=== PATIENT | female | born 1935 | race Asian ===

== ENCOUNTER 2018-08-04 16:59 | Inpatient (IN) | payer MEDICARE, OTHER ==
[2018-08-04 17:50] LABS: ADD MAN DIFF? NO
[2018-08-04 17:56] LABS: BASOPHIL # 0.1 10^3/ul (0.0-0.1); BASOPHILS % 0.6 % (0.0-2.0); EOSINOPHILS # 0.5 10^3/ul (0.0-0.5); EOSINOPHILS % 4.7 % (0.0-7.0); HEMATOCRIT 36.5 % (37.0-47.0); HEMOGLOBIN 10.7 g/dl (12.0-16.0); LYMPHOCYTES # 1.6 10^3/ul (0.8-2.9); LYMPHOCYTES % 14.9 % (15.0-51.0); MEAN CORPUSCULAR HGB CONC 29.3 g/dl (32.0-37.0); MEAN PLATELET VOLUME 10.5 fl (7.4-10.4); MONOCYTE # 0.9 10^3/ul (0.3-0.9); MONOCYTES % 7.9 % (0.0-11.0); NEUTROPHIL # 7.6 10^3/ul (1.6-7.5); NUCLEATED RED BLOOD CELLS # 0.1 10^3/ul (0.0-0.0); NUCLEATED RED BLOOD CELLS% 1.2 /100WBC (0.0-0.0); PLATELET COUNT 263 10^3/UL (140-415); RED BLOOD COUNT 4.45 10^6/ul (4.20-5.40); RED CELL DISTRIBUTION WIDTH 21.8 % (11.5-14.5)
[2018-08-04 17:56] LABS: WHITE BLOOD COUNT 10.7 10^3/ul (4.8-10.8)
[2018-08-04 18:12] LABS: INR 0.97
[2018-08-04 18:14] LABS: ANION GAP 14 (5-13); BLOOD UREA NITROGEN 46 mg/dl (7-20); CALCIUM 8.9 mg/dl (8.4-10.2); CARBON DIOXIDE 26 mmol/L (21-31); CHLORIDE 91 mmol/L (97-110); CREATININE 4.43 mg/dl (0.44-1.00); GLUCOSE 124 mg/dl (70-220); POTASSIUM 3.4 mmol/L (3.5-5.1); SODIUM 131 mmol/L (135-144)
[2018-08-04 18:14] LABS: AMMONIA 23 umol/l (9-30)
[2018-08-04 18:24] LABS: LACTIC ACID 2.5 mmol/L (0.5-2.0)
[2018-08-04 18:26] LABS: TROPONIN-I < 0.012 ng/ml (0.000-0.120)
[2018-08-04] MEDS ORDERED: ACETAMINOPHEN 325 MG TAB PO (19:00)
[2018-08-04] MEDS ORDERED: ONDANSETRON 4 MG INJ IV ×2 (19:00→22:00)
[2018-08-04 20:04] LABS: LACTIC ACID 1.4 mmol/L (0.5-2.0)
[2018-08-04] MEDS ORDERED: POLYETHYLENE GLYCOL 17 GM PACKET GTB (22:00)
[2018-08-04] MEDS ORDERED: DEXTROSE 50% 50 ML SYRINGE IV ×2 (22:30)
[2018-08-04] MEDS ORDERED: GLUCAGON 1 MG INJ IM (22:30)
[2018-08-04] MEDS ORDERED: GLUCOSE GEL 15 GRAM TUBE PO ×2 (22:30)
[2018-08-04] MEDS: FERROUS SULFATE 60 MG/ML 5ML CUP GTB (23:54)
[2018-08-04] MEDS: SENNA TAB GTB (23:55)
[2018-08-04] MEDS: METOPROLOL 25 MG TAB GTB (23:55)
[2018-08-04] MEDS: QUETIAPINE 25 MG TAB GTB (23:55)
[2018-08-05 00:25] LABS: LACTIC ACID 1.2 mmol/L (0.5-2.0)
[2018-08-05] MEDS: ACCU-CHEK XX ×5 (02:16→21:44)
[2018-08-05] MEDS: PANTOPRAZOLE (EC) 40 MG TAB PO (05:59)
[2018-08-05 06:19] LABS: ADD MAN DIFF? NO
[2018-08-05 06:36] LABS: WHITE BLOOD COUNT 7.2 10^3/ul (4.8-10.8)
[2018-08-05 06:36] LABS: BASOPHILS % 0.6 % (0.0-2.0); EOSINOPHILS # 0.6 10^3/ul (0.0-0.5); EOSINOPHILS % 8.3 % (0.0-7.0); HEMATOCRIT 31.3 % (37.0-47.0); HEMOGLOBIN 9.7 g/dl (12.0-16.0); LYMPHOCYTES # 1.1 10^3/ul (0.8-2.9); LYMPHOCYTES % 15.1 % (15.0-51.0); MEAN CORPUSCULAR HEMOGLOBIN 24.4 pg (29.0-33.0); MEAN CORPUSCULAR VOLUME 78.6 fl (82.0-101.0); MEAN PLATELET VOLUME 11.1 fl (7.4-10.4); MONOCYTE # 0.8 10^3/ul (0.3-0.9); MONOCYTES % 10.4 % (0.0-11.0); NEUTROPHIL # 4.7 10^3/ul (1.6-7.5); NEUTROPHILS % 64.5 % (39.0-77.0); NUCLEATED RED BLOOD CELLS # 0.1 10^3/ul (0.0-0.0); NUCLEATED RED BLOOD CELLS% 1.8 /100WBC (0.0-0.0); PLATELET COUNT 316 10^3/UL (140-415); RED BLOOD COUNT 3.98 10^6/ul (4.20-5.40); RED CELL DISTRIBUTION WIDTH 21.2 % (11.5-14.5)
[2018-08-05 06:59] LABS: ALANINE AMINOTRANSFERASE 19 IU/L (13-69); ALBUMIN 3.7 g/dl (3.3-4.9); ALBUMIN/GLOBULIN RATIO 1.15; ALKALINE PHOSPHATASE 60 IU/L (42-121); ANION GAP 12 (5-13); ASPARTATE AMINO TRANSFERASE 22 IU/L (15-46); BILIRUBIN,INDIRECT 0.7 mg/dl (0-1.1); BILIRUBIN,TOTAL 0.7 mg/dl (0.2-1.3); BLOOD UREA NITROGEN 49 mg/dl (7-20); CARBON DIOXIDE 28 mmol/L (21-31); CHLORIDE 91 mmol/L (97-110); CREATININE 4.95 mg/dl (0.44-1.00); GLUCOSE 107 mg/dl (70-220); POTASSIUM 3.6 mmol/L (3.5-5.1); SODIUM 131 mmol/L (135-144); TOTAL PROTEIN 6.9 g/dl (6.1-8.1)
[2018-08-05 07:21] LABS: THYROID STIMULATING HORMONE 0.863 MIU/L (0.465-4.680)
[2018-08-05 07:27] LABS: HEMOGLOBIN A1C 5.2 % (0-5.9)
[2018-08-05] MEDS: DOCUSATE SODIUM 10 MG/ML (10ML CUP) GTB (08:27)
[2018-08-05] MEDS: FERROUS SULFATE 60 MG/ML 5ML CUP GTB ×2 (08:28→21:43)
[2018-08-05] MEDS: LINAGLIPTIN 5 MG TABLET G-TUBE (08:28)
[2018-08-05] MEDS: FOLIC ACID 1 MG TAB GTB (08:28)
[2018-08-05] MEDS: SENNA TAB GTB ×2 (08:29→21:43)
[2018-08-05] MEDS: QUETIAPINE 25 MG TAB GTB ×2 (08:29→21:43)
[2018-08-05] MEDS: SEVELAMER CARBONATE 0.8 GM PKT GTB (08:29)
[2018-08-05] MEDS: MULTIVIT/CA CARB/B CMPLX/FA TAB GTB (08:29)
[2018-08-05] MEDS: METOPROLOL 25 MG TAB GTB (08:31)
[2018-08-05] MEDS: INSULIN ASPART [NOVOLOG] 3 ML PEN SC ×4 (08:39→21:00)
[2018-08-05] MEDS: INSULIN DETEMIR [LEVEMIR] (100 UNITS/ML) SYG SC (08:40)
[2018-08-05] MEDS: SOD CHLORIDE 0.9% 500 ML IV (13:33)
[2018-08-05] MEDS ORDERED: VANCOMYCIN IV PER PHARMACY XX (15:00)
[2018-08-05 16:53] LABS: ADD UMIC YES; UR AMORPHOUS CRYSTAL MODERATE /HPF (NONE SEEN); UR ASCORBIC ACID NEGATIVE (NEGATIVE); UR BACTERIA MODERATE /HPF (NONE SEEN); UR BILIRUBIN (Dip) 2+ mg/dL (NEGATIVE); UR BLOOD (Dip) NEGATIVE (NEGATIVE); UR CLARITY TURBID (CLEAR); UR COLOR AMBER (YELLOW); UR GLUCOSE (Dip) NEGATIVE (NEGATIVE); UR GRANULAR CAST FEW /HPF (NONE SEEN); UR KETONES (Dip) NEGATIVE (NEGATIVE); UR LEUKOCYTE ESTERASE (Dip) 2+ Leu/ul (NEGATIVE); UR MUCUS MANY /HPF (NONE SEEN); UR NITRITE (Dip) NEGATIVE (NEGATIVE); UR RBC 18 /HPF (0-5); UR SPECIFIC GRAVITY (Dip) 1.023 (1.003-1.030); UR SQUAMOUS EPITHELIAL CELL MANY /HPF (FEW); UR TOTAL PROTEIN (Dip) 2+ mg/dl (NEGATIVE); UR UROBILINOGEN (Dip) NEGATIVE (NEGATIVE); UR WBC 128 /HPF (0-5)
[2018-08-05] MEDS: VANCOMYCIN 1 GM 250 ML IVPB (17:56)
[2018-08-05] MEDS: GLUCOSE GEL 15 GRAM TUBE BUCCAL ×2 (21:10→21:33)
[2018-08-05] MEDS: CEFTRIAXONE 1 GM/50 ML (PMX) 50 ML IVPB (21:44)
[2018-08-05 21:47] LABS: GLUCOSE 59 mg/dl (70-220)
[2018-08-06] MEDS: ACCU-CHEK XX ×5 (02:00→21:00)
[2018-08-06] MEDS: PANTOPRAZOLE (EC) 40 MG TAB PO (05:21)
[2018-08-06 07:03] LABS: ADD MAN DIFF? NO
[2018-08-06 07:13] LABS: WHITE BLOOD COUNT 7.6 10^3/ul (4.8-10.8)
[2018-08-06 07:13] LABS: BASOPHILS % 0.1 % (0.0-2.0); EOSINOPHILS # 0.5 10^3/ul (0.0-0.5); EOSINOPHILS % 6.3 % (0.0-7.0); HEMATOCRIT 29.5 % (37.0-47.0); HEMOGLOBIN 9.1 g/dl (12.0-16.0); LYMPHOCYTES # 1.1 10^3/ul (0.8-2.9); LYMPHOCYTES % 13.8 % (15.0-51.0); MEAN CORPUSCULAR HEMOGLOBIN 24.4 pg (29.0-33.0); MEAN CORPUSCULAR HGB CONC 30.8 g/dl (32.0-37.0); MEAN CORPUSCULAR VOLUME 79.1 fl (82.0-101.0); MEAN PLATELET VOLUME 11.1 fl (7.4-10.4); MONOCYTE # 0.6 10^3/ul (0.3-0.9); MONOCYTES % 7.4 % (0.0-11.0); NEUTROPHIL # 5.4 10^3/ul (1.6-7.5); NEUTROPHILS % 71.5 % (39.0-77.0); NUCLEATED RED BLOOD CELLS # 0.1 10^3/ul (0.0-0.0); NUCLEATED RED BLOOD CELLS% 1.3 /100WBC (0.0-0.0); PLATELET COUNT 313 10^3/UL (140-415); RED BLOOD COUNT 3.73 10^6/ul (4.20-5.40); RED CELL DISTRIBUTION WIDTH 21.3 % (11.5-14.5)
[2018-08-06 07:41] LABS: ANION GAP 14 (5-13); BLOOD UREA NITROGEN 75 mg/dl (7-20); CALCIUM 8.3 mg/dl (8.4-10.2); CARBON DIOXIDE 25 mmol/L (21-31); CHLORIDE 93 mmol/L (97-110); GLUCOSE 170 mg/dl (70-220); POTASSIUM 3.4 mmol/L (3.5-5.1); SODIUM 132 mmol/L (135-144)
[2018-08-06 07:43] LABS: MAGNESIUM 2.4 mg/dl (1.7-2.5)
[2018-08-06] MEDS: SENNA TAB GTB ×2 (09:13→20:44)
[2018-08-06] MEDS: DOCUSATE SODIUM 10 MG/ML (10ML CUP) GTB (09:14)
[2018-08-06] MEDS: FERROUS SULFATE 60 MG/ML 5ML CUP GTB ×2 (09:14→20:44)
[2018-08-06] MEDS: QUETIAPINE 25 MG TAB GTB ×2 (09:14→20:44)
[2018-08-06] MEDS: LINAGLIPTIN 5 MG TABLET G-TUBE (09:14)
[2018-08-06] MEDS: MULTIVIT/CA CARB/B CMPLX/FA TAB GTB (09:14)
[2018-08-06] MEDS: SEVELAMER CARBONATE 0.8 GM PKT GTB (09:14)
[2018-08-06] MEDS: FOLIC ACID 1 MG TAB GTB (09:14)
[2018-08-06] MEDS ORDERED: POTASSIUM CHLORIDE (SR) 10 MEQ TAB PO (10:30)
[2018-08-06] MEDS ORDERED: ALBUMIN HUMAN 25% 50 ML IV (10:30)
[2018-08-06 12:07] LABS: HEPATITIS B SURFACE ANTIGEN NEGATIVE (NEGATIVE)
[2018-08-06 12:27] LABS: HEPATITIS B SURFACE ANTIBODY POSITIVE (NEGATIVE)
[2018-08-06] MEDS: POTASSIUM CHLORIDE 20 MEQ POWDER FOR ORAL SOLN GTB (13:33)
[2018-08-06] MEDS: HEPARIN 1000 UNITS/ML 10 ML INJ CATHETER (17:50)
[2018-08-06] MEDS: ACETAMINOPHEN 650MG/20.3ML CUP GTB (20:50)
[2018-08-06] MEDS: CEFTRIAXONE 1 GM/50 ML (PMX) 50 ML IVPB (20:50)
[2018-08-07] MEDS: ACCU-CHEK XX ×5 (02:00→21:00)
[2018-08-07] MEDS: LORAZEPAM 1 MG TAB GTB (02:16)
[2018-08-07] MEDS: PANTOPRAZOLE (EC) 40 MG TAB PO (05:18)
[2018-08-07 06:34] LABS: ANION GAP 6 (5-13); BLOOD UREA NITROGEN 22 mg/dl (7-20); CALCIUM 8.7 mg/dl (8.4-10.2); CARBON DIOXIDE 30 mmol/L (21-31); CHLORIDE 107 mmol/L (97-110); CREATININE 1.69 mg/dl (0.44-1.00); GLUCOSE 103 mg/dl (70-220); POTASSIUM 4.4 mmol/L (3.5-5.1); SODIUM 143 mmol/L (135-144)
[2018-08-07 06:50] LABS: VANCOMYCIN,RANDOM 10.5 ug/ml
[2018-08-07] MEDS: LINAGLIPTIN 5 MG TABLET G-TUBE (09:13)
[2018-08-07] MEDS: MULTIVIT/CA CARB/B CMPLX/FA TAB GTB (09:23)
[2018-08-07] MEDS: SENNA TAB GTB ×2 (09:23→21:51)
[2018-08-07] MEDS: FOLIC ACID 1 MG TAB GTB (09:23)
[2018-08-07] MEDS: FERROUS SULFATE 60 MG/ML 5ML CUP GTB ×2 (09:23→21:51)
[2018-08-07] MEDS: QUETIAPINE 25 MG TAB GTB ×2 (09:23→21:51)
[2018-08-07] MEDS: DOCUSATE SODIUM 10 MG/ML (10ML CUP) GTB (09:23)
[2018-08-07] MEDS: [UNRECOGNIZED DRUG - OTHER] XX (09:30)
[2018-08-07] MEDS: LINEZOLID 600 MG/D5W (PMX) 300 ML IVPB ×2 (11:30→21:50)
[2018-08-07] MEDS: ACETAMINOPHEN 650MG/20.3ML CUP GTB (16:59)
[2018-08-08] MEDS: LORAZEPAM 1 MG TAB GTB (01:43)
[2018-08-08] MEDS: ACCU-CHEK XX ×5 (02:00→21:33)
[2018-08-08] MEDS: PANTOPRAZOLE (EC) 40 MG TAB PO (05:51)
[2018-08-08 05:55] LABS: ADD MAN DIFF? NO
[2018-08-08 06:00] LABS: BASOPHILS % 0.4 % (0.0-2.0); EOSINOPHILS % 14.4 % (0.0-7.0); HEMATOCRIT 31.1 % (37.0-47.0); HEMOGLOBIN 9.1 g/dl (12.0-16.0); LYMPHOCYTES # 1.4 10^3/ul (0.8-2.9); LYMPHOCYTES % 20.5 % (15.0-51.0); MEAN CORPUSCULAR HGB CONC 29.3 g/dl (32.0-37.0); MEAN CORPUSCULAR VOLUME 82.1 fl (82.0-101.0); MEAN PLATELET VOLUME 10.9 fl (7.4-10.4); MONOCYTE # 0.8 10^3/ul (0.3-0.9); NEUTROPHIL # 3.6 10^3/ul (1.6-7.5); NEUTROPHILS % 52.1 % (39.0-77.0); NUCLEATED RED BLOOD CELLS% 0.6 /100WBC (0.0-0.0); PLATELET COUNT 289 10^3/UL (140-415); RED BLOOD COUNT 3.79 10^6/ul (4.20-5.40); RED CELL DISTRIBUTION WIDTH 21.7 % (11.5-14.5)
[2018-08-08 06:00] LABS: WHITE BLOOD COUNT 6.9 10^3/ul (4.8-10.8)
[2018-08-08 06:21] LABS: PHOSPHORUS 2.2 mg/dl (2.5-4.9)
[2018-08-08 06:21] LABS: MAGNESIUM 2.4 mg/dl (1.7-2.5)
[2018-08-08 06:29] LABS: ANION GAP 8 (5-13); BLOOD UREA NITROGEN 43 mg/dl (7-20); CALCIUM 8.8 mg/dl (8.4-10.2); CARBON DIOXIDE 31 mmol/L (21-31); CHLORIDE 105 mmol/L (97-110); CREATININE 2.27 mg/dl (0.44-1.00); GLUCOSE 83 mg/dl (70-220); SODIUM 144 mmol/L (135-144)
[2018-08-08] MEDS: QUETIAPINE 25 MG TAB GTB ×2 (08:36→20:18)
[2018-08-08] MEDS: MULTIVIT/CA CARB/B CMPLX/FA TAB GTB (08:36)
[2018-08-08] MEDS: FERROUS SULFATE 60 MG/ML 5ML CUP GTB ×2 (08:36→20:18)
[2018-08-08] MEDS: FOLIC ACID 1 MG TAB GTB (08:36)
[2018-08-08] MEDS: LINAGLIPTIN 5 MG TABLET G-TUBE (09:29)
[2018-08-08] MEDS: SENNA TAB GTB ×2 (09:29→20:18)
[2018-08-08] MEDS: DOCUSATE SODIUM 10 MG/ML (10ML CUP) GTB (09:29)
[2018-08-08] MEDS: LINEZOLID 600 MG/D5W (PMX) 300 ML IVPB ×2 (09:30→20:18)
[2018-08-08] MEDS ORDERED: CALAMINE 170 ML LOT TOP (14:00)
[2018-08-08] MEDS: HEPARIN 1000 UNITS/ML 10 ML INJ CATHETER (14:22)
[2018-08-08] MEDS: AMLODIPINE 5 MG TAB GTB (20:18)
[2018-08-08] MEDS: INSULIN ASPART [NOVOLOG] 3 ML PEN SC (23:07)
[2018-08-09] MEDS: LORAZEPAM 1 MG TAB GTB (01:44)
[2018-08-09] MEDS: ACCU-CHEK XX ×5 (01:44→21:37)
[2018-08-09] MEDS: LANSOPRAZOLE 30 MG CAP GTB (06:24)
[2018-08-09] MEDS: FERROUS SULFATE 60 MG/ML 5ML CUP GTB ×2 (09:19→21:09)
[2018-08-09] MEDS: DOCUSATE SODIUM 10 MG/ML (10ML CUP) GTB (09:19)
[2018-08-09] MEDS: MULTIVIT/CA CARB/B CMPLX/FA TAB GTB (09:19)
[2018-08-09] MEDS: AMLODIPINE 5 MG TAB GTB ×2 (09:20→21:11)
[2018-08-09] MEDS: METOPROLOL 50 MG TAB GTB ×2 (09:20→21:11)
[2018-08-09] MEDS: SENNA TAB GTB ×2 (09:20→21:10)
[2018-08-09] MEDS: FOLIC ACID 1 MG TAB GTB (09:20)
[2018-08-09] MEDS: QUETIAPINE 25 MG TAB GTB ×2 (09:21→21:11)
[2018-08-09] MEDS: LINAGLIPTIN 5 MG TABLET G-TUBE (09:27)
[2018-08-09] MEDS: hydrOXYzine HCL 25 MG TAB GTB (09:27)
[2018-08-09] MEDS: LINEZOLID 600 MG/D5W (PMX) 300 ML IVPB ×2 (11:42→21:54)
[2018-08-09] MEDS ORDERED: ALBUMIN HUMAN 25% 100 ML IV (19:00)
[2018-08-10] MEDS: ACCU-CHEK XX ×5 (01:57→21:03)
[2018-08-10 05:42] LABS: ADD MAN DIFF? NO
[2018-08-10] MEDS: LANSOPRAZOLE 30 MG CAP GTB (05:50)
[2018-08-10 05:52] LABS: WHITE BLOOD COUNT 6.4 10^3/ul (4.8-10.8)
[2018-08-10 05:52] LABS: BASOPHILS % 0.5 % (0.0-2.0); EOSINOPHILS # 0.7 10^3/ul (0.0-0.5); EOSINOPHILS % 11.4 % (0.0-7.0); HEMATOCRIT 32.5 % (37.0-47.0); HEMOGLOBIN 9.9 g/dl (12.0-16.0); LYMPHOCYTES # 1.1 10^3/ul (0.8-2.9); LYMPHOCYTES % 17.8 % (15.0-51.0); MEAN CORPUSCULAR HEMOGLOBIN 24.3 pg (29.0-33.0); MEAN CORPUSCULAR HGB CONC 30.5 g/dl (32.0-37.0); MEAN CORPUSCULAR VOLUME 79.7 fl (82.0-101.0); MEAN PLATELET VOLUME 11.3 fl (7.4-10.4); MONOCYTE # 0.6 10^3/ul (0.3-0.9); MONOCYTES % 9.2 % (0.0-11.0); NEUTROPHIL # 3.9 10^3/ul (1.6-7.5); NEUTROPHILS % 60.8 % (39.0-77.0); NUCLEATED RED BLOOD CELLS # 0.1 10^3/ul (0.0-0.0); NUCLEATED RED BLOOD CELLS% 0.8 /100WBC (0.0-0.0); PLATELET COUNT 270 10^3/UL (140-415); RED BLOOD COUNT 4.08 10^6/ul (4.20-5.40); RED CELL DISTRIBUTION WIDTH 21.3 % (11.5-14.5)
[2018-08-10 06:11] LABS: ANION GAP 8 (5-13); BLOOD UREA NITROGEN 31 mg/dl (7-20); CALCIUM 9.2 mg/dl (8.4-10.2); CARBON DIOXIDE 30 mmol/L (21-31); CHLORIDE 99 mmol/L (97-110); CREATININE 2.07 mg/dl (0.44-1.00); GLUCOSE 124 mg/dl (70-220); POTASSIUM 4.5 mmol/L (3.5-5.1); SODIUM 137 mmol/L (135-144)
[2018-08-10] MEDS: FOLIC ACID 1 MG TAB GTB (09:24)
[2018-08-10] MEDS: QUETIAPINE 25 MG TAB GTB ×2 (09:24→21:03)
[2018-08-10] MEDS: MULTIVIT/CA CARB/B CMPLX/FA TAB GTB (09:24)
[2018-08-10] MEDS: SENNA TAB GTB ×2 (09:24→21:02)
[2018-08-10] MEDS: DOCUSATE SODIUM 10 MG/ML (10ML CUP) GTB (09:24)
[2018-08-10] MEDS: LINAGLIPTIN 5 MG TABLET G-TUBE (09:24)
[2018-08-10] MEDS: FERROUS SULFATE 60 MG/ML 5ML CUP GTB ×2 (09:25→21:02)
[2018-08-10] MEDS: HEPARIN 1000 UNITS/ML 10 ML INJ CATHETER (09:34)
[2018-08-10] MEDS: LINEZOLID 600 MG/D5W (PMX) 300 ML IVPB ×2 (10:49→21:15)
[2018-08-10] MEDS: AMLODIPINE 5 MG TAB GTB ×2 (11:06→21:03)
[2018-08-10] MEDS: METOPROLOL 50 MG TAB GTB ×2 (11:06→21:02)
[2018-08-10] MEDS: LIDOCAINE 1% (MPF) 5 ML VIAL INJ (13:52)
[2018-08-11] MEDS: ACCU-CHEK XX ×5 (02:23→21:40)
[2018-08-11] MEDS: LANSOPRAZOLE 30 MG CAP GTB (05:21)
[2018-08-11] MEDS: FERROUS SULFATE 60 MG/ML 5ML CUP GTB ×2 (08:49→21:38)
[2018-08-11] MEDS: AMLODIPINE 5 MG TAB GTB ×2 (08:50→21:39)
[2018-08-11] MEDS: MULTIVIT/CA CARB/B CMPLX/FA TAB GTB (08:51)
[2018-08-11] MEDS: LINAGLIPTIN 5 MG TABLET G-TUBE (08:51)
[2018-08-11] MEDS: FOLIC ACID 1 MG TAB GTB (08:51)
[2018-08-11] MEDS: QUETIAPINE 25 MG TAB GTB ×2 (08:51→21:39)
[2018-08-11] MEDS: SENNA TAB GTB ×2 (08:51→21:39)
[2018-08-11] MEDS: METOPROLOL 50 MG TAB GTB ×2 (08:52→21:39)
[2018-08-11] MEDS: DOCUSATE SODIUM 10 MG/ML (10ML CUP) GTB (08:58)
[2018-08-11] MEDS: LINEZOLID 600 MG/D5W (PMX) 300 ML IVPB ×2 (10:21→21:42)
[2018-08-11] MEDS: LORAZEPAM 1 MG TAB GTB ×2 (14:30→22:30)
[2018-08-11] MEDS: hydrOXYzine HCL 25 MG TAB GTB (23:17)
[2018-08-12] MEDS: ACCU-CHEK XX ×6 (01:31→21:27)
[2018-08-12] MEDS: hydrOXYzine HCL 25 MG TAB GTB (04:39)
[2018-08-12 06:06] LABS: ADD MAN DIFF? NO
[2018-08-12 06:11] LABS: WHITE BLOOD COUNT 7.1 10^3/ul (4.8-10.8)
[2018-08-12 06:11] LABS: BASOPHILS % 0.3 % (0.0-2.0); EOSINOPHILS % 13.6 % (0.0-7.0); HEMATOCRIT 28.6 % (37.0-47.0); HEMOGLOBIN 8.8 g/dl (12.0-16.0); LYMPHOCYTES # 1.4 10^3/ul (0.8-2.9); LYMPHOCYTES % 19.1 % (15.0-51.0); MEAN CORPUSCULAR HEMOGLOBIN 24.5 pg (29.0-33.0); MEAN CORPUSCULAR HGB CONC 30.8 g/dl (32.0-37.0); MEAN CORPUSCULAR VOLUME 79.7 fl (82.0-101.0); MEAN PLATELET VOLUME 11.9 fl (7.4-10.4); MONOCYTE # 0.6 10^3/ul (0.3-0.9); MONOCYTES % 8.4 % (0.0-11.0); NEUTROPHIL # 4.1 10^3/ul (1.6-7.5); NEUTROPHILS % 58.2 % (39.0-77.0); PLATELET COUNT 218 10^3/UL (140-415); RED BLOOD COUNT 3.59 10^6/ul (4.20-5.40); RED CELL DISTRIBUTION WIDTH 19.8 % (11.5-14.5)
[2018-08-12] MEDS: LANSOPRAZOLE 30 MG CAP GTB (06:14)
[2018-08-12 06:57] LABS: PHOSPHORUS 4.6 mg/dl (2.5-4.9)
[2018-08-12 06:57] LABS: MAGNESIUM 2.1 mg/dl (1.7-2.5)
[2018-08-12 07:17] LABS: ANION GAP 10 (5-13); BLOOD UREA NITROGEN 49 mg/dl (7-20); CALCIUM 8.6 mg/dl (8.4-10.2); CARBON DIOXIDE 29 mmol/L (21-31); CHLORIDE 94 mmol/L (97-110); CREATININE 2.45 mg/dl (0.44-1.00); GLUCOSE 162 mg/dl (70-220); POTASSIUM 4.5 mmol/L (3.5-5.1); SODIUM 133 mmol/L (135-144)
[2018-08-12] MEDS: FOLIC ACID 1 MG TAB GTB (08:14)
[2018-08-12] MEDS: SENNA TAB GTB ×2 (08:15→20:23)
[2018-08-12] MEDS: FERROUS SULFATE 60 MG/ML 5ML CUP GTB ×2 (08:15→20:23)
[2018-08-12] MEDS: AMLODIPINE 5 MG TAB GTB ×2 (08:15→20:23)
[2018-08-12] MEDS: MULTIVIT/CA CARB/B CMPLX/FA TAB GTB (08:15)
[2018-08-12] MEDS: QUETIAPINE 25 MG TAB GTB ×2 (08:15→20:23)
[2018-08-12] MEDS: DOCUSATE SODIUM 10 MG/ML (10ML CUP) GTB (08:15)
[2018-08-12] MEDS: METOPROLOL 50 MG TAB GTB ×2 (08:15→20:23)
[2018-08-12] MEDS: LINAGLIPTIN 5 MG TABLET G-TUBE (08:16)
[2018-08-12] MEDS: LINEZOLID 600 MG/D5W (PMX) 300 ML IVPB ×3 (10:25→21:59)
[2018-08-12] MEDS: LORAZEPAM 1 MG TAB GTB (21:42)
[2018-08-13] MEDS: LANSOPRAZOLE 30 MG CAP GTB (05:37)
[2018-08-13] MEDS: ACCU-CHEK XX ×4 (07:00→20:18)
[2018-08-13] MEDS ORDERED: LIDOCAINE 2% (MDV) 20 ML INJ (08:50)
[2018-08-13] MEDS ORDERED: HEPARIN 1000 UNITS/ML 10 ML INJ (08:51)
[2018-08-13] MEDS: AMLODIPINE 5 MG TAB GTB ×2 (09:00→20:13)
[2018-08-13] MEDS: METOPROLOL 50 MG TAB GTB ×2 (09:00→20:13)
[2018-08-13] MEDS: FERROUS SULFATE 60 MG/ML 5ML CUP GTB ×2 (09:47→20:14)
[2018-08-13] MEDS: LINAGLIPTIN 5 MG TABLET G-TUBE (09:47)
[2018-08-13] MEDS: LORAZEPAM 1 MG TAB GTB ×2 (09:47→16:57)
[2018-08-13] MEDS: QUETIAPINE 25 MG TAB GTB ×2 (09:48→20:13)
[2018-08-13] MEDS: DOCUSATE SODIUM 10 MG/ML (10ML CUP) GTB (09:48)
[2018-08-13] MEDS: MULTIVIT/CA CARB/B CMPLX/FA TAB GTB (09:48)
[2018-08-13] MEDS: SENNA TAB GTB ×2 (09:48→20:13)
[2018-08-13] MEDS: FOLIC ACID 1 MG TAB GTB (09:48)
[2018-08-13] MEDS: LINEZOLID 600 MG/D5W (PMX) 300 ML IVPB (10:21)
[2018-08-13] MEDS: HEPARIN 1000 UNITS/ML 10 ML INJ CATHETER (19:42)
[2018-08-13] MEDS: ZYVOX 600 MG TAB GTB (20:12)
[2018-08-13] MEDS: ACETAMINOPHEN 650MG/20.3ML CUP GTB (20:14)
[2018-08-13] MEDS: LORAZEPAM 2 MG INJ IV (22:18)
[2018-08-14] MEDS: HALOPERIDOL 5 MG INJ IM ×3 (00:27→22:53)
[2018-08-14] MEDS: hydrALAzine 20 MG INJ IV (00:28)
[2018-08-14] MEDS ORDERED: DIPHENHYDRAMINE 50 MG INJ (01:23)
[2018-08-14] MEDS: LORAZEPAM 2 MG INJ IV (01:26)
[2018-08-14] MEDS: DIPHENHYDRAMINE 50 MG INJ IV (01:26)
[2018-08-14 01:29] LABS: ADD MAN DIFF? NO
[2018-08-14 01:32] LABS: WHITE BLOOD COUNT 8.6 10^3/ul (4.8-10.8)
[2018-08-14 01:32] LABS: BASOPHILS % 0.2 % (0.0-2.0); EOSINOPHILS # 0.4 10^3/ul (0.0-0.5); EOSINOPHILS % 4.5 % (0.0-7.0); HEMOGLOBIN 7.5 g/dl (12.0-16.0); LYMPHOCYTES # 1.5 10^3/ul (0.8-2.9); LYMPHOCYTES % 17.3 % (15.0-51.0); MEAN CORPUSCULAR HEMOGLOBIN 24.3 pg (29.0-33.0); MEAN CORPUSCULAR HGB CONC 31.3 g/dl (32.0-37.0); MEAN CORPUSCULAR VOLUME 77.7 fl (82.0-101.0); MEAN PLATELET VOLUME 9.8 fl (7.4-10.4); MONOCYTE # 0.6 10^3/ul (0.3-0.9); MONOCYTES % 7.5 % (0.0-11.0); NUCLEATED RED BLOOD CELLS% 0.3 /100WBC (0.0-0.0); PLATELET COUNT 182 10^3/UL (140-415); RED BLOOD COUNT 3.09 10^6/ul (4.20-5.40); RED CELL DISTRIBUTION WIDTH 19.3 % (11.5-14.5)
[2018-08-14 01:51] LABS: MAGNESIUM 2.1 mg/dl (1.7-2.5)
[2018-08-14 01:52] LABS: ANION GAP 7 (5-13); BLOOD UREA NITROGEN 31 mg/dl (7-20); CALCIUM 8.7 mg/dl (8.4-10.2); CARBON DIOXIDE 29 mmol/L (21-31); CHLORIDE 95 mmol/L (97-110); GLUCOSE 166 mg/dl (70-220); POTASSIUM 4.2 mmol/L (3.5-5.1); SODIUM 131 mmol/L (135-144)
[2018-08-14 01:54] LABS: PHOSPHORUS 2.5 mg/dl (2.5-4.9)
[2018-08-14] MEDS: ACCU-CHEK XX ×5 (02:00→21:26)
[2018-08-14] MEDS: LANSOPRAZOLE 30 MG CAP GTB (06:11)
[2018-08-14] MEDS: ZYVOX 600 MG TAB GTB ×3 (08:24→23:44)
[2018-08-14] MEDS: DOCUSATE SODIUM 10 MG/ML (10ML CUP) GTB (08:24)
[2018-08-14] MEDS: FERROUS SULFATE 60 MG/ML 5ML CUP GTB ×2 (08:24→21:26)
[2018-08-14] MEDS: FOLIC ACID 1 MG TAB GTB (08:24)
[2018-08-14] MEDS: MULTIVIT/CA CARB/B CMPLX/FA TAB GTB (08:24)
[2018-08-14] MEDS: LINAGLIPTIN 5 MG TABLET G-TUBE (08:25)
[2018-08-14] MEDS: SENNA TAB GTB ×2 (08:25→21:26)
[2018-08-14] MEDS: QUETIAPINE 25 MG TAB GTB ×2 (08:26→21:24)
[2018-08-14] MEDS: AMLODIPINE 5 MG TAB GTB ×2 (08:26→21:24)
[2018-08-14] MEDS: METOPROLOL 50 MG TAB GTB ×2 (08:26→21:25)
[2018-08-14] MEDS ORDERED: SODIUM CHLORIDE 0.9% 1L BAG IV (17:00)
[2018-08-14] MEDS: LORAZEPAM 1 MG TAB GTB (21:24)
[2018-08-14 23:27] LABS: IMMEDIATE SPIN CROSSMATCH 1 4
[2018-08-15] MEDS: hydrOXYzine HCL 25 MG TAB GTB (00:14)
[2018-08-15] MEDS: ACCU-CHEK XX ×5 (01:25→20:56)
[2018-08-15 05:05] LABS: ADD MAN DIFF? NO
[2018-08-15 05:11] LABS: WHITE BLOOD COUNT 9.1 10^3/ul (4.8-10.8)
[2018-08-15 05:11] LABS: BASOPHILS % 0.2 % (0.0-2.0); EOSINOPHILS # 0.8 10^3/ul (0.0-0.5); EOSINOPHILS % 9.1 % (0.0-7.0); HEMATOCRIT 27.3 % (37.0-47.0); HEMOGLOBIN 8.7 g/dl (12.0-16.0); LYMPHOCYTES # 1.7 10^3/ul (0.8-2.9); LYMPHOCYTES % 18.3 % (15.0-51.0); MEAN CORPUSCULAR HEMOGLOBIN 25.5 pg (29.0-33.0); MEAN CORPUSCULAR HGB CONC 31.9 g/dl (32.0-37.0); MEAN CORPUSCULAR VOLUME 80.1 fl (82.0-101.0); MEAN PLATELET VOLUME 11.1 fl (7.4-10.4); MONOCYTE # 0.6 10^3/ul (0.3-0.9); MONOCYTES % 6.8 % (0.0-11.0); NEUTROPHILS % 65.4 % (39.0-77.0); PLATELET COUNT 143 10^3/UL (140-415); RED BLOOD COUNT 3.41 10^6/ul (4.20-5.40); RED CELL DISTRIBUTION WIDTH 18.8 % (11.5-14.5)
[2018-08-15 05:32] LABS: ANION GAP 12 (5-13); BLOOD UREA NITROGEN 65 mg/dl (7-20); CALCIUM 8.9 mg/dl (8.4-10.2); CARBON DIOXIDE 26 mmol/L (21-31); CHLORIDE 97 mmol/L (97-110); CREATININE 2.27 mg/dl (0.44-1.00); GLUCOSE 145 mg/dl (70-220); POTASSIUM 4.5 mmol/L (3.5-5.1); SODIUM 135 mmol/L (135-144)
[2018-08-15 05:39] LABS: PHOSPHORUS 4.4 mg/dl (2.5-4.9)
[2018-08-15 05:39] LABS: MAGNESIUM 2.5 mg/dl (1.7-2.5)
[2018-08-15] MEDS: LANSOPRAZOLE 30 MG CAP GTB (05:53)
[2018-08-15] MEDS: DOCUSATE SODIUM 10 MG/ML (10ML CUP) GTB (08:57)
[2018-08-15] MEDS: FERROUS SULFATE 60 MG/ML 5ML CUP GTB ×2 (08:57→20:54)
[2018-08-15] MEDS: FOLIC ACID 1 MG TAB GTB (08:58)
[2018-08-15] MEDS: METOPROLOL 50 MG TAB GTB ×2 (08:58→20:56)
[2018-08-15] MEDS: QUETIAPINE 25 MG TAB GTB ×2 (08:58→20:55)
[2018-08-15] MEDS: ZYVOX 600 MG TAB GTB (08:58)
[2018-08-15] MEDS: MULTIVIT/CA CARB/B CMPLX/FA TAB GTB (08:58)
[2018-08-15] MEDS: AMLODIPINE 5 MG TAB GTB ×2 (08:59→20:55)
[2018-08-15] MEDS: LINAGLIPTIN 5 MG TABLET G-TUBE (08:59)
[2018-08-15] MEDS: SENNA TAB GTB ×2 (08:59→20:55)
[2018-08-15] MEDS ORDERED: SOD CHLORIDE 0.9% IVPB ×2 (14:30→16:00)
[2018-08-15] MEDS ORDERED: DAPTOMYCIN IVPB ×2 (14:30→16:00)
[2018-08-15] MEDS: LORAZEPAM 1 MG TAB GTB (16:56)
[2018-08-15] MEDS: SOD CHLORIDE 0.9% IVPB (20:54)
[2018-08-15] MEDS: DAPTOMYCIN IVPB (20:54)
[2018-08-16] MEDS: ACCU-CHEK XX ×5 (02:25→20:18)
[2018-08-16] MEDS: LANSOPRAZOLE 30 MG CAP GTB (06:26)
[2018-08-16 08:56] LABS: ADD MAN DIFF? NO
[2018-08-16 08:59] LABS: BASOPHILS % 0.4 % (0.0-2.0); EOSINOPHILS # 0.5 10^3/ul (0.0-0.5); HEMATOCRIT 24.3 % (37.0-47.0); HEMOGLOBIN 7.7 g/dl (12.0-16.0); LYMPHOCYTES # 0.9 10^3/ul (0.8-2.9); MEAN CORPUSCULAR HEMOGLOBIN 25.5 pg (29.0-33.0); MEAN CORPUSCULAR HGB CONC 31.7 g/dl (32.0-37.0); MEAN CORPUSCULAR VOLUME 80.5 fl (82.0-101.0); MONOCYTE # 0.5 10^3/ul (0.3-0.9); MONOCYTES % 6.8 % (0.0-11.0); NEUTROPHIL # 4.9 10^3/ul (1.6-7.5); NEUTROPHILS % 72.5 % (39.0-77.0); PLATELET COUNT 135 10^3/UL (140-415); RED BLOOD COUNT 3.02 10^6/ul (4.20-5.40); RED CELL DISTRIBUTION WIDTH 19.1 % (11.5-14.5)
[2018-08-16 08:59] LABS: WHITE BLOOD COUNT 6.8 10^3/ul (4.8-10.8)
[2018-08-16 09:21] LABS: CREATINE KINASE 98 IU/L (23-200)
[2018-08-16 09:22] LABS: PHOSPHORUS 3.6 mg/dl (2.5-4.9)
[2018-08-16 09:22] LABS: MAGNESIUM 2.4 mg/dl (1.7-2.5)
[2018-08-16 09:27] LABS: ANION GAP 7 (5-13); BLOOD UREA NITROGEN 32 mg/dl (7-20); CALCIUM 8.9 mg/dl (8.4-10.2); CARBON DIOXIDE 31 mmol/L (21-31); CHLORIDE 102 mmol/L (97-110); GLUCOSE 126 mg/dl (70-220); POTASSIUM 4.2 mmol/L (3.5-5.1); SODIUM 140 mmol/L (135-144)
[2018-08-16] MEDS: FERROUS SULFATE 60 MG/ML 5ML CUP GTB ×2 (10:00→20:12)
[2018-08-16] MEDS: DOCUSATE SODIUM 10 MG/ML (10ML CUP) GTB (10:00)
[2018-08-16] MEDS: FOLIC ACID 1 MG TAB GTB (10:01)
[2018-08-16] MEDS: QUETIAPINE 25 MG TAB GTB ×2 (10:01→20:11)
[2018-08-16] MEDS: MULTIVIT/CA CARB/B CMPLX/FA TAB GTB (10:01)
[2018-08-16] MEDS: SENNA TAB GTB ×2 (10:01→20:12)
[2018-08-16] MEDS: METOPROLOL 50 MG TAB GTB ×2 (10:02→20:12)
[2018-08-16] MEDS: LINAGLIPTIN 5 MG TABLET G-TUBE (10:02)
[2018-08-16] MEDS: hydrOXYzine HCL 25 MG TAB GTB (10:03)
[2018-08-16] MEDS: AMLODIPINE 5 MG TAB GTB ×2 (10:03→20:11)
[2018-08-17] MEDS: LORAZEPAM 1 MG TAB GTB ×2 (00:20→16:20)
[2018-08-17] MEDS: ACCU-CHEK XX ×5 (01:52→21:32)
[2018-08-17] MEDS: hydrOXYzine HCL 25 MG TAB GTB ×2 (02:09→21:32)
[2018-08-17] MEDS: HALOPERIDOL 5 MG INJ IM ×3 (02:37→20:08)
[2018-08-17] MEDS: LANSOPRAZOLE 30 MG CAP GTB (06:48)
[2018-08-17 07:15] LABS: ABNORMAL IP MESSAGE 1; HEMATOCRIT 21.9 % (37.0-47.0); MEAN CORPUSCULAR HEMOGLOBIN 25.6 pg (29.0-33.0); MEAN CORPUSCULAR HGB CONC 31.5 g/dl (32.0-37.0); MEAN CORPUSCULAR VOLUME 81.1 fl (82.0-101.0); MEAN PLATELET VOLUME 10.8 fl (7.4-10.4); PLATELET COUNT 117 10^3/UL (140-415); POSITIVE DIFF @See below; RED CELL DISTRIBUTION WIDTH 19.3 % (11.5-14.5)
[2018-08-17 07:15] LABS: WHITE BLOOD COUNT 8.5 10^3/ul (4.8-10.8)
[2018-08-17 07:17] LABS: ADD MAN DIFF? YES; HEMOGLOBIN 6.9 g/dl (12.0-16.0)
[2018-08-17 07:25] LABS: ANION GAP 10 (5-13); BLOOD UREA NITROGEN 51 mg/dl (7-20); CALCIUM 9.1 mg/dl (8.4-10.2); CARBON DIOXIDE 29 mmol/L (21-31); CHLORIDE 101 mmol/L (97-110); CREATININE 2.28 mg/dl (0.44-1.00); GLUCOSE 133 mg/dl (70-220); POTASSIUM 4.2 mmol/L (3.5-5.1); SODIUM 140 mmol/L (135-144)
[2018-08-17 07:31] LABS: PHOSPHORUS 4.5 mg/dl (2.5-4.9)
[2018-08-17 07:31] LABS: MAGNESIUM 2.6 mg/dl (1.7-2.5)
[2018-08-17 07:52] LABS: ANISOCYTOSIS 1+ (0-0); BAND NEUTROPHILS % (M) 1 % (0-4); EOSINOPHILS % (M) 11 % (0-7); ERYTHROBLAST% (NRBC) (M) 2 % (0-0); GIANT THROMBO% (M) 1 % (0-0); LYMPHOCYTES #M 1.9 10^3/ul (0.8-2.9); LYMPHOCYTES % (M) 23 % (15-51); MICROCYTOSIS 1+ (0-0); MONOCYTE #M 0.2 10^3/ul (0.3-0.9); MONOCYTES % (M) 3 % (0-11); PLATELET ESTIMATE DECREASED; SEG NEUT #M 5.3 10^3/ul (1.6-7.5); SEGMENTED NEUTROPHILS (M) % 62 % (39-77); SMUDGE%M 23 % (0-0)
[2018-08-17] MEDS: LINAGLIPTIN 5 MG TABLET G-TUBE (07:57)
[2018-08-17] MEDS: QUETIAPINE 25 MG TAB GTB ×2 (07:57→21:32)
[2018-08-17] MEDS: MULTIVIT/CA CARB/B CMPLX/FA TAB GTB (07:57)
[2018-08-17] MEDS: FERROUS SULFATE 60 MG/ML 5ML CUP GTB ×2 (07:57→21:31)
[2018-08-17] MEDS: SENNA TAB GTB ×2 (07:57→21:31)
[2018-08-17] MEDS: METOPROLOL 50 MG TAB GTB ×2 (07:58→21:32)
[2018-08-17] MEDS: AMLODIPINE 5 MG TAB GTB ×2 (07:59→21:31)
[2018-08-17] MEDS: DOCUSATE SODIUM 10 MG/ML (10ML CUP) GTB (08:05)
[2018-08-17] MEDS: FOLIC ACID 1 MG TAB GTB (08:05)
[2018-08-17] MEDS: ALBUMIN HUMAN 25% 50 ML IV (12:34)
[2018-08-17] MEDS: DAPTOMYCIN 230 MG in SOD CHLORIDE 0.9% 100 ML IVPB (17:25)
[2018-08-17 20:59] LABS: IMMEDIATE SPIN CROSSMATCH 1 2
[2018-08-18] MEDS: ACCU-CHEK XX ×5 (01:39→20:22)
[2018-08-18] MEDS: hydrOXYzine HCL 25 MG TAB GTB (03:43)
[2018-08-18] MEDS: LORAZEPAM 1 MG TAB GTB (03:44)
[2018-08-18] MEDS: HALOPERIDOL 5 MG INJ IM (04:45)
[2018-08-18 06:00] LABS: ADD MAN DIFF? NO
[2018-08-18 06:02] LABS: ABNORMAL IP MESSAGE 1; BASOPHILS % 0.3 % (0.0-2.0); EOSINOPHILS # 0.4 10^3/ul (0.0-0.5); EOSINOPHILS % 4.6 % (0.0-7.0); HEMATOCRIT 29.1 % (37.0-47.0); HEMOGLOBIN 9.5 g/dl (12.0-16.0); LYMPHOCYTES # 0.8 10^3/ul (0.8-2.9); MEAN CORPUSCULAR HEMOGLOBIN 26.9 pg (29.0-33.0); MEAN CORPUSCULAR HGB CONC 32.6 g/dl (32.0-37.0); MEAN CORPUSCULAR VOLUME 82.4 fl (82.0-101.0); MEAN PLATELET VOLUME 11.3 fl (7.4-10.4); MONOCYTE # 0.9 10^3/ul (0.3-0.9); MONOCYTES % 11.1 % (0.0-11.0); NEUTROPHIL # 5.8 10^3/ul (1.6-7.5); NEUTROPHILS % 73.6 % (39.0-77.0); PLATELET COUNT 81 10^3/UL (140-415); RED BLOOD COUNT 3.53 10^6/ul (4.20-5.40); RED CELL DISTRIBUTION WIDTH 16.6 % (11.5-14.5)
[2018-08-18 06:02] LABS: WHITE BLOOD COUNT 7.8 10^3/ul (4.8-10.8)
[2018-08-18] MEDS: LANSOPRAZOLE 30 MG CAP GTB (06:23)
[2018-08-18 06:28] LABS: POSITIVE DIFF @See below
[2018-08-18 06:37] LABS: ANION GAP 12 (5-13); BLOOD UREA NITROGEN 42 mg/dl (7-20); CALCIUM 8.7 mg/dl (8.4-10.2); CARBON DIOXIDE 30 mmol/L (21-31); CHLORIDE 98 mmol/L (97-110); CREATININE 1.91 mg/dl (0.44-1.00); GLUCOSE 140 mg/dl (70-220); POTASSIUM 4.1 mmol/L (3.5-5.1); SODIUM 140 mmol/L (135-144)
[2018-08-18 06:38] LABS: PHOSPHORUS 2.9 mg/dl (2.5-4.9)
[2018-08-18 06:38] LABS: MAGNESIUM 2.3 mg/dl (1.7-2.5)
[2018-08-18] MEDS: LINAGLIPTIN 5 MG TABLET G-TUBE (08:58)
[2018-08-18] MEDS: FERROUS SULFATE 60 MG/ML 5ML CUP GTB ×2 (08:58→20:21)
[2018-08-18] MEDS: DOCUSATE SODIUM 10 MG/ML (10ML CUP) GTB (08:58)
[2018-08-18] MEDS: MULTIVIT/CA CARB/B CMPLX/FA TAB GTB (08:58)
[2018-08-18] MEDS: FOLIC ACID 1 MG TAB GTB (08:58)
[2018-08-18] MEDS: SENNA TAB GTB ×2 (08:59→20:21)
[2018-08-18] MEDS: METOPROLOL 50 MG TAB GTB ×2 (08:59→20:21)
[2018-08-18] MEDS: QUETIAPINE 25 MG TAB GTB ×2 (08:59→20:21)
[2018-08-18] MEDS: AMLODIPINE 5 MG TAB GTB ×2 (09:00→20:22)
[2018-08-19] MEDS: ACCU-CHEK XX ×5 (02:00→21:23)
[2018-08-19] MEDS: LORAZEPAM 1 MG TAB GTB (03:27)
[2018-08-19] MEDS: hydrOXYzine HCL 25 MG TAB GTB (03:27)
[2018-08-19] MEDS: LANSOPRAZOLE 30 MG CAP GTB (05:35)
[2018-08-19] MEDS: HALOPERIDOL 5 MG INJ IM (05:36)
[2018-08-19] MEDS: SENNA TAB GTB ×2 (09:07→21:23)
[2018-08-19] MEDS: LINAGLIPTIN 5 MG TABLET G-TUBE (09:07)
[2018-08-19] MEDS: FOLIC ACID 1 MG TAB GTB (09:07)
[2018-08-19] MEDS: MULTIVIT/CA CARB/B CMPLX/FA TAB GTB (09:07)
[2018-08-19] MEDS: QUETIAPINE 25 MG TAB GTB ×2 (09:07→21:24)
[2018-08-19] MEDS: FERROUS SULFATE 60 MG/ML 5ML CUP GTB ×2 (09:08→21:23)
[2018-08-19] MEDS: METOPROLOL 50 MG TAB GTB ×2 (09:08→21:24)
[2018-08-19] MEDS: AMLODIPINE 5 MG TAB GTB ×2 (09:08→21:24)
[2018-08-19] MEDS: DOCUSATE SODIUM 10 MG/ML (10ML CUP) GTB (09:11)
[2018-08-19] MEDS: DAPTOMYCIN 230 MG in SOD CHLORIDE 0.9% 100 ML IVPB (16:55)
[2018-08-20] MEDS: ACCU-CHEK XX ×5 (02:00→20:55)
[2018-08-20 06:10] LABS: ADD MAN DIFF? NO
[2018-08-20 06:24] LABS: WHITE BLOOD COUNT 9.3 10^3/ul (4.8-10.8)
[2018-08-20 06:24] LABS: BASOPHILS % 0.3 % (0.0-2.0); EOSINOPHILS # 0.4 10^3/ul (0.0-0.5); EOSINOPHILS % 4.1 % (0.0-7.0); HEMATOCRIT 25.1 % (37.0-47.0); HEMOGLOBIN 8.4 g/dl (12.0-16.0); LYMPHOCYTES # 1.6 10^3/ul (0.8-2.9); LYMPHOCYTES % 17.1 % (15.0-51.0); MEAN CORPUSCULAR HEMOGLOBIN 27.5 pg (29.0-33.0); MEAN CORPUSCULAR HGB CONC 33.5 g/dl (32.0-37.0); MEAN CORPUSCULAR VOLUME 82.3 fl (82.0-101.0); MEAN PLATELET VOLUME 12.2 fl (7.4-10.4); MONOCYTE # 1.1 10^3/ul (0.3-0.9); NEUTROPHIL # 6.1 10^3/ul (1.6-7.5); NEUTROPHILS % 66.1 % (39.0-77.0); PLATELET COUNT 102 10^3/UL (140-415); RED BLOOD COUNT 3.05 10^6/ul (4.20-5.40); RED CELL DISTRIBUTION WIDTH 17.3 % (11.5-14.5)
[2018-08-20 06:47] LABS: PHOSPHORUS 3.1 mg/dl (2.5-4.9)
[2018-08-20 06:47] LABS: MAGNESIUM 2.6 mg/dl (1.7-2.5)
[2018-08-20] MEDS: LANSOPRAZOLE 30 MG CAP GTB (06:51)
[2018-08-20 06:52] LABS: ANION GAP 13 (5-13); BLOOD UREA NITROGEN 81 mg/dl (7-20); CARBON DIOXIDE 27 mmol/L (21-31); CHLORIDE 97 mmol/L (97-110); CREATININE 2.89 mg/dl (0.44-1.00); GLUCOSE 158 mg/dl (70-220); SODIUM 137 mmol/L (135-144)
[2018-08-20] MEDS: SENNA TAB GTB ×2 (08:56→20:54)
[2018-08-20] MEDS: FOLIC ACID 1 MG TAB GTB (08:56)
[2018-08-20] MEDS: LINAGLIPTIN 5 MG TABLET G-TUBE (08:56)
[2018-08-20] MEDS: MULTIVIT/CA CARB/B CMPLX/FA TAB GTB (08:56)
[2018-08-20] MEDS: hydrOXYzine HCL 25 MG TAB GTB ×2 (08:56→20:54)
[2018-08-20] MEDS: DOCUSATE SODIUM 10 MG/ML (10ML CUP) GTB (08:56)
[2018-08-20] MEDS: FERROUS SULFATE 60 MG/ML 5ML CUP GTB ×2 (08:56→20:55)
[2018-08-20] MEDS: QUETIAPINE 25 MG TAB GTB ×2 (08:57→20:54)
[2018-08-20] MEDS: METOPROLOL 50 MG TAB GTB ×2 (08:57→20:55)
[2018-08-20] MEDS: AMLODIPINE 5 MG TAB GTB ×2 (08:57→20:54)
[2018-08-20] MEDS ORDERED: GUAIFENESIN 20 MG/ML 5ML CUP PO (13:30)
[2018-08-20] MEDS: SOD CHLORIDE 0.9% IVPB (13:49)
[2018-08-20] MEDS: DESMOPRESSIN IVPB (13:49)
[2018-08-20] MEDS ORDERED: ALBUMIN HUMAN 25% 100 ML IV (17:30)
[2018-08-20] MEDS: ALBUMIN HUMAN 25% 100 ML IV (17:57)
[2018-08-20] MEDS: HEPARIN 1000 UNITS/ML 10 ML INJ CATHETER (18:02)
[2018-08-20] MEDS: LORAZEPAM 1 MG TAB GTB (20:54)
[2018-08-21] MEDS: ACCU-CHEK XX ×5 (02:35→20:40)
[2018-08-21] MEDS: LANSOPRAZOLE 30 MG CAP GTB (05:44)
[2018-08-21 06:06] LABS: ADD MAN DIFF? NO
[2018-08-21 06:11] LABS: ABNORMAL IP MESSAGE 1; BASOPHILS % 0.3 % (0.0-2.0); EOSINOPHILS # 0.5 10^3/ul (0.0-0.5); EOSINOPHILS % 6.8 % (0.0-7.0); HEMATOCRIT 20.2 % (37.0-47.0); LYMPHOCYTES % 15.2 % (15.0-51.0); MEAN CORPUSCULAR HEMOGLOBIN 27.5 pg (29.0-33.0); MEAN CORPUSCULAR HGB CONC 32.7 g/dl (32.0-37.0); MEAN CORPUSCULAR VOLUME 84.2 fl (82.0-101.0); MEAN PLATELET VOLUME 13.1 fl (7.4-10.4); MONOCYTE # 0.7 10^3/ul (0.3-0.9); MONOCYTES % 11.2 % (0.0-11.0); NEUTROPHIL # 4.4 10^3/ul (1.6-7.5); NEUTROPHILS % 66.2 % (39.0-77.0); PLATELET COUNT 106 10^3/UL (140-415); RED CELL DISTRIBUTION WIDTH 17.2 % (11.5-14.5)
[2018-08-21 06:11] LABS: WHITE BLOOD COUNT 6.6 10^3/ul (4.8-10.8)
[2018-08-21 06:38] LABS: POSITIVE DIFF @See below
[2018-08-21 06:40] LABS: HEMOGLOBIN 6.6 g/dl (12.0-16.0)
[2018-08-21 06:48] LABS: ANION GAP 10 (5-13); BLOOD UREA NITROGEN 29 mg/dl (7-20); CALCIUM 9.7 mg/dl (8.4-10.2); CARBON DIOXIDE 31 mmol/L (21-31); CHLORIDE 100 mmol/L (97-110); CREATININE 1.56 mg/dl (0.44-1.00); GLUCOSE 117 mg/dl (70-220); POTASSIUM 3.9 mmol/L (3.5-5.1); SODIUM 141 mmol/L (135-144)
[2018-08-21 06:49] LABS: MAGNESIUM 2.3 mg/dl (1.7-2.5)
[2018-08-21 06:49] LABS: PHOSPHORUS 2.2 mg/dl (2.5-4.9)
[2018-08-21] MEDS: FOLIC ACID 1 MG TAB GTB (08:24)
[2018-08-21] MEDS: QUETIAPINE 25 MG TAB GTB ×2 (08:24→20:43)
[2018-08-21] MEDS: SENNA TAB GTB ×2 (08:24→20:43)
[2018-08-21] MEDS: METOPROLOL 50 MG TAB GTB ×2 (08:24→20:44)
[2018-08-21] MEDS: MULTIVIT/CA CARB/B CMPLX/FA TAB GTB (08:24)
[2018-08-21] MEDS: AMLODIPINE 5 MG TAB GTB ×2 (08:25→20:44)
[2018-08-21] MEDS: LINAGLIPTIN 5 MG TABLET G-TUBE (08:25)
[2018-08-21] MEDS: DOCUSATE SODIUM 10 MG/ML (10ML CUP) GTB (08:27)
[2018-08-21] MEDS: FERROUS SULFATE 60 MG/ML 5ML CUP GTB ×2 (08:27→20:42)
[2018-08-21 09:00] LABS: ANISOCYTOSIS 1+ (0-0); BAND NEUTROPHILS #M 0.2 10^3/ul (0.0-0.6); BAND NEUTROPHILS % (M) 4 % (0-4); BASOPHILS % (M) 1 % (0-2); EOSINOPHILS % (M) 9 % (0-7); ERYTHROBLAST% (NRBC) (M) 1 % (0-0); GIANT THROMBO% (M) 6 % (0-0); HYPOCHROMASIA 1+ (0-0); LYMPHOCYTES #M 0.7 10^3/ul (0.8-2.9); LYMPHOCYTES % (M) 12 % (15-51); MICROCYTOSIS 1+ (0-0); MONOCYTE #M 0.3 10^3/ul (0.3-0.9); MONOCYTES % (M) 6 % (0-11); OVALOCYTES 1+ (0-0); PLATELET ESTIMATE DECREASED; POIKILOCYTOSIS 1+ (0-0); POLYCHROMASIA 1+ (0-0); REACTIVE LYMPHOCYTES% (M) 1 % (0-0); SEG NEUT #M 4.4 10^3/ul (1.6-7.5); SEGMENTED NEUTROPHILS (M) % 67 % (39-77); SMUDGE%M 51 % (0-0)
[2018-08-21 11:42] LABS: IMMEDIATE SPIN CROSSMATCH 1 1
[2018-08-21] MEDS: DAPTOMYCIN 230 MG in SOD CHLORIDE 0.9% 100 ML IVPB (17:10)
[2018-08-21] MEDS: ACETAMINOPHEN 650MG/20.3ML CUP GTB (17:46)
[2018-08-22] MEDS: ACCU-CHEK XX ×5 (01:35→21:00)
[2018-08-22] MEDS: LANSOPRAZOLE 30 MG CAP GTB (05:30)
[2018-08-22 06:59] LABS: ADD MAN DIFF? NO
[2018-08-22 07:00] LABS: WHITE BLOOD COUNT 9.7 10^3/ul (4.8-10.8)
[2018-08-22 07:00] LABS: BASOPHIL # 0.1 10^3/ul (0.0-0.1); BASOPHILS % 0.5 % (0.0-2.0); EOSINOPHILS # 0.7 10^3/ul (0.0-0.5); EOSINOPHILS % 6.8 % (0.0-7.0); HEMATOCRIT 25.3 % (37.0-47.0); HEMOGLOBIN 8.6 g/dl (12.0-16.0); LYMPHOCYTES # 1.3 10^3/ul (0.8-2.9); LYMPHOCYTES % 13.3 % (15.0-51.0); MEAN CORPUSCULAR HEMOGLOBIN 27.9 pg (29.0-33.0); MEAN CORPUSCULAR VOLUME 82.1 fl (82.0-101.0); MEAN PLATELET VOLUME 12.4 fl (7.4-10.4); NEUTROPHIL # 6.6 10^3/ul (1.6-7.5); NEUTROPHILS % 68.8 % (39.0-77.0); PLATELET COUNT 148 10^3/UL (140-415); RED BLOOD COUNT 3.08 10^6/ul (4.20-5.40)
[2018-08-22 07:28] LABS: MAGNESIUM 2.4 mg/dl (1.7-2.5)
[2018-08-22 07:28] LABS: PHOSPHORUS 2.3 mg/dl (2.5-4.9)
[2018-08-22 07:32] LABS: ANION GAP 13 (5-13); BLOOD UREA NITROGEN 65 mg/dl (7-20); CALCIUM 9.6 mg/dl (8.4-10.2); CARBON DIOXIDE 30 mmol/L (21-31); CHLORIDE 98 mmol/L (97-110); GLUCOSE 153 mg/dl (70-220); POTASSIUM 3.6 mmol/L (3.5-5.1); SODIUM 141 mmol/L (135-144)
[2018-08-22] MEDS: FERROUS SULFATE 60 MG/ML 5ML CUP GTB ×2 (09:36→20:54)
[2018-08-22] MEDS: DOCUSATE SODIUM 10 MG/ML (10ML CUP) GTB (09:37)
[2018-08-22] MEDS: hydrOXYzine HCL 25 MG TAB GTB (09:38)
[2018-08-22] MEDS: SENNA TAB GTB ×2 (09:38→20:54)
[2018-08-22] MEDS: FOLIC ACID 1 MG TAB GTB (09:38)
[2018-08-22] MEDS: QUETIAPINE 25 MG TAB GTB ×2 (09:38→20:54)
[2018-08-22] MEDS: MULTIVIT/CA CARB/B CMPLX/FA TAB GTB (09:38)
[2018-08-22] MEDS: LINAGLIPTIN 5 MG TABLET G-TUBE (09:39)
[2018-08-22] MEDS: LORAZEPAM 1 MG TAB GTB ×2 (09:39→20:53)
[2018-08-22] MEDS: METOPROLOL 50 MG TAB GTB ×2 (09:40→21:00)
[2018-08-22] MEDS: AMLODIPINE 5 MG TAB GTB ×2 (09:40→21:00)
[2018-08-22] MEDS ORDERED: SODIUM CHLORIDE 0.9% 1L BAG IV (15:30)
[2018-08-22] MEDS: ACETAMINOPHEN 650MG/20.3ML CUP GTB (16:31)
[2018-08-23] MEDS: ACCU-CHEK XX ×5 (02:00→21:00)
[2018-08-23] MEDS: LANSOPRAZOLE 30 MG CAP GTB (05:12)
[2018-08-23] MEDS: LORAZEPAM 1 MG TAB GTB (05:12)
[2018-08-23 05:30] LABS: ADD MAN DIFF? NO
[2018-08-23 05:38] LABS: BASOPHILS % 0.3 % (0.0-2.0); EOSINOPHILS # 0.5 10^3/ul (0.0-0.5); EOSINOPHILS % 4.9 % (0.0-7.0); HEMATOCRIT 24.3 % (37.0-47.0); HEMOGLOBIN 8.2 g/dl (12.0-16.0); LYMPHOCYTES # 1.3 10^3/ul (0.8-2.9); LYMPHOCYTES % 13.4 % (15.0-51.0); MEAN CORPUSCULAR HGB CONC 33.7 g/dl (32.0-37.0); MEAN CORPUSCULAR VOLUME 82.9 fl (82.0-101.0); MEAN PLATELET VOLUME 12.3 fl (7.4-10.4); MONOCYTES % 9.6 % (0.0-11.0); NEUTROPHIL # 7.1 10^3/ul (1.6-7.5); NEUTROPHILS % 71.2 % (39.0-77.0); NUCLEATED RED BLOOD CELLS% 0.2 /100WBC (0.0-0.0); PLATELET COUNT 188 10^3/UL (140-415); RED BLOOD COUNT 2.93 10^6/ul (4.20-5.40); RED CELL DISTRIBUTION WIDTH 16.1 % (11.5-14.5)
[2018-08-23 05:58] LABS: PHOSPHORUS 1.7 mg/dl (2.5-4.9)
[2018-08-23 06:23] LABS: ANION GAP 7 (5-13); BLOOD UREA NITROGEN 25 mg/dl (7-20); CALCIUM 8.7 mg/dl (8.4-10.2); CARBON DIOXIDE 32 mmol/L (21-31); CHLORIDE 100 mmol/L (97-110); CREATININE 1.27 mg/dl (0.44-1.00); GLUCOSE 175 mg/dl (70-220); POTASSIUM 3.7 mmol/L (3.5-5.1); SODIUM 139 mmol/L (135-144)
[2018-08-23 06:28] LABS: CREATINE KINASE 111 IU/L (23-200)
[2018-08-23] MEDS: DIATR MEGLU/DIATRIZOATE SODIUM 120 ML BTL (09:15)
[2018-08-23] MEDS: FERROUS SULFATE 60 MG/ML 5ML CUP GTB ×2 (10:18→21:43)
[2018-08-23] MEDS: DOCUSATE SODIUM 10 MG/ML (10ML CUP) GTB (10:18)
[2018-08-23] MEDS: MULTIVIT/CA CARB/B CMPLX/FA TAB GTB (10:19)
[2018-08-23] MEDS: LINAGLIPTIN 5 MG TABLET G-TUBE (10:19)
[2018-08-23] MEDS: SENNA TAB GTB ×2 (10:19→21:43)
[2018-08-23] MEDS: hydrOXYzine HCL 25 MG TAB GTB (10:20)
[2018-08-23] MEDS: AMLODIPINE 5 MG TAB GTB ×2 (10:20→21:44)
[2018-08-23] MEDS: METOPROLOL 50 MG TAB GTB ×2 (10:20→21:43)
[2018-08-23] MEDS: FOLIC ACID 1 MG TAB GTB (10:20)
[2018-08-23] MEDS: QUETIAPINE 25 MG TAB GTB (10:20)
[2018-08-23] MEDS: ACETAMINOPHEN 650MG/20.3ML CUP GTB (10:21)
[2018-08-23] MEDS: DAPTOMYCIN 230 MG in SOD CHLORIDE 0.9% 100 ML IVPB (16:53)
[2018-08-24] MEDS: hydrOXYzine HCL 25 MG TAB GTB (00:40)
[2018-08-24] MEDS: QUETIAPINE 25 MG TAB GTB ×3 (00:40→21:18)
[2018-08-24] MEDS: ACCU-CHEK XX ×5 (02:00→21:20)
[2018-08-24] MEDS: LORAZEPAM 1 MG TAB GTB ×2 (03:47→15:26)
[2018-08-24 06:28] LABS: ADD MAN DIFF? NO
[2018-08-24] MEDS: LANSOPRAZOLE 30 MG CAP GTB (06:32)
[2018-08-24 06:37] LABS: BASOPHILS % 0.3 % (0.0-2.0); EOSINOPHILS # 0.6 10^3/ul (0.0-0.5); EOSINOPHILS % 5.1 % (0.0-7.0); HEMATOCRIT 24.3 % (37.0-47.0); HEMOGLOBIN 8.2 g/dl (12.0-16.0); LYMPHOCYTES # 1.4 10^3/ul (0.8-2.9); LYMPHOCYTES % 12.6 % (15.0-51.0); MEAN CORPUSCULAR HEMOGLOBIN 28.1 pg (29.0-33.0); MEAN CORPUSCULAR HGB CONC 33.7 g/dl (32.0-37.0); MEAN CORPUSCULAR VOLUME 83.2 fl (82.0-101.0); MEAN PLATELET VOLUME 11.9 fl (7.4-10.4); MONOCYTE # 0.9 10^3/ul (0.3-0.9); MONOCYTES % 8.7 % (0.0-11.0); NEUTROPHIL # 7.9 10^3/ul (1.6-7.5); NEUTROPHILS % 72.7 % (39.0-77.0); NUCLEATED RED BLOOD CELLS% 0.2 /100WBC (0.0-0.0); PLATELET COUNT 220 10^3/UL (140-415); RED BLOOD COUNT 2.92 10^6/ul (4.20-5.40); RED CELL DISTRIBUTION WIDTH 16.1 % (11.5-14.5)
[2018-08-24 06:37] LABS: WHITE BLOOD COUNT 10.9 10^3/ul (4.8-10.8)
[2018-08-24 07:12] LABS: PHOSPHORUS 2.9 mg/dl (2.5-4.9)
[2018-08-24 07:12] LABS: MAGNESIUM 2.4 mg/dl (1.7-2.5)
[2018-08-24 07:16] LABS: ANION GAP 5 (5-13); BLOOD UREA NITROGEN 53 mg/dl (7-20); CALCIUM 8.8 mg/dl (8.4-10.2); CARBON DIOXIDE 30 mmol/L (21-31); CHLORIDE 102 mmol/L (97-110); CREATININE 2.43 mg/dl (0.44-1.00); GLUCOSE 151 mg/dl (70-220); POTASSIUM 3.9 mmol/L (3.5-5.1); SODIUM 137 mmol/L (135-144)
[2018-08-24] MEDS: MULTIVIT/CA CARB/B CMPLX/FA TAB GTB (08:31)
[2018-08-24] MEDS: FERROUS SULFATE 60 MG/ML 5ML CUP GTB ×2 (08:31→21:20)
[2018-08-24] MEDS: FOLIC ACID 1 MG TAB GTB (08:31)
[2018-08-24] MEDS: DOCUSATE SODIUM 10 MG/ML (10ML CUP) GTB (08:31)
[2018-08-24] MEDS: LINAGLIPTIN 5 MG TABLET G-TUBE (08:32)
[2018-08-24] MEDS: AMLODIPINE 5 MG TAB GTB ×2 (08:33→21:19)
[2018-08-24] MEDS: METOPROLOL 50 MG TAB GTB ×2 (08:33→21:19)
[2018-08-24] MEDS: SENNA TAB GTB ×2 (08:33→21:18)
[2018-08-24] MEDS: ACETAMINOPHEN 650MG/20.3ML CUP GTB (14:49)
[2018-08-24] MEDS: HEPARIN 1000 UNITS/ML 10 ML INJ CATHETER (17:36)
[2018-08-25] MEDS: LORAZEPAM 1 MG TAB GTB (00:39)
[2018-08-25] MEDS: ACCU-CHEK XX ×5 (02:00→21:00)
[2018-08-25] MEDS: LANSOPRAZOLE 30 MG CAP GTB (06:45)
[2018-08-25] MEDS: SENNA TAB GTB ×2 (08:19→21:00)
[2018-08-25] MEDS: LINAGLIPTIN 5 MG TABLET G-TUBE (08:19)
[2018-08-25] MEDS: FOLIC ACID 1 MG TAB GTB (08:20)
[2018-08-25] MEDS: MULTIVIT/CA CARB/B CMPLX/FA TAB GTB (08:21)
[2018-08-25] MEDS: AMLODIPINE 5 MG TAB GTB ×2 (08:21→21:47)
[2018-08-25] MEDS: FERROUS SULFATE 60 MG/ML 5ML CUP GTB ×2 (08:21→21:49)
[2018-08-25] MEDS: DOCUSATE SODIUM 10 MG/ML (10ML CUP) GTB (08:21)
[2018-08-25] MEDS: QUETIAPINE 25 MG TAB GTB ×2 (08:21→21:49)
[2018-08-25] MEDS: METOPROLOL 50 MG TAB GTB ×2 (08:22→21:47)
[2018-08-25] MEDS: ACETAMINOPHEN 650MG/20.3ML CUP GTB ×2 (08:34→16:39)
[2018-08-25] MEDS: SOD CHLORIDE 0.9% 250 ML IV (14:37)
[2018-08-25] MEDS: DAPTOMYCIN 230 MG in SOD CHLORIDE 0.9% 100 ML IVPB (15:06)
[2018-08-26] MEDS: ACCU-CHEK XX ×5 (02:00→20:20)
[2018-08-26] MEDS: LANSOPRAZOLE 30 MG CAP GTB (05:53)
[2018-08-26] MEDS: MULTIVIT/CA CARB/B CMPLX/FA TAB GTB (09:13)
[2018-08-26] MEDS: QUETIAPINE 25 MG TAB GTB ×2 (09:13→20:19)
[2018-08-26] MEDS: FOLIC ACID 1 MG TAB GTB (09:13)
[2018-08-26] MEDS: LINAGLIPTIN 5 MG TABLET G-TUBE (09:13)
[2018-08-26] MEDS: SENNA TAB GTB ×2 (09:13→20:19)
[2018-08-26] MEDS: hydrOXYzine HCL 25 MG TAB GTB (09:14)
[2018-08-26] MEDS: FERROUS SULFATE 60 MG/ML 5ML CUP GTB ×2 (09:16→20:18)
[2018-08-26] MEDS: AMLODIPINE 5 MG TAB GTB ×2 (09:51→20:19)
[2018-08-26] MEDS: DOCUSATE SODIUM 10 MG/ML (10ML CUP) GTB (09:51)
[2018-08-26] MEDS: METOPROLOL 50 MG TAB GTB ×2 (09:52→20:19)
[2018-08-27] MEDS: ACCU-CHEK XX ×5 (02:00→21:27)
[2018-08-27] MEDS: LANSOPRAZOLE 30 MG CAP GTB (05:49)
[2018-08-27] MEDS: METOPROLOL 50 MG TAB GTB ×2 (09:00→21:06)
[2018-08-27] MEDS: AMLODIPINE 5 MG TAB GTB ×2 (09:00→21:08)
[2018-08-27] MEDS: DOCUSATE SODIUM 10 MG/ML (10ML CUP) GTB (09:15)
[2018-08-27] MEDS: QUETIAPINE 25 MG TAB GTB ×2 (09:15→21:07)
[2018-08-27] MEDS: FOLIC ACID 1 MG TAB GTB (09:15)
[2018-08-27] MEDS: SENNA TAB GTB ×2 (09:15→21:07)
[2018-08-27] MEDS: LINAGLIPTIN 5 MG TABLET G-TUBE (09:15)
[2018-08-27] MEDS: FERROUS SULFATE 60 MG/ML 5ML CUP GTB ×2 (09:15→21:05)
[2018-08-27] MEDS: MULTIVIT/CA CARB/B CMPLX/FA TAB GTB (09:15)
[2018-08-27 09:26] LABS: ADD MAN DIFF? NO
[2018-08-27 09:28] LABS: BASOPHILS % 0.3 % (0.0-2.0); EOSINOPHILS # 0.7 10^3/ul (0.0-0.5); HEMOGLOBIN 8.3 g/dl (12.0-16.0); LYMPHOCYTES # 1.3 10^3/ul (0.8-2.9); LYMPHOCYTES % 13.1 % (15.0-51.0); MEAN CORPUSCULAR HGB CONC 33.2 g/dl (32.0-37.0); MEAN CORPUSCULAR VOLUME 84.5 fl (82.0-101.0); MEAN PLATELET VOLUME 11.7 fl (7.4-10.4); MONOCYTE # 0.8 10^3/ul (0.3-0.9); MONOCYTES % 8.2 % (0.0-11.0); NEUTROPHIL # 6.9 10^3/ul (1.6-7.5); NEUTROPHILS % 71.1 % (39.0-77.0); NUCLEATED RED BLOOD CELLS% 0.3 /100WBC (0.0-0.0); PLATELET COUNT 343 10^3/UL (140-415); RED BLOOD COUNT 2.96 10^6/ul (4.20-5.40); RED CELL DISTRIBUTION WIDTH 16.1 % (11.5-14.5)
[2018-08-27 09:28] LABS: WHITE BLOOD COUNT 9.7 10^3/ul (4.8-10.8)
[2018-08-27 09:47] LABS: ANION GAP 15 (5-13); BLOOD UREA NITROGEN 87 mg/dl (7-20); CALCIUM 9.6 mg/dl (8.4-10.2); CARBON DIOXIDE 28 mmol/L (21-31); CHLORIDE 99 mmol/L (97-110); CREATININE 3.05 mg/dl (0.44-1.00); GLUCOSE 137 mg/dl (70-220); POTASSIUM 3.9 mmol/L (3.5-5.1); SODIUM 142 mmol/L (135-144)
[2018-08-27] MEDS: hydrOXYzine HCL 25 MG TAB GTB (12:56)
[2018-08-27] MEDS ORDERED: DIVALPROEX (EC) 125 MG TAB PO (13:00)
[2018-08-27] MEDS: VALPROIC ACID LIQUID CUP 250 MG/5 ML CUP PO ×2 (14:33→21:05)
[2018-08-27] MEDS: DAPTOMYCIN 230 MG in SOD CHLORIDE 0.9% 100 ML IVPB (18:48)
[2018-08-27] MEDS: LORAZEPAM 1 MG TAB GTB (21:06)
[2018-08-28] MEDS: ACCU-CHEK XX ×5 (02:00→21:00)
[2018-08-28] MEDS: hydrOXYzine HCL 25 MG TAB GTB (05:27)
[2018-08-28] MEDS: LANSOPRAZOLE 30 MG CAP GTB (05:27)
[2018-08-28] MEDS: FERROUS SULFATE 60 MG/ML 5ML CUP GTB ×2 (08:51→22:03)
[2018-08-28] MEDS: DOCUSATE SODIUM 10 MG/ML (10ML CUP) GTB (08:51)
[2018-08-28] MEDS: ACETAMINOPHEN 650MG/20.3ML CUP GTB (08:51)
[2018-08-28] MEDS: QUETIAPINE 25 MG TAB GTB ×2 (08:52→22:03)
[2018-08-28] MEDS: FOLIC ACID 1 MG TAB GTB (08:52)
[2018-08-28] MEDS: LORAZEPAM 1 MG TAB GTB (08:52)
[2018-08-28] MEDS: LINAGLIPTIN 5 MG TABLET G-TUBE (08:52)
[2018-08-28] MEDS: MULTIVIT/CA CARB/B CMPLX/FA TAB GTB (08:52)
[2018-08-28] MEDS: VALPROIC ACID LIQUID CUP 250 MG/5 ML CUP PO ×3 (08:52→22:03)
[2018-08-28] MEDS: AMLODIPINE 5 MG TAB GTB ×2 (08:53→21:00)
[2018-08-28] MEDS: METOPROLOL 50 MG TAB GTB ×2 (08:53→21:00)
[2018-08-28] MEDS: SENNA TAB GTB ×2 (08:53→21:00)
[2018-08-29] MEDS: ACCU-CHEK XX ×5 (00:15→20:41)
[2018-08-29] MEDS: LORAZEPAM 0.5 MG TAB GTB ×2 (02:46→13:48)
[2018-08-29] MEDS: hydrOXYzine HCL 25 MG TAB GTB (02:46)
[2018-08-29 05:06] LABS: ADD MAN DIFF? NO
[2018-08-29 05:11] LABS: WHITE BLOOD COUNT 23.5 10^3/ul (4.8-10.8)
[2018-08-29 05:11] LABS: ABNORMAL IP MESSAGE 1; BASOPHILS % 0.2 % (0.0-2.0); EOSINOPHILS # 0.4 10^3/ul (0.0-0.5); EOSINOPHILS % 1.7 % (0.0-7.0); HEMATOCRIT 23.9 % (37.0-47.0); LYMPHOCYTES % 4.2 % (15.0-51.0); MEAN CORPUSCULAR HEMOGLOBIN 28.2 pg (29.0-33.0); MEAN CORPUSCULAR HGB CONC 33.5 g/dl (32.0-37.0); MEAN CORPUSCULAR VOLUME 84.2 fl (82.0-101.0); MEAN PLATELET VOLUME 11.5 fl (7.4-10.4); MONOCYTE # 1.4 10^3/ul (0.3-0.9); MONOCYTES % 5.8 % (0.0-11.0); NEUTROPHIL # 20.5 10^3/ul (1.6-7.5); NEUTROPHILS % 87.2 % (39.0-77.0); NUCLEATED RED BLOOD CELLS # 0.1 10^3/ul (0.0-0.0); NUCLEATED RED BLOOD CELLS% 0.3 /100WBC (0.0-0.0); PLATELET COUNT 347 10^3/UL (140-415); RED BLOOD COUNT 2.84 10^6/ul (4.20-5.40)
[2018-08-29 05:21] LABS: POSITIVE DIFF @See below
[2018-08-29 05:40] LABS: PHOSPHORUS 2.7 mg/dl (2.5-4.9)
[2018-08-29 05:40] LABS: MAGNESIUM 2.4 mg/dl (1.7-2.5)
[2018-08-29 05:47] LABS: ANION GAP 15 (5-13); BLOOD UREA NITROGEN 80 mg/dl (7-20); CALCIUM 9.5 mg/dl (8.4-10.2); CARBON DIOXIDE 24 mmol/L (21-31); CHLORIDE 100 mmol/L (97-110); CREATININE 3.43 mg/dl (0.44-1.00); GLUCOSE 244 mg/dl (70-220); POTASSIUM 3.6 mmol/L (3.5-5.1); SODIUM 139 mmol/L (135-144)
[2018-08-29] MEDS: LANSOPRAZOLE 30 MG CAP GTB (06:06)
[2018-08-29] MEDS: FOLIC ACID 1 MG TAB GTB (08:39)
[2018-08-29] MEDS: QUETIAPINE 25 MG TAB GTB ×2 (08:39→20:39)
[2018-08-29] MEDS: SENNA TAB GTB ×2 (08:39→20:42)
[2018-08-29] MEDS: LINAGLIPTIN 5 MG TABLET G-TUBE (08:39)
[2018-08-29] MEDS: VALPROIC ACID LIQUID CUP 250 MG/5 ML CUP PO ×3 (08:40→20:41)
[2018-08-29] MEDS: FERROUS SULFATE 60 MG/ML 5ML CUP GTB ×2 (08:41→20:40)
[2018-08-29] MEDS: DOCUSATE SODIUM 10 MG/ML (10ML CUP) GTB (08:43)
[2018-08-29] MEDS: METOPROLOL 50 MG TAB GTB ×2 (08:47→20:40)
[2018-08-29] MEDS: AMLODIPINE 5 MG TAB GTB ×2 (08:47→20:39)
[2018-08-29] MEDS: MULTIVIT/CA CARB/B CMPLX/FA TAB GTB (08:48)
[2018-08-29 09:18] LABS: ANISOCYTOSIS 1+ (0-0); BAND NEUTROPHILS #M 2.8 10^3/ul (0.0-0.6); BAND NEUTROPHILS % (M) 12 % (0-4); EOSINOPHILS % (M) 2 % (0-7); ERYTHROBLAST% (NRBC) (M) 2 % (0-0); GIANT THROMBO% (M) 7 % (0-0); LYMPHOCYTES #M 0.7 10^3/ul (0.8-2.9); LYMPHOCYTES % (M) 3 % (15-51); METAMYELOCYTES #M 0.4 10^3/ul (0.0-0.0); METAMYELOCYTES %M 2 % (0-0); MICROCYTOSIS 1+ (0-0); MONOCYTE #M 0.7 10^3/ul (0.3-0.9); MONOCYTES % (M) 3 % (0-11); MYELOCYTES #M 0.2 10^3/ul (0.0-0.0); MYELOCYTES % (M) 1 % (0-0); PLATELET ESTIMATE NORMAL; PLATELET MORPHOLOGY COMMENT @See below; POLYCHROMASIA 1+ (0-0); SEG NEUT #M 18.8 10^3/ul (1.6-7.5); SEGMENTED NEUTROPHILS (M) % 77 % (39-77); SMUDGE%M 10 % (0-0)
[2018-08-29] MEDS: HEPARIN 1000 UNITS/ML 10 ML INJ CATHETER (12:04)
[2018-08-29 12:11] LABS: LACTIC ACID 1.8 mmol/L (0.5-2.0)
[2018-08-29] MEDS: HALOPERIDOL 5 MG INJ IM (12:20)
[2018-08-29] MEDS ORDERED: VANCOMYCIN IV PER PHARMACY XX (13:00)
[2018-08-29] MEDS: VANCOMYCIN 1 GM 250 ML IVPB (13:20)
[2018-08-29] MEDS: ACETAMINOPHEN 650MG/20.3ML CUP GTB (14:22)
[2018-08-29] MEDS: MEROPENEM 500MG/50 ML (PMX) 50 ML IVPB (17:52)
[2018-08-29] MEDS: metroNIDAZOLE 500 MG TAB GTB (19:10)
[2018-08-30] MEDS: ACCU-CHEK XX ×5 (02:00→21:00)
[2018-08-30] MEDS: LANSOPRAZOLE 30 MG CAP GTB (05:12)
[2018-08-30] MEDS: metroNIDAZOLE 500 MG TAB GTB ×3 (05:12→14:07)
[2018-08-30 06:41] LABS: ADD MAN DIFF? NO
[2018-08-30 06:47] LABS: WHITE BLOOD COUNT 8.9 10^3/ul (4.8-10.8)
[2018-08-30 06:47] LABS: BASOPHILS % 0.5 % (0.0-2.0); EOSINOPHILS # 0.6 10^3/ul (0.0-0.5); EOSINOPHILS % 7.2 % (0.0-7.0); HEMATOCRIT 22.2 % (37.0-47.0); HEMOGLOBIN 7.2 g/dl (12.0-16.0); LYMPHOCYTES # 0.7 10^3/ul (0.8-2.9); LYMPHOCYTES % 8.2 % (15.0-51.0); MEAN CORPUSCULAR HEMOGLOBIN 27.7 pg (29.0-33.0); MEAN CORPUSCULAR HGB CONC 32.4 g/dl (32.0-37.0); MEAN CORPUSCULAR VOLUME 85.4 fl (82.0-101.0); MEAN PLATELET VOLUME 11.8 fl (7.4-10.4); MONOCYTE # 0.9 10^3/ul (0.3-0.9); MONOCYTES % 10.6 % (0.0-11.0); NEUTROPHIL # 6.5 10^3/ul (1.6-7.5); NEUTROPHILS % 72.9 % (39.0-77.0); NUCLEATED RED BLOOD CELLS% 0.3 /100WBC (0.0-0.0); PLATELET COUNT 295 10^3/UL (140-415); RED CELL DISTRIBUTION WIDTH 16.1 % (11.5-14.5)
[2018-08-30 07:08] LABS: ALANINE AMINOTRANSFERASE 23 IU/L (13-69); ALBUMIN/GLOBULIN RATIO 1.29; ALKALINE PHOSPHATASE 81 IU/L (42-121); ANION GAP 12 (5-13); ASPARTATE AMINO TRANSFERASE 44 IU/L (15-46); BILIRUBIN,INDIRECT 0.7 mg/dl (0-1.1); BILIRUBIN,TOTAL 0.7 mg/dl (0.2-1.3); BLOOD UREA NITROGEN 38 mg/dl (7-20); CALCIUM 9.7 mg/dl (8.4-10.2); CARBON DIOXIDE 30 mmol/L (21-31); CHLORIDE 101 mmol/L (97-110); CREATININE 2.34 mg/dl (0.44-1.00); GLUCOSE 151 mg/dl (70-220); POTASSIUM 4.4 mmol/L (3.5-5.1); SODIUM 143 mmol/L (135-144); TOTAL PROTEIN 7.1 g/dl (6.1-8.1)
[2018-08-30 07:18] LABS: PHOSPHORUS 2.6 mg/dl (2.5-4.9)
[2018-08-30 07:18] LABS: MAGNESIUM 2.4 mg/dl (1.7-2.5)
[2018-08-30] MEDS: MULTIVIT/CA CARB/B CMPLX/FA TAB GTB (09:25)
[2018-08-30] MEDS: LINAGLIPTIN 5 MG TABLET G-TUBE (09:25)
[2018-08-30] MEDS: AMLODIPINE 5 MG TAB GTB ×2 (09:26→21:45)
[2018-08-30] MEDS: FERROUS SULFATE 60 MG/ML 5ML CUP GTB ×2 (09:26→21:43)
[2018-08-30] MEDS: QUETIAPINE 25 MG TAB GTB ×2 (09:27→21:45)
[2018-08-30] MEDS: METOPROLOL 50 MG TAB GTB ×2 (09:27→21:45)
[2018-08-30] MEDS: SENNA TAB GTB ×2 (09:27→21:45)
[2018-08-30] MEDS: FOLIC ACID 1 MG TAB GTB (09:28)
[2018-08-30] MEDS: VALPROIC ACID LIQUID CUP 250 MG/5 ML CUP PO ×3 (09:29→21:44)
[2018-08-30] MEDS: DOCUSATE SODIUM 10 MG/ML (10ML CUP) GTB (09:52)
[2018-08-30 17:52] LABS: IMMEDIATE SPIN CROSSMATCH 1 1
[2018-08-30] MEDS: LORAZEPAM 0.5 MG TAB GTB (21:44)
[2018-08-31] MEDS: ACCU-CHEK XX ×4 (02:00→17:35)
[2018-08-31] MEDS: LANSOPRAZOLE 30 MG CAP GTB (06:42)
[2018-08-31 07:40] LABS: ADD MAN DIFF? NO
[2018-08-31 07:43] LABS: BASOPHILS % 0.5 % (0.0-2.0); EOSINOPHILS # 0.8 10^3/ul (0.0-0.5); EOSINOPHILS % 14.4 % (0.0-7.0); HEMATOCRIT 27.2 % (37.0-47.0); HEMOGLOBIN 9.3 g/dl (12.0-16.0); LYMPHOCYTES # 0.7 10^3/ul (0.8-2.9); LYMPHOCYTES % 13.3 % (15.0-51.0); MEAN CORPUSCULAR HEMOGLOBIN 28.9 pg (29.0-33.0); MEAN CORPUSCULAR HGB CONC 34.2 g/dl (32.0-37.0); MEAN CORPUSCULAR VOLUME 84.5 fl (82.0-101.0); MEAN PLATELET VOLUME 11.8 fl (7.4-10.4); MONOCYTE # 0.7 10^3/ul (0.3-0.9); MONOCYTES % 12.1 % (0.0-11.0); NEUTROPHIL # 3.3 10^3/ul (1.6-7.5); NUCLEATED RED BLOOD CELLS% 0.5 /100WBC (0.0-0.0); PLATELET COUNT 255 10^3/UL (140-415); RED BLOOD COUNT 3.22 10^6/ul (4.20-5.40); RED CELL DISTRIBUTION WIDTH 15.2 % (11.5-14.5)
[2018-08-31 07:43] LABS: WHITE BLOOD COUNT 5.6 10^3/ul (4.8-10.8)
[2018-08-31 08:07] LABS: PHOSPHORUS 4.1 mg/dl (2.5-4.9)
[2018-08-31 08:07] LABS: MAGNESIUM 2.6 mg/dl (1.7-2.5)
[2018-08-31 08:08] LABS: ALANINE AMINOTRANSFERASE 27 IU/L (13-69); ALBUMIN 3.7 g/dl (3.3-4.9); ALKALINE PHOSPHATASE 89 IU/L (42-121); ANION GAP 10 (5-13); ASPARTATE AMINO TRANSFERASE 35 IU/L (15-46); BILIRUBIN,INDIRECT 0.4 mg/dl (0-1.1); BILIRUBIN,TOTAL 0.4 mg/dl (0.2-1.3); BLOOD UREA NITROGEN 62 mg/dl (7-20); CALCIUM 9.2 mg/dl (8.4-10.2); CARBON DIOXIDE 27 mmol/L (21-31); CHLORIDE 101 mmol/L (97-110); CREATININE 3.13 mg/dl (0.44-1.00); GLUCOSE 106 mg/dl (70-220); POTASSIUM 4.4 mmol/L (3.5-5.1); SODIUM 138 mmol/L (135-144); TOTAL PROTEIN 7.4 g/dl (6.1-8.1)
[2018-08-31] MEDS: METOPROLOL 50 MG TAB GTB (09:00)
[2018-08-31] MEDS: AMLODIPINE 5 MG TAB GTB (09:00)
[2018-08-31] MEDS: FERROUS SULFATE 60 MG/ML 5ML CUP GTB (09:20)
[2018-08-31] MEDS: VALPROIC ACID LIQUID CUP 250 MG/5 ML CUP PO ×2 (09:20→14:06)
[2018-08-31] MEDS: FOLIC ACID 1 MG TAB GTB (09:20)
[2018-08-31] MEDS: DOCUSATE SODIUM 10 MG/ML (10ML CUP) GTB (09:20)
[2018-08-31] MEDS: SENNA TAB GTB (09:21)
[2018-08-31] MEDS: LINAGLIPTIN 5 MG TABLET G-TUBE (09:21)
[2018-08-31] MEDS: QUETIAPINE 25 MG TAB GTB (09:21)
[2018-08-31] MEDS: MULTIVIT/CA CARB/B CMPLX/FA TAB GTB (09:21)
[2018-08-31] MEDS: ALBUMIN HUMAN 25% 100 ML IV (12:51)
[2018-08-31] MEDS: HEPARIN 1000 UNITS/ML 10 ML INJ CATHETER (14:49)
[2018-08-31] MEDS: ACETAMINOPHEN 650MG/20.3ML CUP GTB (15:33)
== END 2018-08-31 19:20 | DRG 314 ==
LOC: E/R 16:59 → 2NE 18:45
PROC: 0JH63XZ Insertion of Tunneled Vascular Access Device into Chest Subcutaneous Tissue and Fascia, Percutaneous Approach (ICD-10-PCS; principal; 2018-08-13 08:10)
PROC: 02H633Z Insertion of Infusion Device into Right Atrium, Percutaneous Approach (ICD-10-PCS; 2018-08-13 08:10)
PROC: 30233N1 Transfusion of Nonautologous Red Blood Cells into Peripheral Vein, Percutaneous Approach (ICD-10-PCS; 2018-08-13 08:10)
PROC: 02PAX3Z Removal of Infusion Device from Heart, External Approach (ICD-10-PCS; 2018-08-13 08:10)
PROC: 5A1D70Z Performance of Urinary Filtration, Intermittent, Less than 6 Hours Per Day (ICD-10-PCS; 2018-08-13 08:10)
PROC: 0D20XUZ Change Feeding Device in Upper Intestinal Tract, External Approach (ICD-10-PCS; 2018-08-13 08:10)
DX: T82.7XXA Infection and inflammatory reaction due to other cardiac and vascular devices, implants and grafts, initial encounter (principal); G93.41 Metabolic encephalopathy; A41.81 Sepsis due to Enterococcus; R65.20 Severe sepsis without septic shock; N18.6 End stage renal disease; I13.2 Hypertensive heart and chronic kidney disease with heart failure and with stage 5 chronic kidney disease, or end stage renal disease; I50.30 Unspecified diastolic (congestive) heart failure; E44.0 Moderate protein-calorie malnutrition; E87.1 Hypo-osmolality and hyponatremia; N39.0 Urinary tract infection, site not specified; Z68.1 Body mass index [BMI] 19.9 or less, adult; J98.11 Atelectasis; K94.23 Gastrostomy malfunction; F23 Brief psychotic disorder; Z16.21 Resistance to vancomycin; D63.1 Anemia in chronic kidney disease; E11.22 Type 2 diabetes mellitus with diabetic chronic kidney disease; E78.5 Hyperlipidemia, unspecified; F01.50 Vascular dementia, unspecified severity, without behavioral disturbance, psychotic disturbance, mood disturbance, and anxiety; F41.9 Anxiety disorder, unspecified; F03.90 Unspecified dementia, unspecified severity, without behavioral disturbance, psychotic disturbance, mood disturbance, and anxiety; I95.9 Hypotension, unspecified; J44.9 Chronic obstructive pulmonary disease, unspecified; L27.0 Generalized skin eruption due to drugs and medicaments taken internally; M19.90 Unspecified osteoarthritis, unspecified site; M79.642 Pain in left hand; R13.10 Dysphagia, unspecified; R62.7 Adult failure to thrive; R60.0 Localized edema; T82.838A Hemorrhage due to vascular prosthetic devices, implants and grafts, initial encounter; Z99.2 Dependence on renal dialysis; Z91.15 Patient's noncompliance with renal dialysis; Z86.73 Personal history of transient ischemic attack (TIA), and cerebral infarction without residual deficits; Z91.81 History of falling; Z79.4 Long term (current) use of insulin
CPT/HCPCS: 36415; 36430; 49465; 70450; 71045; 73130-LT; 74018; 80048; 80053; 80202; 81001; 82140; 82550; 82947; 82962; 83036; 83605; 83735; 84100; 84443; 84484; 85025; 85610; 85730; 86644; 86706; 86850; 86900; 86901; 86920; 87040; 87070; 87086; 87340; 90935; 93005; 93306; 99285-25

== ENCOUNTER 2018-09-04 02:09 | Inpatient (IN) | payer MEDICARE, OTHER ==
[2018-09-04 02:59] LABS: ADD MAN DIFF? NO
[2018-09-04 03:00] LABS: BASOPHILS % 0.2 % (0.0-2.0); EOSINOPHILS # 0.2 10^3/ul (0.0-0.5); EOSINOPHILS % 2.2 % (0.0-7.0); HEMATOCRIT 23.9 % (37.0-47.0); HEMOGLOBIN 7.9 g/dl (12.0-16.0); LYMPHOCYTES % 10.3 % (15.0-51.0); MEAN CORPUSCULAR HGB CONC 33.1 g/dl (32.0-37.0); MEAN CORPUSCULAR VOLUME 84.8 fl (82.0-101.0); MEAN PLATELET VOLUME 10.5 fl (7.4-10.4); MONOCYTE # 0.7 10^3/ul (0.3-0.9); NEUTROPHIL # 8.1 10^3/ul (1.6-7.5); NEUTROPHILS % 79.8 % (39.0-77.0); NUCLEATED RED BLOOD CELLS% 0.2 /100WBC (0.0-0.0); PLATELET COUNT 241 10^3/UL (140-415); RED BLOOD COUNT 2.82 10^6/ul (4.20-5.40); RED CELL DISTRIBUTION WIDTH 14.9 % (11.5-14.5)
[2018-09-04 03:00] LABS: WHITE BLOOD COUNT 10.1 10^3/ul (4.8-10.8)
[2018-09-04 03:15] LABS: INR 0.94; PROTIME 12.7 Sec (11.9-14.9)
[2018-09-04 03:19] LABS: ALANINE AMINOTRANSFERASE 26 IU/L (13-69); ALBUMIN/GLOBULIN RATIO 1.08; ALKALINE PHOSPHATASE 78 IU/L (42-121); ANION GAP 10 (5-13); ASPARTATE AMINO TRANSFERASE 32 IU/L (15-46); BILIRUBIN,INDIRECT 0.7 mg/dl (0-1.1); BILIRUBIN,TOTAL 0.7 mg/dl (0.2-1.3); BLOOD UREA NITROGEN 19 mg/dl (7-20); CALCIUM 8.8 mg/dl (8.4-10.2); CARBON DIOXIDE 27 mmol/L (21-31); CHLORIDE 97 mmol/L (97-110); CREATININE 1.42 mg/dl (0.44-1.00); GLUCOSE 195 mg/dl (70-220); LIPASE 343 U/L (23-300); POTASSIUM 3.9 mmol/L (3.5-5.1); SODIUM 134 mmol/L (135-144); TOTAL PROTEIN 7.7 g/dl (6.1-8.1)
[2018-09-04 03:20] LABS: PARTIAL THROMBOPLASTIN TIME 117.6 Sec (23.0-35.0)
[2018-09-04] MEDS: morphine 4 MG/ML VIAL IV (03:25)
[2018-09-04] MEDS: PIPER-TAZO 3.375 GM IV (PMX) 100 ML IVPB (06:28)
[2018-09-04] MEDS: LORAZEPAM 2 MG INJ IV (06:28)
[2018-09-04] MEDS: DOCUSATE SODIUM 100 MG CAP PO (09:00)
[2018-09-04] MEDS: FOLIC ACID 1 MG TAB GTB (09:00)
[2018-09-04] MEDS ORDERED: HYDROCODONE/APAP (5/325) TAB PO (09:00)
[2018-09-04] MEDS: LINAGLIPTIN 5 MG TABLET GTB (09:00)
[2018-09-04] MEDS ORDERED: NACL 0.9% 3 ML SYG IV (09:00)
[2018-09-04] MEDS ORDERED: DOCUSATE SODIUM 100 MG CAP PO (09:00)
[2018-09-04] MEDS: SENNA TAB PO ×2 (09:00→21:18)
[2018-09-04] MEDS ORDERED: ACETAMINOPHEN 325 MG TAB GTB (09:00)
[2018-09-04] MEDS: LANSOPRAZOLE 30 MG CAP PO (09:00)
[2018-09-04] MEDS ORDERED: VANCOMYCIN IV PER PHARMACY XX (09:00)
[2018-09-04] MEDS: SEVELAMER CARBONATE 0.8 GM PKT PO ×2 (11:30→17:16)
[2018-09-04] MEDS: VANCOMYCIN 1 GM 250 ML IVPB (11:40)
[2018-09-04] MEDS: AMLODIPINE 5 MG TAB GTB ×2 (11:41→21:18)
[2018-09-04] MEDS: QUETIAPINE 25 MG TAB GTB ×2 (11:41→21:18)
[2018-09-04] MEDS: METOPROLOL 50 MG TAB GTB ×2 (11:41→21:20)
[2018-09-04] MEDS: VALPROIC ACID LIQUID CUP 250 MG/5 ML CUP PO ×2 (14:20→21:18)
[2018-09-04] MEDS: PIPER-TAZO 2.25 GM (PMX) 50 ML IVPB ×2 (14:20→21:18)
[2018-09-04] MEDS ORDERED: SODIUM CHLORIDE 0.9% 1L BAG IV (15:00)
[2018-09-04] MEDS: LORAZEPAM 1 MG TAB GTB (22:10)
[2018-09-05] MEDS: VALPROIC ACID LIQUID CUP 250 MG/5 ML CUP PO ×3 (05:12→21:10)
[2018-09-05] MEDS: PIPER-TAZO 2.25 GM (PMX) 50 ML IVPB ×3 (05:44→21:09)
[2018-09-05 06:53] LABS: WHITE BLOOD COUNT 8.9 10^3/ul (4.8-10.8)
[2018-09-05 06:53] LABS: ABNORMAL IP MESSAGE 1; HEMATOCRIT 20.3 % (37.0-47.0); MEAN CORPUSCULAR HEMOGLOBIN 28.5 pg (29.0-33.0); MEAN CORPUSCULAR HGB CONC 33.5 g/dl (32.0-37.0); MEAN CORPUSCULAR VOLUME 84.9 fl (82.0-101.0); MEAN PLATELET VOLUME 11.7 fl (7.4-10.4); NUCLEATED RED BLOOD CELLS% 0.7 /100WBC (0.0-0.0); PLATELET COUNT 214 10^3/UL (140-415); RED BLOOD COUNT 2.39 10^6/ul (4.20-5.40); RED CELL DISTRIBUTION WIDTH 15.3 % (11.5-14.5)
[2018-09-05 06:59] LABS: POSITIVE DIFF @See below
[2018-09-05 07:04] LABS: ADD MAN DIFF? YES; HEMOGLOBIN 6.8 g/dl (12.0-16.0)
[2018-09-05 07:05] LABS: HEMOGLOBIN A1C 6.2 % (0-5.9)
[2018-09-05 07:19] LABS: ALANINE AMINOTRANSFERASE 20 IU/L (13-69); ALBUMIN 3.8 g/dl (3.3-4.9); ALBUMIN/GLOBULIN RATIO 1.15; ALKALINE PHOSPHATASE 68 IU/L (42-121); ANION GAP 11 (5-13); ASPARTATE AMINO TRANSFERASE 25 IU/L (15-46); BILIRUBIN,INDIRECT 0.5 mg/dl (0-1.1); BILIRUBIN,TOTAL 0.5 mg/dl (0.2-1.3); BLOOD UREA NITROGEN 32 mg/dl (7-20); CALCIUM 8.7 mg/dl (8.4-10.2); CARBON DIOXIDE 28 mmol/L (21-31); CHLORIDE 98 mmol/L (97-110); GLUCOSE 112 mg/dl (70-220); MAGNESIUM 2.2 mg/dl (1.7-2.5); POTASSIUM 4.3 mmol/L (3.5-5.1); SODIUM 137 mmol/L (135-144); TOTAL PROTEIN 7.1 g/dl (6.1-8.1)
[2018-09-05] MEDS: SEVELAMER CARBONATE 0.8 GM PKT PO ×3 (07:35→18:35)
[2018-09-05 07:55] LABS: IMMEDIATE SPIN CROSSMATCH 1 3
[2018-09-05] MEDS: FOLIC ACID 1 MG TAB GTB (08:06)
[2018-09-05] MEDS: METOPROLOL 50 MG TAB GTB ×2 (08:06→21:00)
[2018-09-05] MEDS: AMLODIPINE 5 MG TAB GTB ×2 (08:07→21:00)
[2018-09-05] MEDS: SENNA TAB PO ×2 (08:07→21:10)
[2018-09-05] MEDS: QUETIAPINE 25 MG TAB GTB ×2 (08:07→21:10)
[2018-09-05] MEDS: LANSOPRAZOLE 30 MG CAP PO (08:07)
[2018-09-05] MEDS: DOCUSATE SODIUM 100 MG CAP PO (08:07)
[2018-09-05] MEDS: LINAGLIPTIN 5 MG TABLET GTB (09:00)
[2018-09-05 09:37] LABS: ANISOCYTOSIS 1+ (0-0); BAND NEUTROPHILS #M 0.2 10^3/ul (0.0-0.6); BAND NEUTROPHILS % (M) 3 % (0-4); EOSINOPHILS % (M) 5 % (0-7); ERYTHROBLAST% (NRBC) (M) 1 % (0-0); GIANT THROMBO% (M) 1 % (0-0); LYMPHOCYTES #M 1.6 10^3/ul (0.8-2.9); LYMPHOCYTES % (M) 19 % (15-51); MICROCYTOSIS 1+ (0-0); PLATELET ESTIMATE NORMAL; POLYCHROMASIA 1+ (0-0); SEG NEUT #M 6.5 10^3/ul (1.6-7.5); SEGMENTED NEUTROPHILS (M) % 73 % (39-77); SMUDGE%M 32 % (0-0); SPHEROCYTES 1+ (0-0)
[2018-09-05 10:58] LABS: HEPATITIS B SURFACE ANTIGEN NEGATIVE (NEGATIVE)
[2018-09-05] MEDS: morphine SULFATE/PF (2 MG/2 ML) SYG IV ×2 (11:15→20:12)
[2018-09-05] MEDS: HEPARIN 1000 UNITS/ML 10 ML INJ CATHETER (12:04)
[2018-09-05] MEDS ORDERED: PROPOFOL 20 ML (12:40)
[2018-09-05] MEDS ORDERED: FENTAnyl 50 MCG/ML VIAL (13:14)
[2018-09-05] MEDS ORDERED: CEFAZOLIN 1 GM INJ (13:37)
[2018-09-05] MEDS ORDERED: ONDANSETRON 4 MG INJ (13:37)
[2018-09-05] MEDS ORDERED: DEXAMETHASONE 4 MG/ML 5 ML INJ (13:37)
[2018-09-05] MEDS: POLYMYXIN B 500000 UNIT INJ (14:29)
[2018-09-05] MEDS: BACITRACIN 50000 UNITS INJ IRR (14:29)
[2018-09-05] MEDS ORDERED: METOCLOPRAMIDE 10 MG INJ IV (14:30)
[2018-09-05] MEDS ORDERED: HYDROmorphONE 1 MG/5 ML IV SYRINGE IV ×3 (14:30)
[2018-09-05] MEDS ORDERED: NACL 0.9% 3 ML SYG IV (14:30)
[2018-09-05] MEDS ORDERED: hydrALAzine 20 MG INJ IV (14:30)
[2018-09-05] MEDS ORDERED: MEPERIDINE 25 MG INJ IV (14:30)
[2018-09-05] MEDS ORDERED: EPHEDrine SULFATE 50 MG/5 ML SYG IV (14:30)
[2018-09-05] MEDS ORDERED: DIPHENHYDRAMINE 50 MG INJ IV (14:30)
[2018-09-05] MEDS ORDERED: morphine 2 MG INJ IV (14:30)
[2018-09-05] MEDS ORDERED: MIDAZOLAM 1 MG/ML 2 ML INJ IV (14:30)
[2018-09-05] MEDS ORDERED: LABETALOL HCL 20MG INJ IV (14:30)
[2018-09-05] MEDS ORDERED: FENTAnyl 50 MCG/ML VIAL IV ×3 (14:30)
[2018-09-05] MEDS ORDERED: KETOROLAC 30 MG INJ IV (14:30)
[2018-09-05] MEDS ORDERED: ALBUTEROL 0.083% (NEB) 2.5 MG/3 ML AMP HHN (14:30)
[2018-09-05] MEDS ORDERED: ONDANSETRON 4 MG INJ IV (14:30)
[2018-09-05] MEDS: hydrALAzine 20 MG INJ IV (14:57)
[2018-09-05] MEDS: SOD CHLORIDE 0.9% 1,000 ML IV (16:11)
[2018-09-05 16:48] LABS: ADD MAN DIFF? NO
[2018-09-05 16:52] LABS: WHITE BLOOD COUNT 11.9 10^3/ul (4.8-10.8)
[2018-09-05 16:52] LABS: ABNORMAL IP MESSAGE 1; BASOPHILS % 0.3 % (0.0-2.0); EOSINOPHILS % 0.1 % (0.0-7.0); HEMATOCRIT 31.9 % (37.0-47.0); HEMOGLOBIN 10.6 g/dl (12.0-16.0); LYMPHOCYTES # 0.3 10^3/ul (0.8-2.9); LYMPHOCYTES % 2.8 % (15.0-51.0); MEAN CORPUSCULAR HEMOGLOBIN 27.4 pg (29.0-33.0); MEAN CORPUSCULAR HGB CONC 33.2 g/dl (32.0-37.0); MEAN CORPUSCULAR VOLUME 82.4 fl (82.0-101.0); MONOCYTE # 0.3 10^3/ul (0.3-0.9); MONOCYTES % 2.9 % (0.0-11.0); NEUTROPHILS % 92.5 % (39.0-77.0); NUCLEATED RED BLOOD CELLS # 0.1 10^3/ul (0.0-0.0); NUCLEATED RED BLOOD CELLS% 0.4 /100WBC (0.0-0.0); PLATELET COUNT 168 10^3/UL (140-415); RED BLOOD COUNT 3.87 10^6/ul (4.20-5.40); RED CELL DISTRIBUTION WIDTH 15.7 % (11.5-14.5)
[2018-09-05 16:53] LABS: POSITIVE DIFF @See below
[2018-09-05] MEDS: PANTOPRAZOLE 40 MG INJ IV (18:35)
[2018-09-06] MEDS: PANTOPRAZOLE 40 MG INJ IV ×2 (05:10→17:20)
[2018-09-06] MEDS: PIPER-TAZO 2.25 GM (PMX) 50 ML IVPB ×3 (05:10→20:36)
[2018-09-06 05:56] LABS: ADD MAN DIFF? NO
[2018-09-06 05:59] LABS: WHITE BLOOD COUNT 6.6 10^3/ul (4.8-10.8)
[2018-09-06 05:59] LABS: BASOPHILS % 0.3 % (0.0-2.0); EOSINOPHILS % 0.2 % (0.0-7.0); HEMATOCRIT 27.3 % (37.0-47.0); HEMOGLOBIN 9.2 g/dl (12.0-16.0); LYMPHOCYTES # 0.7 10^3/ul (0.8-2.9); LYMPHOCYTES % 10.3 % (15.0-51.0); MEAN CORPUSCULAR HGB CONC 33.7 g/dl (32.0-37.0); MEAN PLATELET VOLUME 11.7 fl (7.4-10.4); MONOCYTE # 0.7 10^3/ul (0.3-0.9); MONOCYTES % 11.2 % (0.0-11.0); NEUTROPHILS % 76.5 % (39.0-77.0); NUCLEATED RED BLOOD CELLS # 0.1 10^3/ul (0.0-0.0); NUCLEATED RED BLOOD CELLS% 0.8 /100WBC (0.0-0.0); PLATELET COUNT 146 10^3/UL (140-415); RED BLOOD COUNT 3.29 10^6/ul (4.20-5.40); RED CELL DISTRIBUTION WIDTH 16.4 % (11.5-14.5)
[2018-09-06 06:21] LABS: LIPASE 64 U/L (23-300)
[2018-09-06 06:22] LABS: ANION GAP 9 (5-13); BLOOD UREA NITROGEN 20 mg/dl (7-20); CALCIUM 7.9 mg/dl (8.4-10.2); CARBON DIOXIDE 28 mmol/L (21-31); CHLORIDE 102 mmol/L (97-110); CREATININE 1.75 mg/dl (0.44-1.00); GLUCOSE 148 mg/dl (70-220); POTASSIUM 3.8 mmol/L (3.5-5.1); SODIUM 139 mmol/L (135-144)
[2018-09-06 06:30] LABS: PHOSPHORUS 3.7 mg/dl (2.5-4.9)
[2018-09-06] MEDS: morphine SULFATE/PF (2 MG/2 ML) SYG IV (06:33)
[2018-09-06] MEDS: VALPROIC ACID LIQUID CUP 250 MG/5 ML CUP PO ×3 (06:33→20:35)
[2018-09-06] MEDS: SOD CHLORIDE 0.9% 1,000 ML IV ×2 (06:53→13:30)
[2018-09-06] MEDS: AMLODIPINE 5 MG TAB GTB ×2 (08:50→20:35)
[2018-09-06] MEDS: QUETIAPINE 25 MG TAB GTB ×2 (08:50→20:35)
[2018-09-06] MEDS: METOPROLOL 50 MG TAB GTB ×2 (08:51→20:34)
[2018-09-06] MEDS: FOLIC ACID 1 MG TAB GTB (08:51)
[2018-09-06] MEDS: LINAGLIPTIN 5 MG TABLET GTB (09:00)
[2018-09-06] MEDS ORDERED: ENOXAPARIN 30 MG/0.3 ML SYG SC (09:00)
[2018-09-06] MEDS: PROPOFOL 20 ML (09:06)
[2018-09-06] MEDS: SEVELAMER CARBONATE 0.8 GM PKT PO ×3 (11:30→17:20)
[2018-09-06] MEDS: LANSOPRAZOLE 30 MG CAP PO (13:03)
[2018-09-06] MEDS: DOCUSATE SODIUM 100 MG CAP PO (13:03)
[2018-09-06] MEDS: SENNA TAB PO ×2 (13:04→20:35)
[2018-09-06] MEDS: VANCOMYCIN 1 GM 250 ML IVPB (16:11)
[2018-09-07] MEDS: LORAZEPAM 1 MG TAB GTB ×2 (00:21→22:23)
[2018-09-07 06:36] LABS: ADD MAN DIFF? NO
[2018-09-07] MEDS: PIPER-TAZO 2.25 GM (PMX) 50 ML IVPB ×2 (06:42→13:12)
[2018-09-07] MEDS: PANTOPRAZOLE 40 MG INJ IV ×2 (06:42→17:47)
[2018-09-07] MEDS: VALPROIC ACID LIQUID CUP 250 MG/5 ML CUP PO ×3 (06:42→22:20)
[2018-09-07 06:50] LABS: BASOPHILS % 0.4 % (0.0-2.0); EOSINOPHILS # 0.3 10^3/ul (0.0-0.5); EOSINOPHILS % 4.7 % (0.0-7.0); HEMATOCRIT 25.7 % (37.0-47.0); HEMOGLOBIN 8.3 g/dl (12.0-16.0); LYMPHOCYTES # 0.8 10^3/ul (0.8-2.9); LYMPHOCYTES % 12.1 % (15.0-51.0); MEAN CORPUSCULAR HEMOGLOBIN 27.9 pg (29.0-33.0); MEAN CORPUSCULAR HGB CONC 32.3 g/dl (32.0-37.0); MEAN CORPUSCULAR VOLUME 86.2 fl (82.0-101.0); MEAN PLATELET VOLUME 11.2 fl (7.4-10.4); MONOCYTE # 0.9 10^3/ul (0.3-0.9); MONOCYTES % 13.7 % (0.0-11.0); NEUTROPHIL # 4.6 10^3/ul (1.6-7.5); NEUTROPHILS % 67.5 % (39.0-77.0); NUCLEATED RED BLOOD CELLS # 0.1 10^3/ul (0.0-0.0); NUCLEATED RED BLOOD CELLS% 0.9 /100WBC (0.0-0.0); PLATELET COUNT 153 10^3/UL (140-415); RED BLOOD COUNT 2.98 10^6/ul (4.20-5.40); RED CELL DISTRIBUTION WIDTH 16.8 % (11.5-14.5)
[2018-09-07 06:50] LABS: WHITE BLOOD COUNT 6.8 10^3/ul (4.8-10.8)
[2018-09-07 07:08] LABS: ANION GAP 9 (5-13); BLOOD UREA NITROGEN 27 mg/dl (7-20); CALCIUM 7.6 mg/dl (8.4-10.2); CARBON DIOXIDE 27 mmol/L (21-31); CHLORIDE 107 mmol/L (97-110); CREATININE 2.24 mg/dl (0.44-1.00); GLUCOSE 89 mg/dl (70-220); POTASSIUM 3.4 mmol/L (3.5-5.1); SODIUM 143 mmol/L (135-144)
[2018-09-07 07:30] LABS: PHOSPHORUS 3.6 mg/dl (2.5-4.9)
[2018-09-07] MEDS: FOLIC ACID 1 MG TAB GTB (08:56)
[2018-09-07] MEDS: LINAGLIPTIN 5 MG TABLET GTB (08:56)
[2018-09-07] MEDS: QUETIAPINE 25 MG TAB GTB ×2 (08:56→21:11)
[2018-09-07] MEDS: SEVELAMER CARBONATE 0.8 GM PKT PO ×3 (08:56→16:38)
[2018-09-07] MEDS: LANSOPRAZOLE 30 MG CAP PO (08:56)
[2018-09-07] MEDS: SENNA TAB PO ×2 (08:56→21:11)
[2018-09-07] MEDS: AMLODIPINE 5 MG TAB GTB ×2 (09:00→21:11)
[2018-09-07] MEDS: DOCUSATE SODIUM 100 MG CAP PO (09:00)
[2018-09-07] MEDS: METOPROLOL 50 MG TAB GTB ×2 (09:00→21:11)
[2018-09-07 10:49] LABS: RETICULOCYTE RBC 2.93
[2018-09-07 10:49] LABS: RETICULOCYTE COUNT # 0.038 X10^6 (0.020-0.110); RETICULOCYTE COUNT % 1.3 % (0.5-1.5)
[2018-09-07 10:55] LABS: IRON 85 ug/dl (35-150)
[2018-09-07 11:10] LABS: % IRON SATURATION 49 % SAT (22-52); TOTAL IRON BINDING CAPACITY 173 ug/dl (241-421)
[2018-09-07] MEDS: SOD CHLORIDE 0.9% 1,000 ML IV (11:22)
[2018-09-07 12:56] LABS: FOLATE > 20.0 ng/ml (2.8-20.0)
[2018-09-07] MEDS: DOCUSATE SODIUM 10 MG/ML (10ML CUP) GTB (13:12)
[2018-09-07] MEDS: ACETAMINOPHEN 325 MG TAB PO (16:46)
[2018-09-07 19:02] LABS: OCCULT BLOOD STOOL NEGATIVE (NEGATIVE)
[2018-09-08 06:06] LABS: ADD MAN DIFF? NO
[2018-09-08] MEDS: PANTOPRAZOLE 40 MG INJ IV ×2 (06:08→17:12)
[2018-09-08] MEDS: VALPROIC ACID LIQUID CUP 250 MG/5 ML CUP PO ×3 (06:08→22:11)
[2018-09-08 06:18] LABS: BASOPHILS % 0.4 % (0.0-2.0); EOSINOPHILS # 0.5 10^3/ul (0.0-0.5); EOSINOPHILS % 5.9 % (0.0-7.0); HEMATOCRIT 26.4 % (37.0-47.0); HEMOGLOBIN 8.6 g/dl (12.0-16.0); LYMPHOCYTES # 0.7 10^3/ul (0.8-2.9); LYMPHOCYTES % 8.6 % (15.0-51.0); MEAN CORPUSCULAR HEMOGLOBIN 27.8 pg (29.0-33.0); MEAN CORPUSCULAR HGB CONC 32.6 g/dl (32.0-37.0); MEAN CORPUSCULAR VOLUME 85.4 fl (82.0-101.0); MONOCYTES % 12.4 % (0.0-11.0); NEUTROPHIL # 5.5 10^3/ul (1.6-7.5); NEUTROPHILS % 71.4 % (39.0-77.0); NUCLEATED RED BLOOD CELLS # 0.1 10^3/ul (0.0-0.0); PLATELET COUNT 171 10^3/UL (140-415); RED BLOOD COUNT 3.09 10^6/ul (4.20-5.40); RED CELL DISTRIBUTION WIDTH 16.2 % (11.5-14.5)
[2018-09-08 06:18] LABS: WHITE BLOOD COUNT 7.7 10^3/ul (4.8-10.8)
[2018-09-08 06:38] LABS: PHOSPHORUS 1.5 mg/dl (2.5-4.9)
[2018-09-08 06:38] LABS: MAGNESIUM 2.2 mg/dl (1.7-2.5)
[2018-09-08 06:57] LABS: ANION GAP 8 (5-13); BLOOD UREA NITROGEN 17 mg/dl (7-20); CALCIUM 8.3 mg/dl (8.4-10.2); CARBON DIOXIDE 31 mmol/L (21-31); CHLORIDE 104 mmol/L (97-110); CREATININE 1.62 mg/dl (0.44-1.00); GLUCOSE 139 mg/dl (70-220); POTASSIUM 3.4 mmol/L (3.5-5.1); SODIUM 143 mmol/L (135-144)
[2018-09-08] MEDS: DOCUSATE SODIUM 10 MG/ML (10ML CUP) GTB (08:11)
[2018-09-08] MEDS: SEVELAMER CARBONATE 0.8 GM PKT PO ×3 (08:11→17:12)
[2018-09-08] MEDS: QUETIAPINE 25 MG TAB GTB ×2 (08:12→20:55)
[2018-09-08] MEDS: FOLIC ACID 1 MG TAB GTB (08:12)
[2018-09-08] MEDS: LANSOPRAZOLE 30 MG CAP PO (08:12)
[2018-09-08] MEDS: AMLODIPINE 5 MG TAB GTB ×2 (08:12→20:56)
[2018-09-08] MEDS: LINAGLIPTIN 5 MG TABLET GTB (08:12)
[2018-09-08] MEDS: METOPROLOL 50 MG TAB GTB ×2 (08:13→20:56)
[2018-09-08] MEDS: SENNA TAB PO ×2 (08:13→20:55)
[2018-09-08] MEDS ORDERED: POTASSIUM CHLORIDE (SR) 8 MEQ CAP PO (17:30)
[2018-09-08] MEDS: GUAIFENESIN/DM 5ML CUP PO (17:33)
[2018-09-08] MEDS: POTASSIUM CHLORIDE 20 MEQ POWDER FOR ORAL SOLN GTB (17:33)
[2018-09-08] MEDS: LORAZEPAM 1 MG TAB GTB (22:11)
[2018-09-09] MEDS: morphine LIQ (10 MG/5 ML) CUP PO ×2 (06:07→21:45)
[2018-09-09] MEDS: PANTOPRAZOLE 40 MG INJ IV (06:10)
[2018-09-09] MEDS: VALPROIC ACID LIQUID CUP 250 MG/5 ML CUP PO ×3 (06:10→20:37)
[2018-09-09 07:05] LABS: ANION GAP 7 (5-13); BLOOD UREA NITROGEN 32 mg/dl (7-20); CALCIUM 8.7 mg/dl (8.4-10.2); CARBON DIOXIDE 29 mmol/L (21-31); CHLORIDE 106 mmol/L (97-110); CREATININE 2.12 mg/dl (0.44-1.00); GLUCOSE 115 mg/dl (70-220); POTASSIUM 3.6 mmol/L (3.5-5.1); SODIUM 142 mmol/L (135-144)
[2018-09-09] MEDS: DOCUSATE SODIUM 10 MG/ML (10ML CUP) GTB (09:37)
[2018-09-09] MEDS: SEVELAMER CARBONATE 0.8 GM PKT PO ×3 (09:37→17:35)
[2018-09-09] MEDS: FOLIC ACID 1 MG TAB GTB (09:38)
[2018-09-09] MEDS: LANSOPRAZOLE 30 MG CAP PO (09:38)
[2018-09-09] MEDS: QUETIAPINE 25 MG TAB GTB ×2 (09:38→20:37)
[2018-09-09] MEDS: SENNA TAB PO ×2 (09:38→20:37)
[2018-09-09] MEDS: LINAGLIPTIN 5 MG TABLET GTB (09:38)
[2018-09-09] MEDS: METOPROLOL 50 MG TAB GTB ×2 (09:38→20:40)
[2018-09-09] MEDS: AMLODIPINE 5 MG TAB GTB ×2 (09:39→20:40)
[2018-09-09] MEDS: LANSOPRAZOLE 30 MG CAP GTB (18:45)
[2018-09-10] MEDS: morphine LIQ (10 MG/5 ML) CUP PO (02:16)
[2018-09-10 04:56] LABS: ADD MAN DIFF? NO
[2018-09-10 04:58] LABS: WHITE BLOOD COUNT 11.8 10^3/ul (4.8-10.8)
[2018-09-10 04:58] LABS: BASOPHILS % 0.3 % (0.0-2.0); EOSINOPHILS # 0.6 10^3/ul (0.0-0.5); EOSINOPHILS % 4.8 % (0.0-7.0); HEMATOCRIT 26.4 % (37.0-47.0); HEMOGLOBIN 8.4 g/dl (12.0-16.0); LYMPHOCYTES # 1.3 10^3/ul (0.8-2.9); LYMPHOCYTES % 11.3 % (15.0-51.0); MEAN CORPUSCULAR HEMOGLOBIN 27.8 pg (29.0-33.0); MEAN CORPUSCULAR HGB CONC 31.8 g/dl (32.0-37.0); MEAN CORPUSCULAR VOLUME 87.4 fl (82.0-101.0); MEAN PLATELET VOLUME 10.7 fl (7.4-10.4); MONOCYTE # 1.2 10^3/ul (0.3-0.9); MONOCYTES % 10.5 % (0.0-11.0); NEUTROPHIL # 8.5 10^3/ul (1.6-7.5); NEUTROPHILS % 72.1 % (39.0-77.0); NUCLEATED RED BLOOD CELLS # 0.1 10^3/ul (0.0-0.0); NUCLEATED RED BLOOD CELLS% 0.6 /100WBC (0.0-0.0); PLATELET COUNT 195 10^3/UL (140-415); RED BLOOD COUNT 3.02 10^6/ul (4.20-5.40); RED CELL DISTRIBUTION WIDTH 16.5 % (11.5-14.5)
[2018-09-10] MEDS: LANSOPRAZOLE 30 MG CAP GTB ×2 (05:25→17:07)
[2018-09-10] MEDS: VALPROIC ACID LIQUID CUP 250 MG/5 ML CUP PO ×3 (05:25→21:29)
[2018-09-10 05:30] LABS: PHOSPHORUS 2.8 mg/dl (2.5-4.9)
[2018-09-10 05:30] LABS: MAGNESIUM 2.5 mg/dl (1.7-2.5)
[2018-09-10 05:31] LABS: ANION GAP 7 (5-13); BLOOD UREA NITROGEN 43 mg/dl (7-20); CALCIUM 8.7 mg/dl (8.4-10.2); CARBON DIOXIDE 30 mmol/L (21-31); CHLORIDE 107 mmol/L (97-110); CREATININE 2.43 mg/dl (0.44-1.00); GLUCOSE 119 mg/dl (70-220); POTASSIUM 3.8 mmol/L (3.5-5.1); SODIUM 144 mmol/L (135-144)
[2018-09-10] MEDS: DOCUSATE SODIUM 10 MG/ML (10ML CUP) GTB (08:25)
[2018-09-10] MEDS: QUETIAPINE 25 MG TAB GTB ×2 (08:25→21:30)
[2018-09-10] MEDS: SEVELAMER CARBONATE 0.8 GM PKT PO ×3 (08:25→17:07)
[2018-09-10] MEDS: SENNA TAB PO ×2 (08:25→21:29)
[2018-09-10] MEDS: FOLIC ACID 1 MG TAB GTB (08:25)
[2018-09-10] MEDS: LINAGLIPTIN 5 MG TABLET GTB (08:25)
[2018-09-10] MEDS: METOPROLOL 50 MG TAB GTB ×2 (08:26→21:30)
[2018-09-10] MEDS: AMLODIPINE 5 MG TAB GTB (08:26)
[2018-09-10] MEDS: ALBUMIN HUMAN 25% 50 ML IV (11:25)
[2018-09-10] MEDS: HYDROCODONE/APAP (5/325) TAB PO (17:07)
[2018-09-10] MEDS: ACETAMINOPHEN 325 MG TAB PO (21:31)
[2018-09-10] MEDS: AMLODIPINE 2.5 MG TAB GTB (21:31)
[2018-09-10] MEDS: LORAZEPAM 1 MG TAB GTB (21:31)
[2018-09-11 05:52] LABS: ADD MAN DIFF? NO
[2018-09-11 05:59] LABS: BASOPHILS % 0.3 % (0.0-2.0); EOSINOPHILS # 0.3 10^3/ul (0.0-0.5); EOSINOPHILS % 3.8 % (0.0-7.0); HEMATOCRIT 26.1 % (37.0-47.0); HEMOGLOBIN 8.1 g/dl (12.0-16.0); LYMPHOCYTES # 0.7 10^3/ul (0.8-2.9); MEAN CORPUSCULAR HEMOGLOBIN 27.6 pg (29.0-33.0); MEAN CORPUSCULAR VOLUME 89.1 fl (82.0-101.0); MEAN PLATELET VOLUME 11.2 fl (7.4-10.4); MONOCYTE # 0.9 10^3/ul (0.3-0.9); NEUTROPHIL # 5.6 10^3/ul (1.6-7.5); NEUTROPHILS % 73.8 % (39.0-77.0); NUCLEATED RED BLOOD CELLS # 0.1 10^3/ul (0.0-0.0); NUCLEATED RED BLOOD CELLS% 0.8 /100WBC (0.0-0.0); PLATELET COUNT 173 10^3/UL (140-415); RED BLOOD COUNT 2.93 10^6/ul (4.20-5.40); RED CELL DISTRIBUTION WIDTH 16.7 % (11.5-14.5)
[2018-09-11 05:59] LABS: WHITE BLOOD COUNT 7.6 10^3/ul (4.8-10.8)
[2018-09-11 06:18] LABS: PHOSPHORUS 1.9 mg/dl (2.5-4.9)
[2018-09-11 06:18] LABS: MAGNESIUM 2.4 mg/dl (1.7-2.5)
[2018-09-11] MEDS: LANSOPRAZOLE 30 MG CAP GTB ×2 (06:19→17:28)
[2018-09-11] MEDS: VALPROIC ACID LIQUID CUP 250 MG/5 ML CUP PO ×3 (06:19→21:50)
[2018-09-11 06:25] LABS: ANION GAP 8 (5-13); BLOOD UREA NITROGEN 31 mg/dl (7-20); CALCIUM 8.5 mg/dl (8.4-10.2); CARBON DIOXIDE 34 mmol/L (21-31); CHLORIDE 101 mmol/L (97-110); GLUCOSE 127 mg/dl (70-220); POTASSIUM 3.5 mmol/L (3.5-5.1); SODIUM 143 mmol/L (135-144)
[2018-09-11] MEDS: SEVELAMER CARBONATE 0.8 GM PKT PO ×3 (09:51→17:28)
[2018-09-11] MEDS: DOCUSATE SODIUM 10 MG/ML (10ML CUP) GTB (09:52)
[2018-09-11] MEDS: QUETIAPINE 25 MG TAB GTB ×2 (09:52→20:47)
[2018-09-11] MEDS: FOLIC ACID 1 MG TAB GTB (09:52)
[2018-09-11] MEDS: ACETAMINOPHEN 325 MG TAB PO (09:52)
[2018-09-11] MEDS: SENNA TAB PO ×2 (09:52→20:48)
[2018-09-11] MEDS: METOPROLOL 50 MG TAB GTB ×2 (09:53→20:48)
[2018-09-11] MEDS: AMLODIPINE 2.5 MG TAB GTB ×2 (09:53→20:46)
[2018-09-11] MEDS: LINAGLIPTIN 5 MG TABLET GTB (09:58)
[2018-09-11] MEDS ORDERED: VANCOMYCIN IV PER PHARMACY XX (12:00)
[2018-09-11] MEDS: MEROPENEM 500MG/50 ML (PMX) 50 ML IVPB (13:01)
[2018-09-11] MEDS: VANCOMYCIN 750 MG (PMX) 250 ML IVPB (13:55)
[2018-09-11] MEDS: GUAIFENESIN/DM 5ML CUP PO (21:50)
[2018-09-12 06:06] LABS: ADD MAN DIFF? NO
[2018-09-12 06:08] LABS: WHITE BLOOD COUNT 11.9 10^3/ul (4.8-10.8)
[2018-09-12 06:08] LABS: BASOPHILS % 0.2 % (0.0-2.0); EOSINOPHILS # 0.3 10^3/ul (0.0-0.5); EOSINOPHILS % 2.4 % (0.0-7.0); HEMATOCRIT 24.7 % (37.0-47.0); HEMOGLOBIN 7.9 g/dl (12.0-16.0); LYMPHOCYTES # 1.2 10^3/ul (0.8-2.9); LYMPHOCYTES % 10.3 % (15.0-51.0); MEAN CORPUSCULAR VOLUME 87.6 fl (82.0-101.0); MEAN PLATELET VOLUME 11.3 fl (7.4-10.4); MONOCYTE # 1.1 10^3/ul (0.3-0.9); MONOCYTES % 9.3 % (0.0-11.0); NEUTROPHIL # 9.2 10^3/ul (1.6-7.5); NEUTROPHILS % 76.9 % (39.0-77.0); NUCLEATED RED BLOOD CELLS% 0.3 /100WBC (0.0-0.0); PLATELET COUNT 192 10^3/UL (140-415); RED BLOOD COUNT 2.82 10^6/ul (4.20-5.40); RED CELL DISTRIBUTION WIDTH 16.6 % (11.5-14.5)
[2018-09-12 06:34] LABS: ANION GAP 12 (5-13); BLOOD UREA NITROGEN 49 mg/dl (7-20); CALCIUM 8.6 mg/dl (8.4-10.2); CARBON DIOXIDE 29 mmol/L (21-31); CHLORIDE 100 mmol/L (97-110); CREATININE 2.73 mg/dl (0.44-1.00); GLUCOSE 123 mg/dl (70-220); POTASSIUM 3.6 mmol/L (3.5-5.1); SODIUM 141 mmol/L (135-144)
[2018-09-12] MEDS: VALPROIC ACID LIQUID CUP 250 MG/5 ML CUP PO ×3 (06:43→20:18)
[2018-09-12] MEDS: LANSOPRAZOLE 30 MG CAP GTB ×2 (06:45→17:42)
[2018-09-12 06:49] LABS: MAGNESIUM 2.4 mg/dl (1.7-2.5)
[2018-09-12 06:49] LABS: PHOSPHORUS 2.2 mg/dl (2.5-4.9)
[2018-09-12] MEDS: FOLIC ACID 1 MG TAB GTB (08:24)
[2018-09-12] MEDS: SENNA TAB PO ×2 (08:24→20:17)
[2018-09-12] MEDS: SEVELAMER CARBONATE 0.8 GM PKT PO ×3 (08:24→17:42)
[2018-09-12] MEDS: QUETIAPINE 25 MG TAB GTB ×2 (08:25→20:17)
[2018-09-12] MEDS: DOCUSATE SODIUM 10 MG/ML (10ML CUP) GTB (08:25)
[2018-09-12] MEDS: MULTIVIT/CA CARB/B CMPLX/FA TAB GTB (08:26)
[2018-09-12] MEDS: LINAGLIPTIN 5 MG TABLET GTB (08:34)
[2018-09-12] MEDS: METOPROLOL 50 MG TAB GTB ×2 (09:00→20:18)
[2018-09-12] MEDS: AMLODIPINE 2.5 MG TAB GTB ×2 (09:00→20:18)
[2018-09-12] MEDS: ACETAMINOPHEN 325 MG TAB PO ×2 (10:57→20:19)
[2018-09-12] MEDS: MEROPENEM 500MG/50 ML (PMX) 50 ML IVPB (14:52)
[2018-09-12] MEDS: LORAZEPAM 1 MG TAB GTB (20:19)
[2018-09-13] MEDS: morphine LIQ (10 MG/5 ML) CUP PO (00:09)
[2018-09-13] MEDS: VALPROIC ACID LIQUID CUP 250 MG/5 ML CUP PO ×3 (05:43→22:09)
[2018-09-13] MEDS: LANSOPRAZOLE 30 MG CAP GTB (05:43)
[2018-09-13 05:55] LABS: ADD MAN DIFF? NO
[2018-09-13 06:00] LABS: WHITE BLOOD COUNT 7.5 10^3/ul (4.8-10.8)
[2018-09-13 06:00] LABS: BASOPHILS % 0.4 % (0.0-2.0); EOSINOPHILS # 0.3 10^3/ul (0.0-0.5); EOSINOPHILS % 3.8 % (0.0-7.0); HEMATOCRIT 24.9 % (37.0-47.0); HEMOGLOBIN 7.8 g/dl (12.0-16.0); LYMPHOCYTES # 0.9 10^3/ul (0.8-2.9); LYMPHOCYTES % 12.3 % (15.0-51.0); MEAN CORPUSCULAR HEMOGLOBIN 27.3 pg (29.0-33.0); MEAN CORPUSCULAR HGB CONC 31.3 g/dl (32.0-37.0); MEAN CORPUSCULAR VOLUME 87.1 fl (82.0-101.0); MEAN PLATELET VOLUME 11.4 fl (7.4-10.4); MONOCYTE # 1.2 10^3/ul (0.3-0.9); MONOCYTES % 15.3 % (0.0-11.0); NEUTROPHIL # 5.1 10^3/ul (1.6-7.5); NUCLEATED RED BLOOD CELLS% 0.4 /100WBC (0.0-0.0); PLATELET COUNT 183 10^3/UL (140-415); RED BLOOD COUNT 2.86 10^6/ul (4.20-5.40); RED CELL DISTRIBUTION WIDTH 16.5 % (11.5-14.5)
[2018-09-13 06:19] LABS: ANION GAP 4 (5-13); BLOOD UREA NITROGEN 30 mg/dl (7-20); CALCIUM 8.1 mg/dl (8.4-10.2); CARBON DIOXIDE 33 mmol/L (21-31); CHLORIDE 99 mmol/L (97-110); GLUCOSE 101 mg/dl (70-220); POTASSIUM 3.4 mmol/L (3.5-5.1); SODIUM 136 mmol/L (135-144)
[2018-09-13 06:20] LABS: VANCOMYCIN,RANDOM 10.5 ug/ml
[2018-09-13 08:09] LABS: MAGNESIUM 2.3 mg/dl (1.7-2.5)
[2018-09-13] MEDS: SEVELAMER CARBONATE 0.8 GM PKT PO ×3 (08:15→16:53)
[2018-09-13] MEDS: DOCUSATE SODIUM 10 MG/ML (10ML CUP) GTB (08:16)
[2018-09-13] MEDS: LINAGLIPTIN 5 MG TABLET GTB (08:16)
[2018-09-13] MEDS: MULTIVIT/CA CARB/B CMPLX/FA TAB GTB (08:16)
[2018-09-13] MEDS: AMLODIPINE 2.5 MG TAB GTB ×2 (08:16→20:52)
[2018-09-13] MEDS: SENNA TAB PO ×2 (08:16→20:51)
[2018-09-13] MEDS: QUETIAPINE 25 MG TAB GTB ×2 (08:16→20:51)
[2018-09-13] MEDS: FOLIC ACID 1 MG TAB GTB (08:16)
[2018-09-13] MEDS: METOPROLOL 50 MG TAB GTB ×2 (08:17→20:53)
[2018-09-13] MEDS ORDERED: POTASSIUM CHLORIDE (SR) 20 MEQ TAB PO (09:45)
[2018-09-13] MEDS ORDERED: POTASSIUM CHLORIDE 20 MEQ POWDER FOR ORAL SOLN PO (10:03)
[2018-09-13] MEDS: POTASSIUM CHLORIDE 20 MEQ POWDER FOR ORAL SOLN GTB (10:27)
[2018-09-13] MEDS: MEROPENEM 500MG/50 ML (PMX) 50 ML IVPB (13:57)
[2018-09-13] MEDS: VANCOMYCIN 750 MG (PMX) 250 ML IVPB (16:53)
[2018-09-13] MEDS: FERROUS SULFATE (EC) 325 MG TAB PO (20:51)
[2018-09-14] MEDS: morphine LIQ (10 MG/5 ML) CUP PO (00:39)
[2018-09-14 05:13] LABS: WHITE BLOOD COUNT 8.2 10^3/ul (4.8-10.8)
[2018-09-14 05:13] LABS: ADD MAN DIFF? NO; BASOPHILS % 0.4 % (0.0-2.0); EOSINOPHILS # 0.5 10^3/ul (0.0-0.5); HEMOGLOBIN 7.2 g/dl (12.0-16.0); LYMPHOCYTES # 1.2 10^3/ul (0.8-2.9); LYMPHOCYTES % 14.4 % (15.0-51.0); MEAN CORPUSCULAR HEMOGLOBIN 27.1 pg (29.0-33.0); MEAN CORPUSCULAR HGB CONC 31.3 g/dl (32.0-37.0); MEAN CORPUSCULAR VOLUME 86.5 fl (82.0-101.0); MEAN PLATELET VOLUME 11.8 fl (7.4-10.4); MONOCYTE # 1.3 10^3/ul (0.3-0.9); MONOCYTES % 15.7 % (0.0-11.0); NEUTROPHIL # 5.1 10^3/ul (1.6-7.5); NEUTROPHILS % 62.4 % (39.0-77.0); NUCLEATED RED BLOOD CELLS # 0.1 10^3/ul (0.0-0.0); NUCLEATED RED BLOOD CELLS% 0.6 /100WBC (0.0-0.0); PLATELET COUNT 196 10^3/UL (140-415); RED BLOOD COUNT 2.66 10^6/ul (4.20-5.40); RED CELL DISTRIBUTION WIDTH 16.6 % (11.5-14.5)
[2018-09-14 05:43] LABS: ANION GAP 7 (5-13); BLOOD UREA NITROGEN 44 mg/dl (7-20); CALCIUM 8.4 mg/dl (8.4-10.2); CARBON DIOXIDE 30 mmol/L (21-31); CHLORIDE 98 mmol/L (97-110); CREATININE 2.39 mg/dl (0.44-1.00); GLUCOSE 120 mg/dl (70-220); POTASSIUM 4.1 mmol/L (3.5-5.1); SODIUM 135 mmol/L (135-144)
[2018-09-14 05:45] LABS: PHOSPHORUS 1.8 mg/dl (2.5-4.9)
[2018-09-14 05:45] LABS: MAGNESIUM 2.4 mg/dl (1.7-2.5)
[2018-09-14] MEDS: VALPROIC ACID LIQUID CUP 250 MG/5 ML CUP PO ×3 (05:45→22:02)
[2018-09-14] MEDS ORDERED: ACETAMINOPHEN 650 MG SUPP PR (08:29)
[2018-09-14] MEDS: FOLIC ACID 1 MG TAB GTB (08:32)
[2018-09-14] MEDS: ACETAMINOPHEN 650 MG SUPP PR (08:32)
[2018-09-14] MEDS: MULTIVIT/CA CARB/B CMPLX/FA TAB GTB (08:32)
[2018-09-14] MEDS: LANSOPRAZOLE 30 MG CAP GTB (08:32)
[2018-09-14] MEDS: FERROUS SULFATE (EC) 325 MG TAB PO ×2 (08:32→20:52)
[2018-09-14] MEDS: DOCUSATE SODIUM 10 MG/ML (10ML CUP) GTB (08:33)
[2018-09-14] MEDS: SEVELAMER CARBONATE 0.8 GM PKT PO ×2 (08:33→12:28)
[2018-09-14] MEDS: QUETIAPINE 25 MG TAB GTB ×2 (08:35→20:52)
[2018-09-14] MEDS: LINAGLIPTIN 5 MG TABLET GTB (08:37)
[2018-09-14] MEDS: SENNA TAB PO ×2 (08:37→20:52)
[2018-09-14] MEDS: METOPROLOL 50 MG TAB GTB ×2 (08:38→20:52)
[2018-09-14] MEDS: AMLODIPINE 2.5 MG TAB GTB ×2 (08:38→20:53)
[2018-09-14] MEDS: MEROPENEM 500MG/50 ML (PMX) 50 ML IVPB (13:30)
[2018-09-14 15:28] LABS: IMMEDIATE SPIN CROSSMATCH 1 1
[2018-09-15] MEDS: morphine LIQ (10 MG/5 ML) CUP PO (00:35)
[2018-09-15 06:14] LABS: ADD MAN DIFF? NO
[2018-09-15] MEDS: VALPROIC ACID LIQUID CUP 250 MG/5 ML CUP PO ×3 (06:24→22:41)
[2018-09-15 06:38] LABS: BASOPHILS % 0.4 % (0.0-2.0); EOSINOPHILS # 0.3 10^3/ul (0.0-0.5); EOSINOPHILS % 4.9 % (0.0-7.0); HEMATOCRIT 25.7 % (37.0-47.0); HEMOGLOBIN 8.2 g/dl (12.0-16.0); LYMPHOCYTES % 14.9 % (15.0-51.0); MEAN CORPUSCULAR HEMOGLOBIN 27.7 pg (29.0-33.0); MEAN CORPUSCULAR HGB CONC 31.9 g/dl (32.0-37.0); MEAN CORPUSCULAR VOLUME 86.8 fl (82.0-101.0); MONOCYTE # 1.3 10^3/ul (0.3-0.9); MONOCYTES % 18.6 % (0.0-11.0); NEUTROPHILS % 59.1 % (39.0-77.0); NUCLEATED RED BLOOD CELLS% 0.6 /100WBC (0.0-0.0); PLATELET COUNT 172 10^3/UL (140-415); RED BLOOD COUNT 2.96 10^6/ul (4.20-5.40); RED CELL DISTRIBUTION WIDTH 16.1 % (11.5-14.5)
[2018-09-15 06:38] LABS: WHITE BLOOD COUNT 6.8 10^3/ul (4.8-10.8)
[2018-09-15 07:05] LABS: VANCOMYCIN,RANDOM 13.3 ug/ml
[2018-09-15 07:09] LABS: ANION GAP 5 (5-13); BLOOD UREA NITROGEN 26 mg/dl (7-20); CARBON DIOXIDE 32 mmol/L (21-31); CHLORIDE 97 mmol/L (97-110); CREATININE 1.68 mg/dl (0.44-1.00); GLUCOSE 97 mg/dl (70-220); POTASSIUM 4.2 mmol/L (3.5-5.1); SODIUM 134 mmol/L (135-144)
[2018-09-15] MEDS: SENNA TAB PO ×2 (08:11→21:12)
[2018-09-15] MEDS: MULTIVIT/CA CARB/B CMPLX/FA TAB GTB (08:11)
[2018-09-15] MEDS: QUETIAPINE 25 MG TAB GTB ×2 (08:11→21:12)
[2018-09-15] MEDS: DOCUSATE SODIUM 10 MG/ML (10ML CUP) GTB (08:11)
[2018-09-15] MEDS: FOLIC ACID 1 MG TAB GTB (08:11)
[2018-09-15] MEDS: LANSOPRAZOLE 30 MG CAP GTB (08:11)
[2018-09-15] MEDS: FERROUS SULFATE (EC) 325 MG TAB PO ×2 (08:11→21:12)
[2018-09-15] MEDS: HYDROCODONE/APAP (5/325) TAB PO (08:12)
[2018-09-15] MEDS: LINAGLIPTIN 5 MG TABLET GTB (08:12)
[2018-09-15] MEDS: METOPROLOL 50 MG TAB GTB ×2 (08:13→21:13)
[2018-09-15] MEDS: AMLODIPINE 2.5 MG TAB GTB ×2 (08:13→21:13)
[2018-09-15] MEDS: MEROPENEM 500MG/50 ML (PMX) 50 ML IVPB (12:39)
[2018-09-15] MEDS: VANCOMYCIN 750 MG (PMX) 250 ML IVPB (15:33)
[2018-09-16 06:00] LABS: ADD MAN DIFF? NO
[2018-09-16] MEDS: VALPROIC ACID LIQUID CUP 250 MG/5 ML CUP PO ×3 (06:03→20:15)
[2018-09-16 06:17] LABS: BASOPHIL # 0.1 10^3/ul (0.0-0.1); BASOPHILS % 0.7 % (0.0-2.0); EOSINOPHILS # 0.6 10^3/ul (0.0-0.5); HEMATOCRIT 27.5 % (37.0-47.0); HEMOGLOBIN 8.6 g/dl (12.0-16.0); MEAN CORPUSCULAR HEMOGLOBIN 27.5 pg (29.0-33.0); MEAN CORPUSCULAR HGB CONC 31.3 g/dl (32.0-37.0); MEAN CORPUSCULAR VOLUME 87.9 fl (82.0-101.0); MONOCYTE # 1.3 10^3/ul (0.3-0.9); MONOCYTES % 17.3 % (0.0-11.0); NEUTROPHIL # 4.4 10^3/ul (1.6-7.5); NEUTROPHILS % 59.4 % (39.0-77.0); NUCLEATED RED BLOOD CELLS% 0.4 /100WBC (0.0-0.0); PLATELET COUNT 215 10^3/UL (140-415); RED BLOOD COUNT 3.13 10^6/ul (4.20-5.40); RED CELL DISTRIBUTION WIDTH 16.5 % (11.5-14.5)
[2018-09-16 06:17] LABS: WHITE BLOOD COUNT 7.4 10^3/ul (4.8-10.8)
[2018-09-16 07:06] LABS: MAGNESIUM 2.4 mg/dl (1.7-2.5)
[2018-09-16 07:12] LABS: ANION GAP 7 (5-13); BLOOD UREA NITROGEN 43 mg/dl (7-20); CALCIUM 8.6 mg/dl (8.4-10.2); CARBON DIOXIDE 28 mmol/L (21-31); CHLORIDE 100 mmol/L (97-110); CREATININE 2.19 mg/dl (0.44-1.00); GLUCOSE 133 mg/dl (70-220); POTASSIUM 4.3 mmol/L (3.5-5.1); SODIUM 135 mmol/L (135-144)
[2018-09-16] MEDS: METOPROLOL 50 MG TAB GTB ×2 (09:22→20:15)
[2018-09-16] MEDS: FOLIC ACID 1 MG TAB GTB (09:22)
[2018-09-16] MEDS: DOCUSATE SODIUM 10 MG/ML (10ML CUP) GTB (09:22)
[2018-09-16] MEDS: LIDOCAINE 1% (MPF) 5 ML VIAL SC (09:23)
[2018-09-16] MEDS: QUETIAPINE 25 MG TAB GTB ×2 (09:23→20:14)
[2018-09-16] MEDS: LANSOPRAZOLE 30 MG CAP GTB (09:23)
[2018-09-16] MEDS: LINAGLIPTIN 5 MG TABLET GTB (09:23)
[2018-09-16] MEDS: SENNA TAB PO ×2 (09:23→20:14)
[2018-09-16] MEDS: AMLODIPINE 2.5 MG TAB GTB ×2 (09:23→20:15)
[2018-09-16] MEDS: FERROUS SULFATE (EC) 325 MG TAB PO ×2 (09:23→20:14)
[2018-09-16] MEDS: MULTIVIT/CA CARB/B CMPLX/FA TAB GTB (09:23)
[2018-09-16] MEDS: CASPOFUNGIN 50 MG in SOD CHLORIDE 0.9% 250 ML IVPB (12:05)
[2018-09-16] MEDS: MEROPENEM 500MG/50 ML (PMX) 50 ML IVPB (14:37)
[2018-09-16] MEDS: ACETAMINOPHEN 325 MG TAB PO (20:14)
[2018-09-16] MEDS: LORAZEPAM 1 MG TAB GTB (20:16)
[2018-09-17] MEDS: VALPROIC ACID LIQUID CUP 250 MG/5 ML CUP PO ×3 (06:10→20:41)
[2018-09-17 06:12] LABS: ADD MAN DIFF? NO
[2018-09-17 06:16] LABS: WHITE BLOOD COUNT 7.5 10^3/ul (4.8-10.8)
[2018-09-17 06:16] LABS: BASOPHILS % 0.5 % (0.0-2.0); EOSINOPHILS # 0.6 10^3/ul (0.0-0.5); EOSINOPHILS % 7.5 % (0.0-7.0); HEMATOCRIT 28.7 % (37.0-47.0); LYMPHOCYTES # 1.2 10^3/ul (0.8-2.9); LYMPHOCYTES % 15.7 % (15.0-51.0); MEAN CORPUSCULAR HEMOGLOBIN 27.4 pg (29.0-33.0); MEAN CORPUSCULAR HGB CONC 31.4 g/dl (32.0-37.0); MEAN CORPUSCULAR VOLUME 87.5 fl (82.0-101.0); MEAN PLATELET VOLUME 11.3 fl (7.4-10.4); MONOCYTE # 1.2 10^3/ul (0.3-0.9); MONOCYTES % 15.8 % (0.0-11.0); NEUTROPHIL # 4.4 10^3/ul (1.6-7.5); NEUTROPHILS % 58.4 % (39.0-77.0); NUCLEATED RED BLOOD CELLS% 0.4 /100WBC (0.0-0.0); PLATELET COUNT 265 10^3/UL (140-415); RED BLOOD COUNT 3.28 10^6/ul (4.20-5.40); RED CELL DISTRIBUTION WIDTH 16.5 % (11.5-14.5)
[2018-09-17 06:52] LABS: ANION GAP 8 (5-13); BLOOD UREA NITROGEN 63 mg/dl (7-20); CALCIUM 8.7 mg/dl (8.4-10.2); CARBON DIOXIDE 30 mmol/L (21-31); CHLORIDE 97 mmol/L (97-110); GLUCOSE 124 mg/dl (70-220); POTASSIUM 4.3 mmol/L (3.5-5.1); SODIUM 135 mmol/L (135-144)
[2018-09-17 07:03] LABS: MAGNESIUM 2.7 mg/dl (1.7-2.5)
[2018-09-17 07:03] LABS: PHOSPHORUS 3.6 mg/dl (2.5-4.9)
[2018-09-17] MEDS: METOPROLOL 50 MG TAB GTB ×2 (09:00→20:40)
[2018-09-17] MEDS: AMLODIPINE 2.5 MG TAB GTB ×2 (09:00→20:40)
[2018-09-17] MEDS: DOCUSATE SODIUM 10 MG/ML (10ML CUP) GTB (09:20)
[2018-09-17] MEDS: SENNA TAB PO ×2 (09:20→20:39)
[2018-09-17] MEDS: MULTIVIT/CA CARB/B CMPLX/FA TAB GTB (09:20)
[2018-09-17] MEDS: FOLIC ACID 1 MG TAB GTB (09:21)
[2018-09-17] MEDS: QUETIAPINE 25 MG TAB GTB ×2 (09:21→20:40)
[2018-09-17] MEDS: LANSOPRAZOLE 30 MG CAP GTB (09:21)
[2018-09-17] MEDS: FERROUS SULFATE (EC) 325 MG TAB PO ×2 (09:21→20:39)
[2018-09-17] MEDS: LINAGLIPTIN 5 MG TABLET GTB (09:22)
[2018-09-17] MEDS: CASPOFUNGIN 50 MG in SOD CHLORIDE 0.9% 250 ML IVPB (11:22)
[2018-09-17] MEDS: MEROPENEM 500MG/50 ML (PMX) 50 ML IVPB (16:00)
[2018-09-17] MEDS: ACETAMINOPHEN 325 MG TAB PO (20:41)
[2018-09-17] MEDS: LORAZEPAM 1 MG TAB GTB (20:41)
[2018-09-18] MEDS: VALPROIC ACID LIQUID CUP 250 MG/5 ML CUP PO ×3 (05:00→21:02)
[2018-09-18] MEDS: DOCUSATE SODIUM 10 MG/ML (10ML CUP) GTB (09:17)
[2018-09-18] MEDS: FOLIC ACID 1 MG TAB GTB (09:17)
[2018-09-18] MEDS: LANSOPRAZOLE 30 MG CAP GTB (09:18)
[2018-09-18] MEDS: METOPROLOL 50 MG TAB GTB ×2 (09:18→21:02)
[2018-09-18] MEDS: MULTIVIT/CA CARB/B CMPLX/FA TAB GTB (09:18)
[2018-09-18] MEDS: AMLODIPINE 2.5 MG TAB GTB ×2 (09:18→21:02)
[2018-09-18] MEDS: QUETIAPINE 25 MG TAB GTB ×2 (09:18→21:02)
[2018-09-18] MEDS: SENNA TAB PO ×2 (09:19→21:02)
[2018-09-18] MEDS: FERROUS SULFATE (EC) 325 MG TAB PO ×2 (09:19→21:02)
[2018-09-18] MEDS: LINAGLIPTIN 5 MG TABLET GTB (09:25)
[2018-09-18] MEDS: CASPOFUNGIN 50 MG in SOD CHLORIDE 0.9% 250 ML IVPB (11:54)
[2018-09-18] MEDS: MEROPENEM 500MG/50 ML (PMX) 50 ML IVPB (12:57)
[2018-09-18] MEDS: VANCOMYCIN 750 MG (PMX) 250 ML IVPB (15:41)
[2018-09-18] MEDS: LORAZEPAM 1 MG TAB GTB (21:03)
[2018-09-18] MEDS: ACETAMINOPHEN 325 MG TAB PO (21:03)
[2018-09-18] MEDS: hydrALAzine 20 MG INJ IV (23:50)
[2018-09-19] MEDS: VALPROIC ACID LIQUID CUP 250 MG/5 ML CUP PO ×3 (05:40→21:20)
[2018-09-19] MEDS: DOCUSATE SODIUM 10 MG/ML (10ML CUP) GTB (08:22)
[2018-09-19] MEDS: SENNA TAB PO ×2 (08:23→21:19)
[2018-09-19] MEDS: QUETIAPINE 25 MG TAB GTB ×2 (08:23→21:19)
[2018-09-19] MEDS: LANSOPRAZOLE 30 MG CAP GTB (08:23)
[2018-09-19] MEDS: LINAGLIPTIN 5 MG TABLET GTB (08:23)
[2018-09-19] MEDS: MULTIVIT/CA CARB/B CMPLX/FA TAB GTB (08:23)
[2018-09-19] MEDS: FOLIC ACID 1 MG TAB GTB (08:23)
[2018-09-19] MEDS: FERROUS SULFATE (EC) 325 MG TAB PO ×2 (08:23→21:19)
[2018-09-19] MEDS: METOPROLOL 50 MG TAB GTB ×2 (08:30→21:20)
[2018-09-19] MEDS: AMLODIPINE 2.5 MG TAB GTB ×2 (08:30→21:19)
[2018-09-19 08:46] LABS: ADD MAN DIFF? NO
[2018-09-19 08:48] LABS: WHITE BLOOD COUNT 8.8 10^3/ul (4.8-10.8)
[2018-09-19 08:48] LABS: BASOPHIL # 0.1 10^3/ul (0.0-0.1); BASOPHILS % 0.6 % (0.0-2.0); EOSINOPHILS # 0.5 10^3/ul (0.0-0.5); EOSINOPHILS % 5.4 % (0.0-7.0); HEMOGLOBIN 9.3 g/dl (12.0-16.0); LYMPHOCYTES # 0.9 10^3/ul (0.8-2.9); MEAN CORPUSCULAR HEMOGLOBIN 27.5 pg (29.0-33.0); MEAN CORPUSCULAR HGB CONC 32.1 g/dl (32.0-37.0); MEAN CORPUSCULAR VOLUME 85.8 fl (82.0-101.0); MEAN PLATELET VOLUME 11.7 fl (7.4-10.4); MONOCYTE # 1.1 10^3/ul (0.3-0.9); NEUTROPHIL # 6.2 10^3/ul (1.6-7.5); NEUTROPHILS % 70.1 % (39.0-77.0); PLATELET COUNT 321 10^3/UL (140-415); RED BLOOD COUNT 3.38 10^6/ul (4.20-5.40); RED CELL DISTRIBUTION WIDTH 16.3 % (11.5-14.5)
[2018-09-19 09:05] LABS: ANION GAP 10 (5-13); BLOOD UREA NITROGEN 54 mg/dl (7-20); CALCIUM 8.9 mg/dl (8.4-10.2); CARBON DIOXIDE 29 mmol/L (21-31); CHLORIDE 100 mmol/L (97-110); CREATININE 1.84 mg/dl (0.44-1.00); GLUCOSE 146 mg/dl (70-220); MAGNESIUM 2.6 mg/dl (1.7-2.5); POTASSIUM 3.9 mmol/L (3.5-5.1); SODIUM 139 mmol/L (135-144)
[2018-09-19 09:05] LABS: PHOSPHORUS 3.3 mg/dl (2.5-4.9)
[2018-09-19] MEDS: MEROPENEM 500MG/50 ML (PMX) 50 ML IVPB (14:32)
[2018-09-19] MEDS: CASPOFUNGIN 50 MG in SOD CHLORIDE 0.9% 250 ML IVPB (14:32)
[2018-09-19] MEDS: ACETAMINOPHEN 325 MG TAB PO (21:20)
[2018-09-19] MEDS: LORAZEPAM 1 MG TAB GTB (21:20)
[2018-09-20] MEDS: VALPROIC ACID LIQUID CUP 250 MG/5 ML CUP PO ×3 (05:39→22:24)
[2018-09-20] MEDS: hydrALAzine 20 MG INJ IV (06:53)
[2018-09-20] MEDS: DOCUSATE SODIUM 10 MG/ML (10ML CUP) GTB (08:10)
[2018-09-20] MEDS: SENNA TAB PO ×2 (08:10→21:27)
[2018-09-20] MEDS: LANSOPRAZOLE 30 MG CAP GTB (08:10)
[2018-09-20] MEDS: MULTIVIT/CA CARB/B CMPLX/FA TAB GTB (08:10)
[2018-09-20] MEDS: FERROUS SULFATE (EC) 325 MG TAB PO ×2 (08:11→21:27)
[2018-09-20] MEDS: AMLODIPINE 2.5 MG TAB GTB ×2 (08:11→21:27)
[2018-09-20] MEDS: LINAGLIPTIN 5 MG TABLET GTB (08:11)
[2018-09-20] MEDS: QUETIAPINE 25 MG TAB GTB ×2 (08:11→21:27)
[2018-09-20] MEDS: METOPROLOL 50 MG TAB GTB ×2 (08:11→21:27)
[2018-09-20] MEDS: FOLIC ACID 1 MG TAB GTB (08:11)
[2018-09-20] MEDS: CASPOFUNGIN 50 MG in SOD CHLORIDE 0.9% 250 ML IVPB (10:38)
[2018-09-20] MEDS: MEROPENEM 500MG/50 ML (PMX) 50 ML IVPB (12:38)
[2018-09-21] MEDS: VALPROIC ACID LIQUID CUP 250 MG/5 ML CUP PO ×3 (06:41→22:35)
[2018-09-21] MEDS: METOPROLOL 50 MG TAB GTB ×2 (08:12→21:48)
[2018-09-21] MEDS: DOCUSATE SODIUM 10 MG/ML (10ML CUP) GTB (08:12)
[2018-09-21] MEDS: SENNA TAB PO ×2 (08:12→21:10)
[2018-09-21] MEDS: FOLIC ACID 1 MG TAB GTB (08:12)
[2018-09-21] MEDS: QUETIAPINE 25 MG TAB GTB ×2 (08:12→21:10)
[2018-09-21] MEDS: LANSOPRAZOLE 30 MG CAP GTB (08:12)
[2018-09-21] MEDS: FERROUS SULFATE (EC) 325 MG TAB PO ×2 (08:12→21:10)
[2018-09-21] MEDS: LINAGLIPTIN 5 MG TABLET GTB (08:12)
[2018-09-21] MEDS: MULTIVIT/CA CARB/B CMPLX/FA TAB GTB (08:12)
[2018-09-21] MEDS: AMLODIPINE 2.5 MG TAB GTB ×2 (08:13→21:49)
[2018-09-21] MEDS: CASPOFUNGIN 50 MG in SOD CHLORIDE 0.9% 250 ML IVPB (13:42)
[2018-09-21] MEDS: MEROPENEM 500MG/50 ML (PMX) 50 ML IVPB (14:57)
[2018-09-21] MEDS: VANCOMYCIN 1 GM 250 ML IVPB (16:05)
[2018-09-21] MEDS: HYDROCODONE/APAP (5/325) TAB PO (16:52)
[2018-09-22] MEDS: LORAZEPAM 1 MG TAB GTB (01:45)
[2018-09-22] MEDS: VALPROIC ACID LIQUID CUP 250 MG/5 ML CUP PO ×3 (06:21→21:59)
[2018-09-22] MEDS: FOLIC ACID 1 MG TAB GTB (08:16)
[2018-09-22] MEDS: MULTIVIT/CA CARB/B CMPLX/FA TAB GTB (08:17)
[2018-09-22] MEDS: SENNA TAB PO ×2 (08:17→21:05)
[2018-09-22] MEDS: QUETIAPINE 25 MG TAB GTB ×2 (08:17→21:05)
[2018-09-22] MEDS: METOPROLOL 50 MG TAB GTB ×2 (08:17→21:05)
[2018-09-22] MEDS: FERROUS SULFATE (EC) 325 MG TAB PO ×2 (08:17→21:05)
[2018-09-22] MEDS: LANSOPRAZOLE 30 MG CAP GTB (08:17)
[2018-09-22] MEDS: DOCUSATE SODIUM 10 MG/ML (10ML CUP) GTB (08:17)
[2018-09-22] MEDS: LINAGLIPTIN 5 MG TABLET GTB (08:17)
[2018-09-22] MEDS: AMLODIPINE 2.5 MG TAB GTB (08:17)
[2018-09-22] MEDS: CASPOFUNGIN 50 MG in SOD CHLORIDE 0.9% 250 ML IVPB (11:36)
[2018-09-22] MEDS: MEROPENEM 500MG/50 ML (PMX) 50 ML IVPB (14:30)
[2018-09-22] MEDS: hydrALAzine 20 MG INJ IV (21:06)
[2018-09-22] MEDS: AMLODIPINE 5 MG TAB GTB (21:59)
[2018-09-23] MEDS: ACETAMINOPHEN 325 MG TAB PO (00:01)
[2018-09-23] MEDS: LORAZEPAM 1 MG TAB GTB (00:01)
[2018-09-23 06:09] LABS: ADD MAN DIFF? NO
[2018-09-23 06:14] LABS: BASOPHIL # 0.1 10^3/ul (0.0-0.1); BASOPHILS % 0.6 % (0.0-2.0); EOSINOPHILS # 0.6 10^3/ul (0.0-0.5); EOSINOPHILS % 5.4 % (0.0-7.0); HEMATOCRIT 22.5 % (37.0-47.0); LYMPHOCYTES # 1.2 10^3/ul (0.8-2.9); LYMPHOCYTES % 11.2 % (15.0-51.0); MEAN CORPUSCULAR HEMOGLOBIN 26.8 pg (29.0-33.0); MEAN CORPUSCULAR HGB CONC 31.1 g/dl (32.0-37.0); MEAN CORPUSCULAR VOLUME 86.2 fl (82.0-101.0); MEAN PLATELET VOLUME 11.6 fl (7.4-10.4); MONOCYTE # 1.1 10^3/ul (0.3-0.9); MONOCYTES % 10.8 % (0.0-11.0); NEUTROPHIL # 7.5 10^3/ul (1.6-7.5); NEUTROPHILS % 70.9 % (39.0-77.0); NUCLEATED RED BLOOD CELLS # 0.1 10^3/ul (0.0-0.0); NUCLEATED RED BLOOD CELLS% 0.5 /100WBC (0.0-0.0); PLATELET COUNT 270 10^3/UL (140-415); RED BLOOD COUNT 2.61 10^6/ul (4.20-5.40); RED CELL DISTRIBUTION WIDTH 16.7 % (11.5-14.5)
[2018-09-23 06:14] LABS: WHITE BLOOD COUNT 10.5 10^3/ul (4.8-10.8)
[2018-09-23] MEDS: VALPROIC ACID LIQUID CUP 250 MG/5 ML CUP PO ×3 (06:16→22:10)
[2018-09-23 06:37] LABS: ANION GAP 13 (5-13); BLOOD UREA NITROGEN 52 mg/dl (7-20); CALCIUM 8.8 mg/dl (8.4-10.2); CARBON DIOXIDE 29 mmol/L (21-31); CHLORIDE 100 mmol/L (97-110); CREATININE 1.75 mg/dl (0.44-1.00); GLUCOSE 103 mg/dl (70-220); POTASSIUM 3.8 mmol/L (3.5-5.1); SODIUM 142 mmol/L (135-144)
[2018-09-23 06:44] LABS: MAGNESIUM 2.3 mg/dl (1.7-2.5)
[2018-09-23 07:19] LABS: POSITIVE DIFF @See below
[2018-09-23] MEDS: DOCUSATE SODIUM 10 MG/ML (10ML CUP) GTB (09:00)
[2018-09-23] MEDS: MULTIVIT/CA CARB/B CMPLX/FA TAB GTB (09:50)
[2018-09-23] MEDS: METOPROLOL 50 MG TAB GTB ×2 (09:51→20:55)
[2018-09-23] MEDS: FOLIC ACID 1 MG TAB GTB (09:51)
[2018-09-23] MEDS: QUETIAPINE 25 MG TAB GTB ×2 (09:52→20:46)
[2018-09-23] MEDS: LANSOPRAZOLE 30 MG CAP GTB (09:52)
[2018-09-23] MEDS: AMLODIPINE 5 MG TAB GTB ×2 (09:52→20:55)
[2018-09-23] MEDS: LINAGLIPTIN 5 MG TABLET GTB (09:56)
[2018-09-23] MEDS: SENNA TAB PO ×2 (10:21→20:46)
[2018-09-23] MEDS: CASPOFUNGIN 50 MG in SOD CHLORIDE 0.9% 250 ML IVPB (12:17)
[2018-09-23] MEDS: FERROUS SULFATE 60 MG/ML 5ML CUP GTB ×2 (12:22→20:47)
[2018-09-23] MEDS: MEROPENEM 500MG/50 ML (PMX) 50 ML IVPB (14:19)
[2018-09-24 04:50] LABS: ADD MAN DIFF? NO
[2018-09-24 04:53] LABS: BASOPHIL # 0.1 10^3/ul (0.0-0.1); BASOPHILS % 0.6 % (0.0-2.0); EOSINOPHILS # 0.6 10^3/ul (0.0-0.5); EOSINOPHILS % 5.6 % (0.0-7.0); HEMATOCRIT 27.3 % (37.0-47.0); HEMOGLOBIN 8.5 g/dl (12.0-16.0); MEAN CORPUSCULAR HEMOGLOBIN 26.6 pg (29.0-33.0); MEAN CORPUSCULAR HGB CONC 31.1 g/dl (32.0-37.0); MEAN CORPUSCULAR VOLUME 85.6 fl (82.0-101.0); MEAN PLATELET VOLUME 11.1 fl (7.4-10.4); MONOCYTE # 0.8 10^3/ul (0.3-0.9); MONOCYTES % 8.3 % (0.0-11.0); NEUTROPHIL # 7.4 10^3/ul (1.6-7.5); NEUTROPHILS % 74.6 % (39.0-77.0); NUCLEATED RED BLOOD CELLS # 0.1 10^3/ul (0.0-0.0); NUCLEATED RED BLOOD CELLS% 0.7 /100WBC (0.0-0.0); PLATELET COUNT 329 10^3/UL (140-415); RED BLOOD COUNT 3.19 10^6/ul (4.20-5.40); RED CELL DISTRIBUTION WIDTH 16.5 % (11.5-14.5)
[2018-09-24 05:18] LABS: PHOSPHORUS 4.8 mg/dl (2.5-4.9)
[2018-09-24 05:18] LABS: MAGNESIUM 2.4 mg/dl (1.7-2.5)
[2018-09-24 05:19] LABS: ANION GAP 13 (5-13); BLOOD UREA NITROGEN 68 mg/dl (7-20); CALCIUM 9.1 mg/dl (8.4-10.2); CARBON DIOXIDE 28 mmol/L (21-31); CHLORIDE 101 mmol/L (97-110); CREATININE 2.04 mg/dl (0.44-1.00); GLUCOSE 150 mg/dl (70-220); POTASSIUM 3.6 mmol/L (3.5-5.1); SODIUM 142 mmol/L (135-144)
[2018-09-24] MEDS: VALPROIC ACID LIQUID CUP 250 MG/5 ML CUP PO ×3 (06:16→22:19)
[2018-09-24] MEDS: LINAGLIPTIN 5 MG TABLET GTB (08:27)
[2018-09-24] MEDS: LANSOPRAZOLE 30 MG CAP GTB (08:27)
[2018-09-24] MEDS: FERROUS SULFATE 60 MG/ML 5ML CUP GTB ×2 (08:28→21:04)
[2018-09-24] MEDS: MULTIVIT/CA CARB/B CMPLX/FA TAB GTB (08:28)
[2018-09-24] MEDS: FOLIC ACID 1 MG TAB GTB (08:28)
[2018-09-24] MEDS: QUETIAPINE 25 MG TAB GTB ×2 (08:28→21:04)
[2018-09-24] MEDS: DOCUSATE SODIUM 10 MG/ML (10ML CUP) GTB (08:34)
[2018-09-24] MEDS: ACETAMINOPHEN 325 MG TAB PO (08:34)
[2018-09-24] MEDS: SENNA TAB PO ×2 (08:34→21:04)
[2018-09-24] MEDS: METOPROLOL 50 MG TAB GTB ×2 (08:36→21:07)
[2018-09-24] MEDS: AMLODIPINE 5 MG TAB GTB ×2 (09:00→21:06)
[2018-09-24] MEDS: CASPOFUNGIN 50 MG in SOD CHLORIDE 0.9% 250 ML IVPB (11:20)
[2018-09-24] MEDS: MEROPENEM 500MG/50 ML (PMX) 50 ML IVPB (13:00)
[2018-09-24] MEDS: HYDROCODONE/APAP (5/325) TAB PO (15:38)
[2018-09-24] MEDS: EPOETIN 4000 UNITS/1 ML INJ (ESRD) SC (17:59)
[2018-09-24] MEDS: VORICONAZOLE 200 MG TAB PO (21:04)
[2018-09-25 05:07] LABS: ADD MAN DIFF? NO
[2018-09-25 05:11] LABS: BASOPHILS % 0.3 % (0.0-2.0); EOSINOPHILS # 0.1 10^3/ul (0.0-0.5); EOSINOPHILS % 0.5 % (0.0-7.0); HEMATOCRIT 26.9 % (37.0-47.0); HEMOGLOBIN 8.5 g/dl (12.0-16.0); LYMPHOCYTES % 8.5 % (15.0-51.0); MEAN CORPUSCULAR HEMOGLOBIN 26.8 pg (29.0-33.0); MEAN CORPUSCULAR HGB CONC 31.6 g/dl (32.0-37.0); MEAN CORPUSCULAR VOLUME 84.9 fl (82.0-101.0); MEAN PLATELET VOLUME 11.7 fl (7.4-10.4); MONOCYTE # 0.6 10^3/ul (0.3-0.9); NEUTROPHIL # 10.1 10^3/ul (1.6-7.5); NEUTROPHILS % 84.7 % (39.0-77.0); NUCLEATED RED BLOOD CELLS% 0.3 /100WBC (0.0-0.0); PLATELET COUNT 319 10^3/UL (140-415); RED BLOOD COUNT 3.17 10^6/ul (4.20-5.40); RED CELL DISTRIBUTION WIDTH 16.3 % (11.5-14.5)
[2018-09-25] MEDS: VALPROIC ACID LIQUID CUP 250 MG/5 ML CUP PO ×3 (05:32→23:56)
[2018-09-25 05:35] LABS: ANION GAP 10 (5-13); BLOOD UREA NITROGEN 40 mg/dl (7-20); CALCIUM 9.2 mg/dl (8.4-10.2); CARBON DIOXIDE 30 mmol/L (21-31); CHLORIDE 100 mmol/L (97-110); CREATININE 1.32 mg/dl (0.44-1.00); GLUCOSE 127 mg/dl (70-220); POTASSIUM 3.7 mmol/L (3.5-5.1); SODIUM 140 mmol/L (135-144)
[2018-09-25 05:37] LABS: MAGNESIUM 2.3 mg/dl (1.7-2.5)
[2018-09-25 05:37] LABS: PHOSPHORUS 3.7 mg/dl (2.5-4.9)
[2018-09-25] MEDS: FOLIC ACID 1 MG TAB GTB (09:23)
[2018-09-25] MEDS: FERROUS SULFATE 60 MG/ML 5ML CUP GTB ×2 (09:23→23:55)
[2018-09-25] MEDS: DOCUSATE SODIUM 10 MG/ML (10ML CUP) GTB (09:23)
[2018-09-25] MEDS: LANSOPRAZOLE 30 MG CAP GTB (09:24)
[2018-09-25] MEDS: METOPROLOL 50 MG TAB GTB ×2 (09:24→23:57)
[2018-09-25] MEDS: MULTIVIT/CA CARB/B CMPLX/FA TAB GTB (09:24)
[2018-09-25] MEDS: AMLODIPINE 5 MG TAB GTB ×2 (09:24→23:56)
[2018-09-25] MEDS: VORICONAZOLE 200 MG TAB PO ×2 (09:25→23:55)
[2018-09-25] MEDS: QUETIAPINE 25 MG TAB GTB (09:25)
[2018-09-25] MEDS: LINAGLIPTIN 5 MG TABLET GTB (09:25)
[2018-09-25] MEDS: SENNA TAB PO ×2 (09:25→23:58)
[2018-09-25] MEDS ORDERED: HEPARIN 1000 UNITS/ML 10 ML INJ CATHETER (17:30)
[2018-09-25] MEDS ORDERED: SODIUM CHLORIDE 0.9% 1L BAG IV (17:30)
[2018-09-25] MEDS: GUAIFENESIN/DM 5ML CUP PO (23:55)
[2018-09-26] MEDS: QUETIAPINE 25 MG TAB GTB ×3 (00:05→22:27)
[2018-09-26] MEDS: ACETAMINOPHEN 325 MG TAB PO (00:22)
[2018-09-26 06:03] LABS: ADD MAN DIFF? NO
[2018-09-26] MEDS: VALPROIC ACID LIQUID CUP 250 MG/5 ML CUP PO ×3 (06:08→22:30)
[2018-09-26 06:18] LABS: WHITE BLOOD COUNT 6.6 10^3/ul (4.8-10.8)
[2018-09-26 06:18] LABS: BASOPHIL # 0.1 10^3/ul (0.0-0.1); BASOPHILS % 0.8 % (0.0-2.0); EOSINOPHILS # 0.3 10^3/ul (0.0-0.5); EOSINOPHILS % 4.6 % (0.0-7.0); HEMATOCRIT 24.8 % (37.0-47.0); HEMOGLOBIN 7.7 g/dl (12.0-16.0); LYMPHOCYTES % 14.4 % (15.0-51.0); MEAN CORPUSCULAR HEMOGLOBIN 26.8 pg (29.0-33.0); MEAN CORPUSCULAR VOLUME 86.4 fl (82.0-101.0); MEAN PLATELET VOLUME 12.2 fl (7.4-10.4); MONOCYTE # 0.7 10^3/ul (0.3-0.9); MONOCYTES % 10.2 % (0.0-11.0); NEUTROPHIL # 4.6 10^3/ul (1.6-7.5); NEUTROPHILS % 68.9 % (39.0-77.0); NUCLEATED RED BLOOD CELLS # 0.1 10^3/ul (0.0-0.0); NUCLEATED RED BLOOD CELLS% 0.8 /100WBC (0.0-0.0); PLATELET COUNT 258 10^3/UL (140-415); RED BLOOD COUNT 2.87 10^6/ul (4.20-5.40); RED CELL DISTRIBUTION WIDTH 16.9 % (11.5-14.5)
[2018-09-26 06:35] LABS: ANION GAP 11 (5-13); BLOOD UREA NITROGEN 73 mg/dl (7-20); CALCIUM 8.7 mg/dl (8.4-10.2); CARBON DIOXIDE 31 mmol/L (21-31); CHLORIDE 99 mmol/L (97-110); CREATININE 2.25 mg/dl (0.44-1.00); GLUCOSE 111 mg/dl (70-220); POTASSIUM 3.9 mmol/L (3.5-5.1); SODIUM 141 mmol/L (135-144)
[2018-09-26 06:39] LABS: MAGNESIUM 2.5 mg/dl (1.7-2.5)
[2018-09-26 06:39] LABS: PHOSPHORUS 5.3 mg/dl (2.5-4.9)
[2018-09-26] MEDS: DOCUSATE SODIUM 10 MG/ML (10ML CUP) GTB (08:41)
[2018-09-26] MEDS: LANSOPRAZOLE 30 MG CAP GTB (08:41)
[2018-09-26] MEDS: FERROUS SULFATE 60 MG/ML 5ML CUP GTB ×2 (08:41→22:30)
[2018-09-26] MEDS: VORICONAZOLE 200 MG TAB PO ×2 (08:41→22:29)
[2018-09-26] MEDS: MULTIVIT/CA CARB/B CMPLX/FA TAB GTB (08:41)
[2018-09-26] MEDS: SENNA TAB PO ×2 (08:41→22:29)
[2018-09-26] MEDS: FOLIC ACID 1 MG TAB GTB (08:41)
[2018-09-26] MEDS: LINAGLIPTIN 5 MG TABLET GTB (08:41)
[2018-09-26] MEDS: METOPROLOL 50 MG TAB GTB ×2 (08:42→22:30)
[2018-09-26] MEDS: AMLODIPINE 5 MG TAB GTB ×2 (08:43→22:29)
[2018-09-26] MEDS: EPOETIN 4000 UNITS/1 ML INJ (ESRD) SC (17:12)
[2018-09-26] MEDS: LORAZEPAM 1 MG TAB GTB (22:27)
[2018-09-27] MEDS: VALPROIC ACID LIQUID CUP 250 MG/5 ML CUP PO ×3 (05:51→21:15)
[2018-09-27 06:20] LABS: ADD MAN DIFF? NO
[2018-09-27 06:29] LABS: WHITE BLOOD COUNT 8.4 10^3/ul (4.8-10.8)
[2018-09-27 06:29] LABS: BASOPHIL # 0.1 10^3/ul (0.0-0.1); BASOPHILS % 0.6 % (0.0-2.0); EOSINOPHILS # 0.3 10^3/ul (0.0-0.5); EOSINOPHILS % 3.6 % (0.0-7.0); HEMATOCRIT 25.4 % (37.0-47.0); HEMOGLOBIN 7.9 g/dl (12.0-16.0); LYMPHOCYTES % 11.6 % (15.0-51.0); MEAN CORPUSCULAR HEMOGLOBIN 26.7 pg (29.0-33.0); MEAN CORPUSCULAR HGB CONC 31.1 g/dl (32.0-37.0); MEAN CORPUSCULAR VOLUME 85.8 fl (82.0-101.0); MONOCYTE # 0.7 10^3/ul (0.3-0.9); MONOCYTES % 8.6 % (0.0-11.0); NEUTROPHIL # 6.2 10^3/ul (1.6-7.5); NEUTROPHILS % 74.1 % (39.0-77.0); NUCLEATED RED BLOOD CELLS # 0.1 10^3/ul (0.0-0.0); NUCLEATED RED BLOOD CELLS% 0.6 /100WBC (0.0-0.0); PLATELET COUNT 260 10^3/UL (140-415); RED BLOOD COUNT 2.96 10^6/ul (4.20-5.40); RED CELL DISTRIBUTION WIDTH 16.7 % (11.5-14.5)
[2018-09-27 06:55] LABS: PHOSPHORUS 2.5 mg/dl (2.5-4.9)
[2018-09-27 06:55] LABS: ANION GAP 8 (5-13); BLOOD UREA NITROGEN 34 mg/dl (7-20); CALCIUM 8.6 mg/dl (8.4-10.2); CARBON DIOXIDE 32 mmol/L (21-31); CHLORIDE 99 mmol/L (97-110); CREATININE 1.28 mg/dl (0.44-1.00); GLUCOSE 97 mg/dl (70-220); MAGNESIUM 2.3 mg/dl (1.7-2.5); POTASSIUM 3.9 mmol/L (3.5-5.1); SODIUM 139 mmol/L (135-144)
[2018-09-27] MEDS: LANSOPRAZOLE 30 MG CAP GTB (08:32)
[2018-09-27] MEDS: VORICONAZOLE 200 MG TAB PO ×2 (08:32→21:15)
[2018-09-27] MEDS: METOPROLOL 50 MG TAB GTB ×2 (08:32→21:00)
[2018-09-27] MEDS: FOLIC ACID 1 MG TAB GTB (08:32)
[2018-09-27] MEDS: QUETIAPINE 25 MG TAB GTB ×2 (08:32→21:15)
[2018-09-27] MEDS: SENNA TAB PO ×2 (08:32→21:15)
[2018-09-27] MEDS: DOCUSATE SODIUM 10 MG/ML (10ML CUP) GTB (08:33)
[2018-09-27] MEDS: FERROUS SULFATE 60 MG/ML 5ML CUP GTB ×2 (08:33→21:14)
[2018-09-27] MEDS: MULTIVIT/CA CARB/B CMPLX/FA TAB GTB (08:33)
[2018-09-27] MEDS: AMLODIPINE 5 MG TAB GTB ×2 (08:33→21:00)
[2018-09-27] MEDS: LINAGLIPTIN 5 MG TABLET GTB (08:33)
[2018-09-28] MEDS: ACETAMINOPHEN 325 MG TAB PO (03:05)
[2018-09-28] MEDS: LORAZEPAM 1 MG TAB GTB (03:05)
[2018-09-28 05:45] LABS: ADD MAN DIFF? NO
[2018-09-28] MEDS: VALPROIC ACID LIQUID CUP 250 MG/5 ML CUP PO ×3 (05:46→21:47)
[2018-09-28 05:57] LABS: WHITE BLOOD COUNT 9.6 10^3/ul (4.8-10.8)
[2018-09-28 05:57] LABS: BASOPHIL # 0.1 10^3/ul (0.0-0.1); BASOPHILS % 0.5 % (0.0-2.0); EOSINOPHILS # 0.4 10^3/ul (0.0-0.5); EOSINOPHILS % 4.1 % (0.0-7.0); HEMATOCRIT 26.8 % (37.0-47.0); HEMOGLOBIN 8.4 g/dl (12.0-16.0); LYMPHOCYTES # 1.3 10^3/ul (0.8-2.9); LYMPHOCYTES % 13.3 % (15.0-51.0); MEAN CORPUSCULAR HEMOGLOBIN 26.7 pg (29.0-33.0); MEAN CORPUSCULAR HGB CONC 31.3 g/dl (32.0-37.0); MEAN CORPUSCULAR VOLUME 85.1 fl (82.0-101.0); MEAN PLATELET VOLUME 12.5 fl (7.4-10.4); MONOCYTE # 0.9 10^3/ul (0.3-0.9); MONOCYTES % 8.8 % (0.0-11.0); NEUTROPHIL # 6.9 10^3/ul (1.6-7.5); NEUTROPHILS % 71.8 % (39.0-77.0); NUCLEATED RED BLOOD CELLS # 0.1 10^3/ul (0.0-0.0); NUCLEATED RED BLOOD CELLS% 0.9 /100WBC (0.0-0.0); PLATELET COUNT 271 10^3/UL (140-415); RED BLOOD COUNT 3.15 10^6/ul (4.20-5.40); RED CELL DISTRIBUTION WIDTH 16.8 % (11.5-14.5)
[2018-09-28 06:40] LABS: ANION GAP 5 (5-13); BLOOD UREA NITROGEN 72 mg/dl (7-20); CALCIUM 8.5 mg/dl (8.4-10.2); CARBON DIOXIDE 31 mmol/L (21-31); CHLORIDE 102 mmol/L (97-110); CREATININE 2.17 mg/dl (0.44-1.00); GLUCOSE 99 mg/dl (70-220); POTASSIUM 4.1 mmol/L (3.5-5.1); SODIUM 138 mmol/L (135-144)
[2018-09-28 06:46] LABS: MAGNESIUM 2.3 mg/dl (1.7-2.5)
[2018-09-28 06:46] LABS: PHOSPHORUS 3.5 mg/dl (2.5-4.9)
[2018-09-28] MEDS: QUETIAPINE 25 MG TAB GTB ×2 (08:34→20:06)
[2018-09-28] MEDS: MULTIVIT/CA CARB/B CMPLX/FA TAB GTB (08:34)
[2018-09-28] MEDS: FERROUS SULFATE 60 MG/ML 5ML CUP GTB ×2 (08:34→20:06)
[2018-09-28] MEDS: FOLIC ACID 1 MG TAB GTB (08:34)
[2018-09-28] MEDS: LANSOPRAZOLE 30 MG CAP GTB (08:34)
[2018-09-28] MEDS: VORICONAZOLE 200 MG TAB PO ×2 (08:34→20:06)
[2018-09-28] MEDS: DOCUSATE SODIUM 10 MG/ML (10ML CUP) GTB (08:35)
[2018-09-28] MEDS: METOPROLOL 50 MG TAB GTB ×2 (08:36→20:06)
[2018-09-28] MEDS: AMLODIPINE 5 MG TAB GTB ×2 (08:37→20:06)
[2018-09-28] MEDS: SENNA TAB PO ×2 (08:37→20:07)
[2018-09-28] MEDS: LINAGLIPTIN 5 MG TABLET GTB (08:43)
[2018-09-28] MEDS: EPOETIN 4000 UNITS/1 ML INJ (ESRD) SC (16:35)
[2018-09-29] MEDS: VALPROIC ACID LIQUID CUP 250 MG/5 ML CUP PO ×3 (05:46→22:37)
[2018-09-29] MEDS: FERROUS SULFATE 60 MG/ML 5ML CUP GTB ×2 (08:21→20:16)
[2018-09-29] MEDS: MULTIVIT/CA CARB/B CMPLX/FA TAB GTB (08:22)
[2018-09-29] MEDS: VORICONAZOLE 200 MG TAB PO ×2 (08:22→20:17)
[2018-09-29] MEDS: QUETIAPINE 25 MG TAB GTB ×2 (08:22→20:16)
[2018-09-29] MEDS: METOPROLOL 50 MG TAB GTB ×2 (08:22→20:17)
[2018-09-29] MEDS: FOLIC ACID 1 MG TAB GTB (08:22)
[2018-09-29] MEDS: AMLODIPINE 5 MG TAB GTB ×2 (08:22→20:16)
[2018-09-29] MEDS: LANSOPRAZOLE 30 MG CAP GTB (08:22)
[2018-09-29] MEDS: LINAGLIPTIN 5 MG TABLET GTB (08:22)
[2018-09-29] MEDS: SENNA TAB PO ×2 (08:22→20:17)
[2018-09-29] MEDS: DOCUSATE SODIUM 10 MG/ML (10ML CUP) GTB (08:23)
[2018-09-30] MEDS: ACETAMINOPHEN 325 MG TAB PO ×2 (04:08→21:26)
[2018-09-30] MEDS: VALPROIC ACID LIQUID CUP 250 MG/5 ML CUP PO ×3 (05:31→21:26)
[2018-09-30 06:46] LABS: ADD MAN DIFF? NO
[2018-09-30 06:52] LABS: WHITE BLOOD COUNT 7.5 10^3/ul (4.8-10.8)
[2018-09-30 06:52] LABS: BASOPHIL # 0.1 10^3/ul (0.0-0.1); BASOPHILS % 0.7 % (0.0-2.0); EOSINOPHILS # 0.4 10^3/ul (0.0-0.5); EOSINOPHILS % 5.3 % (0.0-7.0); HEMATOCRIT 27.1 % (37.0-47.0); HEMOGLOBIN 8.6 g/dl (12.0-16.0); LYMPHOCYTES # 1.2 10^3/ul (0.8-2.9); LYMPHOCYTES % 16.5 % (15.0-51.0); MEAN CORPUSCULAR HGB CONC 31.7 g/dl (32.0-37.0); MEAN PLATELET VOLUME 12.4 fl (7.4-10.4); MONOCYTE # 0.7 10^3/ul (0.3-0.9); MONOCYTES % 8.9 % (0.0-11.0); NEUTROPHIL # 5.1 10^3/ul (1.6-7.5); NUCLEATED RED BLOOD CELLS # 0.1 10^3/ul (0.0-0.0); NUCLEATED RED BLOOD CELLS% 0.7 /100WBC (0.0-0.0); PLATELET COUNT 227 10^3/UL (140-415); RED BLOOD COUNT 3.19 10^6/ul (4.20-5.40); RED CELL DISTRIBUTION WIDTH 16.8 % (11.5-14.5)
[2018-09-30 07:23] LABS: MAGNESIUM 2.4 mg/dl (1.7-2.5)
[2018-09-30 07:23] LABS: PHOSPHORUS 4.2 mg/dl (2.5-4.9)
[2018-09-30 07:28] LABS: ANION GAP 4 (5-13); BLOOD UREA NITROGEN 58 mg/dl (7-20); CALCIUM 8.7 mg/dl (8.4-10.2); CARBON DIOXIDE 31 mmol/L (21-31); CHLORIDE 103 mmol/L (97-110); CREATININE 2.11 mg/dl (0.44-1.00); GLUCOSE 106 mg/dl (70-220); POTASSIUM 4.4 mmol/L (3.5-5.1); SODIUM 138 mmol/L (135-144)
[2018-09-30] MEDS: LANSOPRAZOLE 30 MG CAP GTB (08:54)
[2018-09-30] MEDS: METOPROLOL 50 MG TAB GTB ×2 (08:54→21:00)
[2018-09-30] MEDS: AMLODIPINE 5 MG TAB GTB ×2 (08:55→21:00)
[2018-09-30] MEDS: FERROUS SULFATE 60 MG/ML 5ML CUP GTB ×2 (08:57→21:23)
[2018-09-30] MEDS: VORICONAZOLE 200 MG TAB PO ×2 (08:57→21:25)
[2018-09-30] MEDS: LINAGLIPTIN 5 MG TABLET GTB (08:57)
[2018-09-30] MEDS: QUETIAPINE 25 MG TAB GTB ×2 (08:58→21:26)
[2018-09-30] MEDS: DOCUSATE SODIUM 10 MG/ML (10ML CUP) GTB (08:58)
[2018-09-30] MEDS: FOLIC ACID 1 MG TAB GTB (08:58)
[2018-09-30] MEDS: SENNA TAB PO ×2 (08:58→21:25)
[2018-09-30] MEDS: MULTIVIT/CA CARB/B CMPLX/FA TAB GTB (08:58)
[2018-09-30] MEDS: LORAZEPAM 1 MG TAB GTB (21:26)
[2018-10-01] MEDS: VALPROIC ACID LIQUID CUP 250 MG/5 ML CUP PO ×3 (06:02→21:31)
[2018-10-01] MEDS: FOLIC ACID 1 MG TAB GTB (08:53)
[2018-10-01] MEDS: FERROUS SULFATE 60 MG/ML 5ML CUP GTB ×2 (08:53→21:17)
[2018-10-01] MEDS: DOCUSATE SODIUM 10 MG/ML (10ML CUP) GTB (08:53)
[2018-10-01] MEDS: LANSOPRAZOLE 30 MG CAP GTB (08:53)
[2018-10-01] MEDS: VORICONAZOLE 200 MG TAB PO ×2 (08:53→21:18)
[2018-10-01] MEDS: SENNA TAB PO ×2 (08:53→21:18)
[2018-10-01] MEDS: QUETIAPINE 25 MG TAB GTB ×2 (08:53→21:18)
[2018-10-01] MEDS: MULTIVIT/CA CARB/B CMPLX/FA TAB GTB (08:53)
[2018-10-01] MEDS: LINAGLIPTIN 5 MG TABLET GTB (08:55)
[2018-10-01] MEDS: METOPROLOL 50 MG TAB GTB ×2 (08:56→21:20)
[2018-10-01] MEDS: AMLODIPINE 5 MG TAB GTB (08:56)
[2018-10-01] MEDS: ALBUMIN HUMAN 25% 50 ML IV ×2 (10:30→11:03)
[2018-10-01] MEDS ORDERED: DIGOXIN 500 MCG INJ IV (12:00)
[2018-10-01] MEDS: HEPARIN 1000 UNITS/ML 10 ML INJ CATHETER (12:30)
[2018-10-01] MEDS: DIGOXIN 500 MCG INJ IV (13:30)
[2018-10-01] MEDS: EPOETIN 4000 UNITS/1 ML INJ (ESRD) SC (17:28)
[2018-10-01] MEDS: ASPIRIN (EC) 81 MG TAB PO (21:18)
[2018-10-01] MEDS: morphine LIQ (10 MG/5 ML) CUP PO (21:31)
[2018-10-02] MEDS: LORAZEPAM 1 MG TAB GTB (01:20)
[2018-10-02] MEDS: VALPROIC ACID LIQUID CUP 250 MG/5 ML CUP PO ×3 (06:17→21:17)
[2018-10-02] MEDS: ASPIRIN (EC) 81 MG TAB PO (08:47)
[2018-10-02] MEDS: VORICONAZOLE 200 MG TAB PO ×2 (08:47→21:09)
[2018-10-02] MEDS: MULTIVIT/CA CARB/B CMPLX/FA TAB GTB (08:47)
[2018-10-02] MEDS: LANSOPRAZOLE 30 MG CAP GTB (08:47)
[2018-10-02] MEDS: DOCUSATE SODIUM 10 MG/ML (10ML CUP) GTB (08:47)
[2018-10-02] MEDS: FERROUS SULFATE 60 MG/ML 5ML CUP GTB ×2 (08:47→21:08)
[2018-10-02] MEDS: LINAGLIPTIN 5 MG TABLET GTB (08:48)
[2018-10-02] MEDS: SENNA TAB PO ×2 (08:48→21:09)
[2018-10-02] MEDS: FOLIC ACID 1 MG TAB GTB (08:48)
[2018-10-02] MEDS: QUETIAPINE 25 MG TAB GTB ×2 (08:48→21:09)
[2018-10-02 08:49] LABS: ADD MAN DIFF? NO
[2018-10-02] MEDS: METOPROLOL 50 MG TAB GTB ×2 (08:49→21:10)
[2018-10-02 08:55] LABS: WHITE BLOOD COUNT 7.4 10^3/ul (4.8-10.8)
[2018-10-02 08:55] LABS: BASOPHILS % 0.5 % (0.0-2.0); EOSINOPHILS # 0.8 10^3/ul (0.0-0.5); EOSINOPHILS % 10.7 % (0.0-7.0); HEMATOCRIT 27.4 % (37.0-47.0); HEMOGLOBIN 8.5 g/dl (12.0-16.0); LYMPHOCYTES # 1.2 10^3/ul (0.8-2.9); LYMPHOCYTES % 16.4 % (15.0-51.0); MEAN CORPUSCULAR HEMOGLOBIN 26.6 pg (29.0-33.0); MEAN CORPUSCULAR VOLUME 85.6 fl (82.0-101.0); MEAN PLATELET VOLUME 12.3 fl (7.4-10.4); MONOCYTE # 0.8 10^3/ul (0.3-0.9); MONOCYTES % 10.7 % (0.0-11.0); NEUTROPHIL # 4.4 10^3/ul (1.6-7.5); NEUTROPHILS % 59.8 % (39.0-77.0); NUCLEATED RED BLOOD CELLS # 0.1 10^3/ul (0.0-0.0); NUCLEATED RED BLOOD CELLS% 0.8 /100WBC (0.0-0.0); PLATELET COUNT 220 10^3/UL (140-415); RED CELL DISTRIBUTION WIDTH 16.8 % (11.5-14.5)
[2018-10-02 09:18] LABS: ALANINE AMINOTRANSFERASE 9 IU/L (13-69); ALBUMIN 3.6 g/dl (3.3-4.9); ALBUMIN/GLOBULIN RATIO 1.02; ALKALINE PHOSPHATASE 68 IU/L (42-121); ANION GAP 3 (5-13); ASPARTATE AMINO TRANSFERASE 21 IU/L (15-46); BILIRUBIN,INDIRECT 0.3 mg/dl (0-1.1); BILIRUBIN,TOTAL 0.3 mg/dl (0.2-1.3); BLOOD UREA NITROGEN 37 mg/dl (7-20); CALCIUM 9.2 mg/dl (8.4-10.2); CARBON DIOXIDE 32 mmol/L (21-31); CHLORIDE 103 mmol/L (97-110); CREATININE 1.66 mg/dl (0.44-1.00); GLUCOSE 85 mg/dl (70-220); MAGNESIUM 2.3 mg/dl (1.7-2.5); POTASSIUM 4.5 mmol/L (3.5-5.1); SODIUM 138 mmol/L (135-144); TOTAL PROTEIN 7.1 g/dl (6.1-8.1)
[2018-10-03] MEDS: LORAZEPAM 1 MG TAB GTB ×2 (00:56→21:43)
[2018-10-03] MEDS: VALPROIC ACID LIQUID CUP 250 MG/5 ML CUP PO ×4 (06:41→21:42)
[2018-10-03] MEDS: FERROUS SULFATE 60 MG/ML 5ML CUP GTB ×2 (08:29→21:42)
[2018-10-03] MEDS: SENNA TAB PO ×2 (08:29→21:41)
[2018-10-03] MEDS: VORICONAZOLE 200 MG TAB PO ×2 (08:29→21:43)
[2018-10-03] MEDS: FOLIC ACID 1 MG TAB GTB (08:29)
[2018-10-03] MEDS: QUETIAPINE 25 MG TAB GTB ×2 (08:29→21:42)
[2018-10-03] MEDS: MULTIVIT/CA CARB/B CMPLX/FA TAB GTB (08:29)
[2018-10-03] MEDS: ASPIRIN (EC) 81 MG TAB PO (08:29)
[2018-10-03] MEDS: DOCUSATE SODIUM 10 MG/ML (10ML CUP) GTB (08:30)
[2018-10-03] MEDS: METOPROLOL 50 MG TAB GTB ×2 (08:30→21:42)
[2018-10-03] MEDS: LANSOPRAZOLE 30 MG CAP GTB (08:31)
[2018-10-03] MEDS: LINAGLIPTIN 5 MG TABLET GTB (08:33)
[2018-10-03] MEDS: EPOETIN 4000 UNITS/1 ML INJ (ESRD) SC (16:43)
[2018-10-03] MEDS: ACETAMINOPHEN 325 MG TAB PO (21:42)
[2018-10-04] MEDS: VALPROIC ACID LIQUID CUP 250 MG/5 ML CUP PO ×3 (06:17→23:46)
[2018-10-04 07:12] LABS: ADD MAN DIFF? NO
[2018-10-04 07:19] LABS: WHITE BLOOD COUNT 9.4 10^3/ul (4.8-10.8)
[2018-10-04 07:19] LABS: BASOPHILS % 0.3 % (0.0-2.0); EOSINOPHILS # 0.8 10^3/ul (0.0-0.5); EOSINOPHILS % 8.6 % (0.0-7.0); HEMATOCRIT 24.4 % (37.0-47.0); HEMOGLOBIN 7.8 g/dl (12.0-16.0); LYMPHOCYTES # 1.4 10^3/ul (0.8-2.9); LYMPHOCYTES % 14.9 % (15.0-51.0); MEAN CORPUSCULAR HEMOGLOBIN 27.1 pg (29.0-33.0); MEAN CORPUSCULAR VOLUME 84.7 fl (82.0-101.0); MEAN PLATELET VOLUME 12.2 fl (7.4-10.4); MONOCYTE # 0.8 10^3/ul (0.3-0.9); MONOCYTES % 8.6 % (0.0-11.0); NEUTROPHIL # 6.2 10^3/ul (1.6-7.5); NEUTROPHILS % 65.7 % (39.0-77.0); NUCLEATED RED BLOOD CELLS # 0.1 10^3/ul (0.0-0.0); NUCLEATED RED BLOOD CELLS% 1.3 /100WBC (0.0-0.0); PLATELET COUNT 203 10^3/UL (140-415); RED BLOOD COUNT 2.88 10^6/ul (4.20-5.40); RED CELL DISTRIBUTION WIDTH 16.6 % (11.5-14.5)
[2018-10-04 07:53] LABS: ANION GAP 6 (5-13); BLOOD UREA NITROGEN 32 mg/dl (7-20); CALCIUM 8.9 mg/dl (8.4-10.2); CARBON DIOXIDE 31 mmol/L (21-31); CHLORIDE 99 mmol/L (97-110); CREATININE 1.54 mg/dl (0.44-1.00); GLUCOSE 98 mg/dl (70-220); POTASSIUM 4.2 mmol/L (3.5-5.1); SODIUM 136 mmol/L (135-144)
[2018-10-04 07:54] LABS: PHOSPHORUS 3.3 mg/dl (2.5-4.9)
[2018-10-04 07:54] LABS: MAGNESIUM 2.1 mg/dl (1.7-2.5)
[2018-10-04] MEDS: LANSOPRAZOLE 30 MG CAP GTB (08:59)
[2018-10-04] MEDS: MULTIVIT/CA CARB/B CMPLX/FA TAB GTB (08:59)
[2018-10-04] MEDS: DOCUSATE SODIUM 10 MG/ML (10ML CUP) GTB (08:59)
[2018-10-04] MEDS: VORICONAZOLE 200 MG TAB PO ×2 (08:59→20:37)
[2018-10-04] MEDS: FERROUS SULFATE 60 MG/ML 5ML CUP GTB ×2 (08:59→20:37)
[2018-10-04] MEDS: SENNA TAB PO ×2 (09:00→20:37)
[2018-10-04] MEDS: METOPROLOL 50 MG TAB GTB ×2 (09:00→20:37)
[2018-10-04] MEDS: FOLIC ACID 1 MG TAB GTB (09:00)
[2018-10-04] MEDS: LINAGLIPTIN 5 MG TABLET GTB (09:00)
[2018-10-04] MEDS: ASPIRIN (EC) 81 MG TAB PO (09:00)
[2018-10-04] MEDS: QUETIAPINE 25 MG TAB GTB ×2 (09:02→20:37)
[2018-10-05] MEDS: ALBUTEROL/IPRATROPIUM (NEB) 3 ML AMP HHN (05:03)
[2018-10-05] MEDS: VALPROIC ACID LIQUID CUP 250 MG/5 ML CUP PO ×3 (06:29→22:00)
[2018-10-05] MEDS: LINAGLIPTIN 5 MG TABLET GTB ×2 (09:00→13:53)
[2018-10-05] MEDS ORDERED: LORAZEPAM 1 MG TAB GTB (09:00)
[2018-10-05] MEDS: DOCUSATE SODIUM 10 MG/ML (10ML CUP) GTB (13:52)
[2018-10-05] MEDS: QUETIAPINE 25 MG TAB GTB ×2 (13:53→22:01)
[2018-10-05] MEDS: LANSOPRAZOLE 30 MG CAP GTB (13:53)
[2018-10-05] MEDS: SENNA TAB PO ×2 (13:53→22:01)
[2018-10-05] MEDS: ASPIRIN (EC) 81 MG TAB PO (13:53)
[2018-10-05] MEDS: FERROUS SULFATE 60 MG/ML 5ML CUP GTB ×2 (13:53→22:01)
[2018-10-05] MEDS: FOLIC ACID 1 MG TAB GTB (13:53)
[2018-10-05] MEDS: MULTIVIT/CA CARB/B CMPLX/FA TAB GTB (13:54)
[2018-10-05] MEDS: METOPROLOL 50 MG TAB GTB ×2 (13:54→22:01)
[2018-10-05] MEDS: EPOETIN 4000 UNITS/1 ML INJ (ESRD) SC (16:42)
[2018-10-05] MEDS: [UNRECOGNIZED DRUG - OTHER] XX ×2 (19:43→22:02)
[2018-10-06 06:08] LABS: ADD MAN DIFF? NO
[2018-10-06 06:10] LABS: BASOPHIL # 0.1 10^3/ul (0.0-0.1); BASOPHILS % 0.4 % (0.0-2.0); EOSINOPHILS # 0.5 10^3/ul (0.0-0.5); EOSINOPHILS % 3.5 % (0.0-7.0); HEMATOCRIT 29.3 % (37.0-47.0); LYMPHOCYTES # 1.1 10^3/ul (0.8-2.9); MEAN CORPUSCULAR HEMOGLOBIN 27.1 pg (29.0-33.0); MEAN CORPUSCULAR HGB CONC 31.7 g/dl (32.0-37.0); MEAN CORPUSCULAR VOLUME 85.4 fl (82.0-101.0); MEAN PLATELET VOLUME 11.7 fl (7.4-10.4); MONOCYTES % 7.3 % (0.0-11.0); NEUTROPHIL # 10.3 10^3/ul (1.6-7.5); NEUTROPHILS % 77.2 % (39.0-77.0); NUCLEATED RED BLOOD CELLS # 0.2 10^3/ul (0.0-0.0); NUCLEATED RED BLOOD CELLS% 1.6 /100WBC (0.0-0.0); PLATELET COUNT 233 10^3/UL (140-415); RED BLOOD COUNT 3.43 10^6/ul (4.20-5.40); RED CELL DISTRIBUTION WIDTH 16.8 % (11.5-14.5)
[2018-10-06 06:10] LABS: WHITE BLOOD COUNT 13.4 10^3/ul (4.8-10.8)
[2018-10-06] MEDS: VALPROIC ACID LIQUID CUP 250 MG/5 ML CUP PO ×3 (06:24→21:33)
[2018-10-06 06:26] LABS: MAGNESIUM 2.6 mg/dl (1.7-2.5)
[2018-10-06 06:26] LABS: PHOSPHORUS 3.1 mg/dl (2.5-4.9)
[2018-10-06 06:28] LABS: ANION GAP 6 (5-13); BLOOD UREA NITROGEN 41 mg/dl (7-20); CALCIUM 9.3 mg/dl (8.4-10.2); CARBON DIOXIDE 31 mmol/L (21-31); CHLORIDE 102 mmol/L (97-110); CREATININE 1.69 mg/dl (0.44-1.00); GLUCOSE 122 mg/dl (70-220); POTASSIUM 4.3 mmol/L (3.5-5.1); SODIUM 139 mmol/L (135-144)
[2018-10-06] MEDS: [UNRECOGNIZED DRUG - OTHER] XX ×3 (06:28→23:00)
[2018-10-06 06:49] LABS: HEMOGLOBIN 9.3 g/dl (12.0-16.0)
[2018-10-06] MEDS: MULTIVIT/CA CARB/B CMPLX/FA TAB GTB (09:00)
[2018-10-06] MEDS: FOLIC ACID 1 MG TAB GTB (09:00)
[2018-10-06] MEDS: SENNA TAB PO ×2 (09:01→21:34)
[2018-10-06] MEDS: DOCUSATE SODIUM 10 MG/ML (10ML CUP) GTB (09:01)
[2018-10-06] MEDS: LANSOPRAZOLE 30 MG CAP GTB (09:01)
[2018-10-06] MEDS: FERROUS SULFATE 60 MG/ML 5ML CUP GTB ×2 (09:01→21:33)
[2018-10-06] MEDS: QUETIAPINE 25 MG TAB GTB ×2 (09:01→21:34)
[2018-10-06] MEDS: LINAGLIPTIN 5 MG TABLET GTB (09:01)
[2018-10-06] MEDS: ASPIRIN (EC) 81 MG TAB PO (09:01)
[2018-10-06] MEDS: METOPROLOL 50 MG TAB GTB ×2 (09:02→21:33)
[2018-10-06] MEDS: METOCLOPRAMIDE 10 MG INJ IV (23:33)
[2018-10-06] MEDS: hydrALAzine 20 MG INJ IV (23:33)
[2018-10-07] MEDS: ALBUTEROL/IPRATROPIUM (NEB) 3 ML AMP HHN (03:51)
[2018-10-07] MEDS: VALPROIC ACID LIQUID CUP 250 MG/5 ML CUP PO ×3 (05:53→22:00)
[2018-10-07] MEDS: ONDANSETRON 4 MG INJ IV (05:53)
[2018-10-07 06:10] LABS: ADD MAN DIFF? NO
[2018-10-07 06:14] LABS: WHITE BLOOD COUNT 14.2 10^3/ul (4.8-10.8)
[2018-10-07 06:14] LABS: BASOPHILS % 0.3 % (0.0-2.0); EOSINOPHILS # 0.4 10^3/ul (0.0-0.5); EOSINOPHILS % 2.6 % (0.0-7.0); HEMATOCRIT 25.4 % (37.0-47.0); LYMPHOCYTES % 6.7 % (15.0-51.0); MEAN CORPUSCULAR HEMOGLOBIN 26.7 pg (29.0-33.0); MEAN CORPUSCULAR HGB CONC 31.5 g/dl (32.0-37.0); MEAN CORPUSCULAR VOLUME 84.7 fl (82.0-101.0); MEAN PLATELET VOLUME 12.4 fl (7.4-10.4); MONOCYTES % 7.3 % (0.0-11.0); NEUTROPHIL # 11.2 10^3/ul (1.6-7.5); NEUTROPHILS % 79.1 % (39.0-77.0); NUCLEATED RED BLOOD CELLS # 0.3 10^3/ul (0.0-0.0); NUCLEATED RED BLOOD CELLS% 1.9 /100WBC (0.0-0.0); PLATELET COUNT 218 10^3/UL (140-415)
[2018-10-07] MEDS: [UNRECOGNIZED DRUG - OTHER] XX (06:35)
[2018-10-07 06:37] LABS: PHOSPHORUS 3.5 mg/dl (2.5-4.9)
[2018-10-07 06:37] LABS: MAGNESIUM 2.8 mg/dl (1.7-2.5)
[2018-10-07 07:04] LABS: ANION GAP 11 (5-13); BLOOD UREA NITROGEN 73 mg/dl (7-20); CALCIUM 9.3 mg/dl (8.4-10.2); CARBON DIOXIDE 28 mmol/L (21-31); CHLORIDE 98 mmol/L (97-110); CREATININE 2.26 mg/dl (0.44-1.00); GLUCOSE 113 mg/dl (70-220); SODIUM 137 mmol/L (135-144)
[2018-10-07] MEDS: FERROUS SULFATE 60 MG/ML 5ML CUP GTB ×2 (09:07→20:58)
[2018-10-07] MEDS: ASPIRIN (EC) 81 MG TAB PO (09:07)
[2018-10-07] MEDS: DOCUSATE SODIUM 10 MG/ML (10ML CUP) GTB (09:07)
[2018-10-07] MEDS: MULTIVIT/CA CARB/B CMPLX/FA TAB GTB (09:07)
[2018-10-07] MEDS: LANSOPRAZOLE 30 MG CAP GTB (09:07)
[2018-10-07] MEDS: FOLIC ACID 1 MG TAB GTB (09:09)
[2018-10-07] MEDS: SENNA TAB PO ×2 (09:09→20:58)
[2018-10-07] MEDS: LINAGLIPTIN 5 MG TABLET GTB (09:09)
[2018-10-07] MEDS: QUETIAPINE 25 MG TAB GTB ×2 (09:09→20:58)
[2018-10-07] MEDS: METOPROLOL 50 MG TAB GTB ×2 (09:09→20:58)
[2018-10-07] MEDS ORDERED: VANCOMYCIN IV PER PHARMACY XX (09:30)
[2018-10-07] MEDS: MEROPENEM 500MG/50 ML (PMX) 50 ML IVPB ×2 (12:17→20:59)
[2018-10-07] MEDS: VANCOMYCIN 1 GM 250 ML IVPB (14:42)
[2018-10-07] MEDS: METOCLOPRAMIDE 10 MG INJ IV (17:37)
[2018-10-07] MEDS: DEXTROSE 5%-0.45% NACL 1,000 ML IV (17:38)
[2018-10-08 05:55] LABS: ADD MAN DIFF? NO
[2018-10-08] MEDS: VALPROIC ACID LIQUID CUP 250 MG/5 ML CUP PO ×2 (06:00→14:16)
[2018-10-08 06:06] LABS: WHITE BLOOD COUNT 14.1 10^3/ul (4.8-10.8)
[2018-10-08 06:06] LABS: ABNORMAL IP MESSAGE 1; BASOPHIL # 0.1 10^3/ul (0.0-0.1); BASOPHILS % 0.9 % (0.0-2.0); EOSINOPHILS # 0.3 10^3/ul (0.0-0.5); EOSINOPHILS % 2.1 % (0.0-7.0); HEMOGLOBIN 7.9 g/dl (12.0-16.0); LYMPHOCYTES # 1.1 10^3/ul (0.8-2.9); MEAN CORPUSCULAR HEMOGLOBIN 26.6 pg (29.0-33.0); MEAN CORPUSCULAR HGB CONC 30.4 g/dl (32.0-37.0); MEAN CORPUSCULAR VOLUME 87.5 fl (82.0-101.0); MEAN PLATELET VOLUME 12.3 fl (7.4-10.4); MONOCYTE # 1.5 10^3/ul (0.3-0.9); MONOCYTES % 10.4 % (0.0-11.0); NEUTROPHIL # 10.2 10^3/ul (1.6-7.5); NEUTROPHILS % 72.5 % (39.0-77.0); NUCLEATED RED BLOOD CELLS # 0.4 10^3/ul (0.0-0.0); NUCLEATED RED BLOOD CELLS% 2.6 /100WBC (0.0-0.0); PLATELET COUNT 229 10^3/UL (140-415); RED BLOOD COUNT 2.97 10^6/ul (4.20-5.40); RED CELL DISTRIBUTION WIDTH 17.2 % (11.5-14.5)
[2018-10-08 06:14] LABS: POSITIVE DIFF @See below
[2018-10-08 06:44] LABS: ALANINE AMINOTRANSFERASE 12 IU/L (13-69); ALBUMIN 3.6 g/dl (3.3-4.9); ALBUMIN/GLOBULIN RATIO 0.97; ALKALINE PHOSPHATASE 74 IU/L (42-121); ANION GAP 6 (5-13); ASPARTATE AMINO TRANSFERASE 23 IU/L (15-46); BILIRUBIN,INDIRECT 0.1 mg/dl (0-1.1); BILIRUBIN,TOTAL 0.1 mg/dl (0.2-1.3); BLOOD UREA NITROGEN 88 mg/dl (7-20); CALCIUM 8.9 mg/dl (8.4-10.2); CARBON DIOXIDE 29 mmol/L (21-31); CHLORIDE 101 mmol/L (97-110); CREATININE 2.79 mg/dl (0.44-1.00); GLUCOSE 155 mg/dl (70-220); POTASSIUM 4.9 mmol/L (3.5-5.1); SODIUM 136 mmol/L (135-144); TOTAL PROTEIN 7.3 g/dl (6.1-8.1)
[2018-10-08 06:47] LABS: PHOSPHORUS 6.1 mg/dl (2.5-4.9)
[2018-10-08 06:47] LABS: MAGNESIUM 3.1 mg/dl (1.7-2.5)
[2018-10-08 08:15] LABS: ANISOCYTOSIS 1+ (0-0); BAND NEUTROPHILS #M 0.1 10^3/ul (0.0-0.6); BAND NEUTROPHILS % (M) 1 % (0-4); BASOPHIL #M 0.1 10^3/ul (0.0-0.0); BASOPHILS % (M) 1 % (0-2); EOSINOPHILS % (M) 2 % (0-7); ERYTHROBLAST% (NRBC) (M) 5 % (0-0); HYPOCHROMASIA 1+ (0-0); LYMPHOCYTES #M 0.4 10^3/ul (0.8-2.9); LYMPHOCYTES % (M) 3 % (15-51); METAMYELOCYTES #M 0.1 10^3/ul (0.0-0.0); METAMYELOCYTES %M 1 % (0-0); MICROCYTOSIS 2+ (0-0); MONOCYTE #M 1.5 10^3/ul (0.3-0.9); MONOCYTES % (M) 11 % (0-11); MYELOCYTES #M 0.2 10^3/ul (0.0-0.0); MYELOCYTES % (M) 2 % (0-0); PLATELET ESTIMATE NORMAL; POIKILOCYTOSIS 1+ (0-0); POLYCHROMASIA 3+ (0-0); REACTIVE LYMPHOCYTES #M 0.1 10^3/ul (0.0-0.0); REACTIVE LYMPHOCYTES% (M) 1 % (0-0); SEGMENTED NEUTROPHILS (M) % 78 % (39-77); SMUDGE%M 6 % (0-0)
[2018-10-08 08:46] LABS: HEPATITIS B SURFACE ANTIGEN NEGATIVE (NEGATIVE)
[2018-10-08] MEDS ORDERED: METOCLOPRAMIDE 10 MG INJ IV (10:00)
[2018-10-08] MEDS: DOCUSATE SODIUM 10 MG/ML (10ML CUP) GTB (12:10)
[2018-10-08] MEDS: FERROUS SULFATE 60 MG/ML 5ML CUP GTB ×2 (12:10→20:21)
[2018-10-08] MEDS: FOLIC ACID 1 MG TAB GTB (12:10)
[2018-10-08] MEDS: QUETIAPINE 25 MG TAB GTB (12:11)
[2018-10-08] MEDS: MULTIVIT/CA CARB/B CMPLX/FA TAB GTB (12:11)
[2018-10-08] MEDS: ASPIRIN (EC) 81 MG TAB PO (12:11)
[2018-10-08] MEDS: LANSOPRAZOLE 30 MG CAP GTB (12:11)
[2018-10-08] MEDS: MEROPENEM 500MG/50 ML (PMX) 50 ML IVPB ×2 (12:12→20:21)
[2018-10-08] MEDS: SENNA TAB PO ×2 (12:12→20:22)
[2018-10-08] MEDS: LINAGLIPTIN 5 MG TABLET GTB (12:12)
[2018-10-08] MEDS: METOPROLOL 50 MG TAB GTB ×2 (12:14→20:22)
[2018-10-08] MEDS: DEXTROSE 5%-0.45% NACL 1,000 ML IV (16:00)
[2018-10-08] MEDS: EPOETIN 4000 UNITS/1 ML INJ (ESRD) SC (17:31)
[2018-10-09] MEDS: DOCUSATE SODIUM 100 MG CAP PO (05:01)
[2018-10-09] MEDS: ACETAMINOPHEN 325 MG TAB PO (05:01)
[2018-10-09] MEDS: MAGNESIUM HYDROXIDE 30ML CUP PO (05:01)
[2018-10-09 05:21] LABS: ADD MAN DIFF? NO
[2018-10-09 05:28] LABS: BASOPHILS % 0.5 % (0.0-2.0); EOSINOPHILS # 0.4 10^3/ul (0.0-0.5); EOSINOPHILS % 4.6 % (0.0-7.0); HEMATOCRIT 24.6 % (37.0-47.0); HEMOGLOBIN 7.9 g/dl (12.0-16.0); LYMPHOCYTES # 0.8 10^3/ul (0.8-2.9); LYMPHOCYTES % 8.9 % (15.0-51.0); MEAN CORPUSCULAR HEMOGLOBIN 27.2 pg (29.0-33.0); MEAN CORPUSCULAR HGB CONC 32.1 g/dl (32.0-37.0); MEAN CORPUSCULAR VOLUME 84.8 fl (82.0-101.0); MEAN PLATELET VOLUME 12.3 fl (7.4-10.4); MONOCYTE # 1.1 10^3/ul (0.3-0.9); MONOCYTES % 13.5 % (0.0-11.0); NEUTROPHIL # 5.8 10^3/ul (1.6-7.5); NEUTROPHILS % 68.3 % (39.0-77.0); NUCLEATED RED BLOOD CELLS # 0.2 10^3/ul (0.0-0.0); NUCLEATED RED BLOOD CELLS% 1.8 /100WBC (0.0-0.0); PLATELET COUNT 191 10^3/UL (140-415); RED CELL DISTRIBUTION WIDTH 16.7 % (11.5-14.5)
[2018-10-09 05:28] LABS: WHITE BLOOD COUNT 8.4 10^3/ul (4.8-10.8)
[2018-10-09 05:51] LABS: ANION GAP 11 (5-13); BLOOD UREA NITROGEN 43 mg/dl (7-20); CALCIUM 8.4 mg/dl (8.4-10.2); CARBON DIOXIDE 27 mmol/L (21-31); CHLORIDE 97 mmol/L (97-110); CREATININE 1.83 mg/dl (0.44-1.00); GLUCOSE 306 mg/dl (70-220); POTASSIUM 3.8 mmol/L (3.5-5.1); SODIUM 135 mmol/L (135-144)
[2018-10-09 05:52] LABS: PHOSPHORUS 3.4 mg/dl (2.5-4.9)
[2018-10-09 05:52] LABS: MAGNESIUM 2.4 mg/dl (1.7-2.5)
[2018-10-09 06:10] LABS: VANCOMYCIN,RANDOM < 5.0 ug/ml
[2018-10-09] MEDS: FERROUS SULFATE 60 MG/ML 5ML CUP GTB ×2 (08:53→21:12)
[2018-10-09] MEDS: DOCUSATE SODIUM 10 MG/ML (10ML CUP) GTB (08:53)
[2018-10-09] MEDS: FOLIC ACID 1 MG TAB GTB (08:54)
[2018-10-09] MEDS: LANSOPRAZOLE 30 MG CAP GTB (08:54)
[2018-10-09] MEDS: ASPIRIN (EC) 81 MG TAB PO (08:54)
[2018-10-09] MEDS: SENNA TAB PO ×2 (08:55→21:12)
[2018-10-09] MEDS: METOPROLOL 50 MG TAB GTB ×2 (08:55→21:22)
[2018-10-09] MEDS: MULTIVIT/CA CARB/B CMPLX/FA TAB GTB (08:55)
[2018-10-09] MEDS: MEROPENEM 500MG/50 ML (PMX) 50 ML IVPB ×2 (08:56→21:24)
[2018-10-09] MEDS: LINAGLIPTIN 5 MG TABLET GTB (08:56)
[2018-10-09] MEDS: VANCOMYCIN 1 GM 250 ML IVPB (09:38)
[2018-10-09 13:41] LABS: OCCULT BLOOD STOOL NEGATIVE (NEGATIVE)
[2018-10-09] MEDS: hydrALAzine 20 MG INJ IV (15:30)
[2018-10-10] MEDS: hydrALAzine 20 MG INJ IV ×3 (01:16→19:40)
[2018-10-10] MEDS ORDERED: VITAMIN A & D 5 GM OINT PACKET TOP (04:35)
[2018-10-10 06:04] LABS: ADD MAN DIFF? NO
[2018-10-10 06:13] LABS: WHITE BLOOD COUNT 10.2 10^3/ul (4.8-10.8)
[2018-10-10 06:13] LABS: BASOPHIL # 0.1 10^3/ul (0.0-0.1); BASOPHILS % 0.7 % (0.0-2.0); EOSINOPHILS # 0.3 10^3/ul (0.0-0.5); EOSINOPHILS % 3.1 % (0.0-7.0); HEMATOCRIT 26.1 % (37.0-47.0); HEMOGLOBIN 8.2 g/dl (12.0-16.0); LYMPHOCYTES % 9.5 % (15.0-51.0); MEAN CORPUSCULAR HEMOGLOBIN 26.5 pg (29.0-33.0); MEAN CORPUSCULAR HGB CONC 31.4 g/dl (32.0-37.0); MEAN CORPUSCULAR VOLUME 84.2 fl (82.0-101.0); MEAN PLATELET VOLUME 11.5 fl (7.4-10.4); MONOCYTE # 1.3 10^3/ul (0.3-0.9); MONOCYTES % 12.9 % (0.0-11.0); NEUTROPHIL # 7.1 10^3/ul (1.6-7.5); NEUTROPHILS % 70.1 % (39.0-77.0); NUCLEATED RED BLOOD CELLS # 0.1 10^3/ul (0.0-0.0); NUCLEATED RED BLOOD CELLS% 0.8 /100WBC (0.0-0.0); PLATELET COUNT 219 10^3/UL (140-415); RED CELL DISTRIBUTION WIDTH 17.2 % (11.5-14.5)
[2018-10-10 06:17] LABS: MAGNESIUM 3.4 mg/dl (1.7-2.5)
[2018-10-10 06:17] LABS: PHOSPHORUS 3.5 mg/dl (2.5-4.9)
[2018-10-10 06:20] LABS: ANION GAP 9 (5-13); BLOOD UREA NITROGEN 68 mg/dl (7-20); CALCIUM 8.8 mg/dl (8.4-10.2); CARBON DIOXIDE 29 mmol/L (21-31); CHLORIDE 97 mmol/L (97-110); CREATININE 2.44 mg/dl (0.44-1.00); GLUCOSE 170 mg/dl (70-220); POTASSIUM 4.1 mmol/L (3.5-5.1); SODIUM 135 mmol/L (135-144)
[2018-10-10] MEDS: MEROPENEM 500MG/50 ML (PMX) 50 ML IVPB ×2 (13:06→21:01)
[2018-10-10] MEDS: DOCUSATE SODIUM 10 MG/ML (10ML CUP) GTB (13:06)
[2018-10-10] MEDS: SENNA TAB PO ×2 (13:06→20:24)
[2018-10-10] MEDS: FERROUS SULFATE 60 MG/ML 5ML CUP GTB ×2 (13:07→20:24)
[2018-10-10] MEDS: MULTIVIT/CA CARB/B CMPLX/FA TAB GTB (13:08)
[2018-10-10] MEDS: METOPROLOL 50 MG TAB GTB ×2 (13:08→20:26)
[2018-10-10] MEDS: ASPIRIN (EC) 81 MG TAB PO (13:08)
[2018-10-10] MEDS: LANSOPRAZOLE 30 MG CAP GTB (13:08)
[2018-10-10] MEDS: FOLIC ACID 1 MG TAB GTB (13:08)
[2018-10-10] MEDS: LINAGLIPTIN 5 MG TABLET GTB (13:11)
[2018-10-10] MEDS: VORICONAZOLE 200 MG TAB PO ×2 (13:59→20:24)
[2018-10-10] MEDS ORDERED: MAGNESIUM HYDROXIDE 30ML CUP PO (17:00)
[2018-10-10] MEDS ORDERED: SODIUM CHLORIDE 0.9% 1L BAG IV (17:00)
[2018-10-10] MEDS: EPOETIN 4000 UNITS/1 ML INJ (ESRD) SC (19:39)
[2018-10-11] MEDS: DOCUSATE SODIUM 10 MG/ML (10ML CUP) GTB (09:00)
[2018-10-11] MEDS: FERROUS SULFATE 60 MG/ML 5ML CUP GTB ×2 (09:34→21:03)
[2018-10-11] MEDS: LANSOPRAZOLE 30 MG CAP GTB (09:34)
[2018-10-11] MEDS: VORICONAZOLE 200 MG TAB PO ×2 (09:34→21:03)
[2018-10-11] MEDS: MULTIVIT/CA CARB/B CMPLX/FA TAB GTB (09:36)
[2018-10-11] MEDS: LINAGLIPTIN 5 MG TABLET GTB (09:36)
[2018-10-11] MEDS: FOLIC ACID 1 MG TAB GTB (09:36)
[2018-10-11] MEDS: MEROPENEM 500MG/50 ML (PMX) 50 ML IVPB (09:37)
[2018-10-11] MEDS: ASPIRIN (EC) 81 MG TAB PO (09:37)
[2018-10-11] MEDS: METOPROLOL 50 MG TAB GTB ×2 (09:37→21:03)
[2018-10-11] MEDS: SENNA TAB PO ×2 (09:37→21:03)
[2018-10-11] MEDS: GUAIFENESIN/DM 5ML CUP PO (10:44)
[2018-10-11] MEDS ORDERED: VANCOMYCIN 1 GM (PMX) 250 ML IVPB (11:00)
[2018-10-11] MEDS ORDERED: SODIUM CHLORIDE 0.9% 1L BAG IV (16:00)
[2018-10-12 06:36] LABS: ADD MAN DIFF? NO
[2018-10-12 06:38] LABS: BASOPHILS % 0.4 % (0.0-2.0); EOSINOPHILS # 0.6 10^3/ul (0.0-0.5); EOSINOPHILS % 8.2 % (0.0-7.0); HEMATOCRIT 25.3 % (37.0-47.0); HEMOGLOBIN 7.8 g/dl (12.0-16.0); LYMPHOCYTES # 1.3 10^3/ul (0.8-2.9); LYMPHOCYTES % 19.2 % (15.0-51.0); MEAN CORPUSCULAR HEMOGLOBIN 26.1 pg (29.0-33.0); MEAN CORPUSCULAR HGB CONC 30.8 g/dl (32.0-37.0); MEAN CORPUSCULAR VOLUME 84.6 fl (82.0-101.0); MEAN PLATELET VOLUME 12.2 fl (7.4-10.4); MONOCYTES % 14.1 % (0.0-11.0); NEUTROPHIL # 3.8 10^3/ul (1.6-7.5); NEUTROPHILS % 55.1 % (39.0-77.0); NUCLEATED RED BLOOD CELLS # 0.1 10^3/ul (0.0-0.0); NUCLEATED RED BLOOD CELLS% 0.9 /100WBC (0.0-0.0); PLATELET COUNT 195 10^3/UL (140-415); RED BLOOD COUNT 2.99 10^6/ul (4.20-5.40); RED CELL DISTRIBUTION WIDTH 17.2 % (11.5-14.5)
[2018-10-12 07:13] LABS: PHOSPHORUS 4.7 mg/dl (2.5-4.9)
[2018-10-12 07:13] LABS: ANION GAP 8 (5-13); BLOOD UREA NITROGEN 62 mg/dl (7-20); CALCIUM 8.3 mg/dl (8.4-10.2); CARBON DIOXIDE 31 mmol/L (21-31); CHLORIDE 94 mmol/L (97-110); CREATININE 2.67 mg/dl (0.44-1.00); GLUCOSE 122 mg/dl (70-220); POTASSIUM 4.4 mmol/L (3.5-5.1); SODIUM 133 mmol/L (135-144)
[2018-10-12] MEDS: LANSOPRAZOLE 30 MG CAP GTB (08:55)
[2018-10-12] MEDS: FERROUS SULFATE 60 MG/ML 5ML CUP GTB ×2 (08:55→21:16)
[2018-10-12] MEDS: DOCUSATE SODIUM 10 MG/ML (10ML CUP) GTB (08:55)
[2018-10-12] MEDS: MULTIVIT/CA CARB/B CMPLX/FA TAB GTB (08:55)
[2018-10-12] MEDS: SENNA TAB PO ×2 (08:55→21:16)
[2018-10-12] MEDS: ASPIRIN (EC) 81 MG TAB PO (08:55)
[2018-10-12] MEDS: VORICONAZOLE 200 MG TAB PO ×2 (08:55→21:16)
[2018-10-12] MEDS: FOLIC ACID 1 MG TAB GTB (08:56)
[2018-10-12] MEDS: LINAGLIPTIN 5 MG TABLET GTB (08:58)
[2018-10-12] MEDS: METOPROLOL 50 MG TAB GTB ×2 (09:00→21:17)
[2018-10-12] MEDS: METOCLOPRAMIDE 10 MG INJ IV ×3 (12:00→23:41)
[2018-10-12] MEDS: EPOETIN 4000 UNITS/1 ML INJ (ESRD) SC (17:12)
[2018-10-12] MEDS: GUAIFENESIN/DM 5ML CUP PO (21:16)
[2018-10-13] MEDS: METOCLOPRAMIDE 10 MG INJ IV ×3 (06:11→17:26)
[2018-10-13] MEDS: SENNA TAB PO ×2 (09:00→21:17)
[2018-10-13] MEDS: DOCUSATE SODIUM 10 MG/ML (10ML CUP) GTB (09:00)
[2018-10-13] MEDS: FERROUS SULFATE 60 MG/ML 5ML CUP GTB ×2 (09:42→21:17)
[2018-10-13] MEDS: METOPROLOL 50 MG TAB GTB ×2 (09:43→21:18)
[2018-10-13] MEDS: FOLIC ACID 1 MG TAB GTB (09:43)
[2018-10-13] MEDS: MULTIVIT/CA CARB/B CMPLX/FA TAB GTB (09:44)
[2018-10-13] MEDS: VORICONAZOLE 200 MG TAB PO ×2 (09:44→21:17)
[2018-10-13] MEDS: LANSOPRAZOLE 30 MG CAP GTB (09:44)
[2018-10-13] MEDS: ASPIRIN (EC) 81 MG TAB PO (09:44)
[2018-10-13] MEDS: LINAGLIPTIN 5 MG TABLET GTB (09:46)
[2018-10-13] MEDS: AMLODIPINE 5 MG TAB GTB (15:50)
[2018-10-13] MEDS: HYDROCODONE/APAP (5/325) TAB PO (21:19)
[2018-10-14] MEDS: METOCLOPRAMIDE 10 MG INJ IV ×5 (00:30→23:57)
[2018-10-14] MEDS: FOLIC ACID 1 MG TAB GTB (09:52)
[2018-10-14] MEDS: VORICONAZOLE 200 MG TAB PO ×2 (09:52→22:10)
[2018-10-14] MEDS: SENNA TAB PO ×2 (09:52→22:10)
[2018-10-14] MEDS: MULTIVIT/CA CARB/B CMPLX/FA TAB GTB (09:52)
[2018-10-14] MEDS: LANSOPRAZOLE 30 MG CAP GTB (09:52)
[2018-10-14] MEDS: LINAGLIPTIN 5 MG TABLET GTB (09:52)
[2018-10-14] MEDS: ASPIRIN (EC) 81 MG TAB PO (09:59)
[2018-10-14] MEDS: METOPROLOL 50 MG TAB GTB ×2 (09:59→22:09)
[2018-10-14] MEDS: AMLODIPINE 5 MG TAB GTB (09:59)
[2018-10-14] MEDS: FERROUS SULFATE 60 MG/ML 5ML CUP GTB ×2 (09:59→22:09)
[2018-10-14] MEDS: DOCUSATE SODIUM 10 MG/ML (10ML CUP) GTB (10:00)
[2018-10-14] MEDS: HYDROCODONE/APAP (5/325) TAB PO (22:10)
[2018-10-15] MEDS: METOCLOPRAMIDE 10 MG INJ IV ×3 (05:57→21:30)
[2018-10-15 06:01] LABS: ADD MAN DIFF? NO
[2018-10-15 06:05] LABS: BASOPHILS % 0.4 % (0.0-2.0); EOSINOPHILS # 0.6 10^3/ul (0.0-0.5); HEMATOCRIT 25.5 % (37.0-47.0); HEMOGLOBIN 7.9 g/dl (12.0-16.0); LYMPHOCYTES % 14.6 % (15.0-51.0); MEAN CORPUSCULAR HEMOGLOBIN 26.2 pg (29.0-33.0); MEAN CORPUSCULAR VOLUME 84.7 fl (82.0-101.0); MEAN PLATELET VOLUME 12.3 fl (7.4-10.4); MONOCYTES % 13.9 % (0.0-11.0); NEUTROPHIL # 4.3 10^3/ul (1.6-7.5); NUCLEATED RED BLOOD CELLS # 0.1 10^3/ul (0.0-0.0); PLATELET COUNT 202 10^3/UL (140-415); RED BLOOD COUNT 3.01 10^6/ul (4.20-5.40); RED CELL DISTRIBUTION WIDTH 16.8 % (11.5-14.5)
[2018-10-15 06:32] LABS: PHOSPHORUS 5.6 mg/dl (2.5-4.9)
[2018-10-15 06:33] LABS: ANION GAP 8 (5-13); BLOOD UREA NITROGEN 94 mg/dl (7-20); CALCIUM 8.9 mg/dl (8.4-10.2); CARBON DIOXIDE 32 mmol/L (21-31); CHLORIDE 97 mmol/L (97-110); CREATININE 2.66 mg/dl (0.44-1.00); GLUCOSE 147 mg/dl (70-220); POTASSIUM 3.7 mmol/L (3.5-5.1); SODIUM 137 mmol/L (135-144)
[2018-10-15] MEDS: POLYETHYLENE GLYCOL 17 GM PACKET GTB (08:57)
[2018-10-15] MEDS: FERROUS SULFATE 60 MG/ML 5ML CUP GTB ×2 (09:03→21:30)
[2018-10-15] MEDS: DOCUSATE SODIUM 10 MG/ML (10ML CUP) GTB (09:03)
[2018-10-15] MEDS: FOLIC ACID 1 MG TAB GTB (09:04)
[2018-10-15] MEDS: SENNA TAB PO ×2 (09:04→21:30)
[2018-10-15] MEDS: ASPIRIN (EC) 81 MG TAB PO (09:04)
[2018-10-15] MEDS: VORICONAZOLE 200 MG TAB PO ×2 (09:04→21:30)
[2018-10-15] MEDS: AMLODIPINE 5 MG TAB GTB (09:04)
[2018-10-15] MEDS: MULTIVIT/CA CARB/B CMPLX/FA TAB GTB (09:04)
[2018-10-15] MEDS: LINAGLIPTIN 5 MG TABLET GTB (09:04)
[2018-10-15] MEDS: LANSOPRAZOLE 30 MG CAP GTB (09:04)
[2018-10-15] MEDS: METOPROLOL 50 MG TAB GTB ×2 (09:05→21:31)
[2018-10-15] MEDS: BISACODYL 10 MG SUPP PR (09:26)
[2018-10-15] MEDS: EPOETIN 4000 UNITS/1 ML INJ (ESRD) SC (19:03)
[2018-10-16] MEDS: morphine LIQ (10 MG/5 ML) CUP PO (02:11)
[2018-10-16] MEDS: METOCLOPRAMIDE 10 MG INJ IV ×3 (05:22→22:20)
[2018-10-16] MEDS: LINAGLIPTIN 5 MG TABLET GTB (09:37)
[2018-10-16] MEDS: SENNA TAB PO ×2 (09:37→20:51)
[2018-10-16] MEDS: AMLODIPINE 5 MG TAB GTB (09:37)
[2018-10-16] MEDS: LANSOPRAZOLE 30 MG CAP GTB (09:37)
[2018-10-16] MEDS: VORICONAZOLE 200 MG TAB PO ×2 (09:38→20:51)
[2018-10-16] MEDS: ASPIRIN (EC) 81 MG TAB PO (09:38)
[2018-10-16] MEDS: MULTIVIT/CA CARB/B CMPLX/FA TAB GTB (09:38)
[2018-10-16] MEDS: FOLIC ACID 1 MG TAB GTB (09:38)
[2018-10-16] MEDS: METOPROLOL 50 MG TAB GTB ×2 (09:38→20:53)
[2018-10-16] MEDS: FERROUS SULFATE 60 MG/ML 5ML CUP GTB ×2 (09:39→20:51)
[2018-10-16] MEDS: DOCUSATE SODIUM 10 MG/ML (10ML CUP) GTB (09:39)
[2018-10-16] MEDS: POLYETHYLENE GLYCOL 17 GM PACKET GTB (09:39)
[2018-10-16] MEDS ORDERED: GLUCOSE GEL 15 GRAM TUBE PO ×2 (19:00)
[2018-10-16] MEDS ORDERED: GLUCAGON 1 MG INJ IM (19:00)
[2018-10-16] MEDS ORDERED: DEXTROSE 50% 50 ML SYRINGE IV ×2 (19:00)
[2018-10-16] MEDS ORDERED: GLUCOSE GEL 15 GRAM TUBE BUCCAL (19:00)
[2018-10-16] MEDS: INSULIN GLARGINE [LANTus] (100 UNITS/ML) SYG SC (20:50)
[2018-10-17] MEDS: morphine LIQ (10 MG/5 ML) CUP PO (01:22)
[2018-10-17] MEDS: METOCLOPRAMIDE 10 MG INJ IV ×3 (06:21→22:20)
[2018-10-17 06:47] LABS: ANION GAP 7 (5-13); BLOOD UREA NITROGEN 68 mg/dl (7-20); CARBON DIOXIDE 33 mmol/L (21-31); CHLORIDE 95 mmol/L (97-110); CREATININE 2.06 mg/dl (0.44-1.00); GLUCOSE 132 mg/dl (70-220); POTASSIUM 4.2 mmol/L (3.5-5.1); SODIUM 135 mmol/L (135-144)
[2018-10-17] MEDS: FERROUS SULFATE 60 MG/ML 5ML CUP GTB ×2 (08:31→20:37)
[2018-10-17] MEDS: FOLIC ACID 1 MG TAB GTB (08:32)
[2018-10-17] MEDS: DOCUSATE SODIUM 10 MG/ML (10ML CUP) GTB (08:32)
[2018-10-17] MEDS: MULTIVIT/CA CARB/B CMPLX/FA TAB GTB (08:32)
[2018-10-17] MEDS: ASPIRIN (EC) 81 MG TAB PO (08:32)
[2018-10-17] MEDS: SENNA TAB PO ×2 (08:32→20:37)
[2018-10-17] MEDS: VORICONAZOLE 200 MG TAB PO ×2 (08:32→20:37)
[2018-10-17] MEDS: LINAGLIPTIN 5 MG TABLET GTB (08:32)
[2018-10-17] MEDS: LANSOPRAZOLE 30 MG CAP GTB (08:32)
[2018-10-17] MEDS: METOPROLOL 50 MG TAB GTB ×2 (08:34→20:38)
[2018-10-17] MEDS: AMLODIPINE 5 MG TAB GTB (08:34)
[2018-10-17] MEDS: POLYETHYLENE GLYCOL 17 GM PACKET GTB (08:34)
[2018-10-17] MEDS ORDERED: HEPARIN 1000 UNITS/ML 10 ML INJ CATHETER (14:00)
[2018-10-17] MEDS: EPOETIN 4000 UNITS/1 ML INJ (ESRD) SC (18:08)
[2018-10-17] MEDS: INSULIN GLARGINE [LANTus] (100 UNITS/ML) SYG SC (20:36)
[2018-10-18] MEDS: METOCLOPRAMIDE 10 MG INJ IV ×3 (06:15→22:15)
[2018-10-18] MEDS: VORICONAZOLE 200 MG TAB PO ×2 (09:09→20:17)
[2018-10-18] MEDS: SENNA TAB PO ×2 (09:09→20:17)
[2018-10-18] MEDS: LANSOPRAZOLE 30 MG CAP GTB (09:10)
[2018-10-18] MEDS: MULTIVIT/CA CARB/B CMPLX/FA TAB GTB (09:10)
[2018-10-18] MEDS: DOCUSATE SODIUM 10 MG/ML (10ML CUP) GTB (09:10)
[2018-10-18] MEDS: FERROUS SULFATE 60 MG/ML 5ML CUP GTB ×2 (09:10→20:16)
[2018-10-18] MEDS: ASPIRIN (EC) 81 MG TAB PO (09:10)
[2018-10-18] MEDS: FOLIC ACID 1 MG TAB GTB (09:10)
[2018-10-18] MEDS: LINAGLIPTIN 5 MG TABLET GTB (09:13)
[2018-10-18] MEDS: POLYETHYLENE GLYCOL 17 GM PACKET GTB (09:14)
[2018-10-18] MEDS: AMLODIPINE 5 MG TAB GTB (09:14)
[2018-10-18] MEDS: METOPROLOL 50 MG TAB GTB ×2 (09:14→20:18)
[2018-10-18] MEDS: morphine LIQ (10 MG/5 ML) CUP PO (09:15)
[2018-10-18] MEDS: INSULIN GLARGINE [LANTus] (100 UNITS/ML) SYG SC (20:16)
[2018-10-19] MEDS ORDERED: ALBUMIN HUMAN 25% 100 ML IV (05:30)
[2018-10-19] MEDS: METOCLOPRAMIDE 10 MG INJ IV ×3 (05:37→21:56)
[2018-10-19 06:12] LABS: ADD MAN DIFF? NO
[2018-10-19 06:22] LABS: BASOPHIL # 0.1 10^3/ul (0.0-0.1); BASOPHILS % 0.5 % (0.0-2.0); EOSINOPHILS # 0.8 10^3/ul (0.0-0.5); EOSINOPHILS % 6.1 % (0.0-7.0); HEMATOCRIT 28.4 % (37.0-47.0); HEMOGLOBIN 8.9 g/dl (12.0-16.0); LYMPHOCYTES # 1.2 10^3/ul (0.8-2.9); LYMPHOCYTES % 9.7 % (15.0-51.0); MEAN CORPUSCULAR HEMOGLOBIN 26.3 pg (29.0-33.0); MEAN CORPUSCULAR HGB CONC 31.3 g/dl (32.0-37.0); MEAN CORPUSCULAR VOLUME 83.8 fl (82.0-101.0); MEAN PLATELET VOLUME 12.8 fl (7.4-10.4); MONOCYTE # 1.5 10^3/ul (0.3-0.9); MONOCYTES % 11.6 % (0.0-11.0); NEUTROPHIL # 9.1 10^3/ul (1.6-7.5); NEUTROPHILS % 71.5 % (39.0-77.0); NUCLEATED RED BLOOD CELLS% 0.3 /100WBC (0.0-0.0); PLATELET COUNT 247 10^3/UL (140-415); RED BLOOD COUNT 3.39 10^6/ul (4.20-5.40)
[2018-10-19 06:22] LABS: WHITE BLOOD COUNT 12.7 10^3/ul (4.8-10.8)
[2018-10-19 07:02] LABS: PHOSPHORUS 6.4 mg/dl (2.5-4.9)
[2018-10-19 07:19] LABS: ANION GAP 11 (5-13); BLOOD UREA NITROGEN 75 mg/dl (7-20); CALCIUM 9.1 mg/dl (8.4-10.2); CARBON DIOXIDE 28 mmol/L (21-31); CHLORIDE 97 mmol/L (97-110); CREATININE 2.28 mg/dl (0.44-1.00); GLUCOSE 102 mg/dl (70-220); POTASSIUM 4.7 mmol/L (3.5-5.1); SODIUM 136 mmol/L (135-144)
[2018-10-19] MEDS: FERROUS SULFATE 60 MG/ML 5ML CUP GTB ×2 (08:59→20:31)
[2018-10-19] MEDS: POLYETHYLENE GLYCOL 17 GM PACKET GTB (08:59)
[2018-10-19] MEDS: SENNA TAB PO ×2 (08:59→20:32)
[2018-10-19] MEDS: LINAGLIPTIN 5 MG TABLET GTB (08:59)
[2018-10-19] MEDS: VORICONAZOLE 200 MG TAB PO ×2 (08:59→20:32)
[2018-10-19] MEDS: DOCUSATE SODIUM 10 MG/ML (10ML CUP) GTB (08:59)
[2018-10-19] MEDS: LANSOPRAZOLE 30 MG CAP GTB (08:59)
[2018-10-19] MEDS: FOLIC ACID 1 MG TAB GTB (08:59)
[2018-10-19] MEDS: MULTIVIT/CA CARB/B CMPLX/FA TAB GTB (08:59)
[2018-10-19] MEDS: ASPIRIN (EC) 81 MG TAB PO (08:59)
[2018-10-19] MEDS: METOPROLOL 50 MG TAB GTB ×2 (09:00→20:33)
[2018-10-19] MEDS: AMLODIPINE 5 MG TAB GTB (09:00)
[2018-10-19] MEDS: ONDANSETRON 4 MG INJ IV (11:45)
[2018-10-19] MEDS: SEVELAMER CARBONATE 0.8 GM PKT NGT ×2 (13:56→20:32)
[2018-10-19] MEDS ORDERED: MEROPENEM 500MG/50 ML (PMX) 50 ML IVPB (15:00)
[2018-10-19] MEDS: ALBUMIN HUMAN 25% 50 ML IV ×2 (15:21→15:54)
[2018-10-19] MEDS: EPOETIN 4000 UNITS/1 ML INJ (ESRD) SC (17:36)
[2018-10-19] MEDS: INSULIN GLARGINE [LANTus] (100 UNITS/ML) SYG SC (20:03)
[2018-10-19] MEDS: MEROPENEM 500MG/50 ML (PMX) 50 ML IVPB (20:05)
[2018-10-20] MEDS: METOCLOPRAMIDE 10 MG INJ IV ×3 (06:28→22:33)
[2018-10-20 07:29] LABS: ADD MAN DIFF? NO
[2018-10-20 07:39] LABS: BASOPHILS % 0.2 % (0.0-2.0); EOSINOPHILS # 0.4 10^3/ul (0.0-0.5); EOSINOPHILS % 3.2 % (0.0-7.0); HEMATOCRIT 26.4 % (37.0-47.0); LYMPHOCYTES # 0.9 10^3/ul (0.8-2.9); LYMPHOCYTES % 7.8 % (15.0-51.0); MEAN CORPUSCULAR HEMOGLOBIN 25.9 pg (29.0-33.0); MEAN CORPUSCULAR HGB CONC 30.3 g/dl (32.0-37.0); MEAN CORPUSCULAR VOLUME 85.4 fl (82.0-101.0); MEAN PLATELET VOLUME 12.5 fl (7.4-10.4); MONOCYTE # 1.4 10^3/ul (0.3-0.9); NEUTROPHIL # 9.1 10^3/ul (1.6-7.5); NEUTROPHILS % 76.1 % (39.0-77.0); NUCLEATED RED BLOOD CELLS # 0.1 10^3/ul (0.0-0.0); NUCLEATED RED BLOOD CELLS% 0.5 /100WBC (0.0-0.0); PLATELET COUNT 215 10^3/UL (140-415); RED BLOOD COUNT 3.09 10^6/ul (4.20-5.40)
[2018-10-20 08:01] LABS: ANION GAP 9 (5-13); BLOOD UREA NITROGEN 43 mg/dl (7-20); CARBON DIOXIDE 30 mmol/L (21-31); CHLORIDE 101 mmol/L (97-110); CREATININE 1.82 mg/dl (0.44-1.00); GLUCOSE 87 mg/dl (70-220); POTASSIUM 4.4 mmol/L (3.5-5.1); SODIUM 140 mmol/L (135-144)
[2018-10-20 08:02] LABS: CALCIUM 9.2 mg/dl (8.4-10.2)
[2018-10-20 08:05] LABS: PHOSPHORUS 3.1 mg/dl (2.5-4.9)
[2018-10-20] MEDS: LANSOPRAZOLE 30 MG CAP GTB (08:30)
[2018-10-20] MEDS: FERROUS SULFATE 60 MG/ML 5ML CUP GTB ×2 (08:30→20:21)
[2018-10-20] MEDS: SEVELAMER CARBONATE 0.8 GM PKT NGT ×3 (08:30→20:19)
[2018-10-20] MEDS: LINAGLIPTIN 5 MG TABLET GTB (08:30)
[2018-10-20] MEDS: FOLIC ACID 1 MG TAB GTB (08:31)
[2018-10-20] MEDS: MULTIVIT/CA CARB/B CMPLX/FA TAB GTB (08:31)
[2018-10-20] MEDS: VORICONAZOLE 200 MG TAB PO ×2 (08:31→20:22)
[2018-10-20] MEDS: AMLODIPINE 5 MG TAB GTB (08:31)
[2018-10-20] MEDS: ASPIRIN (EC) 81 MG TAB PO (08:31)
[2018-10-20] MEDS: POLYETHYLENE GLYCOL 17 GM PACKET GTB (08:32)
[2018-10-20] MEDS: SENNA TAB PO ×2 (08:32→20:22)
[2018-10-20] MEDS: DOCUSATE SODIUM 10 MG/ML (10ML CUP) GTB (08:32)
[2018-10-20] MEDS: METOPROLOL 50 MG TAB GTB ×2 (08:32→20:23)
[2018-10-20] MEDS: MEROPENEM 500MG/50 ML (PMX) 50 ML IVPB (20:00)
[2018-10-20] MEDS: INSULIN GLARGINE [LANTus] (100 UNITS/ML) SYG SC (20:29)
[2018-10-21 05:33] LABS: ADD MAN DIFF? NO
[2018-10-21 05:37] LABS: WHITE BLOOD COUNT 10.4 10^3/ul (4.8-10.8)
[2018-10-21 05:37] LABS: BASOPHILS % 0.3 % (0.0-2.0); EOSINOPHILS # 0.5 10^3/ul (0.0-0.5); EOSINOPHILS % 4.7 % (0.0-7.0); HEMATOCRIT 23.5 % (37.0-47.0); HEMOGLOBIN 7.3 g/dl (12.0-16.0); LYMPHOCYTES # 1.2 10^3/ul (0.8-2.9); LYMPHOCYTES % 11.9 % (15.0-51.0); MEAN CORPUSCULAR HEMOGLOBIN 26.2 pg (29.0-33.0); MEAN CORPUSCULAR HGB CONC 31.1 g/dl (32.0-37.0); MEAN CORPUSCULAR VOLUME 84.2 fl (82.0-101.0); MEAN PLATELET VOLUME 12.2 fl (7.4-10.4); MONOCYTE # 1.2 10^3/ul (0.3-0.9); MONOCYTES % 11.7 % (0.0-11.0); NEUTROPHIL # 7.4 10^3/ul (1.6-7.5); NEUTROPHILS % 70.8 % (39.0-77.0); NUCLEATED RED BLOOD CELLS # 0.1 10^3/ul (0.0-0.0); NUCLEATED RED BLOOD CELLS% 0.6 /100WBC (0.0-0.0); PLATELET COUNT 206 10^3/UL (140-415); RED BLOOD COUNT 2.79 10^6/ul (4.20-5.40); RED CELL DISTRIBUTION WIDTH 16.3 % (11.5-14.5)
[2018-10-21 05:59] LABS: ANION GAP 9 (5-13); BLOOD UREA NITROGEN 73 mg/dl (7-20); CALCIUM 8.6 mg/dl (8.4-10.2); CARBON DIOXIDE 28 mmol/L (21-31); CHLORIDE 97 mmol/L (97-110); CREATININE 2.91 mg/dl (0.44-1.00); GLUCOSE 140 mg/dl (70-220); POTASSIUM 4.4 mmol/L (3.5-5.1); SODIUM 134 mmol/L (135-144)
[2018-10-21 06:01] LABS: MAGNESIUM 3.1 mg/dl (1.7-2.5)
[2018-10-21 06:01] LABS: PHOSPHORUS 3.8 mg/dl (2.5-4.9)
[2018-10-21] MEDS: FOLIC ACID 1 MG TAB GTB (09:46)
[2018-10-21] MEDS: FERROUS SULFATE 60 MG/ML 5ML CUP GTB ×2 (09:46→21:36)
[2018-10-21] MEDS: DOCUSATE SODIUM 10 MG/ML (10ML CUP) GTB (09:46)
[2018-10-21] MEDS: AMLODIPINE 5 MG TAB GTB (09:47)
[2018-10-21] MEDS: METOPROLOL 50 MG TAB GTB ×2 (09:47→21:37)
[2018-10-21] MEDS: LANSOPRAZOLE 30 MG CAP GTB (09:47)
[2018-10-21] MEDS: POLYETHYLENE GLYCOL 17 GM PACKET GTB (09:47)
[2018-10-21] MEDS: SEVELAMER CARBONATE 0.8 GM PKT NGT ×3 (09:48→21:36)
[2018-10-21] MEDS: ASPIRIN (EC) 81 MG TAB PO (09:48)
[2018-10-21] MEDS: SENNA TAB PO ×2 (09:48→21:36)
[2018-10-21] MEDS: VORICONAZOLE 200 MG TAB PO ×2 (09:48→21:36)
[2018-10-21] MEDS: LINAGLIPTIN 5 MG TABLET GTB (09:48)
[2018-10-21] MEDS: MULTIVIT/CA CARB/B CMPLX/FA TAB GTB (09:52)
[2018-10-21] MEDS: METOCLOPRAMIDE 5 MG TAB PO ×3 (09:52→21:36)
[2018-10-21] MEDS: MEROPENEM 500MG/50 ML (PMX) 50 ML IVPB (20:00)
[2018-10-21] MEDS: INSULIN GLARGINE [LANTus] (100 UNITS/ML) SYG SC (21:38)
[2018-10-22] MEDS: METOCLOPRAMIDE 5 MG TAB PO ×3 (06:30→21:07)
[2018-10-22] MEDS: LINAGLIPTIN 5 MG TABLET GTB (08:16)
[2018-10-22] MEDS: MULTIVIT/CA CARB/B CMPLX/FA TAB GTB (08:16)
[2018-10-22] MEDS: LANSOPRAZOLE 30 MG CAP GTB (08:16)
[2018-10-22] MEDS: DOCUSATE SODIUM 10 MG/ML (10ML CUP) GTB (08:16)
[2018-10-22] MEDS: FERROUS SULFATE 60 MG/ML 5ML CUP GTB ×2 (08:16→20:45)
[2018-10-22] MEDS: VORICONAZOLE 200 MG TAB PO ×2 (08:16→20:45)
[2018-10-22] MEDS: POLYETHYLENE GLYCOL 17 GM PACKET GTB (08:17)
[2018-10-22] MEDS: SENNA TAB PO ×2 (08:17→21:00)
[2018-10-22] MEDS: ASPIRIN (EC) 81 MG TAB PO (08:17)
[2018-10-22] MEDS: SEVELAMER CARBONATE 0.8 GM PKT NGT ×3 (08:17→20:45)
[2018-10-22] MEDS: FOLIC ACID 1 MG TAB GTB (08:17)
[2018-10-22] MEDS: OLANZAPINE 2.5 MG TAB PO (08:17)
[2018-10-22] MEDS: METOPROLOL 50 MG TAB GTB ×3 (08:29→20:46)
[2018-10-22] MEDS: AMLODIPINE 5 MG TAB GTB (08:29)
[2018-10-22] MEDS: EPOETIN 4000 UNITS/1 ML INJ (ESRD) SC (18:23)
[2018-10-22] MEDS: INSULIN GLARGINE [LANTus] (100 UNITS/ML) SYG SC (20:42)
[2018-10-22] MEDS: MEROPENEM 500MG/50 ML (PMX) 50 ML IVPB (20:44)
[2018-10-23] MEDS: METOCLOPRAMIDE 5 MG TAB PO ×3 (05:47→21:00)
[2018-10-23 06:14] LABS: ADD MAN DIFF? NO
[2018-10-23 06:18] LABS: BASOPHILS % 0.3 % (0.0-2.0); EOSINOPHILS # 0.6 10^3/ul (0.0-0.5); EOSINOPHILS % 9.4 % (0.0-7.0); HEMATOCRIT 27.8 % (37.0-47.0); HEMOGLOBIN 8.6 g/dl (12.0-16.0); LYMPHOCYTES # 1.1 10^3/ul (0.8-2.9); LYMPHOCYTES % 16.1 % (15.0-51.0); MEAN CORPUSCULAR HEMOGLOBIN 25.6 pg (29.0-33.0); MEAN CORPUSCULAR HGB CONC 30.9 g/dl (32.0-37.0); MEAN CORPUSCULAR VOLUME 82.7 fl (82.0-101.0); MEAN PLATELET VOLUME 12.4 fl (7.4-10.4); MONOCYTES % 14.9 % (0.0-11.0); NEUTROPHILS % 58.7 % (39.0-77.0); NUCLEATED RED BLOOD CELLS% 0.6 /100WBC (0.0-0.0); PLATELET COUNT 248 10^3/UL (140-415)
[2018-10-23 06:18] LABS: WHITE BLOOD COUNT 6.7 10^3/ul (4.8-10.8)
[2018-10-23 06:41] LABS: RED BLOOD COUNT 3.36 10^6/ul (4.20-5.40)
[2018-10-23 06:42] LABS: ANION GAP 11 (5-13); BLOOD UREA NITROGEN 50 mg/dl (7-20); CALCIUM 9.2 mg/dl (8.4-10.2); CARBON DIOXIDE 27 mmol/L (21-31); CHLORIDE 98 mmol/L (97-110); CREATININE 2.11 mg/dl (0.44-1.00); GLUCOSE 132 mg/dl (70-220); POTASSIUM 4.5 mmol/L (3.5-5.1); SODIUM 136 mmol/L (135-144)
[2018-10-23 06:43] LABS: PHOSPHORUS 3.5 mg/dl (2.5-4.9)
[2018-10-23] MEDS: FOLIC ACID 1 MG TAB GTB (08:38)
[2018-10-23] MEDS: LINAGLIPTIN 5 MG TABLET GTB (08:38)
[2018-10-23] MEDS: OLANZAPINE 2.5 MG TAB PO (08:38)
[2018-10-23] MEDS: POLYETHYLENE GLYCOL 17 GM PACKET GTB (08:38)
[2018-10-23] MEDS: ASPIRIN (EC) 81 MG TAB PO (08:38)
[2018-10-23] MEDS: DOCUSATE SODIUM 10 MG/ML (10ML CUP) GTB (08:38)
[2018-10-23] MEDS: FERROUS SULFATE 60 MG/ML 5ML CUP GTB ×2 (08:38→20:34)
[2018-10-23] MEDS: SENNA TAB PO ×2 (08:38→20:34)
[2018-10-23] MEDS: MULTIVIT/CA CARB/B CMPLX/FA TAB GTB (08:38)
[2018-10-23] MEDS: LANSOPRAZOLE 30 MG CAP GTB (08:38)
[2018-10-23] MEDS: VORICONAZOLE 200 MG TAB PO ×2 (08:38→20:36)
[2018-10-23] MEDS: METOPROLOL 50 MG TAB GTB ×2 (08:39→20:35)
[2018-10-23] MEDS: AMLODIPINE 5 MG TAB GTB (08:39)
[2018-10-23] MEDS: SEVELAMER CARBONATE 0.8 GM PKT NGT ×3 (08:39→20:34)
[2018-10-23] MEDS: MEROPENEM 500MG/50 ML (PMX) 50 ML IVPB (20:31)
[2018-10-23] MEDS: INSULIN GLARGINE [LANTus] (100 UNITS/ML) SYG SC (20:33)
[2018-10-24] MEDS: METOCLOPRAMIDE 5 MG TAB PO ×3 (05:40→21:18)
[2018-10-24] MEDS: METOPROLOL 50 MG TAB GTB ×2 (08:44→21:18)
[2018-10-24] MEDS: AMLODIPINE 5 MG TAB GTB (08:44)
[2018-10-24] MEDS: SEVELAMER CARBONATE 0.8 GM PKT NGT ×3 (08:57→21:22)
[2018-10-24] MEDS: VORICONAZOLE 200 MG TAB PO ×2 (08:57→21:17)
[2018-10-24] MEDS: LANSOPRAZOLE 30 MG CAP GTB (08:57)
[2018-10-24] MEDS: FERROUS SULFATE 60 MG/ML 5ML CUP GTB ×2 (08:57→21:17)
[2018-10-24] MEDS: MULTIVIT/CA CARB/B CMPLX/FA TAB GTB (08:57)
[2018-10-24] MEDS: OLANZAPINE 2.5 MG TAB PO (08:57)
[2018-10-24] MEDS: DOCUSATE SODIUM 10 MG/ML (10ML CUP) GTB (08:57)
[2018-10-24] MEDS: SENNA TAB PO ×2 (08:57→21:17)
[2018-10-24] MEDS: LINAGLIPTIN 5 MG TABLET GTB (08:58)
[2018-10-24] MEDS: FOLIC ACID 1 MG TAB GTB (08:58)
[2018-10-24] MEDS: POLYETHYLENE GLYCOL 17 GM PACKET GTB (08:58)
[2018-10-24] MEDS: ASPIRIN (EC) 81 MG TAB PO (08:58)
[2018-10-24] MEDS: ALBUMIN HUMAN 25% 50 ML IV (10:17)
[2018-10-24] MEDS: EPOETIN 4000 UNITS/1 ML INJ (ESRD) SC (17:35)
[2018-10-24] MEDS: MEROPENEM 500MG/50 ML (PMX) 50 ML IVPB (21:17)
[2018-10-24] MEDS: HYDROCODONE/APAP (5/325) TAB PO (21:18)
[2018-10-24] MEDS: INSULIN GLARGINE [LANTus] (100 UNITS/ML) SYG SC (21:28)
[2018-10-25] MEDS: METOCLOPRAMIDE 5 MG TAB PO ×3 (06:04→22:04)
[2018-10-25] MEDS: ASPIRIN (EC) 81 MG TAB PO (09:00)
[2018-10-25] MEDS: FERROUS SULFATE 60 MG/ML 5ML CUP GTB ×2 (09:24→20:54)
[2018-10-25] MEDS: DOCUSATE SODIUM 10 MG/ML (10ML CUP) GTB (09:24)
[2018-10-25] MEDS: SEVELAMER CARBONATE 0.8 GM PKT NGT ×3 (09:24→20:53)
[2018-10-25] MEDS: MULTIVIT/CA CARB/B CMPLX/FA TAB GTB (09:24)
[2018-10-25] MEDS: POLYETHYLENE GLYCOL 17 GM PACKET GTB (09:24)
[2018-10-25] MEDS: VORICONAZOLE 200 MG TAB PO ×2 (09:25→20:54)
[2018-10-25] MEDS: FOLIC ACID 1 MG TAB GTB (09:25)
[2018-10-25] MEDS: METOPROLOL 50 MG TAB GTB ×2 (09:26→20:54)
[2018-10-25] MEDS: AMLODIPINE 5 MG TAB GTB (09:26)
[2018-10-25] MEDS: LANSOPRAZOLE 30 MG CAP GTB (09:26)
[2018-10-25] MEDS: OLANZAPINE 2.5 MG TAB PO (09:27)
[2018-10-25] MEDS: SENNA TAB PO ×2 (09:27→20:53)
[2018-10-25] MEDS: LINAGLIPTIN 5 MG TABLET GTB (09:27)
[2018-10-25] MEDS: INSULIN GLARGINE [LANTus] (100 UNITS/ML) SYG SC (20:58)
[2018-10-26] MEDS: METOCLOPRAMIDE 5 MG TAB PO ×3 (05:49→22:00)
[2018-10-26] MEDS: METOPROLOL 50 MG TAB GTB ×2 (08:10→22:02)
[2018-10-26] MEDS: AMLODIPINE 5 MG TAB GTB (08:11)
[2018-10-26] MEDS: ASPIRIN (EC) 81 MG TAB PO (08:11)
[2018-10-26] MEDS: SENNA TAB PO ×2 (09:17→22:07)
[2018-10-26] MEDS: DOCUSATE SODIUM 10 MG/ML (10ML CUP) GTB (09:17)
[2018-10-26] MEDS: POLYETHYLENE GLYCOL 17 GM PACKET GTB (09:17)
[2018-10-26] MEDS: SEVELAMER CARBONATE 0.8 GM PKT NGT ×3 (09:17→22:04)
[2018-10-26] MEDS: FERROUS SULFATE 60 MG/ML 5ML CUP GTB ×2 (09:17→22:04)
[2018-10-26] MEDS: VORICONAZOLE 200 MG TAB PO ×2 (09:17→22:02)
[2018-10-26] MEDS: MULTIVIT/CA CARB/B CMPLX/FA TAB GTB (09:17)
[2018-10-26] MEDS: LINAGLIPTIN 5 MG TABLET GTB (09:18)
[2018-10-26] MEDS: FOLIC ACID 1 MG TAB GTB (09:18)
[2018-10-26] MEDS: LANSOPRAZOLE 30 MG CAP GTB (09:18)
[2018-10-26] MEDS: OLANZAPINE 5 MG TAB PO (09:20)
[2018-10-26] MEDS: INSULIN GLARGINE [LANTus] (100 UNITS/ML) SYG SC (20:46)
[2018-10-26] MEDS: HYDROCODONE/APAP (5/325) TAB PO (22:08)
[2018-10-27] MEDS: METOCLOPRAMIDE 5 MG TAB PO ×3 (06:00→22:43)
[2018-10-27 06:21] LABS: ADD MAN DIFF? NO
[2018-10-27 06:29] LABS: BASOPHILS % 0.5 % (0.0-2.0); EOSINOPHILS # 0.6 10^3/ul (0.0-0.5); EOSINOPHILS % 7.2 % (0.0-7.0); HEMOGLOBIN 8.4 g/dl (12.0-16.0); LYMPHOCYTES # 1.3 10^3/ul (0.8-2.9); LYMPHOCYTES % 14.8 % (15.0-51.0); MEAN CORPUSCULAR HEMOGLOBIN 25.5 pg (29.0-33.0); MEAN CORPUSCULAR HGB CONC 31.1 g/dl (32.0-37.0); MEAN CORPUSCULAR VOLUME 81.8 fl (82.0-101.0); MEAN PLATELET VOLUME 12.3 fl (7.4-10.4); MONOCYTE # 0.8 10^3/ul (0.3-0.9); MONOCYTES % 9.6 % (0.0-11.0); NEUTROPHIL # 5.9 10^3/ul (1.6-7.5); NEUTROPHILS % 67.7 % (39.0-77.0); NUCLEATED RED BLOOD CELLS% 0.5 /100WBC (0.0-0.0); PLATELET COUNT 277 10^3/UL (140-415); RED CELL DISTRIBUTION WIDTH 16.2 % (11.5-14.5)
[2018-10-27 06:29] LABS: WHITE BLOOD COUNT 8.7 10^3/ul (4.8-10.8)
[2018-10-27 06:44] LABS: MAGNESIUM 2.7 mg/dl (1.7-2.5)
[2018-10-27 06:44] LABS: PHOSPHORUS 3.6 mg/dl (2.5-4.9)
[2018-10-27 06:50] LABS: ANION GAP 9 (5-13); BLOOD UREA NITROGEN 43 mg/dl (7-20); CALCIUM 9.3 mg/dl (8.4-10.2); CARBON DIOXIDE 31 mmol/L (21-31); CHLORIDE 98 mmol/L (97-110); CREATININE 1.75 mg/dl (0.44-1.00); GLUCOSE 112 mg/dl (70-220); POTASSIUM 4.9 mmol/L (3.5-5.1); SODIUM 138 mmol/L (135-144)
[2018-10-27] MEDS: FERROUS SULFATE 60 MG/ML 5ML CUP GTB ×2 (09:24→20:37)
[2018-10-27] MEDS: ASPIRIN (EC) 81 MG TAB PO (09:25)
[2018-10-27] MEDS: LINAGLIPTIN 5 MG TABLET GTB (09:25)
[2018-10-27] MEDS: FOLIC ACID 1 MG TAB GTB (09:25)
[2018-10-27] MEDS: SEVELAMER CARBONATE 0.8 GM PKT NGT ×3 (09:25→20:38)
[2018-10-27] MEDS: VORICONAZOLE 200 MG TAB PO ×2 (09:25→20:39)
[2018-10-27] MEDS: SENNA TAB PO ×2 (09:25→20:39)
[2018-10-27] MEDS: DOCUSATE SODIUM 10 MG/ML (10ML CUP) GTB (09:25)
[2018-10-27] MEDS: LANSOPRAZOLE 30 MG CAP GTB (09:25)
[2018-10-27] MEDS: OLANZAPINE 5 MG TAB PO (09:25)
[2018-10-27] MEDS: POLYETHYLENE GLYCOL 17 GM PACKET GTB (09:25)
[2018-10-27] MEDS: MULTIVIT/CA CARB/B CMPLX/FA TAB GTB (09:25)
[2018-10-27] MEDS: METOPROLOL 50 MG TAB GTB ×2 (09:26→20:42)
[2018-10-27] MEDS: AMLODIPINE 5 MG TAB GTB (09:26)
[2018-10-27] MEDS: INSULIN GLARGINE [LANTus] (100 UNITS/ML) SYG SC (20:45)
[2018-10-28] MEDS: morphine LIQ (10 MG/5 ML) CUP PO (02:34)
[2018-10-28] MEDS: METOCLOPRAMIDE 5 MG TAB PO ×3 (06:04→21:18)
[2018-10-28] MEDS: POLYETHYLENE GLYCOL 17 GM PACKET GTB (08:47)
[2018-10-28] MEDS: FOLIC ACID 1 MG TAB GTB (08:47)
[2018-10-28] MEDS: DOCUSATE SODIUM 10 MG/ML (10ML CUP) GTB (08:47)
[2018-10-28] MEDS: SENNA TAB PO ×2 (08:47→21:16)
[2018-10-28] MEDS: FERROUS SULFATE 60 MG/ML 5ML CUP GTB ×2 (08:47→21:14)
[2018-10-28] MEDS: LINAGLIPTIN 5 MG TABLET GTB (08:47)
[2018-10-28] MEDS: MULTIVIT/CA CARB/B CMPLX/FA TAB GTB (08:47)
[2018-10-28] MEDS: LANSOPRAZOLE 30 MG CAP GTB (08:49)
[2018-10-28] MEDS: AMLODIPINE 5 MG TAB GTB (08:49)
[2018-10-28] MEDS: VORICONAZOLE 200 MG TAB PO ×2 (08:49→21:16)
[2018-10-28] MEDS: METOPROLOL 50 MG TAB GTB ×2 (08:50→21:16)
[2018-10-28] MEDS: ASPIRIN (EC) 81 MG TAB PO (08:50)
[2018-10-28] MEDS: SEVELAMER CARBONATE 0.8 GM PKT NGT ×3 (08:51→21:15)
[2018-10-28] MEDS: OLANZAPINE 5 MG TAB PO (08:52)
[2018-10-29] MEDS: LORAZEPAM 0.5 MG TAB PO (02:54)
[2018-10-29] MEDS: METOCLOPRAMIDE 5 MG TAB PO ×2 (06:40→14:43)
[2018-10-29] MEDS: LANSOPRAZOLE 30 MG CAP GTB (08:38)
[2018-10-29] MEDS: FERROUS SULFATE 60 MG/ML 5ML CUP GTB (08:38)
[2018-10-29] MEDS: DOCUSATE SODIUM 10 MG/ML (10ML CUP) GTB (08:38)
[2018-10-29] MEDS: METOPROLOL 50 MG TAB GTB (08:39)
[2018-10-29] MEDS: AMLODIPINE 5 MG TAB GTB (08:39)
[2018-10-29] MEDS: OLANZAPINE 5 MG TAB PO (08:40)
[2018-10-29] MEDS: LINAGLIPTIN 5 MG TABLET GTB (08:40)
[2018-10-29] MEDS: FOLIC ACID 1 MG TAB GTB (08:40)
[2018-10-29] MEDS: SEVELAMER CARBONATE 0.8 GM PKT NGT ×2 (08:40→14:43)
[2018-10-29] MEDS: ASPIRIN (EC) 81 MG TAB PO (08:40)
[2018-10-29] MEDS: POLYETHYLENE GLYCOL 17 GM PACKET GTB (08:40)
[2018-10-29] MEDS: SENNA TAB PO (08:41)
[2018-10-29] MEDS: MULTIVIT/CA CARB/B CMPLX/FA TAB GTB (08:41)
[2018-10-29] MEDS: VORICONAZOLE 200 MG TAB PO (08:41)
[2018-10-29] MEDS: ALBUMIN HUMAN 25% 50 ML IV (10:57)
[2018-10-29] MEDS: hydrALAzine 20 MG INJ IV (18:00)
[2018-10-29] MEDS: HYDROCODONE/APAP (5/325) TAB PO (18:14)
[2018-10-29] MEDS ORDERED: LORAZEPAM 1 MG TAB PO (21:00)
== END 2018-10-29 18:39 | DRG 555 ==
LOC: TEL 10-01 13:53 → PP2 10-11 11:40 → E/R 02:09 → 5EC 10-10 21:52 → PP2 10-03 18:30
PROC: 0X9J00Z Drainage of Right Hand with Drainage Device, Open Approach (ICD-10-PCS; principal; 2018-09-05 12:30)
PROC: 0DD68ZX Extraction of Stomach, Via Natural or Artificial Opening Endoscopic, Diagnostic (ICD-10-PCS; 2018-09-05 13:04)
PROC: 30233N1 Transfusion of Nonautologous Red Blood Cells into Peripheral Vein, Percutaneous Approach (ICD-10-PCS; 2018-09-05 13:04)
PROC: 5A1D70Z Performance of Urinary Filtration, Intermittent, Less than 6 Hours Per Day (ICD-10-PCS; 2018-09-05 13:04)
PROC: 5A1D70Z Performance of Urinary Filtration, Intermittent, Less than 6 Hours Per Day (ICD-10-PCS; 2018-09-05 13:04)
PROC: 5A1D70Z Performance of Urinary Filtration, Intermittent, Less than 6 Hours Per Day (ICD-10-PCS; 2018-09-05 13:04)
PROC: 5A1D70Z Performance of Urinary Filtration, Intermittent, Less than 6 Hours Per Day (ICD-10-PCS; 2018-09-05 13:04)
PROC: 5A1D70Z Performance of Urinary Filtration, Intermittent, Less than 6 Hours Per Day (ICD-10-PCS; 2018-09-05 13:04)
PROC: 5A1D70Z Performance of Urinary Filtration, Intermittent, Less than 6 Hours Per Day (ICD-10-PCS; 2018-09-05 13:04)
PROC: 5A1D70Z Performance of Urinary Filtration, Intermittent, Less than 6 Hours Per Day (ICD-10-PCS; 2018-09-05 13:04)
PROC: 5A1D70Z Performance of Urinary Filtration, Intermittent, Less than 6 Hours Per Day (ICD-10-PCS; 2018-09-05 13:04)
PROC: 5A1D70Z Performance of Urinary Filtration, Intermittent, Less than 6 Hours Per Day (ICD-10-PCS; 2018-09-05 13:04)
PROC: 5A1D70Z Performance of Urinary Filtration, Intermittent, Less than 6 Hours Per Day (ICD-10-PCS; 2018-09-05 13:04)
PROC: 5A1D70Z Performance of Urinary Filtration, Intermittent, Less than 6 Hours Per Day (ICD-10-PCS; 2018-09-05 13:04)
PROC: 5A1D70Z Performance of Urinary Filtration, Intermittent, Less than 6 Hours Per Day (ICD-10-PCS; 2018-09-05 13:04)
PROC: 5A1D70Z Performance of Urinary Filtration, Intermittent, Less than 6 Hours Per Day (ICD-10-PCS; 2018-09-05 13:04)
PROC: 5A1D70Z Performance of Urinary Filtration, Intermittent, Less than 6 Hours Per Day (ICD-10-PCS; 2018-09-05 13:04)
PROC: 5A1D70Z Performance of Urinary Filtration, Intermittent, Less than 6 Hours Per Day (ICD-10-PCS; 2018-09-05 13:04)
PROC: 5A1D70Z Performance of Urinary Filtration, Intermittent, Less than 6 Hours Per Day (ICD-10-PCS; 2018-09-05 13:04)
PROC: 5A1D70Z Performance of Urinary Filtration, Intermittent, Less than 6 Hours Per Day (ICD-10-PCS; 2018-09-05 13:04)
PROC: 5A1D70Z Performance of Urinary Filtration, Intermittent, Less than 6 Hours Per Day (ICD-10-PCS; 2018-09-05 13:04)
PROC: 5A1D70Z Performance of Urinary Filtration, Intermittent, Less than 6 Hours Per Day (ICD-10-PCS; 2018-09-05 13:04)
PROC: 5A1D70Z Performance of Urinary Filtration, Intermittent, Less than 6 Hours Per Day (ICD-10-PCS; 2018-09-05 13:04)
PROC: 5A1D70Z Performance of Urinary Filtration, Intermittent, Less than 6 Hours Per Day (ICD-10-PCS; 2018-09-05 13:04)
PROC: 5A1D70Z Performance of Urinary Filtration, Intermittent, Less than 6 Hours Per Day (ICD-10-PCS; 2018-09-05 13:04)
PROC: 5A1D70Z Performance of Urinary Filtration, Intermittent, Less than 6 Hours Per Day (ICD-10-PCS; 2018-09-05 13:04)
PROC: 5A1D70Z Performance of Urinary Filtration, Intermittent, Less than 6 Hours Per Day (ICD-10-PCS; 2018-09-05 13:04)
DX: M79.81 Nontraumatic hematoma of soft tissue (principal); N18.6 End stage renal disease; E43 Unspecified severe protein-calorie malnutrition; J69.0 Pneumonitis due to inhalation of food and vomit; A41.9 Sepsis, unspecified organism; D62 Acute posthemorrhagic anemia; I13.2 Hypertensive heart and chronic kidney disease with heart failure and with stage 5 chronic kidney disease, or end stage renal disease; I50.32 Chronic diastolic (congestive) heart failure; Z68.1 Body mass index [BMI] 19.9 or less, adult; B49 Unspecified mycosis; N39.0 Urinary tract infection, site not specified; I48.0 Paroxysmal atrial fibrillation; E11.22 Type 2 diabetes mellitus with diabetic chronic kidney disease; Z99.2 Dependence on renal dialysis; K29.70 Gastritis, unspecified, without bleeding; K59.00 Constipation, unspecified; M19.90 Unspecified osteoarthritis, unspecified site; R13.10 Dysphagia, unspecified; F01.50 Vascular dementia, unspecified severity, without behavioral disturbance, psychotic disturbance, mood disturbance, and anxiety; F41.9 Anxiety disorder, unspecified; Z93.1 Gastrostomy status; Z79.4 Long term (current) use of insulin
CPT/HCPCS: 36415; 36430; 70450; 71045; 73130-RT; 74018; 80048; 80053; 80202; 82270; 82607; 82728; 82746; 82962; 83036; 83540; 83690; 83735; 84100; 84443; 85025; 85045; 85610; 85730; 86850; 86900; 86901; 86920; 87040; 87070; 87081; 87086; 87102; 87340; 88305; 88312; 90935; 92526; 92610; 93005; 93931; 93971; 94640; 96374; 99285-25

== ENCOUNTER 2018-11-14 12:52 | Inpatient (IN) | payer MEDICARE, OTHER ==
[2018-11-14 14:40] LABS: ADD MAN DIFF? NO
[2018-11-14 14:45] LABS: WHITE BLOOD COUNT 8.5 10^3/ul (4.8-10.8)
[2018-11-14 14:45] LABS: BASOPHILS % 0.1 % (0.0-2.0); EOSINOPHILS # 0.3 10^3/ul (0.0-0.5); EOSINOPHILS % 3.4 % (0.0-7.0); HEMATOCRIT 26.9 % (37.0-47.0); HEMOGLOBIN 8.7 g/dl (12.0-16.0); LYMPHOCYTES # 0.8 10^3/ul (0.8-2.9); LYMPHOCYTES % 9.3 % (15.0-51.0); MEAN CORPUSCULAR HEMOGLOBIN 26.5 pg (29.0-33.0); MEAN CORPUSCULAR HGB CONC 32.3 g/dl (32.0-37.0); MEAN PLATELET VOLUME 10.5 fl (7.4-10.4); MONOCYTE # 0.8 10^3/ul (0.3-0.9); MONOCYTES % 9.8 % (0.0-11.0); NEUTROPHIL # 6.4 10^3/ul (1.6-7.5); NEUTROPHILS % 75.5 % (39.0-77.0); NUCLEATED RED BLOOD CELLS% 0.4 /100WBC (0.0-0.0); PLATELET COUNT 277 10^3/UL (140-415); RED BLOOD COUNT 3.28 10^6/ul (4.20-5.40); RED CELL DISTRIBUTION WIDTH 17.1 % (11.5-14.5)
[2018-11-14 15:07] LABS: ALANINE AMINOTRANSFERASE 17 IU/L (13-69); ALBUMIN 2.9 g/dl (3.3-4.9); ALKALINE PHOSPHATASE 75 IU/L (42-121); ANION GAP 12 (5-13); ASPARTATE AMINO TRANSFERASE 16 IU/L (15-46); BILIRUBIN,INDIRECT 0.4 mg/dl (0-1.1); BILIRUBIN,TOTAL 0.4 mg/dl (0.2-1.3); BLOOD UREA NITROGEN 61 mg/dl (7-20); CALCIUM 8.2 mg/dl (8.4-10.2); CARBON DIOXIDE 24 mmol/L (21-31); CHLORIDE 92 mmol/L (97-110); CREATININE 2.17 mg/dl (0.44-1.00); GLUCOSE 114 mg/dl (70-220); POTASSIUM 4.2 mmol/L (3.5-5.1); SODIUM 128 mmol/L (135-144); TOTAL PROTEIN 5.8 g/dl (6.1-8.1)
[2018-11-14] MEDS ORDERED: INSULIN ASPART [NOVOLOG] 3 ML PEN SC (17:30)
[2018-11-14] MEDS ORDERED: morphine 2 MG INJ IV (17:30)
[2018-11-14] MEDS ORDERED: MAGNESIUM HYDROXIDE 30ML CUP PO (17:30)
[2018-11-14] MEDS ORDERED: HYDROCODONE/APAP (5/325) TAB PO (17:30)
[2018-11-14] MEDS ORDERED: ACETAMINOPHEN 325 MG TAB PO (17:30)
[2018-11-14] MEDS ORDERED: DOCUSATE SODIUM 100 MG CAP PO (17:30)
[2018-11-14] MEDS ORDERED: ONDANSETRON 4 MG INJ IV (17:30)
[2018-11-14] MEDS ORDERED: ACETAMINOPHEN 325 MG TAB GTB (17:30)
[2018-11-14] MEDS: VALPROIC ACID (50 MG/ML PO SYG) PO (21:50)
[2018-11-14] MEDS: POLYETHYLENE GLYCOL 17 GM PACKET GTB (21:50)
[2018-11-14] MEDS: FERROUS SULFATE (EC) 325 MG TAB PO (21:51)
[2018-11-14] MEDS: AMLODIPINE 5 MG TAB GTB (21:51)
[2018-11-14] MEDS: QUETIAPINE 25 MG TAB GTB (21:51)
[2018-11-14] MEDS: SEVELAMER CARBONATE 0.8 GM PKT PO (21:51)
[2018-11-14] MEDS: SENNA TAB PO (21:51)
[2018-11-14] MEDS: METOPROLOL 50 MG TAB GTB (21:52)
[2018-11-14] MEDS: HEPARIN 5,000 UNIT/1 ML VIAL SC (21:57)
[2018-11-15] MEDS ORDERED: HEPARIN 1000 UNITS/ML 10 ML INJ CATHETER (00:30)
[2018-11-15] MEDS ORDERED: PENDING SANTYL ORDER FOR WOUND CARE XX (04:30)
[2018-11-15] MEDS ORDERED: PANTOPRAZOLE (EC) 40 MG TAB PO (06:00)
[2018-11-15 06:25] LABS: HEPATITIS B SURFACE ANTIGEN NEGATIVE (NEGATIVE)
[2018-11-15] MEDS: HEPARIN 1000 UNITS/ML 10 ML INJ CATHETER (08:30)
[2018-11-15] MEDS: DOCUSATE SODIUM 100 MG CAP PO (09:00)
[2018-11-15] MEDS ORDERED: LANSOPRAZOLE 30 MG CAP PO (09:00)
[2018-11-15] MEDS: FERROUS SULFATE (EC) 325 MG TAB PO ×2 (09:00→21:00)
[2018-11-15 09:30] LABS: ADD MAN DIFF? NO
[2018-11-15 09:34] LABS: WHITE BLOOD COUNT 7.7 10^3/ul (4.8-10.8)
[2018-11-15 09:34] LABS: ABNORMAL IP MESSAGE 1; BASOPHILS % 0.4 % (0.0-2.0); EOSINOPHILS # 0.1 10^3/ul (0.0-0.5); EOSINOPHILS % 1.7 % (0.0-7.0); HEMATOCRIT 28.2 % (37.0-47.0); HEMOGLOBIN 9.2 g/dl (12.0-16.0); LYMPHOCYTES # 0.3 10^3/ul (0.8-2.9); LYMPHOCYTES % 3.5 % (15.0-51.0); MEAN CORPUSCULAR HEMOGLOBIN 26.8 pg (29.0-33.0); MEAN CORPUSCULAR HGB CONC 32.6 g/dl (32.0-37.0); MEAN CORPUSCULAR VOLUME 82.2 fl (82.0-101.0); MEAN PLATELET VOLUME 10.8 fl (7.4-10.4); MONOCYTE # 0.7 10^3/ul (0.3-0.9); MONOCYTES % 8.5 % (0.0-11.0); NEUTROPHIL # 6.5 10^3/ul (1.6-7.5); NEUTROPHILS % 84.3 % (39.0-77.0); NUCLEATED RED BLOOD CELLS% 0.3 /100WBC (0.0-0.0); PLATELET COUNT 312 10^3/UL (140-415); RED BLOOD COUNT 3.43 10^6/ul (4.20-5.40); RED CELL DISTRIBUTION WIDTH 16.8 % (11.5-14.5)
[2018-11-15 09:39] LABS: POSITIVE DIFF @See below
[2018-11-15 09:44] LABS: HEMOGLOBIN A1C 5.6 % (0-5.9)
[2018-11-15 09:58] LABS: ALANINE AMINOTRANSFERASE 15 IU/L (13-69); ALBUMIN 2.9 g/dl (3.3-4.9); ALKALINE PHOSPHATASE 92 IU/L (42-121); ANION GAP 7 (5-13); ASPARTATE AMINO TRANSFERASE 19 IU/L (15-46); BILIRUBIN,INDIRECT 0.5 mg/dl (0-1.1); BILIRUBIN,TOTAL 0.5 mg/dl (0.2-1.3); BLOOD UREA NITROGEN 20 mg/dl (7-20); CALCIUM 9.2 mg/dl (8.4-10.2); CARBON DIOXIDE 30 mmol/L (21-31); CHLORIDE 101 mmol/L (97-110); CREATININE 1.02 mg/dl (0.44-1.00); GLUCOSE 157 mg/dl (70-220); POTASSIUM 3.6 mmol/L (3.5-5.1); SODIUM 138 mmol/L (135-144); TOTAL PROTEIN 5.8 g/dl (6.1-8.1)
[2018-11-15] MEDS ORDERED: DOCUSATE SODIUM 10 MG/ML (10ML CUP) (10:27)
[2018-11-15] MEDS ORDERED: FERROUS SULFATE 60 MG/ML 5ML CUP (10:28)
[2018-11-15] MEDS: SENNA TAB PO ×2 (10:31→22:37)
[2018-11-15] MEDS: LANSOPRAZOLE 30 MG CAP GTB (10:31)
[2018-11-15] MEDS: LINAGLIPTIN 5 MG TABLET GTB (10:32)
[2018-11-15] MEDS: AMLODIPINE 5 MG TAB GTB ×2 (10:32→22:34)
[2018-11-15] MEDS: FOLIC ACID 1 MG TAB GTB (10:33)
[2018-11-15] MEDS: METOPROLOL 50 MG TAB GTB ×2 (10:33→22:35)
[2018-11-15] MEDS: SEVELAMER CARBONATE 0.8 GM PKT PO ×4 (10:34→17:35)
[2018-11-15] MEDS: QUETIAPINE 25 MG TAB GTB ×2 (10:36→22:36)
[2018-11-15] MEDS: HEPARIN 5,000 UNIT/1 ML VIAL SC ×2 (10:37→22:38)
[2018-11-15] MEDS: FERROUS SULFATE 60 MG/ML 5ML CUP NGT ×2 (10:57→22:33)
[2018-11-15] MEDS: DOCUSATE SODIUM 10 MG/ML (10ML CUP) GTB ×2 (10:57→22:32)
[2018-11-15] MEDS: BALSAM PERU/CASTOR OIL 60 GM TUBE TOP ×2 (13:37→22:37)
[2018-11-15] MEDS: VALPROIC ACID (50 MG/ML PO SYG) PO ×2 (14:00→15:36)
[2018-11-15] MEDS: POLYETHYLENE GLYCOL 17 GM PACKET GTB ×2 (17:00→17:30)
[2018-11-15] MEDS: VALPROIC ACID LIQUID CUP 250 MG/5 ML CUP PO (22:36)
[2018-11-16] MEDS: LANSOPRAZOLE 30 MG CAP GTB (05:11)
[2018-11-16] MEDS: VALPROIC ACID LIQUID CUP 250 MG/5 ML CUP PO ×3 (05:11→21:48)
[2018-11-16] MEDS: DOCUSATE SODIUM 100 MG CAP PO (09:00)
[2018-11-16] MEDS: SENNA TAB PO ×2 (09:55→20:23)
[2018-11-16] MEDS: LINAGLIPTIN 5 MG TABLET GTB (09:55)
[2018-11-16] MEDS: FERROUS SULFATE 60 MG/ML 5ML CUP NGT ×2 (09:55→20:23)
[2018-11-16] MEDS: FERROUS SULFATE (EC) 325 MG TAB PO (09:55)
[2018-11-16] MEDS: SEVELAMER CARBONATE 0.8 GM PKT PO ×3 (09:55→20:23)
[2018-11-16] MEDS: FOLIC ACID 1 MG TAB GTB (09:55)
[2018-11-16] MEDS: QUETIAPINE 25 MG TAB GTB ×2 (09:55→20:23)
[2018-11-16] MEDS: METOPROLOL 50 MG TAB GTB ×2 (09:56→20:24)
[2018-11-16] MEDS: DOCUSATE SODIUM 10 MG/ML (10ML CUP) GTB ×2 (09:56→20:23)
[2018-11-16] MEDS: AMLODIPINE 5 MG TAB GTB ×2 (09:56→20:24)
[2018-11-16] MEDS: HEPARIN 5,000 UNIT/1 ML VIAL SC ×2 (09:58→20:25)
[2018-11-16] MEDS: BALSAM PERU/CASTOR OIL 60 GM TUBE TOP ×2 (10:00→20:26)
[2018-11-16] MEDS: HEPARIN 1000 UNITS/ML 10 ML INJ CATHETER (18:37)
[2018-11-16] MEDS: POLYETHYLENE GLYCOL 17 GM PACKET GTB (20:23)
[2018-11-16] MEDS: LORAZEPAM 1 MG TAB GTB (22:27)
[2018-11-17 05:38] LABS: ADD MAN DIFF? NO
[2018-11-17 05:41] LABS: WHITE BLOOD COUNT 9.9 10^3/ul (4.8-10.8)
[2018-11-17 05:41] LABS: BASOPHILS % 0.3 % (0.0-2.0); EOSINOPHILS # 0.2 10^3/ul (0.0-0.5); EOSINOPHILS % 2.1 % (0.0-7.0); HEMATOCRIT 29.2 % (37.0-47.0); HEMOGLOBIN 9.1 g/dl (12.0-16.0); LYMPHOCYTES % 10.2 % (15.0-51.0); MEAN CORPUSCULAR HEMOGLOBIN 26.3 pg (29.0-33.0); MEAN CORPUSCULAR HGB CONC 31.2 g/dl (32.0-37.0); MEAN CORPUSCULAR VOLUME 84.4 fl (82.0-101.0); MEAN PLATELET VOLUME 10.9 fl (7.4-10.4); MONOCYTE # 0.9 10^3/ul (0.3-0.9); MONOCYTES % 8.9 % (0.0-11.0); NEUTROPHIL # 7.7 10^3/ul (1.6-7.5); NEUTROPHILS % 77.4 % (39.0-77.0); NUCLEATED RED BLOOD CELLS% 0.3 /100WBC (0.0-0.0); PLATELET COUNT 388 10^3/UL (140-415); RED BLOOD COUNT 3.46 10^6/ul (4.20-5.40); RED CELL DISTRIBUTION WIDTH 17.4 % (11.5-14.5)
[2018-11-17] MEDS: VALPROIC ACID LIQUID CUP 250 MG/5 ML CUP PO ×3 (05:47→22:28)
[2018-11-17] MEDS: LANSOPRAZOLE 30 MG CAP GTB (05:47)
[2018-11-17 06:00] LABS: INR 0.93; PROTIME 12.6 Sec (11.9-14.9)
[2018-11-17 06:01] LABS: PARTIAL THROMBOPLASTIN TIME 36.7 Sec (23.0-35.0)
[2018-11-17 06:04] LABS: ANION GAP 8 (5-13); BLOOD UREA NITROGEN 23 mg/dl (7-20); CARBON DIOXIDE 33 mmol/L (21-31); CHLORIDE 100 mmol/L (97-110); CREATININE 1.22 mg/dl (0.44-1.00); GLUCOSE 114 mg/dl (70-220); POTASSIUM 3.8 mmol/L (3.5-5.1); SODIUM 141 mmol/L (135-144)
[2018-11-17 06:16] LABS: MAGNESIUM 2.2 mg/dl (1.7-2.5)
[2018-11-17 06:16] LABS: PHOSPHORUS 1.6 mg/dl (2.5-4.9)
[2018-11-17] MEDS: SEVELAMER CARBONATE 0.8 GM PKT PO ×2 (07:35→11:30)
[2018-11-17] MEDS: FOLIC ACID 1 MG TAB GTB (09:00)
[2018-11-17] MEDS: DOCUSATE SODIUM 100 MG CAP PO (09:00)
[2018-11-17] MEDS: HEPARIN 5,000 UNIT/1 ML VIAL SC ×2 (09:00→20:42)
[2018-11-17] MEDS: LINAGLIPTIN 5 MG TABLET GTB (09:00)
[2018-11-17] MEDS: QUETIAPINE 25 MG TAB GTB ×2 (09:00→20:38)
[2018-11-17] MEDS: FERROUS SULFATE 60 MG/ML 5ML CUP NGT ×2 (09:00→20:38)
[2018-11-17] MEDS: SENNA TAB PO ×2 (09:00→20:38)
[2018-11-17] MEDS: DOCUSATE SODIUM 10 MG/ML (10ML CUP) GTB ×2 (09:00→20:38)
[2018-11-17] MEDS: BALSAM PERU/CASTOR OIL 60 GM TUBE TOP ×2 (09:22→20:39)
[2018-11-17] MEDS: AMLODIPINE 5 MG TAB GTB ×2 (09:27→20:38)
[2018-11-17] MEDS: METOPROLOL 50 MG TAB GTB ×2 (09:27→20:39)
[2018-11-17] MEDS ORDERED: MIDAZOLAM 1 MG/ML 2 ML INJ (12:06)
[2018-11-17] MEDS ORDERED: FENTAnyl 50 MCG/ML VIAL ×2 (12:06→13:58)
[2018-11-17] MEDS: POLYMYXIN/BACITRACIN 1L IRRIG (13:38)
[2018-11-17] MEDS ORDERED: LIDOCAINE 2% (SDV) 5 ML INJ (14:49)
[2018-11-17] MEDS ORDERED: ETOMIDATE 20 MG INJ (14:49)
[2018-11-17] MEDS ORDERED: CEFAZOLIN 1 GM INJ (14:49)
[2018-11-17] MEDS ORDERED: ONDANSETRON 4 MG INJ (14:49)
[2018-11-17] MEDS ORDERED: SEVOFLURANE 15 MIN (14:50)
[2018-11-17] MEDS ORDERED: ROPIVACAINE 0.5 % 30 ML VIAL (14:52)
[2018-11-17] MEDS ORDERED: HYDROmorphONE 1 MG/5 ML IV SYRINGE IV ×2 (15:30)
[2018-11-17] MEDS ORDERED: FENTAnyl 50 MCG/ML VIAL IV (15:30)
[2018-11-17] MEDS ORDERED: LABETALOL HCL 20MG INJ IV (15:30)
[2018-11-17] MEDS ORDERED: ONDANSETRON 4 MG INJ IV (15:30)
[2018-11-17] MEDS ORDERED: METOCLOPRAMIDE 10 MG INJ IV (15:30)
[2018-11-17] MEDS ORDERED: hydrALAzine 20 MG INJ IV (15:30)
[2018-11-17] MEDS ORDERED: DIPHENHYDRAMINE 50 MG INJ IV (15:30)
[2018-11-17] MEDS ORDERED: NACL 0.9% 3 ML SYG IV (15:30)
[2018-11-17] MEDS ORDERED: EPHEDrine SULFATE 50 MG/5 ML SYG IV (15:30)
[2018-11-17] MEDS ORDERED: morphine 2 MG INJ IV (16:00)
[2018-11-17] MEDS ORDERED: INSULIN ASPART [NOVOLOG] 3 ML PEN SC (16:00)
[2018-11-17] MEDS ORDERED: CEFAZOLIN 1 GM/50 ML (PMX) 50 ML IVPB (17:00)
[2018-11-17 17:07] LABS: HEMATOCRIT 32.1 % (37.0-47.0); HEMOGLOBIN 9.7 g/dl (12.0-16.0)
[2018-11-17] MEDS: POLYETHYLENE GLYCOL 17 GM PACKET GTB (17:18)
[2018-11-17 17:30] LABS: ANION GAP 10 (5-13); BLOOD UREA NITROGEN 28 mg/dl (7-20); CALCIUM 8.2 mg/dl (8.4-10.2); CARBON DIOXIDE 24 mmol/L (21-31); CHLORIDE 106 mmol/L (97-110); CREATININE 1.52 mg/dl (0.44-1.00); GLUCOSE 179 mg/dl (70-220); POTASSIUM 4.5 mmol/L (3.5-5.1); SODIUM 140 mmol/L (135-144)
[2018-11-17] MEDS: CEFAZOLIN 1 GM/50 ML (PMX) 50 ML IVPB (20:38)
[2018-11-17] MEDS: HYDROCODONE/APAP (5/325) TAB PO (21:21)
[2018-11-18 05:59] LABS: ADD MAN DIFF? NO; BASOPHILS % 0.2 % (0.0-2.0); EOSINOPHILS % 0.3 % (0.0-7.0); HEMATOCRIT 23.4 % (37.0-47.0); HEMOGLOBIN 7.2 g/dl (12.0-16.0); LYMPHOCYTES # 0.7 10^3/ul (0.8-2.9); LYMPHOCYTES % 5.6 % (15.0-51.0); MEAN CORPUSCULAR HEMOGLOBIN 26.6 pg (29.0-33.0); MEAN CORPUSCULAR HGB CONC 30.8 g/dl (32.0-37.0); MEAN CORPUSCULAR VOLUME 86.3 fl (82.0-101.0); MEAN PLATELET VOLUME 11.2 fl (7.4-10.4); MONOCYTE # 1.1 10^3/ul (0.3-0.9); NEUTROPHIL # 10.3 10^3/ul (1.6-7.5); NUCLEATED RED BLOOD CELLS% 0.3 /100WBC (0.0-0.0); PLATELET COUNT 349 10^3/UL (140-415); RED BLOOD COUNT 2.71 10^6/ul (4.20-5.40); RED CELL DISTRIBUTION WIDTH 17.4 % (11.5-14.5)
[2018-11-18 05:59] LABS: WHITE BLOOD COUNT 12.3 10^3/ul (4.8-10.8)
[2018-11-18] MEDS: LANSOPRAZOLE 30 MG CAP GTB (06:03)
[2018-11-18] MEDS: VALPROIC ACID LIQUID CUP 250 MG/5 ML CUP PO ×3 (06:03→22:13)
[2018-11-18] MEDS: HYDROCODONE/APAP (5/325) TAB PO ×2 (06:06→22:13)
[2018-11-18] MEDS: CEFAZOLIN 1 GM/50 ML (PMX) 50 ML IVPB ×2 (06:23→13:33)
[2018-11-18 06:41] LABS: ALANINE AMINOTRANSFERASE 15 IU/L (13-69); ALBUMIN 2.9 g/dl (3.3-4.9); ALBUMIN/GLOBULIN RATIO 1.03; ALKALINE PHOSPHATASE 111 IU/L (42-121); ANION GAP 7 (5-13); ASPARTATE AMINO TRANSFERASE 45 IU/L (15-46); BILIRUBIN,INDIRECT 0.3 mg/dl (0-1.1); BILIRUBIN,TOTAL 0.3 mg/dl (0.2-1.3); BLOOD UREA NITROGEN 38 mg/dl (7-20); CALCIUM 8.5 mg/dl (8.4-10.2); CARBON DIOXIDE 29 mmol/L (21-31); CHLORIDE 105 mmol/L (97-110); GLUCOSE 181 mg/dl (70-220); POTASSIUM 4.3 mmol/L (3.5-5.1); SODIUM 141 mmol/L (135-144); TOTAL PROTEIN 5.7 g/dl (6.1-8.1)
[2018-11-18 07:02] LABS: MAGNESIUM 2.3 mg/dl (1.7-2.5)
[2018-11-18 07:02] LABS: PHOSPHORUS 2.5 mg/dl (2.5-4.9)
[2018-11-18] MEDS: ENOXAPARIN 30 MG/0.3 ML SYG SC (09:00)
[2018-11-18] MEDS: DOCUSATE SODIUM 100 MG CAP PO (09:00)
[2018-11-18] MEDS: SENNA TAB PO ×2 (09:21→20:44)
[2018-11-18] MEDS: FERROUS SULFATE 60 MG/ML 5ML CUP NGT ×2 (09:21→20:43)
[2018-11-18] MEDS: QUETIAPINE 25 MG TAB GTB ×2 (09:21→20:43)
[2018-11-18] MEDS: LINAGLIPTIN 5 MG TABLET GTB (09:21)
[2018-11-18] MEDS: FOLIC ACID 1 MG TAB GTB (09:21)
[2018-11-18] MEDS: METOPROLOL 50 MG TAB GTB ×2 (09:23→20:44)
[2018-11-18] MEDS: AMLODIPINE 5 MG TAB GTB ×2 (09:23→20:43)
[2018-11-18] MEDS: HEPARIN 5,000 UNIT/1 ML VIAL SC ×2 (09:24→20:46)
[2018-11-18] MEDS: BALSAM PERU/CASTOR OIL 60 GM TUBE TOP ×2 (09:25→22:14)
[2018-11-18] MEDS: DOCUSATE SODIUM 10 MG/ML (10ML CUP) GTB ×2 (09:32→20:43)
[2018-11-18] MEDS: POLYETHYLENE GLYCOL 17 GM PACKET GTB (18:07)
[2018-11-18 21:53] LABS: IMMEDIATE SPIN CROSSMATCH 1 5
[2018-11-18] MEDS: NACL 0.9% 3 ML SYG IV (23:54)
[2018-11-19] MEDS: HYDROCODONE/APAP (5/325) TAB PO ×3 (04:20→21:07)
[2018-11-19] MEDS: LANSOPRAZOLE 30 MG CAP GTB (06:06)
[2018-11-19] MEDS: VALPROIC ACID LIQUID CUP 250 MG/5 ML CUP PO ×3 (06:06→22:08)
[2018-11-19 06:39] LABS: WHITE BLOOD COUNT 16.5 10^3/ul (4.8-10.8)
[2018-11-19 06:39] LABS: HEMATOCRIT 21.3 % (37.0-47.0); MEAN CORPUSCULAR HEMOGLOBIN 28.2 pg (29.0-33.0); MEAN CORPUSCULAR HGB CONC 32.9 g/dl (32.0-37.0); MEAN CORPUSCULAR VOLUME 85.9 fl (82.0-101.0); MEAN PLATELET VOLUME 11.7 fl (7.4-10.4); NUCLEATED RED BLOOD CELLS% 0.4 /100WBC (0.0-0.0); PLATELET COUNT 264 10^3/UL (140-415); RED BLOOD COUNT 2.48 10^6/ul (4.20-5.40); RED CELL DISTRIBUTION WIDTH 16.3 % (11.5-14.5)
[2018-11-19 06:44] LABS: ADD MAN DIFF? YES; POSITIVE DIFF @See below
[2018-11-19 06:52] LABS: ANION GAP 9 (5-13); BLOOD UREA NITROGEN 54 mg/dl (7-20); CALCIUM 8.1 mg/dl (8.4-10.2); CARBON DIOXIDE 26 mmol/L (21-31); CHLORIDE 104 mmol/L (97-110); CREATININE 2.32 mg/dl (0.44-1.00); GLUCOSE 189 mg/dl (70-220); POTASSIUM 3.9 mmol/L (3.5-5.1); SODIUM 139 mmol/L (135-144)
[2018-11-19 07:00] LABS: MAGNESIUM 2.4 mg/dl (1.7-2.5)
[2018-11-19 07:00] LABS: PHOSPHORUS 2.4 mg/dl (2.5-4.9)
[2018-11-19 07:49] LABS: ANISOCYTOSIS 1+ (0-0); BAND NEUTROPHILS #M 0.4 10^3/ul (0.0-0.6); BAND NEUTROPHILS % (M) 3 % (0-4); BASOPHIL #M 0.1 10^3/ul (0.0-0.0); BASOPHILS % (M) 1 % (0-2); BURR CELLS 1+ (0-0); EOSINOPHILS % (M) 2 % (0-7); ERYTHROBLAST% (NRBC) (M) 1 % (0-0); LYMPHOCYTES #M 0.4 10^3/ul (0.8-2.9); LYMPHOCYTES % (M) 3 % (15-51); MICROCYTOSIS 1+ (0-0); MONOCYTE #M 0.6 10^3/ul (0.3-0.9); MONOCYTES % (M) 4 % (0-11); OVALOCYTES 1+ (0-0); PLATELET ESTIMATE NORMAL; POIKILOCYTOSIS 1+ (0-0); POLYCHROMASIA 1+ (0-0); SEG NEUT #M 14.4 10^3/ul (1.6-7.5); SEGMENTED NEUTROPHILS (M) % 87 % (39-77); SMUDGE%M 11 % (0-0)
[2018-11-19] MEDS: ENOXAPARIN 30 MG/0.3 ML SYG SC (08:14)
[2018-11-19] MEDS: HEPARIN 5,000 UNIT/1 ML VIAL SC ×2 (08:14→21:00)
[2018-11-19] MEDS: METOPROLOL 50 MG TAB GTB ×2 (08:16→20:59)
[2018-11-19] MEDS: FERROUS SULFATE 60 MG/ML 5ML CUP NGT ×2 (08:17→20:58)
[2018-11-19] MEDS: FOLIC ACID 1 MG TAB GTB (08:17)
[2018-11-19] MEDS: LINAGLIPTIN 5 MG TABLET GTB (08:17)
[2018-11-19] MEDS: DOCUSATE SODIUM 10 MG/ML (10ML CUP) GTB ×2 (08:17→20:58)
[2018-11-19] MEDS: QUETIAPINE 25 MG TAB GTB ×2 (08:18→20:58)
[2018-11-19] MEDS: BALSAM PERU/CASTOR OIL 60 GM TUBE TOP ×2 (08:18→21:11)
[2018-11-19] MEDS: SENNA TAB PO ×2 (08:18→20:58)
[2018-11-19] MEDS: DOCUSATE SODIUM 100 MG CAP PO (08:18)
[2018-11-19] MEDS: AMLODIPINE 5 MG TAB GTB ×2 (09:00→20:59)
[2018-11-19] MEDS: ALBUMIN HUMAN 25% 100 ML IV (10:25)
[2018-11-19] MEDS ORDERED: VANCOMYCIN IV PER PHARMACY XX (10:30)
[2018-11-19 11:13] LABS: LACTIC ACID 1.8 mmol/L (0.5-2.0)
[2018-11-19] MEDS: MEROPENEM 500MG/50 ML (PMX) 50 ML IVPB (12:41)
[2018-11-19] MEDS: VANCOMYCIN 1 GM 250 ML IVPB (12:41)
[2018-11-19 13:44] LABS: IMMEDIATE SPIN CROSSMATCH 1 2
[2018-11-19 15:44] LABS: ADD UMIC YES; UR ASCORBIC ACID NEGATIVE (NEGATIVE); UR BACTERIA FEW /HPF (NONE SEEN); UR BILIRUBIN (Dip) NEGATIVE (NEGATIVE); UR BLOOD (Dip) NEGATIVE (NEGATIVE); UR BUDDING YEAST MANY /HPF (NONE SEEN); UR CLARITY CLOUDY (CLEAR); UR COLOR AMBER (YELLOW); UR GLUCOSE (Dip) 1+ mg/dL (NEGATIVE); UR KETONES (Dip) NEGATIVE (NEGATIVE); UR LEUKOCYTE ESTERASE (Dip) 3+ Leu/ul (NEGATIVE); UR NITRITE (Dip) NEGATIVE (NEGATIVE); UR NONSQUAMOUS EPITHELIAL CELL 4 /HPF (NONE SEEN); UR RBC 8 /HPF (0-5); UR SPECIFIC GRAVITY (Dip) 1.017 (1.003-1.030); UR SQUAMOUS EPITHELIAL CELL MODERATE /HPF (FEW); UR TOTAL PROTEIN (Dip) 2+ mg/dl (NEGATIVE); UR UROBILINOGEN (Dip) NEGATIVE (NEGATIVE); UR WBC > 182 /HPF (0-5)
[2018-11-19] MEDS: POLYETHYLENE GLYCOL 17 GM PACKET GTB (17:33)
[2018-11-19] MEDS: INSULIN DETEMIR [LEVEMIR] (100 UNITS/ML) SYG SC (20:17)
[2018-11-20] MEDS: HYDROCODONE/APAP (5/325) TAB PO ×2 (04:19→21:06)
[2018-11-20 05:43] LABS: ADD MAN DIFF? NO
[2018-11-20] MEDS: LANSOPRAZOLE 30 MG CAP GTB (05:45)
[2018-11-20] MEDS: VALPROIC ACID LIQUID CUP 250 MG/5 ML CUP PO ×3 (05:45→22:06)
[2018-11-20 05:47] LABS: WHITE BLOOD COUNT 12.8 10^3/ul (4.8-10.8)
[2018-11-20 05:47] LABS: ABNORMAL IP MESSAGE 1; BASOPHILS % 0.3 % (0.0-2.0); EOSINOPHILS # 0.1 10^3/ul (0.0-0.5); HEMATOCRIT 23.3 % (37.0-47.0); HEMOGLOBIN 7.7 g/dl (12.0-16.0); LYMPHOCYTES # 0.4 10^3/ul (0.8-2.9); LYMPHOCYTES % 3.4 % (15.0-51.0); MEAN CORPUSCULAR HEMOGLOBIN 28.6 pg (29.0-33.0); MEAN CORPUSCULAR VOLUME 86.6 fl (82.0-101.0); MEAN PLATELET VOLUME 11.1 fl (7.4-10.4); MONOCYTES % 7.8 % (0.0-11.0); NEUTROPHILS % 85.8 % (39.0-77.0); NUCLEATED RED BLOOD CELLS% 0.3 /100WBC (0.0-0.0); PLATELET COUNT 245 10^3/UL (140-415); RED BLOOD COUNT 2.69 10^6/ul (4.20-5.40); RED CELL DISTRIBUTION WIDTH 16.1 % (11.5-14.5)
[2018-11-20 06:12] LABS: POSITIVE DIFF @See below
[2018-11-20 06:43] LABS: MAGNESIUM 2.6 mg/dl (1.7-2.5)
[2018-11-20 06:43] LABS: PHOSPHORUS 2.8 mg/dl (2.5-4.9)
[2018-11-20 08:48] LABS: ANION GAP 12 (5-13); BLOOD UREA NITROGEN 70 mg/dl (7-20); CALCIUM 8.5 mg/dl (8.4-10.2); CARBON DIOXIDE 25 mmol/L (21-31); CHLORIDE 103 mmol/L (97-110); CREATININE 2.27 mg/dl (0.44-1.00); GLUCOSE 125 mg/dl (70-220); POTASSIUM 3.9 mmol/L (3.5-5.1); SODIUM 140 mmol/L (135-144)
[2018-11-20] MEDS: HEPARIN 5,000 UNIT/1 ML VIAL SC ×2 (08:51→21:01)
[2018-11-20] MEDS: SENNA TAB PO ×2 (08:52→20:58)
[2018-11-20] MEDS: AMLODIPINE 5 MG TAB GTB (08:52)
[2018-11-20] MEDS: FOLIC ACID 1 MG TAB GTB (08:52)
[2018-11-20] MEDS: FERROUS SULFATE 60 MG/ML 5ML CUP NGT ×2 (08:52→20:58)
[2018-11-20] MEDS: QUETIAPINE 25 MG TAB GTB ×2 (08:52→20:58)
[2018-11-20] MEDS: DOCUSATE SODIUM 10 MG/ML (10ML CUP) GTB ×2 (08:52→20:58)
[2018-11-20] MEDS: METOPROLOL 50 MG TAB GTB ×2 (08:53→20:59)
[2018-11-20] MEDS: LINAGLIPTIN 5 MG TABLET GTB (08:57)
[2018-11-20] MEDS: BALSAM PERU/CASTOR OIL 60 GM TUBE TOP ×2 (08:58→21:02)
[2018-11-20] MEDS ORDERED: DEXTROSE 50% 50 ML SYRINGE IV ×2 (12:30)
[2018-11-20] MEDS ORDERED: GLUCOSE GEL 15 GRAM TUBE BUCCAL (12:30)
[2018-11-20] MEDS: MEROPENEM 500MG/50 ML (PMX) 50 ML IVPB (12:30)
[2018-11-20] MEDS ORDERED: GLUCOSE GEL 15 GRAM TUBE PO ×2 (12:30)
[2018-11-20] MEDS ORDERED: GLUCAGON 1 MG INJ IM (12:30)
[2018-11-20] MEDS ORDERED: ALBUMIN HUMAN 25% 100 ML IV (13:30)
[2018-11-20] MEDS ORDERED: SODIUM CHLORIDE 0.9% 1L BAG IV (13:30)
[2018-11-20] MEDS: HEPARIN 1000 UNITS/ML 10 ML INJ CATHETER (16:53)
[2018-11-20] MEDS: INSULIN ASPART [NOVOLOG] 3 ML PEN SC (17:32)
[2018-11-20] MEDS: POLYETHYLENE GLYCOL 17 GM PACKET GTB (17:33)
[2018-11-20] MEDS ORDERED: INSULIN ASPART [NOVOLOG] 3 ML PEN SC (18:05)
[2018-11-20] MEDS: INSULIN DETEMIR [LEVEMIR] (100 UNITS/ML) SYG SC (20:09)
[2018-11-20] MEDS: AMLODIPINE 2.5 MG TAB GTB (20:59)
[2018-11-21] MEDS: INSULIN ASPART [NOVOLOG] 3 ML PEN SC ×4 (00:37→18:18)
[2018-11-21 05:58] LABS: ADD MAN DIFF? NO
[2018-11-21 06:01] LABS: ABNORMAL IP MESSAGE 1; BASOPHIL # 0.1 10^3/ul (0.0-0.1); BASOPHILS % 0.5 % (0.0-2.0); EOSINOPHILS # 0.1 10^3/ul (0.0-0.5); EOSINOPHILS % 1.1 % (0.0-7.0); HEMATOCRIT 30.6 % (37.0-47.0); HEMOGLOBIN 10.1 g/dl (12.0-16.0); LYMPHOCYTES # 0.6 10^3/ul (0.8-2.9); LYMPHOCYTES % 5.3 % (15.0-51.0); MEAN CORPUSCULAR HEMOGLOBIN 28.5 pg (29.0-33.0); MEAN CORPUSCULAR VOLUME 86.4 fl (82.0-101.0); MEAN PLATELET VOLUME 11.3 fl (7.4-10.4); MONOCYTE # 1.1 10^3/ul (0.3-0.9); MONOCYTES % 9.8 % (0.0-11.0); NEUTROPHIL # 8.9 10^3/ul (1.6-7.5); NEUTROPHILS % 81.1 % (39.0-77.0); NUCLEATED RED BLOOD CELLS # 0.1 10^3/ul (0.0-0.0); NUCLEATED RED BLOOD CELLS% 0.5 /100WBC (0.0-0.0); PLATELET COUNT 283 10^3/UL (140-415); RED BLOOD COUNT 3.54 10^6/ul (4.20-5.40); RED CELL DISTRIBUTION WIDTH 15.9 % (11.5-14.5)
[2018-11-21 06:01] LABS: WHITE BLOOD COUNT 10.9 10^3/ul (4.8-10.8)
[2018-11-21 06:14] LABS: POSITIVE DIFF @See below
[2018-11-21] MEDS: VALPROIC ACID LIQUID CUP 250 MG/5 ML CUP PO ×2 (06:20→13:34)
[2018-11-21] MEDS: LANSOPRAZOLE 30 MG CAP GTB (06:20)
[2018-11-21 06:22] LABS: VANCOMYCIN,RANDOM 12.2 ug/ml
[2018-11-21 06:40] LABS: ANION GAP 8 (5-13); BLOOD UREA NITROGEN 42 mg/dl (7-20); CALCIUM 9.2 mg/dl (8.4-10.2); CARBON DIOXIDE 28 mmol/L (21-31); CHLORIDE 106 mmol/L (97-110); CREATININE 1.56 mg/dl (0.44-1.00); GLUCOSE 135 mg/dl (70-220); SODIUM 142 mmol/L (135-144)
[2018-11-21 06:46] LABS: MAGNESIUM 2.6 mg/dl (1.7-2.5)
[2018-11-21 06:46] LABS: PHOSPHORUS 1.6 mg/dl (2.5-4.9)
[2018-11-21] MEDS: FOLIC ACID 1 MG TAB GTB (08:58)
[2018-11-21] MEDS: DOCUSATE SODIUM 10 MG/ML (10ML CUP) GTB ×2 (08:58→20:03)
[2018-11-21] MEDS: FERROUS SULFATE 60 MG/ML 5ML CUP NGT ×2 (08:58→20:03)
[2018-11-21] MEDS: SENNA TAB PO ×2 (08:58→20:04)
[2018-11-21] MEDS: QUETIAPINE 25 MG TAB GTB ×2 (08:58→20:03)
[2018-11-21] MEDS: HEPARIN 5,000 UNIT/1 ML VIAL SC (08:59)
[2018-11-21] MEDS: BALSAM PERU/CASTOR OIL 60 GM TUBE TOP (09:01)
[2018-11-21] MEDS: LINAGLIPTIN 5 MG TABLET GTB (09:04)
[2018-11-21] MEDS: AMLODIPINE 2.5 MG TAB GTB ×2 (09:28→20:03)
[2018-11-21] MEDS: METOPROLOL 50 MG TAB GTB ×2 (09:28→20:03)
[2018-11-21] MEDS: VANCOMYCIN 750 MG (PMX) 250 ML IVPB (12:10)
[2018-11-21] MEDS: NEUTRA-PHOS 250 MG PACKET PO (13:34)
[2018-11-21] MEDS: CEFEPIME 1GM/50 ML (PMX) 50 ML IVPB (14:50)
[2018-11-21] MEDS: POLYETHYLENE GLYCOL 17 GM PACKET GTB (18:16)
== END 2018-11-21 20:36 | DRG 480 ==
LOC: E/R 12:52 → PP2 17:14
PROC: 0QSC04Z Reposition Left Lower Femur with Internal Fixation Device, Open Approach (ICD-10-PCS; principal; 2018-11-17 12:05)
PROC: 5A1D70Z Performance of Urinary Filtration, Intermittent, Less than 6 Hours Per Day (ICD-10-PCS; 2018-11-17 12:05)
PROC: 0D20XUZ Change Feeding Device in Upper Intestinal Tract, External Approach (ICD-10-PCS; 2018-11-17 12:05)
PROC: 30233N1 Transfusion of Nonautologous Red Blood Cells into Peripheral Vein, Percutaneous Approach (ICD-10-PCS; 2018-11-17 12:05)
DX: S72.452A Displaced supracondylar fracture without intracondylar extension of lower end of left femur, initial encounter for closed fracture (principal); N18.6 End stage renal disease; K94.23 Gastrostomy malfunction; Z68.1 Body mass index [BMI] 19.9 or less, adult; I13.2 Hypertensive heart and chronic kidney disease with heart failure and with stage 5 chronic kidney disease, or end stage renal disease; E44.0 Moderate protein-calorie malnutrition; E87.1 Hypo-osmolality and hyponatremia; I50.30 Unspecified diastolic (congestive) heart failure; N39.0 Urinary tract infection, site not specified; D62 Acute posthemorrhagic anemia; R64 Cachexia; S72.402A Unspecified fracture of lower end of left femur, initial encounter for closed fracture; E11.22 Type 2 diabetes mellitus with diabetic chronic kidney disease; F01.50 Vascular dementia, unspecified severity, without behavioral disturbance, psychotic disturbance, mood disturbance, and anxiety; J44.9 Chronic obstructive pulmonary disease, unspecified; R13.10 Dysphagia, unspecified; D63.1 Anemia in chronic kidney disease; Z66 Do not resuscitate; I48.0 Paroxysmal atrial fibrillation; I25.10 Atherosclerotic heart disease of native coronary artery without angina pectoris; W19.XXXA Unspecified fall, initial encounter; Y83.8 Other surgical procedures as the cause of abnormal reaction of the patient, or of later complication, without mention of misadventure at the time of the procedure; B96.4 Proteus (mirabilis) (morganii) as the cause of diseases classified elsewhere; M19.90 Unspecified osteoarthritis, unspecified site; Z91.81 History of falling; Z99.2 Dependence on renal dialysis
CPT/HCPCS: 36430; 71045; 73550; 73562; 74018; 80048; 80053; 80202; 81001; 82962; 83036; 83605; 83735; 84100; 85014; 85018; 85025; 85610; 85730; 86850; 86900; 86901; 86920; 87086; 87340; 90935; 93005; 99285-25

== ENCOUNTER 2018-11-25 20:55 | Emergency (ER) | payer MEDICARE, OTHER ==
[2018-11-25] MEDS: FENTAnyl 50 MCG/ML VIAL IV (22:08)
[2018-11-26] MEDS: FENTAnyl 50 MCG/ML VIAL IV (00:16)
[2018-11-26] MEDS ORDERED: PROPOFOL 20 ML (00:34)
[2018-11-26] MEDS: PROPOFOL 200 MG INJ IV (01:14)
== END 2018-11-26 06:32 | disposition home or self-care (01) ==
LOC: E/R 11-26 06:32
DX: S03.03XA Dislocation of jaw, bilateral, initial encounter (principal); R40.2142 Coma scale, eyes open, spontaneous, at arrival to emergency department; R40.2222 Coma scale, best verbal response, incomprehensible words, at arrival to emergency department; R40.2362 Coma scale, best motor response, obeys commands, at arrival to emergency department; I11.0 Hypertensive heart disease with heart failure; I50.9 Heart failure, unspecified; J44.9 Chronic obstructive pulmonary disease, unspecified; X58.XXXA Exposure to other specified factors, initial encounter; Y92.89 Other specified places as the place of occurrence of the external cause; Z79.82 Long term (current) use of aspirin; Z79.4 Long term (current) use of insulin; Z99.2 Dependence on renal dialysis
CPT/HCPCS: 21480; 70486; 94770; 99285-25

== ENCOUNTER 2018-12-07 21:02 | Inpatient (IN) | payer MEDICARE, OTHER ==
[2018-12-07 22:09] LABS: ABNORMAL IP MESSAGE 1; HEMATOCRIT 20.4 % (37.0-47.0); MEAN CORPUSCULAR HEMOGLOBIN 28.3 pg (29.0-33.0); MEAN CORPUSCULAR HGB CONC 32.4 g/dl (32.0-37.0); MEAN CORPUSCULAR VOLUME 87.6 fl (82.0-101.0); MEAN PLATELET VOLUME 10.5 fl (7.4-10.4); NUCLEATED RED BLOOD CELLS% 0.9 /100WBC (0.0-0.0); PLATELET COUNT 254 10^3/UL (140-415); RED BLOOD COUNT 2.33 10^6/ul (4.20-5.40); RED CELL DISTRIBUTION WIDTH 15.9 % (11.5-14.5)
[2018-12-07 22:13] LABS: POSITIVE DIFF @See below
[2018-12-07 22:14] LABS: ADD MAN DIFF? YES; HEMOGLOBIN 6.6 g/dl (12.0-16.0)
[2018-12-07 22:25] LABS: ADD UMIC YES; UR ASCORBIC ACID 40 mg/dL (NEGATIVE); UR BILIRUBIN (Dip) NEGATIVE (NEGATIVE); UR BLOOD (Dip) 2+ mg/dL (NEGATIVE); UR BUDDING YEAST MODERATE /HPF (NONE SEEN); UR CLARITY CLOUDY (CLEAR); UR COLOR AMBER (YELLOW); UR GLUCOSE (Dip) NEGATIVE (NEGATIVE); UR KETONES (Dip) NEGATIVE (NEGATIVE); UR LEUKOCYTE ESTERASE (Dip) 2+ Leu/ul (NEGATIVE); UR NITRITE (Dip) NEGATIVE (NEGATIVE); UR RBC 2 /HPF (0-5); UR SPECIFIC GRAVITY (Dip) 1.017 (1.003-1.030); UR TOTAL PROTEIN (Dip) 2+ mg/dl (NEGATIVE); UR UROBILINOGEN (Dip) NEGATIVE (NEGATIVE); UR WBC 101 /HPF (0-5)
[2018-12-07 22:28] LABS: ALANINE AMINOTRANSFERASE 14 IU/L (13-69); ALBUMIN 3.2 g/dl (3.3-4.9); ALBUMIN/GLOBULIN RATIO 0.84; ALKALINE PHOSPHATASE 134 IU/L (42-121); ANION GAP 5 (5-13); ASPARTATE AMINO TRANSFERASE 42 IU/L (15-46); BILIRUBIN,INDIRECT 0.8 mg/dl (0-1.1); BILIRUBIN,TOTAL 0.8 mg/dl (0.2-1.3); BLOOD UREA NITROGEN 18 mg/dl (7-20); CARBON DIOXIDE 32 mmol/L (21-31); CHLORIDE 96 mmol/L (97-110); CREATININE 1.17 mg/dl (0.44-1.00); GLUCOSE 89 mg/dl (70-220); POTASSIUM 3.9 mmol/L (3.5-5.1); SODIUM 133 mmol/L (135-144)
[2018-12-07 22:29] LABS: INR 1.07; PT RATIO 1.1
[2018-12-07 22:31] LABS: ANISOCYTOSIS 2+ (0-0); BAND NEUTROPHILS #M 0.3 10^3/ul (0.0-0.6); BAND NEUTROPHILS % (M) 2 % (0-4); EOSINOPHILS % (M) 1 % (0-7); ERYTHROBLAST% (NRBC) (M) 4 % (0-0); GIANT THROMBO% (M) 1 % (0-0); HYPOCHROMASIA 1+ (0-0); LYMPHOCYTES #M 1.2 10^3/ul (0.8-2.9); LYMPHOCYTES % (M) 8 % (15-51); MICROCYTOSIS 2+ (0-0); MONOCYTE #M 1.2 10^3/ul (0.3-0.9); MONOCYTES % (M) 8 % (0-11); PLATELET ESTIMATE NORMAL; POLYCHROMASIA 3+ (0-0); REACTIVE LYMPHOCYTES #M 0.4 10^3/ul (0.0-0.0); REACTIVE LYMPHOCYTES% (M) 3 % (0-0); SEG NEUT #M 12.5 10^3/ul (1.6-7.5); SEGMENTED NEUTROPHILS (M) % 78 % (39-77); SMUDGE%M 5 % (0-0)
[2018-12-07 22:36] LABS: PARTIAL THROMBOPLASTIN TIME 94.4 Sec (23.0-35.0)
[2018-12-07 22:39] LABS: TROPONIN-I 0.042 ng/ml (0.000-0.120)
[2018-12-08] MEDS: PIPER-TAZO 2.25 GM (PMX) 50 ML IVPB (01:55)
[2018-12-08 02:35] LABS: IMMEDIATE SPIN CROSSMATCH 1 2
[2018-12-08 02:59] LABS: LACTIC ACID 1.2 mmol/L (0.5-2.0)
[2018-12-08] MEDS ORDERED: MAGNESIUM HYDROXIDE 30ML CUP PO (03:30)
[2018-12-08] MEDS ORDERED: NACL 0.9% 3 ML SYG IV (03:30)
[2018-12-08] MEDS ORDERED: ACETAMINOPHEN 325 MG TAB PO (03:30)
[2018-12-08] MEDS ORDERED: ONDANSETRON 4 MG INJ IV (03:30)
[2018-12-08] MEDS ORDERED: ONDANSETRON 4 MG TAB GTB (03:30)
[2018-12-08] MEDS ORDERED: DOCUSATE SODIUM 100 MG CAP PO ×2 (03:30→09:00)
[2018-12-08] MEDS ORDERED: DOCUSATE SODIUM 10 MG/ML (10ML CUP) GTB (04:00)
[2018-12-08] MEDS: LORAZEPAM 0.5 MG TAB GTB (04:01)
[2018-12-08] MEDS: GUAIFENESIN/DM 5ML CUP GTB ×6 (04:21→23:28)
[2018-12-08] MEDS: MEROPENEM 1 GM/50ML(PMX) 50 ML IVPB ×2 (04:21→17:06)
[2018-12-08] MEDS ORDERED: PANTOPRAZOLE (EC) 40 MG TAB PO (06:00)
[2018-12-08] MEDS ORDERED: VALPROIC ACID (50 MG/ML PO SYG) PO (06:00)
[2018-12-08] MEDS: LANSOPRAZOLE 30 MG CAP GTB (06:24)
[2018-12-08] MEDS: VALPROIC ACID LIQUID CUP 250 MG/5 ML CUP GTB ×3 (06:25→21:49)
[2018-12-08] MEDS: FOLIC ACID 1 MG TAB GTB (09:05)
[2018-12-08] MEDS: DOCUSATE SODIUM 10 MG/ML (10ML CUP) GTB (09:05)
[2018-12-08] MEDS: LINAGLIPTIN 5 MG TABLET GTB (09:06)
[2018-12-08] MEDS: FERROUS SULFATE (EC) 325 MG TAB PO ×2 (09:06→20:10)
[2018-12-08] MEDS: METOPROLOL 50 MG TAB GTB ×2 (09:06→20:11)
[2018-12-08] MEDS: AMLODIPINE 5 MG TAB GTB ×2 (09:06→20:11)
[2018-12-08] MEDS: ASCORBIC ACID 500 MG TAB GTB (09:06)
[2018-12-08] MEDS: ASPIRIN 81 MG TAB GTB (09:06)
[2018-12-08] MEDS: OLANZAPINE 5 MG TAB GTB (09:06)
[2018-12-08] MEDS: SEVELAMER CARBONATE 0.8 GM PKT GTB ×3 (09:06→17:06)
[2018-12-08 10:05] LABS: ADD MAN DIFF? NO
[2018-12-08 10:27] LABS: ABNORMAL IP MESSAGE 1; BASOPHIL # 0.1 10^3/ul (0.0-0.1); BASOPHILS % 0.4 % (0.0-2.0); EOSINOPHILS # 0.1 10^3/ul (0.0-0.5); EOSINOPHILS % 0.8 % (0.0-7.0); HEMATOCRIT 25.6 % (37.0-47.0); HEMOGLOBIN 8.4 g/dl (12.0-16.0); LYMPHOCYTES # 0.4 10^3/ul (0.8-2.9); LYMPHOCYTES % 3.7 % (15.0-51.0); MEAN CORPUSCULAR HEMOGLOBIN 28.2 pg (29.0-33.0); MEAN CORPUSCULAR HGB CONC 32.8 g/dl (32.0-37.0); MEAN CORPUSCULAR VOLUME 85.9 fl (82.0-101.0); MEAN PLATELET VOLUME 11.1 fl (7.4-10.4); MONOCYTE # 1.2 10^3/ul (0.3-0.9); MONOCYTES % 10.3 % (0.0-11.0); NEUTROPHILS % 83.3 % (39.0-77.0); NUCLEATED RED BLOOD CELLS # 0.1 10^3/ul (0.0-0.0); NUCLEATED RED BLOOD CELLS% 0.9 /100WBC (0.0-0.0); PLATELET COUNT 227 10^3/UL (140-415); RED BLOOD COUNT 2.98 10^6/ul (4.20-5.40); RED CELL DISTRIBUTION WIDTH 15.5 % (11.5-14.5)
[2018-12-08 10:31] LABS: POSITIVE DIFF @See below
[2018-12-08 10:42] LABS: ALANINE AMINOTRANSFERASE 18 IU/L (13-69); ALKALINE PHOSPHATASE 133 IU/L (42-121); ANION GAP 7 (5-13); ASPARTATE AMINO TRANSFERASE 37 IU/L (15-46); BILIRUBIN,INDIRECT 0.8 mg/dl (0-1.1); BILIRUBIN,TOTAL 0.8 mg/dl (0.2-1.3); BLOOD UREA NITROGEN 29 mg/dl (7-20); CALCIUM 8.5 mg/dl (8.4-10.2); CARBON DIOXIDE 28 mmol/L (21-31); CHLORIDE 98 mmol/L (97-110); CREATININE 1.56 mg/dl (0.44-1.00); GLUCOSE 192 mg/dl (70-220); POTASSIUM 3.6 mmol/L (3.5-5.1); SODIUM 133 mmol/L (135-144); TOTAL PROTEIN 6.3 g/dl (6.1-8.1)
[2018-12-08] MEDS: ACETAMINOPHEN 325 MG TAB GTB ×2 (11:57→21:49)
[2018-12-08] MEDS: MAGNESIUM HYDROXIDE 30ML CUP GTB (20:11)
[2018-12-08] MEDS: ATORVASTATIN 40 MG TAB GTB (20:11)
[2018-12-09] MEDS: LORAZEPAM 0.5 MG TAB GTB ×2 (02:15→23:12)
[2018-12-09] MEDS: GUAIFENESIN/DM 5ML CUP GTB ×6 (04:24→23:12)
[2018-12-09] MEDS: LANSOPRAZOLE 30 MG CAP GTB (05:37)
[2018-12-09] MEDS: VALPROIC ACID LIQUID CUP 250 MG/5 ML CUP GTB ×3 (05:37→21:23)
[2018-12-09] MEDS: MEROPENEM 500MG/50 ML (PMX) 50 ML IVPB ×2 (05:38→18:38)
[2018-12-09 06:56] LABS: ADD MAN DIFF? NO
[2018-12-09 07:07] LABS: WHITE BLOOD COUNT 8.8 10^3/ul (4.8-10.8)
[2018-12-09 07:07] LABS: BASOPHILS % 0.3 % (0.0-2.0); EOSINOPHILS # 0.3 10^3/ul (0.0-0.5); EOSINOPHILS % 3.8 % (0.0-7.0); HEMATOCRIT 25.8 % (37.0-47.0); HEMOGLOBIN 8.3 g/dl (12.0-16.0); LYMPHOCYTES # 0.6 10^3/ul (0.8-2.9); LYMPHOCYTES % 6.8 % (15.0-51.0); MEAN CORPUSCULAR HEMOGLOBIN 27.8 pg (29.0-33.0); MEAN CORPUSCULAR HGB CONC 32.2 g/dl (32.0-37.0); MEAN CORPUSCULAR VOLUME 86.3 fl (82.0-101.0); MONOCYTE # 1.2 10^3/ul (0.3-0.9); MONOCYTES % 13.2 % (0.0-11.0); NEUTROPHIL # 6.5 10^3/ul (1.6-7.5); NEUTROPHILS % 74.5 % (39.0-77.0); NUCLEATED RED BLOOD CELLS # 0.1 10^3/ul (0.0-0.0); NUCLEATED RED BLOOD CELLS% 1.3 /100WBC (0.0-0.0); PLATELET COUNT 225 10^3/UL (140-415); RED BLOOD COUNT 2.99 10^6/ul (4.20-5.40); RED CELL DISTRIBUTION WIDTH 16.2 % (11.5-14.5)
[2018-12-09 07:55] LABS: ANION GAP 8 (5-13); BLOOD UREA NITROGEN 49 mg/dl (7-20); CALCIUM 8.5 mg/dl (8.4-10.2); CARBON DIOXIDE 28 mmol/L (21-31); CHLORIDE 97 mmol/L (97-110); CREATININE 2.04 mg/dl (0.44-1.00); GLUCOSE 144 mg/dl (70-220); POTASSIUM 3.6 mmol/L (3.5-5.1); SODIUM 133 mmol/L (135-144)
[2018-12-09 08:01] LABS: MAGNESIUM 2.4 mg/dl (1.7-2.5)
[2018-12-09 08:01] LABS: PHOSPHORUS 1.9 mg/dl (2.5-4.9)
[2018-12-09] MEDS: DOCUSATE SODIUM 10 MG/ML (10ML CUP) GTB (08:17)
[2018-12-09] MEDS: SEVELAMER CARBONATE 0.8 GM PKT GTB ×3 (08:18→16:51)
[2018-12-09] MEDS: LINAGLIPTIN 5 MG TABLET GTB (08:18)
[2018-12-09] MEDS: AMLODIPINE 5 MG TAB GTB ×2 (08:18→20:07)
[2018-12-09] MEDS: METOPROLOL 50 MG TAB GTB ×2 (08:19→20:07)
[2018-12-09] MEDS: ASCORBIC ACID 500 MG TAB GTB (08:19)
[2018-12-09] MEDS: ASPIRIN 81 MG TAB GTB (08:19)
[2018-12-09] MEDS: FOLIC ACID 1 MG TAB GTB (08:19)
[2018-12-09] MEDS: OLANZAPINE 5 MG TAB GTB (08:19)
[2018-12-09] MEDS: FERROUS SULFATE (EC) 325 MG TAB PO ×2 (08:19→20:06)
[2018-12-09 14:48] LABS: RETICULOCYTE COUNT # 0.075 X10^6 (0.020-0.110); RETICULOCYTE COUNT % 2.6 % (0.5-1.5)
[2018-12-09 14:48] LABS: RETICULOCYTE RBC 2.92
[2018-12-09] MEDS: CASPOFUNGIN 70 MG in NS 250 ML IVPB (18:22)
[2018-12-09] MEDS: MAGNESIUM HYDROXIDE 30ML CUP GTB (20:06)
[2018-12-09] MEDS: ATORVASTATIN 40 MG TAB GTB (20:06)
[2018-12-09] MEDS: ACETAMINOPHEN 325 MG TAB GTB (20:13)
[2018-12-10] MEDS: GUAIFENESIN/DM 5ML CUP GTB ×6 (04:18→23:28)
[2018-12-10] MEDS: VALPROIC ACID LIQUID CUP 250 MG/5 ML CUP GTB ×3 (05:27→22:16)
[2018-12-10] MEDS: MEROPENEM 500MG/50 ML (PMX) 50 ML IVPB ×2 (05:27→22:15)
[2018-12-10] MEDS: LANSOPRAZOLE 30 MG CAP GTB (05:27)
[2018-12-10 06:18] LABS: ADD MAN DIFF? NO; BASOPHILS % 0.3 % (0.0-2.0); EOSINOPHILS # 0.3 10^3/ul (0.0-0.5); EOSINOPHILS % 3.4 % (0.0-7.0); HEMATOCRIT 27.6 % (37.0-47.0); HEMOGLOBIN 8.9 g/dl (12.0-16.0); LYMPHOCYTES # 0.7 10^3/ul (0.8-2.9); LYMPHOCYTES % 7.6 % (15.0-51.0); MEAN CORPUSCULAR HEMOGLOBIN 27.8 pg (29.0-33.0); MEAN CORPUSCULAR HGB CONC 32.2 g/dl (32.0-37.0); MEAN CORPUSCULAR VOLUME 86.3 fl (82.0-101.0); MEAN PLATELET VOLUME 10.9 fl (7.4-10.4); MONOCYTE # 1.1 10^3/ul (0.3-0.9); MONOCYTES % 10.7 % (0.0-11.0); NEUTROPHIL # 7.4 10^3/ul (1.6-7.5); NEUTROPHILS % 76.1 % (39.0-77.0); NUCLEATED RED BLOOD CELLS # 0.2 10^3/ul (0.0-0.0); NUCLEATED RED BLOOD CELLS% 1.5 /100WBC (0.0-0.0); PLATELET COUNT 263 10^3/UL (140-415); RED CELL DISTRIBUTION WIDTH 15.9 % (11.5-14.5)
[2018-12-10 06:18] LABS: WHITE BLOOD COUNT 9.8 10^3/ul (4.8-10.8)
[2018-12-10 06:56] LABS: ANION GAP 6 (5-13); BLOOD UREA NITROGEN 66 mg/dl (7-20); CALCIUM 8.9 mg/dl (8.4-10.2); CARBON DIOXIDE 30 mmol/L (21-31); CHLORIDE 96 mmol/L (97-110); CREATININE 2.31 mg/dl (0.44-1.00); GLUCOSE 145 mg/dl (70-220); POTASSIUM 3.9 mmol/L (3.5-5.1); SODIUM 132 mmol/L (135-144)
[2018-12-10 07:59] LABS: FOLATE > 20.0 ng/ml (2.8-20.0)
[2018-12-10] MEDS: DOCUSATE SODIUM 10 MG/ML (10ML CUP) GTB (08:51)
[2018-12-10] MEDS: SEVELAMER CARBONATE 0.8 GM PKT GTB ×3 (09:00→19:42)
[2018-12-10] MEDS: METOPROLOL 50 MG TAB GTB ×2 (09:01→21:00)
[2018-12-10] MEDS: ASCORBIC ACID 500 MG TAB GTB (09:01)
[2018-12-10] MEDS: ASPIRIN 81 MG TAB GTB (09:01)
[2018-12-10] MEDS: OLANZAPINE 5 MG TAB GTB (09:01)
[2018-12-10] MEDS: LINAGLIPTIN 5 MG TABLET GTB (09:02)
[2018-12-10] MEDS: AMLODIPINE 5 MG TAB GTB ×2 (09:05→21:00)
[2018-12-10] MEDS: FOLIC ACID 1 MG TAB GTB (09:05)
[2018-12-10] MEDS: FERROUS SULFATE (EC) 325 MG TAB PO ×2 (09:05→22:17)
[2018-12-10] MEDS: LORAZEPAM 0.5 MG TAB GTB (09:06)
[2018-12-10] MEDS: HEPARIN 1000 UNITS/ML 10 ML INJ CATHETER (20:48)
[2018-12-10] MEDS: ATORVASTATIN 40 MG TAB GTB (22:15)
[2018-12-10] MEDS: MAGNESIUM HYDROXIDE 30ML CUP GTB (22:16)
[2018-12-10] MEDS: CASPOFUNGIN 50 MG in SOD CHLORIDE 0.9% 250 ML IVPB (23:12)
[2018-12-11] MEDS: GUAIFENESIN/DM 5ML CUP GTB ×6 (02:56→23:30)
[2018-12-11] MEDS: LORAZEPAM 0.5 MG TAB GTB ×2 (02:56→22:39)
[2018-12-11 05:39] LABS: ADD MAN DIFF? NO
[2018-12-11 05:48] LABS: BASOPHILS % 0.4 % (0.0-2.0); EOSINOPHILS # 0.2 10^3/ul (0.0-0.5); EOSINOPHILS % 2.1 % (0.0-7.0); HEMATOCRIT 27.2 % (37.0-47.0); HEMOGLOBIN 8.8 g/dl (12.0-16.0); LYMPHOCYTES # 0.8 10^3/ul (0.8-2.9); LYMPHOCYTES % 8.3 % (15.0-51.0); MEAN CORPUSCULAR HEMOGLOBIN 27.9 pg (29.0-33.0); MEAN CORPUSCULAR HGB CONC 32.4 g/dl (32.0-37.0); MEAN CORPUSCULAR VOLUME 86.3 fl (82.0-101.0); MEAN PLATELET VOLUME 10.6 fl (7.4-10.4); MONOCYTE # 1.1 10^3/ul (0.3-0.9); MONOCYTES % 10.4 % (0.0-11.0); NEUTROPHIL # 7.7 10^3/ul (1.6-7.5); NEUTROPHILS % 76.5 % (39.0-77.0); NUCLEATED RED BLOOD CELLS # 0.2 10^3/ul (0.0-0.0); NUCLEATED RED BLOOD CELLS% 1.9 /100WBC (0.0-0.0); PLATELET COUNT 257 10^3/UL (140-415); RED BLOOD COUNT 3.15 10^6/ul (4.20-5.40)
[2018-12-11 05:48] LABS: WHITE BLOOD COUNT 10.1 10^3/ul (4.8-10.8)
[2018-12-11 06:07] LABS: MAGNESIUM 2.8 mg/dl (1.7-2.5)
[2018-12-11 06:07] LABS: PHOSPHORUS 0.8 mg/dl (2.5-4.9)
[2018-12-11 06:08] LABS: ANION GAP 4 (5-13); BLOOD UREA NITROGEN 27 mg/dl (7-20); CALCIUM 8.7 mg/dl (8.4-10.2); CARBON DIOXIDE 30 mmol/L (21-31); CHLORIDE 103 mmol/L (97-110); CREATININE 1.13 mg/dl (0.44-1.00); GLUCOSE 145 mg/dl (70-220); POTASSIUM 4.1 mmol/L (3.5-5.1); SODIUM 137 mmol/L (135-144)
[2018-12-11] MEDS: VALPROIC ACID LIQUID CUP 250 MG/5 ML CUP GTB ×3 (06:44→22:30)
[2018-12-11] MEDS: LANSOPRAZOLE 30 MG CAP GTB (06:44)
[2018-12-11] MEDS: MEROPENEM 500MG/50 ML (PMX) 50 ML IVPB ×2 (06:44→18:27)
[2018-12-11] MEDS: SEVELAMER CARBONATE 0.8 GM PKT GTB (08:24)
[2018-12-11] MEDS: METOPROLOL 50 MG TAB GTB ×2 (08:25→21:00)
[2018-12-11] MEDS: ASCORBIC ACID 500 MG TAB GTB (08:25)
[2018-12-11] MEDS: LINAGLIPTIN 5 MG TABLET GTB (08:25)
[2018-12-11] MEDS: FERROUS SULFATE (EC) 325 MG TAB PO ×2 (08:25→22:31)
[2018-12-11] MEDS: OLANZAPINE 5 MG TAB GTB (08:25)
[2018-12-11] MEDS: AMLODIPINE 5 MG TAB GTB ×2 (08:26→22:32)
[2018-12-11] MEDS: FOLIC ACID 1 MG TAB GTB (08:26)
[2018-12-11] MEDS: ASPIRIN 81 MG TAB GTB (08:26)
[2018-12-11] MEDS: DOCUSATE SODIUM 10 MG/ML (10ML CUP) GTB (08:26)
[2018-12-11] MEDS: NEUTRA-PHOS 250 MG PACKET PO ×2 (12:21→22:39)
[2018-12-11 12:22] LABS: IRON 67 ug/dl (35-150)
[2018-12-11 12:31] LABS: % IRON SATURATION 36 % SAT (22-52); TOTAL IRON BINDING CAPACITY 184 ug/dl (241-421)
[2018-12-11] MEDS ORDERED: VANCOMYCIN IV PER PHARMACY XX (14:00)
[2018-12-11] MEDS: MUPIROCIN 2% 22 GM OINT TOP ×2 (14:46→22:30)
[2018-12-11] MEDS: VANCOMYCIN 750 MG (PMX) 250 ML IVPB (16:33)
[2018-12-11] MEDS: CASPOFUNGIN 50 MG in SOD CHLORIDE 0.9% 250 ML IVPB (17:41)
[2018-12-11] MEDS: MAGNESIUM HYDROXIDE 30ML CUP GTB (21:00)
[2018-12-11] MEDS: ATORVASTATIN 40 MG TAB GTB (22:31)
[2018-12-12] MEDS: GUAIFENESIN/DM 5ML CUP GTB ×6 (04:28→23:42)
[2018-12-12 05:46] LABS: ADD MAN DIFF? NO
[2018-12-12 05:49] LABS: WHITE BLOOD COUNT 11.8 10^3/ul (4.8-10.8)
[2018-12-12 05:49] LABS: BASOPHIL # 0.1 10^3/ul (0.0-0.1); BASOPHILS % 0.8 % (0.0-2.0); EOSINOPHILS # 0.4 10^3/ul (0.0-0.5); EOSINOPHILS % 3.1 % (0.0-7.0); HEMATOCRIT 27.3 % (37.0-47.0); HEMOGLOBIN 8.7 g/dl (12.0-16.0); LYMPHOCYTES # 1.1 10^3/ul (0.8-2.9); LYMPHOCYTES % 9.3 % (15.0-51.0); MEAN CORPUSCULAR HEMOGLOBIN 28.2 pg (29.0-33.0); MEAN CORPUSCULAR HGB CONC 31.9 g/dl (32.0-37.0); MEAN CORPUSCULAR VOLUME 88.3 fl (82.0-101.0); MEAN PLATELET VOLUME 10.7 fl (7.4-10.4); MONOCYTE # 1.4 10^3/ul (0.3-0.9); NEUTROPHIL # 8.5 10^3/ul (1.6-7.5); NEUTROPHILS % 71.8 % (39.0-77.0); NUCLEATED RED BLOOD CELLS # 0.2 10^3/ul (0.0-0.0); NUCLEATED RED BLOOD CELLS% 1.9 /100WBC (0.0-0.0); PLATELET COUNT 278 10^3/UL (140-415); RED BLOOD COUNT 3.09 10^6/ul (4.20-5.40); RED CELL DISTRIBUTION WIDTH 16.1 % (11.5-14.5)
[2018-12-12 06:31] LABS: PHOSPHORUS 1.8 mg/dl (2.5-4.9)
[2018-12-12] MEDS: LANSOPRAZOLE 30 MG CAP GTB (06:40)
[2018-12-12] MEDS: MEROPENEM 500MG/50 ML (PMX) 50 ML IVPB ×2 (06:40→18:58)
[2018-12-12 06:41] LABS: ANION GAP 6 (5-13); BLOOD UREA NITROGEN 44 mg/dl (7-20); CALCIUM 8.7 mg/dl (8.4-10.2); CARBON DIOXIDE 29 mmol/L (21-31); CHLORIDE 104 mmol/L (97-110); CREATININE 1.58 mg/dl (0.44-1.00); GLUCOSE 140 mg/dl (70-220); POTASSIUM 4.6 mmol/L (3.5-5.1); SODIUM 139 mmol/L (135-144)
[2018-12-12] MEDS: VALPROIC ACID LIQUID CUP 250 MG/5 ML CUP GTB ×3 (06:41→20:57)
[2018-12-12 08:24] LABS: OCCULT BLOOD STOOL NEGATIVE (NEGATIVE)
[2018-12-12] MEDS: DOCUSATE SODIUM 10 MG/ML (10ML CUP) GTB (08:42)
[2018-12-12] MEDS: MUPIROCIN 2% 22 GM OINT TOP ×2 (08:42→20:58)
[2018-12-12] MEDS: OLANZAPINE 5 MG TAB GTB (08:43)
[2018-12-12] MEDS: ASPIRIN 81 MG TAB GTB (08:43)
[2018-12-12] MEDS: NEUTRA-PHOS 250 MG PACKET PO (08:43)
[2018-12-12] MEDS: FERROUS SULFATE (EC) 325 MG TAB PO ×2 (08:43→20:57)
[2018-12-12] MEDS: ASCORBIC ACID 500 MG TAB GTB (08:43)
[2018-12-12] MEDS: FOLIC ACID 1 MG TAB GTB (08:43)
[2018-12-12] MEDS: LINAGLIPTIN 5 MG TABLET GTB (08:44)
[2018-12-12] MEDS: METOPROLOL 50 MG TAB GTB ×2 (08:45→20:58)
[2018-12-12] MEDS: AMLODIPINE 5 MG TAB GTB ×2 (08:45→20:58)
[2018-12-12] MEDS: ZYVOX 600 MG TAB PO ×2 (15:13→20:57)
[2018-12-12] MEDS: CASPOFUNGIN 50 MG in SOD CHLORIDE 0.9% 250 ML IVPB (17:47)
[2018-12-12] MEDS: MAGNESIUM HYDROXIDE 30ML CUP GTB (20:56)
[2018-12-12] MEDS: ATORVASTATIN 40 MG TAB GTB (20:57)
[2018-12-12] MEDS: LORAZEPAM 0.5 MG TAB GTB (21:29)
[2018-12-13] MEDS: GUAIFENESIN/DM 5ML CUP GTB ×6 (03:27→23:30)
[2018-12-13] MEDS: VALPROIC ACID LIQUID CUP 250 MG/5 ML CUP GTB ×3 (05:55→21:04)
[2018-12-13] MEDS: MEROPENEM 500MG/50 ML (PMX) 50 ML IVPB (05:55)
[2018-12-13] MEDS: LANSOPRAZOLE 30 MG CAP GTB (05:56)
[2018-12-13 06:54] LABS: ADD MAN DIFF? NO
[2018-12-13 06:58] LABS: BASOPHIL # 0.1 10^3/ul (0.0-0.1); BASOPHILS % 0.6 % (0.0-2.0); EOSINOPHILS # 0.4 10^3/ul (0.0-0.5); EOSINOPHILS % 2.8 % (0.0-7.0); HEMATOCRIT 26.9 % (37.0-47.0); HEMOGLOBIN 8.4 g/dl (12.0-16.0); LYMPHOCYTES # 1.7 10^3/ul (0.8-2.9); MEAN CORPUSCULAR HEMOGLOBIN 27.9 pg (29.0-33.0); MEAN CORPUSCULAR HGB CONC 31.2 g/dl (32.0-37.0); MEAN CORPUSCULAR VOLUME 89.4 fl (82.0-101.0); MEAN PLATELET VOLUME 10.5 fl (7.4-10.4); MONOCYTE # 1.4 10^3/ul (0.3-0.9); MONOCYTES % 9.6 % (0.0-11.0); NEUTROPHIL # 10.5 10^3/ul (1.6-7.5); NEUTROPHILS % 72.5 % (39.0-77.0); NUCLEATED RED BLOOD CELLS # 0.2 10^3/ul (0.0-0.0); NUCLEATED RED BLOOD CELLS% 1.2 /100WBC (0.0-0.0); PLATELET COUNT 277 10^3/UL (140-415); RED BLOOD COUNT 3.01 10^6/ul (4.20-5.40); RED CELL DISTRIBUTION WIDTH 16.4 % (11.5-14.5)
[2018-12-13 06:58] LABS: WHITE BLOOD COUNT 14.5 10^3/ul (4.8-10.8)
[2018-12-13] MEDS ORDERED: IODIXANOL LOCM 100 ML BTL (07:00)
[2018-12-13] MEDS ORDERED: LIDOCAINE 1% (MDV) 20 ML INJ (07:00)
[2018-12-13] MEDS ORDERED: HEPARIN 1000 UNITS/ML 10 ML INJ (07:09)
[2018-12-13 07:30] LABS: ANION GAP 6 (5-13); BLOOD UREA NITROGEN 29 mg/dl (7-20); CALCIUM 8.2 mg/dl (8.4-10.2); CARBON DIOXIDE 30 mmol/L (21-31); CHLORIDE 100 mmol/L (97-110); CREATININE 1.15 mg/dl (0.44-1.00); GLUCOSE 129 mg/dl (70-220); POTASSIUM 4.6 mmol/L (3.5-5.1); SODIUM 136 mmol/L (135-144)
[2018-12-13] MEDS ORDERED: FENTAnyl 50 MCG/ML VIAL (07:31)
[2018-12-13 07:33] LABS: VANCOMYCIN,RANDOM 6.2 ug/ml
[2018-12-13 08:02] LABS: MAGNESIUM 2.2 mg/dl (1.7-2.5)
[2018-12-13] MEDS: DOCUSATE SODIUM 10 MG/ML (10ML CUP) GTB (10:48)
[2018-12-13] MEDS: METOPROLOL 50 MG TAB GTB ×2 (10:49→21:05)
[2018-12-13] MEDS: OLANZAPINE 5 MG TAB GTB (10:49)
[2018-12-13] MEDS: ASPIRIN 81 MG TAB GTB (10:49)
[2018-12-13] MEDS: ASCORBIC ACID 500 MG TAB GTB (10:49)
[2018-12-13] MEDS: FERROUS SULFATE (EC) 325 MG TAB PO ×2 (10:49→21:05)
[2018-12-13] MEDS: LINAGLIPTIN 5 MG TABLET GTB (10:49)
[2018-12-13] MEDS: FOLIC ACID 1 MG TAB GTB (10:50)
[2018-12-13] MEDS: AMLODIPINE 5 MG TAB GTB ×2 (10:50→21:06)
[2018-12-13] MEDS: ZYVOX 600 MG TAB PO (10:50)
[2018-12-13] MEDS: MUPIROCIN 2% 22 GM OINT TOP ×2 (10:51→21:06)
[2018-12-13] MEDS: AMPICILLIN 1 GM/NS (PMX) 50 ML IVPB ×2 (13:42→21:07)
[2018-12-13] MEDS: MAGNESIUM HYDROXIDE 30ML CUP GTB (21:04)
[2018-12-13] MEDS: VORICONAZOLE 200 MG TAB PO (21:05)
[2018-12-13] MEDS: ATORVASTATIN 40 MG TAB GTB (21:05)
[2018-12-14] MEDS: GUAIFENESIN/DM 5ML CUP GTB ×6 (03:40→21:44)
[2018-12-14] MEDS: AMPICILLIN 1 GM/NS (PMX) 50 ML IVPB ×3 (05:10→21:44)
[2018-12-14] MEDS: VALPROIC ACID LIQUID CUP 250 MG/5 ML CUP GTB ×3 (05:10→21:44)
[2018-12-14] MEDS: LANSOPRAZOLE 30 MG CAP GTB (05:11)
[2018-12-14 05:53] LABS: ADD MAN DIFF? NO
[2018-12-14 05:59] LABS: WHITE BLOOD COUNT 12.4 10^3/ul (4.8-10.8)
[2018-12-14 05:59] LABS: BASOPHIL # 0.1 10^3/ul (0.0-0.1); BASOPHILS % 0.5 % (0.0-2.0); EOSINOPHILS # 0.3 10^3/ul (0.0-0.5); HEMATOCRIT 26.5 % (37.0-47.0); HEMOGLOBIN 8.3 g/dl (12.0-16.0); LYMPHOCYTES # 1.2 10^3/ul (0.8-2.9); MEAN CORPUSCULAR HEMOGLOBIN 27.9 pg (29.0-33.0); MEAN CORPUSCULAR HGB CONC 31.3 g/dl (32.0-37.0); MEAN CORPUSCULAR VOLUME 88.9 fl (82.0-101.0); MEAN PLATELET VOLUME 10.9 fl (7.4-10.4); MONOCYTE # 1.2 10^3/ul (0.3-0.9); MONOCYTES % 9.3 % (0.0-11.0); NEUTROPHIL # 9.3 10^3/ul (1.6-7.5); NEUTROPHILS % 75.1 % (39.0-77.0); NUCLEATED RED BLOOD CELLS # 0.2 10^3/ul (0.0-0.0); NUCLEATED RED BLOOD CELLS% 1.2 /100WBC (0.0-0.0); PLATELET COUNT 297 10^3/UL (140-415); RED BLOOD COUNT 2.98 10^6/ul (4.20-5.40); RED CELL DISTRIBUTION WIDTH 16.5 % (11.5-14.5)
[2018-12-14 06:13] LABS: ANION GAP 4 (5-13); BLOOD UREA NITROGEN 43 mg/dl (7-20); CALCIUM 8.7 mg/dl (8.4-10.2); CARBON DIOXIDE 30 mmol/L (21-31); CHLORIDE 102 mmol/L (97-110); CREATININE 1.64 mg/dl (0.44-1.00); GLUCOSE 135 mg/dl (70-220); POTASSIUM 4.6 mmol/L (3.5-5.1); SODIUM 136 mmol/L (135-144)
[2018-12-14 06:29] LABS: PHOSPHORUS 2.5 mg/dl (2.5-4.9)
[2018-12-14 06:29] LABS: MAGNESIUM 2.4 mg/dl (1.7-2.5)
[2018-12-14] MEDS: DOCUSATE SODIUM 10 MG/ML (10ML CUP) GTB (10:37)
[2018-12-14] MEDS: VORICONAZOLE 200 MG TAB PO ×2 (10:37→21:44)
[2018-12-14] MEDS: LINAGLIPTIN 5 MG TABLET GTB (10:38)
[2018-12-14] MEDS: ASPIRIN 81 MG TAB GTB (10:39)
[2018-12-14] MEDS: FERROUS SULFATE (EC) 325 MG TAB PO ×2 (10:39→21:47)
[2018-12-14] MEDS: ASCORBIC ACID 500 MG TAB GTB (10:40)
[2018-12-14] MEDS: OLANZAPINE 5 MG TAB GTB (10:40)
[2018-12-14] MEDS: FOLIC ACID 1 MG TAB GTB (10:40)
[2018-12-14] MEDS: AMLODIPINE 5 MG TAB GTB ×2 (10:41→21:45)
[2018-12-14] MEDS: METOPROLOL 50 MG TAB GTB ×2 (10:41→22:00)
[2018-12-14] MEDS: MUPIROCIN 2% 22 GM OINT TOP ×2 (10:43→21:47)
[2018-12-14] MEDS: MAGNESIUM HYDROXIDE 30ML CUP GTB (21:44)
[2018-12-14] MEDS: ATORVASTATIN 40 MG TAB GTB (21:45)
[2018-12-14] MEDS: LORAZEPAM 0.5 MG TAB GTB (22:54)
[2018-12-15] MEDS: GUAIFENESIN/DM 5ML CUP GTB ×6 (04:00→21:51)
[2018-12-15 06:01] LABS: ADD MAN DIFF? NO
[2018-12-15] MEDS: VALPROIC ACID LIQUID CUP 250 MG/5 ML CUP GTB ×3 (06:05→21:51)
[2018-12-15] MEDS: AMPICILLIN 1 GM/NS (PMX) 50 ML IVPB ×3 (06:05→21:50)
[2018-12-15] MEDS: LANSOPRAZOLE 30 MG CAP GTB (06:06)
[2018-12-15 06:10] LABS: ABNORMAL IP MESSAGE 1; BASOPHILS % 0.2 % (0.0-2.0); EOSINOPHILS # 0.2 10^3/ul (0.0-0.5); EOSINOPHILS % 1.3 % (0.0-7.0); LYMPHOCYTES % 7.9 % (15.0-51.0); MEAN CORPUSCULAR HEMOGLOBIN 27.4 pg (29.0-33.0); MEAN CORPUSCULAR HGB CONC 31.4 g/dl (32.0-37.0); MEAN CORPUSCULAR VOLUME 87.3 fl (82.0-101.0); MEAN PLATELET VOLUME 10.8 fl (7.4-10.4); MONOCYTE # 1.2 10^3/ul (0.3-0.9); MONOCYTES % 9.6 % (0.0-11.0); NEUTROPHIL # 10.2 10^3/ul (1.6-7.5); NEUTROPHILS % 78.8 % (39.0-77.0); NUCLEATED RED BLOOD CELLS # 0.2 10^3/ul (0.0-0.0); NUCLEATED RED BLOOD CELLS% 1.5 /100WBC (0.0-0.0); PLATELET COUNT 260 10^3/UL (140-415); RED BLOOD COUNT 2.52 10^6/ul (4.20-5.40); RED CELL DISTRIBUTION WIDTH 16.8 % (11.5-14.5)
[2018-12-15 06:26] LABS: HEMOGLOBIN 6.9 g/dl (12.0-16.0); POSITIVE DIFF @See below
[2018-12-15 06:27] LABS: PATH REVIEW? YES
[2018-12-15 06:30] LABS: PHOSPHORUS 2.4 mg/dl (2.5-4.9)
[2018-12-15 06:32] LABS: ANION GAP 6 (5-13); BLOOD UREA NITROGEN 25 mg/dl (7-20); CARBON DIOXIDE 32 mmol/L (21-31); CHLORIDE 97 mmol/L (97-110); CREATININE 1.08 mg/dl (0.44-1.00); GLUCOSE 145 mg/dl (70-220); SODIUM 135 mmol/L (135-144)
[2018-12-15 09:15] LABS: ANISOCYTOSIS 2+ (0-0); BAND NEUTROPHILS #M 0.2 10^3/ul (0.0-0.6); BAND NEUTROPHILS % (M) 2 % (0-4); BASOPHIL #M 0.2 10^3/ul (0.0-0.0); BASOPHILS % (M) 2 % (0-2); ERYTHROBLAST% (NRBC) (M) 4 % (0-0); HYPOCHROMASIA 1+ (0-0); LYMPHOCYTES #M 1.4 10^3/ul (0.8-2.9); LYMPHOCYTES % (M) 11 % (15-51); MONOCYTE #M 0.7 10^3/ul (0.3-0.9); MONOCYTES % (M) 6 % (0-11); OVALOCYTES 1+ (0-0); PLATELET ESTIMATE NORMAL; POIKILOCYTOSIS 1+ (0-0); POLYCHROMASIA 3+ (0-0); SEG NEUT #M 10.3 10^3/ul (1.6-7.5); SEGMENTED NEUTROPHILS (M) % 79 % (39-77); SMUDGE%M 3 % (0-0)
[2018-12-15] MEDS: AMLODIPINE 5 MG TAB GTB ×2 (10:18→20:25)
[2018-12-15] MEDS: METOPROLOL 50 MG TAB GTB ×2 (10:18→20:25)
[2018-12-15] MEDS: ASPIRIN 81 MG TAB GTB (10:20)
[2018-12-15] MEDS: FERROUS SULFATE (EC) 325 MG TAB PO ×2 (10:20→20:26)
[2018-12-15] MEDS: ASCORBIC ACID 500 MG TAB GTB (10:20)
[2018-12-15] MEDS: FOLIC ACID 1 MG TAB GTB (10:20)
[2018-12-15] MEDS: OLANZAPINE 5 MG TAB GTB (10:20)
[2018-12-15] MEDS: DOCUSATE SODIUM 10 MG/ML (10ML CUP) GTB (10:21)
[2018-12-15] MEDS: VORICONAZOLE 200 MG TAB PO ×2 (10:22→20:25)
[2018-12-15] MEDS: MUPIROCIN 2% 22 GM OINT TOP ×2 (10:24→20:27)
[2018-12-15] MEDS: LINAGLIPTIN 5 MG TABLET GTB (10:56)
[2018-12-15 19:43] LABS: ADD MAN DIFF? NO
[2018-12-15 19:45] LABS: BASOPHILS % 0.4 % (0.0-2.0); EOSINOPHILS # 0.2 10^3/ul (0.0-0.5); EOSINOPHILS % 1.7 % (0.0-7.0); HEMATOCRIT 25.1 % (37.0-47.0); HEMOGLOBIN 8.2 g/dl (12.0-16.0); LYMPHOCYTES # 0.9 10^3/ul (0.8-2.9); LYMPHOCYTES % 8.1 % (15.0-51.0); MEAN CORPUSCULAR HEMOGLOBIN 28.4 pg (29.0-33.0); MEAN CORPUSCULAR HGB CONC 32.7 g/dl (32.0-37.0); MEAN CORPUSCULAR VOLUME 86.9 fl (82.0-101.0); MEAN PLATELET VOLUME 10.3 fl (7.4-10.4); MONOCYTE # 1.2 10^3/ul (0.3-0.9); MONOCYTES % 10.9 % (0.0-11.0); NEUTROPHIL # 8.7 10^3/ul (1.6-7.5); NEUTROPHILS % 76.5 % (39.0-77.0); NUCLEATED RED BLOOD CELLS # 0.2 10^3/ul (0.0-0.0); NUCLEATED RED BLOOD CELLS% 1.3 /100WBC (0.0-0.0); PLATELET COUNT 204 10^3/UL (140-415); RED BLOOD COUNT 2.89 10^6/ul (4.20-5.40); RED CELL DISTRIBUTION WIDTH 15.7 % (11.5-14.5)
[2018-12-15 19:45] LABS: WHITE BLOOD COUNT 11.3 10^3/ul (4.8-10.8)
[2018-12-15] MEDS: MAGNESIUM HYDROXIDE 30ML CUP GTB (20:26)
[2018-12-15] MEDS: ATORVASTATIN 40 MG TAB GTB (20:26)
[2018-12-15] MEDS: INSULIN GLARGINE [LANTus] (100 UNITS/ML) SYG SC (21:24)
[2018-12-15] MEDS: LORAZEPAM 0.5 MG TAB GTB (21:51)
[2018-12-16] MEDS: GUAIFENESIN/DM 5ML CUP GTB ×6 (03:43→23:30)
[2018-12-16] MEDS: VALPROIC ACID LIQUID CUP 250 MG/5 ML CUP GTB ×3 (05:49→21:42)
[2018-12-16] MEDS: LANSOPRAZOLE 30 MG CAP GTB (05:49)
[2018-12-16 06:06] LABS: ADD MAN DIFF? NO
[2018-12-16 06:24] LABS: BASOPHIL # 0.1 10^3/ul (0.0-0.1); BASOPHILS % 0.5 % (0.0-2.0); EOSINOPHILS # 0.2 10^3/ul (0.0-0.5); EOSINOPHILS % 1.8 % (0.0-7.0); HEMATOCRIT 23.9 % (37.0-47.0); HEMOGLOBIN 7.9 g/dl (12.0-16.0); LYMPHOCYTES % 8.8 % (15.0-51.0); MEAN CORPUSCULAR HEMOGLOBIN 28.5 pg (29.0-33.0); MEAN CORPUSCULAR HGB CONC 33.1 g/dl (32.0-37.0); MEAN CORPUSCULAR VOLUME 86.3 fl (82.0-101.0); MEAN PLATELET VOLUME 11.3 fl (7.4-10.4); MONOCYTE # 1.2 10^3/ul (0.3-0.9); MONOCYTES % 10.3 % (0.0-11.0); NEUTROPHIL # 8.7 10^3/ul (1.6-7.5); NEUTROPHILS % 76.1 % (39.0-77.0); NUCLEATED RED BLOOD CELLS # 0.2 10^3/ul (0.0-0.0); NUCLEATED RED BLOOD CELLS% 1.4 /100WBC (0.0-0.0); PLATELET COUNT 238 10^3/UL (140-415); RED BLOOD COUNT 2.77 10^6/ul (4.20-5.40)
[2018-12-16 06:24] LABS: WHITE BLOOD COUNT 11.4 10^3/ul (4.8-10.8)
[2018-12-16 06:40] LABS: ANION GAP 6 (5-13); BLOOD UREA NITROGEN 51 mg/dl (7-20); CALCIUM 8.4 mg/dl (8.4-10.2); CARBON DIOXIDE 31 mmol/L (21-31); CHLORIDE 97 mmol/L (97-110); CREATININE 1.75 mg/dl (0.44-1.00); GLUCOSE 122 mg/dl (70-220); SODIUM 134 mmol/L (135-144)
[2018-12-16] MEDS: AMPICILLIN 1 GM/NS (PMX) 50 ML IVPB ×3 (06:42→21:42)
[2018-12-16 06:51] LABS: MAGNESIUM 2.5 mg/dl (1.7-2.5)
[2018-12-16 06:51] LABS: PHOSPHORUS 3.2 mg/dl (2.5-4.9)
[2018-12-16] MEDS: LINAGLIPTIN 5 MG TABLET GTB (08:12)
[2018-12-16] MEDS: FOLIC ACID 1 MG TAB GTB (08:12)
[2018-12-16] MEDS: DOCUSATE SODIUM 10 MG/ML (10ML CUP) GTB (08:12)
[2018-12-16] MEDS: AMLODIPINE 5 MG TAB GTB ×2 (08:13→20:50)
[2018-12-16] MEDS: METOPROLOL 50 MG TAB GTB ×2 (08:13→20:51)
[2018-12-16] MEDS: VORICONAZOLE 200 MG TAB PO ×2 (08:14→20:49)
[2018-12-16] MEDS: ASCORBIC ACID 500 MG TAB GTB (08:14)
[2018-12-16] MEDS: FERROUS SULFATE (EC) 325 MG TAB PO ×2 (08:14→20:49)
[2018-12-16] MEDS: OLANZAPINE 5 MG TAB GTB (08:14)
[2018-12-16] MEDS: MUPIROCIN 2% 22 GM OINT TOP ×2 (08:15→20:51)
[2018-12-16] MEDS: INSULIN GLARGINE [LANTus] (100 UNITS/ML) SYG SC (20:01)
[2018-12-16] MEDS: ATORVASTATIN 40 MG TAB GTB (20:49)
[2018-12-16] MEDS: MAGNESIUM HYDROXIDE 30ML CUP GTB (20:49)
[2018-12-16] MEDS: LORAZEPAM 0.5 MG TAB GTB (21:43)
[2018-12-17] MEDS: GUAIFENESIN/DM 5ML CUP GTB ×6 (03:08→23:44)
[2018-12-17] MEDS: LORAZEPAM 0.5 MG TAB GTB ×2 (03:08→21:43)
[2018-12-17] MEDS: AMPICILLIN 1 GM/NS (PMX) 50 ML IVPB ×3 (05:32→21:44)
[2018-12-17] MEDS: VALPROIC ACID LIQUID CUP 250 MG/5 ML CUP GTB ×3 (05:32→21:44)
[2018-12-17] MEDS: LANSOPRAZOLE 30 MG CAP GTB ×2 (05:33→17:33)
[2018-12-17 05:55] LABS: ADD MAN DIFF? NO
[2018-12-17 05:59] LABS: WHITE BLOOD COUNT 12.6 10^3/ul (4.8-10.8)
[2018-12-17 05:59] LABS: BASOPHILS % 0.2 % (0.0-2.0); EOSINOPHILS # 0.3 10^3/ul (0.0-0.5); EOSINOPHILS % 2.2 % (0.0-7.0); HEMATOCRIT 23.3 % (37.0-47.0); HEMOGLOBIN 7.6 g/dl (12.0-16.0); LYMPHOCYTES % 7.9 % (15.0-51.0); MEAN CORPUSCULAR HEMOGLOBIN 28.3 pg (29.0-33.0); MEAN CORPUSCULAR HGB CONC 32.6 g/dl (32.0-37.0); MEAN CORPUSCULAR VOLUME 86.6 fl (82.0-101.0); MEAN PLATELET VOLUME 10.8 fl (7.4-10.4); MONOCYTE # 1.3 10^3/ul (0.3-0.9); NEUTROPHIL # 9.7 10^3/ul (1.6-7.5); NEUTROPHILS % 77.3 % (39.0-77.0); NUCLEATED RED BLOOD CELLS # 0.1 10^3/ul (0.0-0.0); PLATELET COUNT 239 10^3/UL (140-415); RED BLOOD COUNT 2.69 10^6/ul (4.20-5.40); RED CELL DISTRIBUTION WIDTH 16.4 % (11.5-14.5)
[2018-12-17 06:23] LABS: ANION GAP 7 (5-13); BLOOD UREA NITROGEN 68 mg/dl (7-20); CALCIUM 8.4 mg/dl (8.4-10.2); CARBON DIOXIDE 30 mmol/L (21-31); CHLORIDE 95 mmol/L (97-110); CREATININE 2.15 mg/dl (0.44-1.00); GLUCOSE 125 mg/dl (70-220); POTASSIUM 4.2 mmol/L (3.5-5.1); SODIUM 132 mmol/L (135-144)
[2018-12-17 06:25] LABS: PHOSPHORUS 3.6 mg/dl (2.5-4.9)
[2018-12-17] MEDS: VORICONAZOLE 200 MG TAB PO ×2 (08:41→20:53)
[2018-12-17] MEDS: FOLIC ACID 1 MG TAB GTB (08:41)
[2018-12-17] MEDS: ASCORBIC ACID 500 MG TAB GTB (08:41)
[2018-12-17] MEDS: LINAGLIPTIN 5 MG TABLET GTB (08:42)
[2018-12-17] MEDS: OLANZAPINE 5 MG TAB GTB (08:42)
[2018-12-17] MEDS: FERROUS SULFATE (EC) 325 MG TAB PO ×2 (08:42→20:52)
[2018-12-17] MEDS: AMLODIPINE 5 MG TAB GTB ×2 (08:43→20:53)
[2018-12-17] MEDS: METOPROLOL 50 MG TAB GTB ×2 (08:43→20:53)
[2018-12-17] MEDS: MUPIROCIN 2% 22 GM OINT TOP ×2 (08:43→20:52)
[2018-12-17 08:44] LABS: HEPATITIS B SURFACE ANTIGEN NEGATIVE (NEGATIVE)
[2018-12-17] MEDS: DOCUSATE SODIUM 10 MG/ML (10ML CUP) GTB (08:50)
[2018-12-17 09:12] LABS: IMMEDIATE SPIN CROSSMATCH 1 3
[2018-12-17] MEDS: EPOETIN ALFA-EPBX (ESRD) 4,000 UNIT/ML VIAL SC (17:34)
[2018-12-17] MEDS ORDERED: PANTOPRAZOLE 40 MG INJ IV (18:00)
[2018-12-17] MEDS: ATORVASTATIN 40 MG TAB GTB (20:52)
[2018-12-17] MEDS: INSULIN GLARGINE [LANTus] (100 UNITS/ML) SYG SC (21:05)
[2018-12-18] MEDS: GUAIFENESIN/DM 5ML CUP GTB ×6 (03:53→22:35)
[2018-12-18] MEDS: VALPROIC ACID LIQUID CUP 250 MG/5 ML CUP GTB ×3 (05:49→22:17)
[2018-12-18] MEDS: AMPICILLIN 1 GM/NS (PMX) 50 ML IVPB ×3 (05:49→22:08)
[2018-12-18] MEDS: LANSOPRAZOLE 30 MG CAP GTB ×2 (05:49→18:39)
[2018-12-18 05:53] LABS: ADD MAN DIFF? NO
[2018-12-18 05:55] LABS: BASOPHIL # 0.1 10^3/ul (0.0-0.1); BASOPHILS % 0.5 % (0.0-2.0); EOSINOPHILS # 0.2 10^3/ul (0.0-0.5); EOSINOPHILS % 1.3 % (0.0-7.0); HEMATOCRIT 29.5 % (37.0-47.0); HEMOGLOBIN 9.6 g/dl (12.0-16.0); LYMPHOCYTES % 6.8 % (15.0-51.0); MEAN CORPUSCULAR HGB CONC 32.5 g/dl (32.0-37.0); MEAN PLATELET VOLUME 10.9 fl (7.4-10.4); MONOCYTE # 1.3 10^3/ul (0.3-0.9); MONOCYTES % 9.1 % (0.0-11.0); NEUTROPHIL # 11.7 10^3/ul (1.6-7.5); NEUTROPHILS % 80.9 % (39.0-77.0); NUCLEATED RED BLOOD CELLS # 0.1 10^3/ul (0.0-0.0); PLATELET COUNT 255 10^3/UL (140-415); RED BLOOD COUNT 3.43 10^6/ul (4.20-5.40); RED CELL DISTRIBUTION WIDTH 17.2 % (11.5-14.5)
[2018-12-18 05:55] LABS: WHITE BLOOD COUNT 14.4 10^3/ul (4.8-10.8)
[2018-12-18 06:19] LABS: ANION GAP 6 (5-13); BLOOD UREA NITROGEN 37 mg/dl (7-20); CALCIUM 8.5 mg/dl (8.4-10.2); CARBON DIOXIDE 31 mmol/L (21-31); CHLORIDE 99 mmol/L (97-110); GLUCOSE 115 mg/dl (70-220); POTASSIUM 4.1 mmol/L (3.5-5.1); SODIUM 136 mmol/L (135-144)
[2018-12-18 06:27] LABS: MAGNESIUM 2.8 mg/dl (1.7-2.5)
[2018-12-18 06:27] LABS: PHOSPHORUS 3.1 mg/dl (2.5-4.9)
[2018-12-18] MEDS: METOPROLOL 50 MG TAB GTB ×2 (09:03→20:30)
[2018-12-18] MEDS: LINAGLIPTIN 5 MG TABLET GTB (09:03)
[2018-12-18] MEDS: DOCUSATE SODIUM 10 MG/ML (10ML CUP) GTB (09:03)
[2018-12-18] MEDS: AMLODIPINE 5 MG TAB GTB ×2 (09:05→20:30)
[2018-12-18] MEDS: FOLIC ACID 1 MG TAB GTB (09:05)
[2018-12-18] MEDS: FERROUS SULFATE (EC) 325 MG TAB PO ×2 (09:05→20:30)
[2018-12-18] MEDS: OLANZAPINE 2.5 MG TAB GTB (09:05)
[2018-12-18] MEDS: VORICONAZOLE 200 MG TAB PO ×2 (09:05→20:29)
[2018-12-18] MEDS: ASCORBIC ACID 500 MG TAB GTB (09:06)
[2018-12-18] MEDS: MUPIROCIN 2% 22 GM OINT TOP ×2 (09:06→20:33)
[2018-12-18 12:13] LABS: OCCULT BLOOD STOOL NEGATIVE (NEGATIVE)
[2018-12-18] MEDS: ATORVASTATIN 40 MG TAB GTB (20:29)
[2018-12-18] MEDS: INSULIN GLARGINE [LANTus] (100 UNITS/ML) SYG SC (20:51)
[2018-12-18] MEDS: LORAZEPAM 0.5 MG TAB GTB (22:08)
[2018-12-18 23:36] LABS: OCCULT BLOOD STOOL NEGATIVE (NEGATIVE)
[2018-12-19] MEDS: GUAIFENESIN/DM 5ML CUP GTB ×3 (03:39→11:30)
[2018-12-19 06:08] LABS: ADD MAN DIFF? NO
[2018-12-19 06:12] LABS: WHITE BLOOD COUNT 15.4 10^3/ul (4.8-10.8)
[2018-12-19 06:12] LABS: BASOPHILS % 0.3 % (0.0-2.0); EOSINOPHILS # 0.2 10^3/ul (0.0-0.5); EOSINOPHILS % 1.3 % (0.0-7.0); HEMATOCRIT 28.9 % (37.0-47.0); HEMOGLOBIN 9.3 g/dl (12.0-16.0); LYMPHOCYTES # 1.2 10^3/ul (0.8-2.9); LYMPHOCYTES % 7.9 % (15.0-51.0); MEAN CORPUSCULAR HEMOGLOBIN 27.4 pg (29.0-33.0); MEAN CORPUSCULAR HGB CONC 32.2 g/dl (32.0-37.0); MEAN PLATELET VOLUME 11.2 fl (7.4-10.4); MONOCYTE # 1.5 10^3/ul (0.3-0.9); MONOCYTES % 9.7 % (0.0-11.0); NEUTROPHIL # 12.2 10^3/ul (1.6-7.5); NEUTROPHILS % 79.2 % (39.0-77.0); NUCLEATED RED BLOOD CELLS # 0.2 10^3/ul (0.0-0.0); PLATELET COUNT 295 10^3/UL (140-415); RED CELL DISTRIBUTION WIDTH 16.7 % (11.5-14.5)
[2018-12-19] MEDS: AMPICILLIN 1 GM/NS (PMX) 50 ML IVPB ×3 (06:13→21:16)
[2018-12-19] MEDS: LANSOPRAZOLE 30 MG CAP GTB ×2 (06:13→18:15)
[2018-12-19] MEDS: LORAZEPAM 0.5 MG TAB GTB (06:13)
[2018-12-19] MEDS: VALPROIC ACID LIQUID CUP 250 MG/5 ML CUP GTB ×3 (06:13→21:07)
[2018-12-19 06:49] LABS: PHOSPHORUS 3.8 mg/dl (2.5-4.9)
[2018-12-19 06:50] LABS: ANION GAP 8 (5-13); BLOOD UREA NITROGEN 57 mg/dl (7-20); CALCIUM 8.3 mg/dl (8.4-10.2); CARBON DIOXIDE 29 mmol/L (21-31); CHLORIDE 97 mmol/L (97-110); CREATININE 1.84 mg/dl (0.44-1.00); GLUCOSE 135 mg/dl (70-220); POTASSIUM 4.3 mmol/L (3.5-5.1); SODIUM 134 mmol/L (135-144)
[2018-12-19] MEDS: METOPROLOL 50 MG TAB GTB ×3 (09:00→20:50)
[2018-12-19] MEDS: AMLODIPINE 5 MG TAB GTB ×3 (09:00→20:50)
[2018-12-19] MEDS: DOCUSATE SODIUM 10 MG/ML (10ML CUP) GTB (09:10)
[2018-12-19] MEDS: OLANZAPINE 2.5 MG TAB GTB (09:10)
[2018-12-19] MEDS: FOLIC ACID 1 MG TAB GTB (09:11)
[2018-12-19] MEDS: LINAGLIPTIN 5 MG TABLET GTB (09:11)
[2018-12-19] MEDS: FERROUS SULFATE (EC) 325 MG TAB PO ×2 (09:11→20:49)
[2018-12-19] MEDS: ASCORBIC ACID 500 MG TAB GTB (09:12)
[2018-12-19] MEDS: VORICONAZOLE 200 MG TAB PO ×2 (09:12→20:50)
[2018-12-19] MEDS: MUPIROCIN 2% 22 GM OINT TOP ×2 (09:13→21:06)
[2018-12-19] MEDS: EPOETIN ALFA-EPBX (ESRD) 4,000 UNIT/ML VIAL SC (18:17)
[2018-12-19] MEDS: ATORVASTATIN 40 MG TAB GTB (20:49)
[2018-12-19] MEDS: INSULIN GLARGINE [LANTus] (100 UNITS/ML) SYG SC (20:59)
[2018-12-20] MEDS: LANSOPRAZOLE 30 MG CAP GTB ×2 (06:35→17:29)
[2018-12-20] MEDS: AMPICILLIN 1 GM/NS (PMX) 50 ML IVPB ×3 (06:35→21:51)
[2018-12-20] MEDS: VALPROIC ACID LIQUID CUP 250 MG/5 ML CUP GTB ×3 (06:35→21:51)
[2018-12-20 06:41] LABS: ADD MAN DIFF? NO
[2018-12-20 06:51] LABS: BASOPHILS % 0.3 % (0.0-2.0); EOSINOPHILS # 0.2 10^3/ul (0.0-0.5); EOSINOPHILS % 2.1 % (0.0-7.0); HEMATOCRIT 27.2 % (37.0-47.0); HEMOGLOBIN 8.5 g/dl (12.0-16.0); LYMPHOCYTES # 0.8 10^3/ul (0.8-2.9); MEAN CORPUSCULAR HGB CONC 31.3 g/dl (32.0-37.0); MEAN CORPUSCULAR VOLUME 86.3 fl (82.0-101.0); MEAN PLATELET VOLUME 11.1 fl (7.4-10.4); MONOCYTES % 11.1 % (0.0-11.0); NEUTROPHIL # 6.7 10^3/ul (1.6-7.5); NEUTROPHILS % 76.3 % (39.0-77.0); NUCLEATED RED BLOOD CELLS # 0.1 10^3/ul (0.0-0.0); NUCLEATED RED BLOOD CELLS% 1.1 /100WBC (0.0-0.0); PLATELET COUNT 273 10^3/UL (140-415); RED BLOOD COUNT 3.15 10^6/ul (4.20-5.40); RED CELL DISTRIBUTION WIDTH 16.5 % (11.5-14.5)
[2018-12-20 06:51] LABS: WHITE BLOOD COUNT 8.9 10^3/ul (4.8-10.8)
[2018-12-20 07:10] LABS: MAGNESIUM 2.5 mg/dl (1.7-2.5)
[2018-12-20 07:14] LABS: ANION GAP 4 (5-13); BLOOD UREA NITROGEN 35 mg/dl (7-20); CALCIUM 7.8 mg/dl (8.4-10.2); CARBON DIOXIDE 32 mmol/L (21-31); CHLORIDE 97 mmol/L (97-110); CREATININE 1.32 mg/dl (0.44-1.00); GLUCOSE 133 mg/dl (70-220); POTASSIUM 3.7 mmol/L (3.5-5.1); SODIUM 133 mmol/L (135-144)
[2018-12-20] MEDS: OLANZAPINE 2.5 MG TAB GTB ×2 (09:00→09:50)
[2018-12-20] MEDS: ASCORBIC ACID 500 MG TAB GTB (09:02)
[2018-12-20] MEDS: LINAGLIPTIN 5 MG TABLET GTB (09:02)
[2018-12-20] MEDS: FERROUS SULFATE (EC) 325 MG TAB PO ×2 (09:03→20:26)
[2018-12-20] MEDS: FOLIC ACID 1 MG TAB GTB (09:03)
[2018-12-20] MEDS: VORICONAZOLE 200 MG TAB PO ×2 (09:03→20:27)
[2018-12-20] MEDS: DOCUSATE SODIUM 10 MG/ML (10ML CUP) GTB (09:03)
[2018-12-20] MEDS: AMLODIPINE 5 MG TAB GTB ×2 (09:04→20:28)
[2018-12-20] MEDS: METOPROLOL 50 MG TAB GTB ×2 (09:05→20:28)
[2018-12-20] MEDS: MUPIROCIN 2% 22 GM OINT TOP ×2 (09:06→20:29)
[2018-12-20] MEDS: ATORVASTATIN 40 MG TAB GTB (20:26)
[2018-12-20] MEDS: INSULIN GLARGINE [LANTus] (100 UNITS/ML) SYG SC (20:55)
[2018-12-20] MEDS: LORAZEPAM 0.5 MG TAB GTB (21:51)
[2018-12-21] MEDS: LORAZEPAM 0.5 MG TAB GTB (01:18)
[2018-12-21] MEDS: VALPROIC ACID LIQUID CUP 250 MG/5 ML CUP GTB ×3 (05:27→20:59)
[2018-12-21] MEDS: AMPICILLIN 1 GM/NS (PMX) 50 ML IVPB ×2 (05:27→13:06)
[2018-12-21] MEDS: LANSOPRAZOLE 30 MG CAP GTB ×2 (05:34→17:23)
[2018-12-21 06:09] LABS: ADD MAN DIFF? NO
[2018-12-21 06:17] LABS: ABNORMAL IP MESSAGE 1; BASOPHILS % 0.2 % (0.0-2.0); EOSINOPHILS # 0.1 10^3/ul (0.0-0.5); EOSINOPHILS % 1.1 % (0.0-7.0); HEMATOCRIT 26.8 % (37.0-47.0); HEMOGLOBIN 8.5 g/dl (12.0-16.0); LYMPHOCYTES # 1.2 10^3/ul (0.8-2.9); LYMPHOCYTES % 9.2 % (15.0-51.0); MEAN CORPUSCULAR HEMOGLOBIN 27.2 pg (29.0-33.0); MEAN CORPUSCULAR HGB CONC 31.7 g/dl (32.0-37.0); MEAN CORPUSCULAR VOLUME 85.6 fl (82.0-101.0); MEAN PLATELET VOLUME 11.3 fl (7.4-10.4); MONOCYTE # 1.5 10^3/ul (0.3-0.9); MONOCYTES % 11.8 % (0.0-11.0); NEUTROPHIL # 9.8 10^3/ul (1.6-7.5); NEUTROPHILS % 76.4 % (39.0-77.0); NUCLEATED RED BLOOD CELLS # 0.1 10^3/ul (0.0-0.0); NUCLEATED RED BLOOD CELLS% 0.5 /100WBC (0.0-0.0); PLATELET COUNT 321 10^3/UL (140-415); RED BLOOD COUNT 3.13 10^6/ul (4.20-5.40); RED CELL DISTRIBUTION WIDTH 16.1 % (11.5-14.5)
[2018-12-21 06:17] LABS: WHITE BLOOD COUNT 12.9 10^3/ul (4.8-10.8)
[2018-12-21 06:27] LABS: POSITIVE DIFF @See below
[2018-12-21 06:39] LABS: MAGNESIUM 2.7 mg/dl (1.7-2.5)
[2018-12-21 06:39] LABS: PHOSPHORUS 3.8 mg/dl (2.5-4.9)
[2018-12-21 06:51] LABS: ANION GAP 7 (5-13); BLOOD UREA NITROGEN 56 mg/dl (7-20); CALCIUM 8.4 mg/dl (8.4-10.2); CARBON DIOXIDE 31 mmol/L (21-31); CHLORIDE 96 mmol/L (97-110); CREATININE 1.91 mg/dl (0.44-1.00); GLUCOSE 136 mg/dl (70-220); POTASSIUM 3.7 mmol/L (3.5-5.1); SODIUM 134 mmol/L (135-144)
[2018-12-21] MEDS: AMLODIPINE 5 MG TAB GTB ×2 (08:56→20:59)
[2018-12-21] MEDS: FOLIC ACID 1 MG TAB GTB (08:56)
[2018-12-21] MEDS: VORICONAZOLE 200 MG TAB PO (08:57)
[2018-12-21] MEDS: ASCORBIC ACID 500 MG TAB GTB (08:57)
[2018-12-21] MEDS: LINAGLIPTIN 5 MG TABLET GTB (08:57)
[2018-12-21] MEDS: METOPROLOL 50 MG TAB GTB ×2 (08:57→20:59)
[2018-12-21] MEDS: OLANZAPINE 2.5 MG TAB GTB (08:57)
[2018-12-21] MEDS: FERROUS SULFATE (EC) 325 MG TAB PO ×2 (08:57→21:00)
[2018-12-21] MEDS: DOCUSATE SODIUM 10 MG/ML (10ML CUP) GTB (08:58)
[2018-12-21] MEDS: MUPIROCIN 2% 22 GM OINT TOP ×2 (08:58→21:00)
[2018-12-21] MEDS: EPOETIN ALFA-EPBX (ESRD) 4,000 UNIT/ML VIAL SC (17:23)
[2018-12-21] MEDS: ATORVASTATIN 40 MG TAB GTB (20:59)
[2018-12-21] MEDS: INSULIN GLARGINE [LANTus] (100 UNITS/ML) SYG SC (21:51)
[2018-12-22] MEDS: AMPICILLIN 1 GM/NS (PMX) 50 ML IVPB ×4 (00:25→22:45)
[2018-12-22] MEDS: LANSOPRAZOLE 30 MG CAP GTB ×2 (06:17→17:26)
[2018-12-22] MEDS: DOCUSATE SODIUM 10 MG/ML (10ML CUP) GTB (08:20)
[2018-12-22] MEDS: VALPROIC ACID LIQUID CUP 250 MG/5 ML CUP GTB ×3 (08:24→22:44)
[2018-12-22] MEDS: ASCORBIC ACID 500 MG TAB GTB (08:25)
[2018-12-22] MEDS: METOPROLOL 50 MG TAB GTB ×2 (08:25→21:53)
[2018-12-22] MEDS: AMLODIPINE 5 MG TAB GTB ×2 (08:25→21:53)
[2018-12-22] MEDS: LINAGLIPTIN 5 MG TABLET GTB (08:25)
[2018-12-22] MEDS: FOLIC ACID 1 MG TAB GTB (08:25)
[2018-12-22] MEDS: FERROUS SULFATE (EC) 325 MG TAB PO ×2 (08:29→21:53)
[2018-12-22] MEDS: OLANZAPINE 2.5 MG TAB GTB (09:34)
[2018-12-22] MEDS: MUPIROCIN 2% 22 GM OINT TOP ×2 (09:34→21:54)
[2018-12-22] MEDS: CASPOFUNGIN 70 MG in SOD CHLORIDE 0.9% 250 ML IVPB (18:24)
[2018-12-22] MEDS: ATORVASTATIN 40 MG TAB GTB (21:53)
[2018-12-22] MEDS: MICONAZOLE 100 MG VAG SUPP VAG (21:54)
[2018-12-22] MEDS: INSULIN GLARGINE [LANTus] (100 UNITS/ML) SYG SC (21:58)
[2018-12-23] MEDS: VALPROIC ACID LIQUID CUP 250 MG/5 ML CUP GTB ×3 (05:44→21:53)
[2018-12-23] MEDS: LANSOPRAZOLE 30 MG CAP GTB ×2 (05:44→17:35)
[2018-12-23] MEDS: AMPICILLIN 1 GM/NS (PMX) 50 ML IVPB ×3 (05:44→21:54)
[2018-12-23 06:03] LABS: ADD MAN DIFF? NO
[2018-12-23 06:09] LABS: WHITE BLOOD COUNT 12.3 10^3/ul (4.8-10.8)
[2018-12-23 06:09] LABS: BASOPHILS % 0.2 % (0.0-2.0); EOSINOPHILS # 0.4 10^3/ul (0.0-0.5); EOSINOPHILS % 3.4 % (0.0-7.0); HEMATOCRIT 26.7 % (37.0-47.0); HEMOGLOBIN 8.4 g/dl (12.0-16.0); LYMPHOCYTES # 0.8 10^3/ul (0.8-2.9); LYMPHOCYTES % 6.3 % (15.0-51.0); MEAN CORPUSCULAR HEMOGLOBIN 27.2 pg (29.0-33.0); MEAN CORPUSCULAR HGB CONC 31.5 g/dl (32.0-37.0); MEAN CORPUSCULAR VOLUME 86.4 fl (82.0-101.0); MEAN PLATELET VOLUME 11.4 fl (7.4-10.4); MONOCYTE # 1.2 10^3/ul (0.3-0.9); MONOCYTES % 10.1 % (0.0-11.0); NEUTROPHIL # 9.7 10^3/ul (1.6-7.5); NEUTROPHILS % 78.8 % (39.0-77.0); NUCLEATED RED BLOOD CELLS # 0.1 10^3/ul (0.0-0.0); NUCLEATED RED BLOOD CELLS% 0.6 /100WBC (0.0-0.0); PLATELET COUNT 332 10^3/UL (140-415); RED BLOOD COUNT 3.09 10^6/ul (4.20-5.40); RED CELL DISTRIBUTION WIDTH 15.9 % (11.5-14.5)
[2018-12-23 06:44] LABS: ANION GAP 7 (5-13); BLOOD UREA NITROGEN 50 mg/dl (7-20); CALCIUM 8.9 mg/dl (8.4-10.2); CARBON DIOXIDE 26 mmol/L (21-31); CHLORIDE 101 mmol/L (97-110); CREATININE 1.85 mg/dl (0.44-1.00); GLUCOSE 152 mg/dl (70-220); POTASSIUM 3.9 mmol/L (3.5-5.1); SODIUM 134 mmol/L (135-144)
[2018-12-23 06:46] LABS: MAGNESIUM 2.5 mg/dl (1.7-2.5)
[2018-12-23 06:46] LABS: PHOSPHORUS 3.5 mg/dl (2.5-4.9)
[2018-12-23] MEDS: DOCUSATE SODIUM 10 MG/ML (10ML CUP) GTB (08:34)
[2018-12-23] MEDS: ASCORBIC ACID 500 MG TAB GTB (08:35)
[2018-12-23] MEDS: FOLIC ACID 1 MG TAB GTB (08:35)
[2018-12-23] MEDS: OLANZAPINE 2.5 MG TAB GTB (08:35)
[2018-12-23] MEDS: AMLODIPINE 5 MG TAB GTB ×2 (08:35→21:53)
[2018-12-23] MEDS: LINAGLIPTIN 5 MG TABLET GTB (08:36)
[2018-12-23] MEDS: FERROUS SULFATE (EC) 325 MG TAB PO ×2 (08:36→21:52)
[2018-12-23] MEDS: METOPROLOL 50 MG TAB GTB ×2 (08:36→21:53)
[2018-12-23] MEDS: MUPIROCIN 2% 22 GM OINT TOP ×2 (08:36→21:56)
[2018-12-23] MEDS: LORAZEPAM 0.5 MG TAB GTB (15:04)
[2018-12-23] MEDS: CASPOFUNGIN 50 MG in SOD CHLORIDE 0.9% 250 ML IVPB (17:35)
[2018-12-23] MEDS: ATORVASTATIN 40 MG TAB GTB (21:53)
[2018-12-23] MEDS: INSULIN GLARGINE [LANTus] (100 UNITS/ML) SYG SC (22:04)
[2018-12-23] MEDS: MICONAZOLE 100 MG VAG SUPP VAG (22:05)
[2018-12-24 05:52] LABS: ADD MAN DIFF? NO
[2018-12-24] MEDS: AMPICILLIN 1 GM/NS (PMX) 50 ML IVPB ×3 (05:52→23:50)
[2018-12-24] MEDS: VALPROIC ACID LIQUID CUP 250 MG/5 ML CUP GTB ×3 (05:52→21:34)
[2018-12-24] MEDS: LANSOPRAZOLE 30 MG CAP GTB ×2 (05:53→18:39)
[2018-12-24 06:00] LABS: BASOPHILS % 0.3 % (0.0-2.0); EOSINOPHILS # 0.4 10^3/ul (0.0-0.5); EOSINOPHILS % 4.1 % (0.0-7.0); HEMATOCRIT 24.3 % (37.0-47.0); HEMOGLOBIN 7.8 g/dl (12.0-16.0); LYMPHOCYTES # 1.1 10^3/ul (0.8-2.9); LYMPHOCYTES % 11.1 % (15.0-51.0); MEAN CORPUSCULAR HEMOGLOBIN 27.6 pg (29.0-33.0); MEAN CORPUSCULAR HGB CONC 32.1 g/dl (32.0-37.0); MEAN CORPUSCULAR VOLUME 85.9 fl (82.0-101.0); MEAN PLATELET VOLUME 11.4 fl (7.4-10.4); MONOCYTE # 0.8 10^3/ul (0.3-0.9); MONOCYTES % 8.2 % (0.0-11.0); NEUTROPHIL # 7.6 10^3/ul (1.6-7.5); NEUTROPHILS % 75.3 % (39.0-77.0); NUCLEATED RED BLOOD CELLS # 0.1 10^3/ul (0.0-0.0); NUCLEATED RED BLOOD CELLS% 0.5 /100WBC (0.0-0.0); PLATELET COUNT 306 10^3/UL (140-415); RED BLOOD COUNT 2.83 10^6/ul (4.20-5.40); RED CELL DISTRIBUTION WIDTH 15.8 % (11.5-14.5)
[2018-12-24 06:00] LABS: WHITE BLOOD COUNT 10.1 10^3/ul (4.8-10.8)
[2018-12-24 06:26] LABS: MAGNESIUM 2.6 mg/dl (1.7-2.5)
[2018-12-24 06:26] LABS: PHOSPHORUS 3.6 mg/dl (2.5-4.9)
[2018-12-24 06:47] LABS: ANION GAP 8 (5-13); BLOOD UREA NITROGEN 64 mg/dl (7-20); CALCIUM 8.3 mg/dl (8.4-10.2); CARBON DIOXIDE 25 mmol/L (21-31); CHLORIDE 101 mmol/L (97-110); CREATININE 2.18 mg/dl (0.44-1.00); GLUCOSE 131 mg/dl (70-220); SODIUM 134 mmol/L (135-144)
[2018-12-24] MEDS: METOPROLOL 50 MG TAB GTB ×2 (08:58→21:34)
[2018-12-24] MEDS: AMLODIPINE 5 MG TAB GTB ×2 (08:58→21:35)
[2018-12-24] MEDS: FOLIC ACID 1 MG TAB GTB (09:00)
[2018-12-24] MEDS: FERROUS SULFATE (EC) 325 MG TAB PO ×2 (09:00→21:34)
[2018-12-24] MEDS: ASCORBIC ACID 500 MG TAB GTB (09:00)
[2018-12-24] MEDS: OLANZAPINE 2.5 MG TAB GTB (09:00)
[2018-12-24] MEDS: DOCUSATE SODIUM 10 MG/ML (10ML CUP) GTB (09:00)
[2018-12-24] MEDS: LINAGLIPTIN 5 MG TABLET GTB (09:00)
[2018-12-24] MEDS: MUPIROCIN 2% 22 GM OINT TOP ×2 (09:01→20:18)
[2018-12-24] MEDS: EPOETIN ALFA-EPBX (ESRD) 4,000 UNIT/ML VIAL SC (18:40)
[2018-12-24] MEDS: CASPOFUNGIN 50 MG in SOD CHLORIDE 0.9% 250 ML IVPB (20:14)
[2018-12-24] MEDS: INSULIN GLARGINE [LANTus] (100 UNITS/ML) SYG SC (20:18)
[2018-12-24] MEDS: MICONAZOLE 100 MG VAG SUPP VAG (21:00)
[2018-12-24] MEDS: ATORVASTATIN 40 MG TAB GTB (21:33)
[2018-12-24] MEDS: LORAZEPAM 0.5 MG TAB GTB (21:33)
[2018-12-25] MEDS: AMPICILLIN 1 GM/NS (PMX) 50 ML IVPB ×3 (05:13→22:10)
[2018-12-25] MEDS: VALPROIC ACID LIQUID CUP 250 MG/5 ML CUP GTB ×3 (05:13→22:10)
[2018-12-25] MEDS: LANSOPRAZOLE 30 MG CAP GTB ×2 (05:13→18:09)
[2018-12-25 05:45] LABS: ADD MAN DIFF? NO
[2018-12-25 05:51] LABS: WHITE BLOOD COUNT 9.7 10^3/ul (4.8-10.8)
[2018-12-25 05:51] LABS: BASOPHILS % 0.3 % (0.0-2.0); EOSINOPHILS # 0.3 10^3/ul (0.0-0.5); HEMATOCRIT 24.4 % (37.0-47.0); HEMOGLOBIN 7.7 g/dl (12.0-16.0); LYMPHOCYTES # 0.8 10^3/ul (0.8-2.9); LYMPHOCYTES % 8.3 % (15.0-51.0); MEAN CORPUSCULAR HEMOGLOBIN 27.2 pg (29.0-33.0); MEAN CORPUSCULAR HGB CONC 31.6 g/dl (32.0-37.0); MEAN CORPUSCULAR VOLUME 86.2 fl (82.0-101.0); MEAN PLATELET VOLUME 11.1 fl (7.4-10.4); MONOCYTE # 1.1 10^3/ul (0.3-0.9); MONOCYTES % 11.8 % (0.0-11.0); NEUTROPHIL # 7.3 10^3/ul (1.6-7.5); NEUTROPHILS % 75.3 % (39.0-77.0); NUCLEATED RED BLOOD CELLS # 0.1 10^3/ul (0.0-0.0); NUCLEATED RED BLOOD CELLS% 0.9 /100WBC (0.0-0.0); PLATELET COUNT 308 10^3/UL (140-415); RED BLOOD COUNT 2.83 10^6/ul (4.20-5.40); RED CELL DISTRIBUTION WIDTH 15.9 % (11.5-14.5)
[2018-12-25 06:18] LABS: MAGNESIUM 2.3 mg/dl (1.7-2.5)
[2018-12-25 06:18] LABS: PHOSPHORUS 2.4 mg/dl (2.5-4.9)
[2018-12-25 06:19] LABS: ANION GAP 5 (5-13); BLOOD UREA NITROGEN 28 mg/dl (7-20); CALCIUM 8.9 mg/dl (8.4-10.2); CARBON DIOXIDE 27 mmol/L (21-31); CHLORIDE 105 mmol/L (97-110); CREATININE 1.26 mg/dl (0.44-1.00); GLUCOSE 150 mg/dl (70-220); SODIUM 137 mmol/L (135-144)
[2018-12-25] MEDS: DOCUSATE SODIUM 10 MG/ML (10ML CUP) GTB (09:37)
[2018-12-25] MEDS: OLANZAPINE 2.5 MG TAB GTB (09:37)
[2018-12-25] MEDS: FERROUS SULFATE 60 MG/ML 5ML CUP GTB ×2 (09:37→20:27)
[2018-12-25] MEDS: FOLIC ACID 1 MG TAB GTB (09:38)
[2018-12-25] MEDS: METOPROLOL 50 MG TAB GTB ×2 (09:38→20:27)
[2018-12-25] MEDS: ASCORBIC ACID 500 MG TAB GTB (09:38)
[2018-12-25] MEDS: AMLODIPINE 5 MG TAB GTB ×2 (09:39→20:28)
[2018-12-25] MEDS: MUPIROCIN 2% 22 GM OINT TOP ×2 (09:40→20:29)
[2018-12-25] MEDS: LINAGLIPTIN 5 MG TABLET GTB (10:02)
[2018-12-25] MEDS: CASPOFUNGIN 50 MG in SOD CHLORIDE 0.9% 250 ML IVPB (18:22)
[2018-12-25] MEDS: ATORVASTATIN 40 MG TAB GTB (20:27)
[2018-12-25] MEDS: INSULIN GLARGINE [LANTus] (100 UNITS/ML) SYG SC (20:32)
[2018-12-25] MEDS: LORAZEPAM 0.5 MG TAB GTB (22:09)
[2018-12-26] MEDS: VALPROIC ACID LIQUID CUP 250 MG/5 ML CUP GTB ×3 (05:07→21:17)
[2018-12-26] MEDS: LANSOPRAZOLE 30 MG CAP GTB ×2 (05:07→18:24)
[2018-12-26] MEDS: AMPICILLIN 1 GM/NS (PMX) 50 ML IVPB ×3 (05:07→22:00)
[2018-12-26 07:14] LABS: ADD MAN DIFF? NO
[2018-12-26 07:17] LABS: WHITE BLOOD COUNT 9.4 10^3/ul (4.8-10.8)
[2018-12-26 07:17] LABS: BASOPHILS % 0.4 % (0.0-2.0); EOSINOPHILS # 0.9 10^3/ul (0.0-0.5); EOSINOPHILS % 9.6 % (0.0-7.0); HEMATOCRIT 25.2 % (37.0-47.0); HEMOGLOBIN 7.8 g/dl (12.0-16.0); MEAN CORPUSCULAR HEMOGLOBIN 26.8 pg (29.0-33.0); MEAN CORPUSCULAR VOLUME 86.6 fl (82.0-101.0); MEAN PLATELET VOLUME 11.2 fl (7.4-10.4); MONOCYTE # 1.3 10^3/ul (0.3-0.9); MONOCYTES % 13.9 % (0.0-11.0); NEUTROPHILS % 63.5 % (39.0-77.0); NUCLEATED RED BLOOD CELLS # 0.1 10^3/ul (0.0-0.0); NUCLEATED RED BLOOD CELLS% 1.1 /100WBC (0.0-0.0); PLATELET COUNT 325 10^3/UL (140-415); RED BLOOD COUNT 2.91 10^6/ul (4.20-5.40)
[2018-12-26 07:48] LABS: MAGNESIUM 2.2 mg/dl (1.7-2.5)
[2018-12-26 07:48] LABS: PHOSPHORUS 3.4 mg/dl (2.5-4.9)
[2018-12-26 07:53] LABS: ANION GAP 7 (5-13); BLOOD UREA NITROGEN 42 mg/dl (7-20); CALCIUM 8.4 mg/dl (8.4-10.2); CARBON DIOXIDE 26 mmol/L (21-31); CHLORIDE 102 mmol/L (97-110); CREATININE 1.81 mg/dl (0.44-1.00); GLUCOSE 149 mg/dl (70-220); POTASSIUM 3.8 mmol/L (3.5-5.1); SODIUM 135 mmol/L (135-144)
[2018-12-26] MEDS: DOCUSATE SODIUM 10 MG/ML (10ML CUP) GTB (09:00)
[2018-12-26] MEDS: METOPROLOL 50 MG TAB GTB ×2 (09:02→21:19)
[2018-12-26] MEDS: FERROUS SULFATE 60 MG/ML 5ML CUP GTB ×2 (09:02→21:17)
[2018-12-26] MEDS: FOLIC ACID 1 MG TAB GTB (09:02)
[2018-12-26] MEDS: ASCORBIC ACID 500 MG TAB GTB (09:03)
[2018-12-26] MEDS: AMLODIPINE 5 MG TAB GTB ×2 (09:03→21:18)
[2018-12-26] MEDS: OLANZAPINE 2.5 MG TAB GTB (09:03)
[2018-12-26] MEDS: MUPIROCIN 2% 22 GM OINT TOP (09:04)
[2018-12-26] MEDS: LINAGLIPTIN 5 MG TABLET GTB (10:12)
[2018-12-26] MEDS: ACETAMINOPHEN 325 MG TAB GTB (10:13)
[2018-12-26] MEDS: EPOETIN ALFA-EPBX (ESRD) 4,000 UNIT/ML VIAL SC (18:26)
[2018-12-26] MEDS: CASPOFUNGIN 50 MG in SOD CHLORIDE 0.9% 250 ML IVPB (18:51)
[2018-12-26] MEDS: ATORVASTATIN 40 MG TAB GTB (21:18)
[2018-12-26] MEDS: INSULIN GLARGINE [LANTus] (100 UNITS/ML) SYG SC (21:21)
[2018-12-27] MEDS: MUPIROCIN 2% 22 GM OINT TOP ×3 (00:48→21:19)
[2018-12-27 03:12] LABS: OCCULT BLOOD STOOL NEGATIVE (NEGATIVE)
[2018-12-27] MEDS: VALPROIC ACID LIQUID CUP 250 MG/5 ML CUP GTB ×3 (05:43→22:16)
[2018-12-27] MEDS: LANSOPRAZOLE 30 MG CAP GTB ×2 (05:43→17:19)
[2018-12-27] MEDS: AMPICILLIN 1 GM/NS (PMX) 50 ML IVPB ×4 (05:44→22:15)
[2018-12-27 06:05] LABS: ADD MAN DIFF? NO
[2018-12-27 06:07] LABS: WHITE BLOOD COUNT 12.5 10^3/ul (4.8-10.8)
[2018-12-27 06:08] LABS: BASOPHILS % 0.2 % (0.0-2.0); EOSINOPHILS # 0.5 10^3/ul (0.0-0.5); HEMATOCRIT 25.7 % (37.0-47.0); HEMOGLOBIN 8.1 g/dl (12.0-16.0); LYMPHOCYTES # 1.6 10^3/ul (0.8-2.9); LYMPHOCYTES % 12.6 % (15.0-51.0); MEAN CORPUSCULAR HGB CONC 31.5 g/dl (32.0-37.0); MEAN CORPUSCULAR VOLUME 85.7 fl (82.0-101.0); MEAN PLATELET VOLUME 11.1 fl (7.4-10.4); MONOCYTE # 1.5 10^3/ul (0.3-0.9); NEUTROPHIL # 8.7 10^3/ul (1.6-7.5); NEUTROPHILS % 69.8 % (39.0-77.0); NUCLEATED RED BLOOD CELLS # 0.1 10^3/ul (0.0-0.0); PLATELET COUNT 357 10^3/UL (140-415); RED CELL DISTRIBUTION WIDTH 15.9 % (11.5-14.5)
[2018-12-27 06:36] LABS: PHOSPHORUS 2.5 mg/dl (2.5-4.9)
[2018-12-27 06:36] LABS: MAGNESIUM 2.2 mg/dl (1.7-2.5)
[2018-12-27 06:40] LABS: ANION GAP 5 (5-13); BLOOD UREA NITROGEN 22 mg/dl (7-20); CALCIUM 8.8 mg/dl (8.4-10.2); CARBON DIOXIDE 29 mmol/L (21-31); CHLORIDE 103 mmol/L (97-110); CREATININE 1.26 mg/dl (0.44-1.00); GLUCOSE 157 mg/dl (70-220); POTASSIUM 3.9 mmol/L (3.5-5.1); SODIUM 137 mmol/L (135-144)
[2018-12-27] MEDS: DOCUSATE SODIUM 10 MG/ML (10ML CUP) GTB (08:54)
[2018-12-27] MEDS: FERROUS SULFATE 60 MG/ML 5ML CUP GTB ×2 (08:57→21:11)
[2018-12-27] MEDS: FOLIC ACID 1 MG TAB GTB (08:57)
[2018-12-27] MEDS: ASCORBIC ACID 500 MG TAB GTB (08:57)
[2018-12-27] MEDS: METOPROLOL 50 MG TAB GTB ×2 (08:57→21:11)
[2018-12-27] MEDS: OLANZAPINE 2.5 MG TAB GTB (08:57)
[2018-12-27] MEDS: AMLODIPINE 5 MG TAB GTB ×2 (08:57→21:11)
[2018-12-27] MEDS: LINAGLIPTIN 5 MG TABLET GTB (08:58)
[2018-12-27] MEDS: CASPOFUNGIN 50 MG in SOD CHLORIDE 0.9% 250 ML IVPB (17:20)
[2018-12-27] MEDS: ATORVASTATIN 40 MG TAB GTB (21:10)
[2018-12-27] MEDS: LORAZEPAM 0.5 MG TAB GTB (21:11)
[2018-12-27] MEDS: HEPARIN 5,000 UNIT/1 ML VIAL SC (21:13)
[2018-12-27] MEDS: INSULIN GLARGINE [LANTus] (100 UNITS/ML) SYG SC (21:14)
[2018-12-28] MEDS: AMPICILLIN 1 GM/NS (PMX) 50 ML IVPB (05:36)
[2018-12-28] MEDS: VALPROIC ACID LIQUID CUP 250 MG/5 ML CUP GTB ×3 (05:36→18:29)
[2018-12-28] MEDS: LANSOPRAZOLE 30 MG CAP GTB ×2 (05:36→18:27)
[2018-12-28 06:19] LABS: ADD MAN DIFF? NO
[2018-12-28 06:26] LABS: WHITE BLOOD COUNT 10.4 10^3/ul (4.8-10.8)
[2018-12-28 06:26] LABS: BASOPHIL # 0.1 10^3/ul (0.0-0.1); BASOPHILS % 0.9 % (0.0-2.0); EOSINOPHILS # 0.6 10^3/ul (0.0-0.5); EOSINOPHILS % 6.1 % (0.0-7.0); HEMATOCRIT 25.4 % (37.0-47.0); HEMOGLOBIN 7.9 g/dl (12.0-16.0); LYMPHOCYTES # 1.2 10^3/ul (0.8-2.9); LYMPHOCYTES % 11.9 % (15.0-51.0); MEAN CORPUSCULAR HEMOGLOBIN 27.1 pg (29.0-33.0); MEAN CORPUSCULAR HGB CONC 31.1 g/dl (32.0-37.0); MEAN CORPUSCULAR VOLUME 87.3 fl (82.0-101.0); MEAN PLATELET VOLUME 11.6 fl (7.4-10.4); MONOCYTE # 1.3 10^3/ul (0.3-0.9); MONOCYTES % 12.4 % (0.0-11.0); NEUTROPHIL # 6.9 10^3/ul (1.6-7.5); NEUTROPHILS % 65.9 % (39.0-77.0); NUCLEATED RED BLOOD CELLS # 0.1 10^3/ul (0.0-0.0); NUCLEATED RED BLOOD CELLS% 1.3 /100WBC (0.0-0.0); PLATELET COUNT 299 10^3/UL (140-415); RED BLOOD COUNT 2.91 10^6/ul (4.20-5.40); RED CELL DISTRIBUTION WIDTH 15.9 % (11.5-14.5)
[2018-12-28 06:29] LABS: POSITIVE DIFF @See below
[2018-12-28 06:54] LABS: PHOSPHORUS 3.2 mg/dl (2.5-4.9)
[2018-12-28 06:54] LABS: MAGNESIUM 2.4 mg/dl (1.7-2.5)
[2018-12-28 06:55] LABS: ANION GAP 8 (5-13); BLOOD UREA NITROGEN 38 mg/dl (7-20); CALCIUM 8.5 mg/dl (8.4-10.2); CARBON DIOXIDE 24 mmol/L (21-31); CHLORIDE 102 mmol/L (97-110); CREATININE 1.79 mg/dl (0.44-1.00); GLUCOSE 137 mg/dl (70-220); SODIUM 134 mmol/L (135-144)
[2018-12-28 06:56] LABS: POTASSIUM 4.1 mmol/L (3.5-5.1)
[2018-12-28] MEDS: HEPARIN 5,000 UNIT/1 ML VIAL SC ×2 (08:54→20:31)
[2018-12-28] MEDS: MUPIROCIN 2% 22 GM OINT TOP ×2 (08:55→20:35)
[2018-12-28] MEDS: FOLIC ACID 1 MG TAB GTB ×2 (09:00→18:29)
[2018-12-28] MEDS: DOCUSATE SODIUM 10 MG/ML (10ML CUP) GTB ×2 (09:00→18:29)
[2018-12-28] MEDS: OLANZAPINE 2.5 MG TAB GTB ×2 (09:00→18:29)
[2018-12-28] MEDS: METOPROLOL 50 MG TAB GTB ×2 (09:00→18:28)
[2018-12-28] MEDS: FERROUS SULFATE 60 MG/ML 5ML CUP GTB ×2 (09:00→18:27)
[2018-12-28] MEDS: LINAGLIPTIN 5 MG TABLET GTB ×2 (09:00→18:29)
[2018-12-28] MEDS: AMLODIPINE 5 MG TAB GTB ×2 (09:00→18:28)
[2018-12-28] MEDS: ASCORBIC ACID 500 MG TAB GTB ×2 (09:00→18:29)
[2018-12-28] MEDS: ACETAMINOPHEN 325 MG TAB GTB (12:12)
[2018-12-28] MEDS: EPOETIN ALFA-EPBX (ESRD) 4,000 UNIT/ML VIAL SC (18:26)
[2018-12-28] MEDS: LORAZEPAM 0.5 MG TAB GTB (20:24)
[2018-12-28] MEDS: ATORVASTATIN 40 MG TAB GTB (20:25)
[2018-12-28] MEDS: INSULIN GLARGINE [LANTus] (100 UNITS/ML) SYG SC (20:30)
[2018-12-29] MEDS: LANSOPRAZOLE 30 MG CAP GTB ×2 (05:20→18:00)
[2018-12-29] MEDS: VALPROIC ACID LIQUID CUP 250 MG/5 ML CUP GTB ×4 (05:20→20:29)
[2018-12-29] MEDS: MUPIROCIN 2% 22 GM OINT TOP ×2 (09:00→20:42)
[2018-12-29] MEDS: HEPARIN 5,000 UNIT/1 ML VIAL SC ×2 (09:00→20:29)
[2018-12-29] MEDS: FERROUS SULFATE 60 MG/ML 5ML CUP GTB ×2 (09:00→20:28)
[2018-12-29] MEDS: METOPROLOL 50 MG TAB GTB ×2 (09:00→20:28)
[2018-12-29] MEDS: AMLODIPINE 5 MG TAB GTB ×2 (09:00→20:29)
[2018-12-29] MEDS ORDERED: ALBUTEROL/IPRATROPIUM (NEB) 3 ML AMP HHN (10:00)
[2018-12-29] MEDS: ALBUTEROL/IPRATROPIUM (NEB) 3 ML AMP HHN ×4 (10:00→21:15)
[2018-12-29 10:09] LABS: AADO2 Arterial 573.2 mmHg (7.0-24.0); Allen Test ACCEPTAB; Arterial Base Excess 0.1 mmol/L (-3.0-3); Arterial COHb 1.6 % (0.0-3.0); Arterial Fraction of Oxyhgb 89.2 % (93.0-99.0); Arterial HCO3 28.3 mmol/L (22.0-26.0); Arterial MetHb 0.4 % (0.0-1.5); Arterial pCO2 68.5 mmhg (35-45); MODE MASK - NRB; Site Right Radial
[2018-12-29] MEDS: FUROSEMIDE 40 MG INJ IV (10:10)
[2018-12-29 11:07] LABS: ABNORMAL IP MESSAGE 1; HEMATOCRIT 25.1 % (37.0-47.0); HEMOGLOBIN 7.7 g/dl (12.0-16.0); MEAN CORPUSCULAR HEMOGLOBIN 27.1 pg (29.0-33.0); MEAN CORPUSCULAR HGB CONC 30.7 g/dl (32.0-37.0); MEAN CORPUSCULAR VOLUME 88.4 fl (82.0-101.0); MEAN PLATELET VOLUME 11.5 fl (7.4-10.4); NUCLEATED RED BLOOD CELLS% 3.4 /100WBC (0.0-0.0); PLATELET COUNT 391 10^3/UL (140-415); RED BLOOD COUNT 2.84 10^6/ul (4.20-5.40); RED CELL DISTRIBUTION WIDTH 16.2 % (11.5-14.5)
[2018-12-29 11:07] LABS: WHITE BLOOD COUNT 15.8 10^3/ul (4.8-10.8)
[2018-12-29 11:10] LABS: POSITIVE DIFF @See below
[2018-12-29 11:11] LABS: ADD MAN DIFF? YES
[2018-12-29 11:36] LABS: ALANINE AMINOTRANSFERASE 16 IU/L (13-69); ALBUMIN/GLOBULIN RATIO 0.78; ALKALINE PHOSPHATASE 217 IU/L (42-121); ANION GAP 9 (5-13); ASPARTATE AMINO TRANSFERASE 33 IU/L (15-46); BILIRUBIN,INDIRECT 0.5 mg/dl (0-1.1); BILIRUBIN,TOTAL 0.5 mg/dl (0.2-1.3); BLOOD UREA NITROGEN 28 mg/dl (7-20); CALCIUM 8.6 mg/dl (8.4-10.2); CARBON DIOXIDE 26 mmol/L (21-31); CHLORIDE 100 mmol/L (97-110); CREATININE 1.32 mg/dl (0.44-1.00); GLUCOSE 246 mg/dl (70-220); POTASSIUM 4.5 mmol/L (3.5-5.1); SODIUM 135 mmol/L (135-144); TOTAL PROTEIN 6.8 g/dl (6.1-8.1)
[2018-12-29 11:39] LABS: MAGNESIUM 2.3 mg/dl (1.7-2.5)
[2018-12-29 11:48] LABS: ANISOCYTOSIS 1+ (0-0); BAND NEUTROPHILS #M 0.4 10^3/ul (0.0-0.6); BAND NEUTROPHILS % (M) 3 % (0-4); BASOPHIL #M 0.1 10^3/ul (0.0-0.0); BASOPHILS % (M) 1 % (0-2); EOSINOPHILS % (M) 2 % (0-7); ERYTHROBLAST% (NRBC) (M) 4 % (0-0); HYPOCHROMASIA 1+ (0-0); LYMPHOCYTES #M 1.8 10^3/ul (0.8-2.9); LYMPHOCYTES % (M) 12 % (15-51); METAMYELOCYTES #M 0.1 10^3/ul (0.0-0.0); METAMYELOCYTES %M 1 % (0-0); MICROCYTOSIS 1+ (0-0); MONOCYTE #M 1.7 10^3/ul (0.3-0.9); MONOCYTES % (M) 11 % (0-11); MYELOCYTES #M 0.3 10^3/ul (0.0-0.0); MYELOCYTES % (M) 2 % (0-0); PLATELET ESTIMATE NORMAL; POIKILOCYTOSIS 1+ (0-0); POLYCHROMASIA 1+ (0-0); REACTIVE LYMPHOCYTES #M 0.1 10^3/ul (0.0-0.0); REACTIVE LYMPHOCYTES% (M) 1 % (0-0); SEG NEUT #M 10.6 10^3/ul (1.6-7.5); SEGMENTED NEUTROPHILS (M) % 67 % (39-77); SMUDGE%M 23 % (0-0)
[2018-12-29] MEDS: MEROPENEM 500MG/50 ML (PMX) 50 ML IVPB (13:23)
[2018-12-29] MEDS: INSULIN GLARGINE [LANTus] (100 UNITS/ML) SYG SC (20:00)
[2018-12-29] MEDS: ATORVASTATIN 40 MG TAB GTB (20:28)
[2018-12-30] MEDS: ALBUTEROL/IPRATROPIUM (NEB) 3 ML AMP HHN ×6 (01:14→21:11)
[2018-12-30] MEDS: LANSOPRAZOLE 30 MG CAP GTB ×2 (05:04→17:11)
[2018-12-30] MEDS: VALPROIC ACID LIQUID CUP 250 MG/5 ML CUP GTB ×3 (05:04→22:08)
[2018-12-30] MEDS: FERROUS SULFATE 60 MG/ML 5ML CUP GTB ×2 (09:00→20:18)
[2018-12-30] MEDS: METOPROLOL 50 MG TAB GTB ×2 (09:00→20:19)
[2018-12-30] MEDS: AMLODIPINE 5 MG TAB GTB ×2 (09:00→20:19)
[2018-12-30] MEDS: LINAGLIPTIN 5 MG TABLET GTB (09:00)
[2018-12-30] MEDS: DEXTROSE 5%-0.9% NACL 1,000 ML IV (14:30)
[2018-12-30] MEDS: ASCORBIC ACID 500 MG TAB GTB (15:29)
[2018-12-30] MEDS: FOLIC ACID 1 MG TAB GTB (15:29)
[2018-12-30] MEDS: MEROPENEM 500MG/50 ML (PMX) 50 ML IVPB (15:30)
[2018-12-30] MEDS: OLANZAPINE 2.5 MG TAB GTB (15:30)
[2018-12-30] MEDS: DOCUSATE SODIUM 10 MG/ML (10ML CUP) GTB (15:30)
[2018-12-30] MEDS: HEPARIN 5,000 UNIT/1 ML VIAL SC ×2 (16:06→20:50)
[2018-12-30] MEDS: MUPIROCIN 2% 22 GM OINT TOP ×2 (16:07→21:00)
[2018-12-30] MEDS ORDERED: DEXTROSE 50% 50 ML SYRINGE IV ×2 (16:30)
[2018-12-30] MEDS ORDERED: GLUCOSE GEL 15 GRAM TUBE BUCCAL (16:30)
[2018-12-30] MEDS ORDERED: GLUCAGON 1 MG INJ IM (16:30)
[2018-12-30] MEDS ORDERED: GLUCOSE GEL 15 GRAM TUBE PO ×2 (16:30)
[2018-12-30] MEDS: ATORVASTATIN 40 MG TAB GTB (20:18)
[2018-12-30] MEDS: INSULIN GLARGINE [LANTus] (100 UNITS/ML) SYG SC (20:50)
[2018-12-31] MEDS: LORAZEPAM 0.5 MG TAB GTB (01:15)
[2018-12-31] MEDS: ALBUTEROL/IPRATROPIUM (NEB) 3 ML AMP HHN ×6 (01:46→20:20)
[2018-12-31 05:09] LABS: ADD MAN DIFF? NO
[2018-12-31 05:10] LABS: BASOPHIL # 0.1 10^3/ul (0.0-0.1); BASOPHILS % 0.5 % (0.0-2.0); EOSINOPHILS # 0.3 10^3/ul (0.0-0.5); EOSINOPHILS % 2.9 % (0.0-7.0); HEMATOCRIT 22.2 % (37.0-47.0); LYMPHOCYTES # 0.8 10^3/ul (0.8-2.9); LYMPHOCYTES % 7.2 % (15.0-51.0); MEAN CORPUSCULAR HEMOGLOBIN 27.2 pg (29.0-33.0); MEAN CORPUSCULAR HGB CONC 31.5 g/dl (32.0-37.0); MEAN CORPUSCULAR VOLUME 86.4 fl (82.0-101.0); MONOCYTE # 1.1 10^3/ul (0.3-0.9); MONOCYTES % 9.6 % (0.0-11.0); NEUTROPHIL # 8.6 10^3/ul (1.6-7.5); NEUTROPHILS % 77.9 % (39.0-77.0); NUCLEATED RED BLOOD CELLS # 0.2 10^3/ul (0.0-0.0); NUCLEATED RED BLOOD CELLS% 1.4 /100WBC (0.0-0.0); PLATELET COUNT 283 10^3/UL (140-415); RED BLOOD COUNT 2.57 10^6/ul (4.20-5.40); RED CELL DISTRIBUTION WIDTH 16.4 % (11.5-14.5)
[2018-12-31] MEDS: VALPROIC ACID LIQUID CUP 250 MG/5 ML CUP GTB ×3 (06:03→21:42)
[2018-12-31] MEDS: LANSOPRAZOLE 30 MG CAP GTB ×2 (06:03→17:17)
[2018-12-31 06:14] LABS: ANION GAP 6 (5-13); BLOOD UREA NITROGEN 43 mg/dl (7-20); CALCIUM 8.4 mg/dl (8.4-10.2); CARBON DIOXIDE 28 mmol/L (21-31); CHLORIDE 103 mmol/L (97-110); CREATININE 1.82 mg/dl (0.44-1.00); GLUCOSE 144 mg/dl (70-220); POTASSIUM 3.9 mmol/L (3.5-5.1); SODIUM 137 mmol/L (135-144)
[2018-12-31 07:24] LABS: MAGNESIUM 2.2 mg/dl (1.7-2.5)
[2018-12-31 07:24] LABS: PHOSPHORUS 3.2 mg/dl (2.5-4.9)
[2018-12-31] MEDS: MUPIROCIN 2% 22 GM OINT TOP ×2 (09:25→20:29)
[2018-12-31] MEDS: HEPARIN 5,000 UNIT/1 ML VIAL SC ×2 (09:28→20:39)
[2018-12-31] MEDS: LINAGLIPTIN 5 MG TABLET GTB (09:28)
[2018-12-31] MEDS: FOLIC ACID 1 MG TAB GTB (09:28)
[2018-12-31] MEDS: ASCORBIC ACID 500 MG TAB GTB (09:28)
[2018-12-31] MEDS: OLANZAPINE 2.5 MG TAB GTB (09:28)
[2018-12-31] MEDS: FERROUS SULFATE 60 MG/ML 5ML CUP GTB ×2 (09:28→20:28)
[2018-12-31] MEDS: DOCUSATE SODIUM 10 MG/ML (10ML CUP) GTB (09:28)
[2018-12-31] MEDS: AMLODIPINE 5 MG TAB GTB ×2 (09:29→20:29)
[2018-12-31] MEDS: METOPROLOL 50 MG TAB GTB ×2 (09:29→20:29)
[2018-12-31] MEDS: DEXTROSE 5%-0.9% NACL 1,000 ML IV (13:42)
[2018-12-31 14:33] LABS: IMMEDIATE SPIN CROSSMATCH 1 2
[2018-12-31] MEDS: MEROPENEM 500MG/50 ML (PMX) 50 ML IVPB (17:17)
[2018-12-31] MEDS: EPOETIN ALFA-EPBX (ESRD) 4,000 UNIT/ML VIAL SC (17:18)
[2018-12-31] MEDS: ATORVASTATIN 40 MG TAB GTB (20:28)
[2018-12-31] MEDS: INSULIN GLARGINE [LANTus] (100 UNITS/ML) SYG SC (20:40)
[2019-01-01] MEDS: ALBUTEROL/IPRATROPIUM (NEB) 3 ML AMP HHN ×6 (00:42→20:37)
[2019-01-01] MEDS: LANSOPRAZOLE 30 MG CAP GTB ×2 (05:35→17:29)
[2019-01-01] MEDS: VALPROIC ACID LIQUID CUP 250 MG/5 ML CUP GTB ×3 (05:35→21:40)
[2019-01-01 06:31] LABS: ADD MAN DIFF? NO
[2019-01-01 07:06] LABS: ANION GAP 5 (5-13); BLOOD UREA NITROGEN 27 mg/dl (7-20); CALCIUM 8.1 mg/dl (8.4-10.2); CARBON DIOXIDE 30 mmol/L (21-31); CHLORIDE 102 mmol/L (97-110); CREATININE 1.14 mg/dl (0.44-1.00); GLUCOSE 143 mg/dl (70-220); SODIUM 137 mmol/L (135-144)
[2019-01-01 07:07] LABS: MAGNESIUM 2.1 mg/dl (1.7-2.5)
[2019-01-01 07:07] LABS: PHOSPHORUS 1.7 mg/dl (2.5-4.9)
[2019-01-01 08:45] LABS: WHITE BLOOD COUNT 10.3 10^3/ul (4.8-10.8)
[2019-01-01 08:45] LABS: BASOPHILS % 0.4 % (0.0-2.0); EOSINOPHILS # 0.3 10^3/ul (0.0-0.5); EOSINOPHILS % 2.4 % (0.0-7.0); HEMATOCRIT 29.2 % (37.0-47.0); HEMOGLOBIN 9.4 g/dl (12.0-16.0); LYMPHOCYTES # 1.6 10^3/ul (0.8-2.9); MEAN CORPUSCULAR HEMOGLOBIN 27.4 pg (29.0-33.0); MEAN CORPUSCULAR HGB CONC 32.2 g/dl (32.0-37.0); MEAN CORPUSCULAR VOLUME 85.1 fl (82.0-101.0); MEAN PLATELET VOLUME 11.4 fl (7.4-10.4); MONOCYTES % 9.3 % (0.0-11.0); NEUTROPHIL # 7.2 10^3/ul (1.6-7.5); NEUTROPHILS % 69.9 % (39.0-77.0); NUCLEATED RED BLOOD CELLS # 0.2 10^3/ul (0.0-0.0); NUCLEATED RED BLOOD CELLS% 1.6 /100WBC (0.0-0.0); PLATELET COUNT 264 10^3/UL (140-415); RED BLOOD COUNT 3.43 10^6/ul (4.20-5.40); RED CELL DISTRIBUTION WIDTH 16.9 % (11.5-14.5)
[2019-01-01] MEDS: HEPARIN 5,000 UNIT/1 ML VIAL SC ×2 (09:00→20:51)
[2019-01-01] MEDS: FERROUS SULFATE 60 MG/ML 5ML CUP GTB ×2 (09:07→20:41)
[2019-01-01] MEDS: DOCUSATE SODIUM 10 MG/ML (10ML CUP) GTB (09:07)
[2019-01-01] MEDS: OLANZAPINE 2.5 MG TAB GTB (09:07)
[2019-01-01] MEDS: METOPROLOL 50 MG TAB GTB ×2 (09:08→20:42)
[2019-01-01] MEDS: MUPIROCIN 2% 22 GM OINT TOP ×2 (09:08→20:53)
[2019-01-01] MEDS: ASCORBIC ACID 500 MG TAB GTB (09:08)
[2019-01-01] MEDS: LINAGLIPTIN 5 MG TABLET GTB (09:08)
[2019-01-01] MEDS: AMLODIPINE 5 MG TAB GTB ×2 (09:08→20:41)
[2019-01-01] MEDS: FOLIC ACID 1 MG TAB GTB (09:08)
[2019-01-01] MEDS: NEUTRA-PHOS 250 MG PACKET NGT (11:42)
[2019-01-01 12:55] LABS: AADO2 Arterial 62.6 mmHg (7.0-24.0); Allen Test ACCEPTAB; Arterial Base Excess 7.3 mmol/L (-3.0-3); Arterial Blood Gas Oxygen Sat 97.5 mmHG (95.0-100.0); Arterial COHb 0.2 % (0.0-3.0); Arterial HCO3 31.9 mmol/L (22.0-26.0); Arterial MetHb 0.3 % (0.0-1.5); Arterial pCO2 45.6 mmhg (35-45); MODE NASAL CANNULA; Site Right Radial
[2019-01-01] MEDS: DEXTROSE 5%-0.9% NACL 1,000 ML IV (14:30)
[2019-01-01] MEDS: MEROPENEM 500MG/50 ML (PMX) 50 ML IVPB (15:20)
[2019-01-01] MEDS: ATORVASTATIN 40 MG TAB GTB (20:41)
[2019-01-01] MEDS: INSULIN GLARGINE [LANTus] (100 UNITS/ML) SYG SC (20:52)
[2019-01-02] MEDS: ALBUTEROL/IPRATROPIUM (NEB) 3 ML AMP HHN ×6 (00:52→20:55)
[2019-01-02] MEDS: VALPROIC ACID LIQUID CUP 250 MG/5 ML CUP GTB ×3 (05:17→22:41)
[2019-01-02] MEDS: LANSOPRAZOLE 30 MG CAP GTB ×2 (05:17→18:49)
[2019-01-02] MEDS: AMLODIPINE 5 MG TAB GTB ×2 (09:00→21:24)
[2019-01-02] MEDS: METOPROLOL 50 MG TAB GTB ×2 (09:00→21:24)
[2019-01-02] MEDS: DOCUSATE SODIUM 10 MG/ML (10ML CUP) GTB (09:19)
[2019-01-02] MEDS: OLANZAPINE 2.5 MG TAB GTB (09:19)
[2019-01-02] MEDS: FERROUS SULFATE 60 MG/ML 5ML CUP GTB ×2 (09:19→21:24)
[2019-01-02] MEDS: FOLIC ACID 1 MG TAB GTB (09:19)
[2019-01-02] MEDS: MUPIROCIN 2% 22 GM OINT TOP ×2 (09:20→21:25)
[2019-01-02] MEDS: ASCORBIC ACID 500 MG TAB GTB (09:20)
[2019-01-02] MEDS: HEPARIN 5,000 UNIT/1 ML VIAL SC ×2 (09:24→21:49)
[2019-01-02] MEDS: LINAGLIPTIN 5 MG TABLET GTB (09:25)
[2019-01-02] MEDS ORDERED: HEPARIN 1000 UNITS/ML 10 ML INJ (11:29)
[2019-01-02] MEDS: MEROPENEM 500MG/50 ML (PMX) 50 ML IVPB (14:27)
[2019-01-02] MEDS: DEXTROSE 5%-0.9% NACL 1,000 ML IV (17:20)
[2019-01-02] MEDS: EPOETIN ALFA-EPBX (ESRD) 4,000 UNIT/ML VIAL SC (17:20)
[2019-01-02] MEDS: INSULIN GLARGINE [LANTus] (100 UNITS/ML) SYG SC (21:18)
[2019-01-02] MEDS: LORAZEPAM 0.5 MG TAB GTB (21:23)
[2019-01-02] MEDS: ATORVASTATIN 40 MG TAB GTB (21:23)
[2019-01-03] MEDS: ALBUTEROL/IPRATROPIUM (NEB) 3 ML AMP HHN ×6 (01:29→20:31)
[2019-01-03 06:31] LABS: ADD MAN DIFF? NO
[2019-01-03 06:35] LABS: WHITE BLOOD COUNT 7.9 10^3/ul (4.8-10.8)
[2019-01-03 06:35] LABS: BASOPHILS % 0.4 % (0.0-2.0); EOSINOPHILS # 0.5 10^3/ul (0.0-0.5); EOSINOPHILS % 5.9 % (0.0-7.0); HEMATOCRIT 25.5 % (37.0-47.0); HEMOGLOBIN 8.1 g/dl (12.0-16.0); LYMPHOCYTES % 12.1 % (15.0-51.0); MEAN CORPUSCULAR HEMOGLOBIN 27.3 pg (29.0-33.0); MEAN CORPUSCULAR HGB CONC 31.8 g/dl (32.0-37.0); MEAN CORPUSCULAR VOLUME 85.9 fl (82.0-101.0); MONOCYTES % 12.6 % (0.0-11.0); NEUTROPHIL # 5.3 10^3/ul (1.6-7.5); NEUTROPHILS % 66.8 % (39.0-77.0); NUCLEATED RED BLOOD CELLS # 0.1 10^3/ul (0.0-0.0); NUCLEATED RED BLOOD CELLS% 1.5 /100WBC (0.0-0.0); PLATELET COUNT 216 10^3/UL (140-415); RED BLOOD COUNT 2.97 10^6/ul (4.20-5.40); RED CELL DISTRIBUTION WIDTH 17.1 % (11.5-14.5)
[2019-01-03] MEDS: VALPROIC ACID LIQUID CUP 250 MG/5 ML CUP GTB ×3 (06:41→21:54)
[2019-01-03] MEDS: LANSOPRAZOLE 30 MG CAP GTB ×2 (06:49→17:14)
[2019-01-03 06:59] LABS: ANION GAP 6 (5-13); BLOOD UREA NITROGEN 33 mg/dl (7-20); CALCIUM 8.2 mg/dl (8.4-10.2); CARBON DIOXIDE 29 mmol/L (21-31); CHLORIDE 103 mmol/L (97-110); CREATININE 1.36 mg/dl (0.44-1.00); GLUCOSE 144 mg/dl (70-220); POTASSIUM 3.6 mmol/L (3.5-5.1); SODIUM 138 mmol/L (135-144)
[2019-01-03 07:03] LABS: PHOSPHORUS 2.7 mg/dl (2.5-4.9)
[2019-01-03 07:03] LABS: MAGNESIUM 2.1 mg/dl (1.7-2.5)
[2019-01-03] MEDS: DOCUSATE SODIUM 10 MG/ML (10ML CUP) GTB (09:07)
[2019-01-03] MEDS: AMLODIPINE 5 MG TAB GTB ×2 (09:07→21:55)
[2019-01-03] MEDS: FERROUS SULFATE 60 MG/ML 5ML CUP GTB ×2 (09:07→21:54)
[2019-01-03] MEDS: ASCORBIC ACID 500 MG TAB GTB (09:08)
[2019-01-03] MEDS: METOPROLOL 50 MG TAB GTB ×2 (09:08→21:56)
[2019-01-03] MEDS: LINAGLIPTIN 5 MG TABLET GTB (09:09)
[2019-01-03] MEDS: MUPIROCIN 2% 22 GM OINT TOP ×2 (09:11→21:56)
[2019-01-03] MEDS: OLANZAPINE 2.5 MG TAB GTB (09:15)
[2019-01-03] MEDS: FOLIC ACID 1 MG TAB GTB (09:15)
[2019-01-03] MEDS: HEPARIN 5,000 UNIT/1 ML VIAL SC (09:22)
[2019-01-03] MEDS: FUROSEMIDE 20 MG INJ IV (11:41)
[2019-01-03] MEDS: MEROPENEM 500MG/50 ML (PMX) 50 ML IVPB (14:14)
[2019-01-03] MEDS: ATORVASTATIN 40 MG TAB GTB (21:55)
[2019-01-03] MEDS: INSULIN GLARGINE [LANTus] (100 UNITS/ML) SYG SC (22:13)
[2019-01-04] MEDS: ALBUTEROL/IPRATROPIUM (NEB) 3 ML AMP HHN ×6 (01:26→20:17)
[2019-01-04 05:36] LABS: ADD MAN DIFF? NO
[2019-01-04 05:38] LABS: BASOPHIL # 0.1 10^3/ul (0.0-0.1); BASOPHILS % 0.6 % (0.0-2.0); EOSINOPHILS # 0.5 10^3/ul (0.0-0.5); HEMOGLOBIN 8.8 g/dl (12.0-16.0); LYMPHOCYTES # 0.7 10^3/ul (0.8-2.9); LYMPHOCYTES % 8.7 % (15.0-51.0); MEAN CORPUSCULAR HGB CONC 31.4 g/dl (32.0-37.0); MEAN CORPUSCULAR VOLUME 85.9 fl (82.0-101.0); MEAN PLATELET VOLUME 11.5 fl (7.4-10.4); NEUTROPHIL # 5.9 10^3/ul (1.6-7.5); NEUTROPHILS % 71.1 % (39.0-77.0); NUCLEATED RED BLOOD CELLS # 0.1 10^3/ul (0.0-0.0); PLATELET COUNT 235 10^3/UL (140-415); RED BLOOD COUNT 3.26 10^6/ul (4.20-5.40); RED CELL DISTRIBUTION WIDTH 16.6 % (11.5-14.5)
[2019-01-04 05:38] LABS: WHITE BLOOD COUNT 8.3 10^3/ul (4.8-10.8)
[2019-01-04 06:00] LABS: MAGNESIUM 2.2 mg/dl (1.7-2.5)
[2019-01-04 06:00] LABS: PHOSPHORUS 2.8 mg/dl (2.5-4.9)
[2019-01-04 06:02] LABS: ANION GAP 6 (5-13); BLOOD UREA NITROGEN 52 mg/dl (7-20); CALCIUM 8.4 mg/dl (8.4-10.2); CARBON DIOXIDE 28 mmol/L (21-31); CHLORIDE 105 mmol/L (97-110); CREATININE 1.64 mg/dl (0.44-1.00); GLUCOSE 147 mg/dl (70-220); POTASSIUM 3.6 mmol/L (3.5-5.1); SODIUM 139 mmol/L (135-144)
[2019-01-04] MEDS: LANSOPRAZOLE 30 MG CAP GTB ×2 (06:34→17:39)
[2019-01-04] MEDS: VALPROIC ACID LIQUID CUP 250 MG/5 ML CUP GTB ×3 (06:34→23:27)
[2019-01-04] MEDS: AMLODIPINE 5 MG TAB GTB ×2 (10:29→23:32)
[2019-01-04] MEDS: DOCUSATE SODIUM 10 MG/ML (10ML CUP) GTB (10:30)
[2019-01-04] MEDS: FERROUS SULFATE 60 MG/ML 5ML CUP GTB ×2 (10:30→23:27)
[2019-01-04] MEDS: FOLIC ACID 1 MG TAB GTB (10:30)
[2019-01-04] MEDS: OLANZAPINE 2.5 MG TAB GTB (10:30)
[2019-01-04] MEDS: METOPROLOL 50 MG TAB GTB ×2 (10:30→23:32)
[2019-01-04] MEDS: ASCORBIC ACID 500 MG TAB GTB (10:30)
[2019-01-04] MEDS: MUPIROCIN 2% 22 GM OINT TOP ×2 (10:31→21:00)
[2019-01-04] MEDS: LINAGLIPTIN 5 MG TABLET GTB (10:31)
[2019-01-04] MEDS: MEROPENEM 500MG/50 ML (PMX) 50 ML IVPB (13:45)
[2019-01-04] MEDS: EPOETIN ALFA-EPBX (ESRD) 4,000 UNIT/ML VIAL SC (17:40)
[2019-01-04] MEDS: INSULIN GLARGINE [LANTus] (100 UNITS/ML) SYG SC (20:00)
[2019-01-04] MEDS: ATORVASTATIN 40 MG TAB GTB ×2 (23:27→23:32)
[2019-01-05] MEDS: ALBUTEROL/IPRATROPIUM (NEB) 3 ML AMP HHN ×6 (00:14→21:05)
[2019-01-05] MEDS: LANSOPRAZOLE 30 MG CAP GTB ×2 (06:06→17:51)
[2019-01-05] MEDS: VALPROIC ACID LIQUID CUP 250 MG/5 ML CUP GTB ×3 (06:06→22:40)
[2019-01-05] MEDS: MUPIROCIN 2% 22 GM OINT TOP ×2 (09:38→22:45)
[2019-01-05] MEDS: FERROUS SULFATE 60 MG/ML 5ML CUP GTB ×2 (09:38→22:40)
[2019-01-05] MEDS: ASCORBIC ACID 500 MG TAB GTB (09:39)
[2019-01-05] MEDS: DOCUSATE SODIUM 10 MG/ML (10ML CUP) GTB (09:39)
[2019-01-05] MEDS: OLANZAPINE 2.5 MG TAB GTB (09:39)
[2019-01-05] MEDS: AMLODIPINE 5 MG TAB GTB ×2 (09:39→22:45)
[2019-01-05] MEDS: FOLIC ACID 1 MG TAB GTB (09:40)
[2019-01-05] MEDS: LINAGLIPTIN 5 MG TABLET GTB (09:40)
[2019-01-05] MEDS: METOPROLOL 50 MG TAB GTB ×2 (09:40→22:42)
[2019-01-05] MEDS: MEROPENEM 500MG/50 ML (PMX) 50 ML IVPB (13:35)
[2019-01-05] MEDS: ACETAMINOPHEN 325 MG TAB GTB (13:36)
[2019-01-05] MEDS ORDERED: MICONAZOLE 200 MG VAG SUPP VAG (21:00)
[2019-01-05] MEDS: MICONAZOLE 100 MG VAG SUPP VAG (22:49)
[2019-01-05] MEDS: INSULIN GLARGINE [LANTus] (100 UNITS/ML) SYG SC (23:00)
[2019-01-05] MEDS: LORAZEPAM 0.5 MG TAB GTB (23:40)
[2019-01-06] MEDS: ALBUTEROL/IPRATROPIUM (NEB) 3 ML AMP HHN ×6 (00:52→20:23)
[2019-01-06] MEDS: LANSOPRAZOLE 30 MG CAP GTB ×2 (06:38→19:03)
[2019-01-06] MEDS: VALPROIC ACID LIQUID CUP 250 MG/5 ML CUP GTB ×3 (06:38→20:57)
[2019-01-06] MEDS: MUPIROCIN 2% 22 GM OINT TOP ×2 (09:40→21:01)
[2019-01-06] MEDS: FERROUS SULFATE 60 MG/ML 5ML CUP GTB ×2 (09:40→20:57)
[2019-01-06] MEDS: DOCUSATE SODIUM 10 MG/ML (10ML CUP) GTB (09:40)
[2019-01-06] MEDS: OLANZAPINE 2.5 MG TAB GTB (09:40)
[2019-01-06] MEDS: ASCORBIC ACID 500 MG TAB GTB (09:40)
[2019-01-06] MEDS: FOLIC ACID 1 MG TAB GTB (09:41)
[2019-01-06] MEDS: METOPROLOL 50 MG TAB GTB ×2 (09:41→20:58)
[2019-01-06] MEDS: LINAGLIPTIN 5 MG TABLET GTB (09:47)
[2019-01-06] MEDS: AMLODIPINE 5 MG TAB GTB ×2 (09:48→21:01)
[2019-01-06] MEDS: MEROPENEM 500MG/50 ML (PMX) 50 ML IVPB (14:32)
[2019-01-06] MEDS: ATORVASTATIN 40 MG TAB GTB (20:57)
[2019-01-06] MEDS: MICONAZOLE 100 MG VAG SUPP VAG (20:58)
[2019-01-06] MEDS: INSULIN GLARGINE [LANTus] (100 UNITS/ML) SYG SC (21:03)
[2019-01-07] MEDS: ALBUTEROL/IPRATROPIUM (NEB) 3 ML AMP HHN ×6 (00:49→22:18)
[2019-01-07] MEDS: LANSOPRAZOLE 30 MG CAP GTB ×2 (06:15→17:00)
[2019-01-07] MEDS: VALPROIC ACID LIQUID CUP 250 MG/5 ML CUP GTB ×3 (06:15→21:47)
[2019-01-07] MEDS: FERROUS SULFATE 60 MG/ML 5ML CUP GTB ×2 (09:16→21:47)
[2019-01-07] MEDS: DOCUSATE SODIUM 10 MG/ML (10ML CUP) GTB (09:16)
[2019-01-07] MEDS: OLANZAPINE 2.5 MG TAB GTB (09:17)
[2019-01-07] MEDS: AMLODIPINE 5 MG TAB GTB ×2 (09:17→21:46)
[2019-01-07] MEDS: LINAGLIPTIN 5 MG TABLET GTB (09:17)
[2019-01-07] MEDS: ASCORBIC ACID 500 MG TAB GTB (09:18)
[2019-01-07] MEDS: FOLIC ACID 1 MG TAB GTB (09:18)
[2019-01-07] MEDS: MUPIROCIN 2% 22 GM OINT TOP ×2 (09:18→21:48)
[2019-01-07] MEDS: METOPROLOL 50 MG TAB GTB ×2 (09:18→21:47)
[2019-01-07] MEDS: MEROPENEM 500MG/50 ML (PMX) 50 ML IVPB (16:15)
[2019-01-07] MEDS: EPOETIN ALFA-EPBX (ESRD) 4,000 UNIT/ML VIAL SC (17:02)
[2019-01-07] MEDS: MICONAZOLE 100 MG VAG SUPP VAG (21:00)
[2019-01-07] MEDS: ATORVASTATIN 40 MG TAB GTB (21:46)
[2019-01-07] MEDS: INSULIN GLARGINE [LANTus] (100 UNITS/ML) SYG SC (21:51)
[2019-01-07] MEDS: (Nursing Note) XX (22:00)
[2019-01-08] MEDS: ALBUTEROL/IPRATROPIUM (NEB) 3 ML AMP HHN ×6 (01:56→20:31)
[2019-01-08 06:01] LABS: ADD MAN DIFF? NO
[2019-01-08 06:13] LABS: BASOPHILS % 0.3 % (0.0-2.0); EOSINOPHILS # 0.2 10^3/ul (0.0-0.5); EOSINOPHILS % 2.6 % (0.0-7.0); HEMATOCRIT 29.4 % (37.0-47.0); HEMOGLOBIN 9.1 g/dl (12.0-16.0); LYMPHOCYTES # 0.7 10^3/ul (0.8-2.9); MEAN CORPUSCULAR HEMOGLOBIN 26.4 pg (29.0-33.0); MEAN CORPUSCULAR VOLUME 85.2 fl (82.0-101.0); MEAN PLATELET VOLUME 12.6 fl (7.4-10.4); MONOCYTES % 11.1 % (0.0-11.0); NEUTROPHIL # 6.7 10^3/ul (1.6-7.5); NUCLEATED RED BLOOD CELLS # 0.1 10^3/ul (0.0-0.0); NUCLEATED RED BLOOD CELLS% 0.8 /100WBC (0.0-0.0); PLATELET COUNT 216 10^3/UL (140-415); RED BLOOD COUNT 3.45 10^6/ul (4.20-5.40); RED CELL DISTRIBUTION WIDTH 16.5 % (11.5-14.5)
[2019-01-08 06:13] LABS: WHITE BLOOD COUNT 8.7 10^3/ul (4.8-10.8)
[2019-01-08] MEDS: LANSOPRAZOLE 30 MG CAP GTB ×2 (06:15→18:27)
[2019-01-08] MEDS: VALPROIC ACID LIQUID CUP 250 MG/5 ML CUP GTB ×3 (06:15→21:42)
[2019-01-08 06:35] LABS: PHOSPHORUS 2.6 mg/dl (2.5-4.9)
[2019-01-08 06:35] LABS: MAGNESIUM 2.2 mg/dl (1.7-2.5)
[2019-01-08 07:00] LABS: ANION GAP 6 (5-13); BLOOD UREA NITROGEN 35 mg/dl (7-20); CALCIUM 8.7 mg/dl (8.4-10.2); CARBON DIOXIDE 28 mmol/L (21-31); CHLORIDE 106 mmol/L (97-110); GLUCOSE 127 mg/dl (70-220); POTASSIUM 3.8 mmol/L (3.5-5.1); SODIUM 140 mmol/L (135-144)
[2019-01-08] MEDS: (Nursing Note) XX ×2 (09:00→21:00)
[2019-01-08] MEDS: OLANZAPINE 2.5 MG TAB GTB (11:12)
[2019-01-08] MEDS: DOCUSATE SODIUM 10 MG/ML (10ML CUP) GTB (11:12)
[2019-01-08] MEDS: FERROUS SULFATE 60 MG/ML 5ML CUP GTB ×2 (11:12→21:42)
[2019-01-08] MEDS: METOPROLOL 50 MG TAB GTB ×2 (11:13→21:41)
[2019-01-08] MEDS: FOLIC ACID 1 MG TAB GTB (11:13)
[2019-01-08] MEDS: ASCORBIC ACID 500 MG TAB GTB (11:13)
[2019-01-08] MEDS: AMLODIPINE 5 MG TAB GTB ×2 (11:13→21:42)
[2019-01-08] MEDS: MUPIROCIN 2% 22 GM OINT TOP ×2 (11:14→21:43)
[2019-01-08] MEDS: LINAGLIPTIN 5 MG TABLET GTB (11:18)
[2019-01-08] MEDS: MICONAZOLE 100 MG VAG SUPP VAG (21:00)
[2019-01-08] MEDS: ATORVASTATIN 40 MG TAB GTB (21:41)
[2019-01-08] MEDS: INSULIN GLARGINE [LANTus] (100 UNITS/ML) SYG SC (21:50)
[2019-01-09] MEDS: ALBUTEROL/IPRATROPIUM (NEB) 3 ML AMP HHN ×6 (01:03→21:01)
[2019-01-09] MEDS: LANSOPRAZOLE 30 MG CAP GTB ×2 (05:06→17:09)
[2019-01-09 06:10] LABS: HEMOGLOBIN 8.8 g/dl (12.0-16.0)
[2019-01-09] MEDS: (Nursing Note) XX ×2 (07:54→20:32)
[2019-01-09] MEDS: OLANZAPINE 2.5 MG TAB GTB (08:48)
[2019-01-09] MEDS: FERROUS SULFATE 60 MG/ML 5ML CUP GTB ×2 (08:48→20:10)
[2019-01-09] MEDS: FOLIC ACID 1 MG TAB GTB (08:49)
[2019-01-09] MEDS: MUPIROCIN 2% 22 GM OINT TOP ×2 (08:49→20:08)
[2019-01-09] MEDS: METOPROLOL 50 MG TAB GTB (08:50)
[2019-01-09] MEDS: ASCORBIC ACID 500 MG TAB GTB (08:50)
[2019-01-09] MEDS: LINAGLIPTIN 5 MG TABLET GTB (08:50)
[2019-01-09] MEDS: AMLODIPINE 5 MG TAB GTB (08:51)
[2019-01-09] MEDS: DOCUSATE SODIUM 10 MG/ML (10ML CUP) GTB (08:51)
[2019-01-09] MEDS: EPOETIN ALFA-EPBX (ESRD) 4,000 UNIT/ML VIAL SC (17:09)
[2019-01-09] MEDS: ATORVASTATIN 40 MG TAB GTB (20:09)
[2019-01-09] MEDS: ACETAMINOPHEN 650MG/20.3ML CUP GTB (20:09)
[2019-01-09] MEDS: LORAZEPAM 0.5 MG TAB GTB (20:10)
[2019-01-09] MEDS: MICONAZOLE 100 MG VAG SUPP VAG (20:32)
[2019-01-09] MEDS: INSULIN GLARGINE [LANTus] (100 UNITS/ML) SYG SC (20:32)
[2019-01-10] MEDS: ALBUTEROL/IPRATROPIUM (NEB) 3 ML AMP HHN ×6 (00:43→20:36)
[2019-01-10] MEDS: LANSOPRAZOLE 30 MG CAP GTB ×2 (05:31→18:02)
[2019-01-10] MEDS: OLANZAPINE 2.5 MG TAB GTB (09:18)
[2019-01-10] MEDS: LORAZEPAM 0.5 MG TAB GTB ×2 (09:18→19:53)
[2019-01-10] MEDS: FERROUS SULFATE 60 MG/ML 5ML CUP GTB ×2 (09:18→20:00)
[2019-01-10] MEDS: LORAZEPAM 2 MG INJ IV (11:04)
[2019-01-10] MEDS: MUPIROCIN 2% 22 GM OINT TOP ×2 (15:28→20:00)
[2019-01-10] MEDS: (Nursing Note) XX ×2 (17:05→21:00)
[2019-01-10] MEDS: ACETAMINOPHEN 650MG/20.3ML CUP GTB (19:53)
[2019-01-10] MEDS: INSULIN GLARGINE [LANTus] (100 UNITS/ML) SYG SC (20:47)
[2019-01-10] MEDS: MICONAZOLE 100 MG VAG SUPP VAG (21:00)
[2019-01-11] MEDS: ALBUTEROL/IPRATROPIUM (NEB) 3 ML AMP HHN ×6 (00:33→19:55)
[2019-01-11] MEDS: ACETAMINOPHEN 650MG/20.3ML CUP GTB ×2 (05:59→20:05)
[2019-01-11] MEDS: LANSOPRAZOLE 30 MG CAP GTB ×2 (05:59→17:33)
[2019-01-11] MEDS: FERROUS SULFATE 60 MG/ML 5ML CUP GTB ×2 (10:01→20:05)
[2019-01-11] MEDS: OLANZAPINE 2.5 MG TAB GTB (10:01)
[2019-01-11] MEDS: MUPIROCIN 2% 22 GM OINT TOP ×2 (10:02→20:06)
[2019-01-11] MEDS: (Nursing Note) XX ×2 (11:11→21:00)
[2019-01-11] MEDS: EPOETIN ALFA-EPBX (ESRD) 4,000 UNIT/ML VIAL SC (17:33)
[2019-01-11] MEDS: INSULIN GLARGINE [LANTus] (100 UNITS/ML) SYG SC (20:13)
[2019-01-11] MEDS: MICONAZOLE 100 MG VAG SUPP VAG (21:00)
[2019-01-12] MEDS: ALBUTEROL/IPRATROPIUM (NEB) 3 ML AMP HHN ×5 (00:04→21:07)
[2019-01-12] MEDS: LORAZEPAM 0.5 MG TAB GTB ×2 (05:43→15:20)
[2019-01-12] MEDS: LANSOPRAZOLE 30 MG CAP GTB ×2 (05:45→18:04)
[2019-01-12] MEDS: MUPIROCIN 2% 22 GM OINT TOP (08:33)
[2019-01-12] MEDS: OLANZAPINE 2.5 MG TAB GTB (08:33)
[2019-01-12] MEDS: FERROUS SULFATE 60 MG/ML 5ML CUP GTB ×2 (08:33→23:47)
[2019-01-12] MEDS: (Nursing Note) XX ×2 (09:00→21:00)
[2019-01-12] MEDS: INSULIN GLARGINE [LANTus] (100 UNITS/ML) SYG SC (23:45)
[2019-01-12] MEDS: DOCUSATE SODIUM 10 MG/ML (10ML CUP) GTB (23:47)
[2019-01-12] MEDS: ATORVASTATIN 40 MG TAB GTB (23:48)
[2019-01-12] MEDS: AMLODIPINE 5 MG TAB GTB (23:48)
[2019-01-12] MEDS: METOPROLOL 50 MG TAB GTB (23:49)
[2019-01-13] MEDS: ALBUTEROL/IPRATROPIUM (NEB) 3 ML AMP HHN ×6 (01:37→20:29)
[2019-01-13 06:00] LABS: ADD MAN DIFF? NO
[2019-01-13 06:07] LABS: WHITE BLOOD COUNT 9.3 10^3/ul (4.8-10.8)
[2019-01-13 06:07] LABS: ABNORMAL IP MESSAGE 1; BASOPHIL # 0.1 10^3/ul (0.0-0.1); BASOPHILS % 0.5 % (0.0-2.0); EOSINOPHILS # 0.7 10^3/ul (0.0-0.5); HEMATOCRIT 29.5 % (37.0-47.0); HEMOGLOBIN 9.3 g/dl (12.0-16.0); LYMPHOCYTES # 0.5 10^3/ul (0.8-2.9); LYMPHOCYTES % 5.6 % (15.0-51.0); MEAN CORPUSCULAR HEMOGLOBIN 26.7 pg (29.0-33.0); MEAN CORPUSCULAR HGB CONC 31.5 g/dl (32.0-37.0); MEAN CORPUSCULAR VOLUME 84.8 fl (82.0-101.0); MEAN PLATELET VOLUME 12.5 fl (7.4-10.4); MONOCYTE # 0.8 10^3/ul (0.3-0.9); MONOCYTES % 8.1 % (0.0-11.0); NEUTROPHIL # 7.3 10^3/ul (1.6-7.5); NUCLEATED RED BLOOD CELLS # 0.1 10^3/ul (0.0-0.0); NUCLEATED RED BLOOD CELLS% 0.6 /100WBC (0.0-0.0); PLATELET COUNT 235 10^3/UL (140-415); RED BLOOD COUNT 3.48 10^6/ul (4.20-5.40); RED CELL DISTRIBUTION WIDTH 15.9 % (11.5-14.5)
[2019-01-13] MEDS: LANSOPRAZOLE 30 MG CAP GTB ×2 (06:14→18:43)
[2019-01-13 06:20] LABS: POSITIVE DIFF @See below
[2019-01-13 06:26] LABS: PHOSPHORUS 2.7 mg/dl (2.5-4.9)
[2019-01-13 06:26] LABS: MAGNESIUM 2.2 mg/dl (1.7-2.5)
[2019-01-13 06:35] LABS: ALANINE AMINOTRANSFERASE 20 IU/L (13-69); ALBUMIN 3.4 g/dl (3.3-4.9); ALBUMIN/GLOBULIN RATIO 0.82; ALKALINE PHOSPHATASE 188 IU/L (42-121); ANION GAP 9 (5-13); ASPARTATE AMINO TRANSFERASE 33 IU/L (15-46); BILIRUBIN,INDIRECT 0.6 mg/dl (0-1.1); BILIRUBIN,TOTAL 0.6 mg/dl (0.2-1.3); BLOOD UREA NITROGEN 31 mg/dl (7-20); CALCIUM 8.7 mg/dl (8.4-10.2); CARBON DIOXIDE 27 mmol/L (21-31); CHLORIDE 102 mmol/L (97-110); CREATININE 1.01 mg/dl (0.44-1.00); GLUCOSE 143 mg/dl (70-220); POTASSIUM 4.2 mmol/L (3.5-5.1); SODIUM 138 mmol/L (135-144); TOTAL PROTEIN 7.5 g/dl (6.1-8.1)
[2019-01-13] MEDS: METOPROLOL 50 MG TAB GTB ×2 (09:21→21:25)
[2019-01-13] MEDS: FERROUS SULFATE 60 MG/ML 5ML CUP GTB ×2 (09:21→21:24)
[2019-01-13] MEDS: DOCUSATE SODIUM 10 MG/ML (10ML CUP) GTB ×2 (09:21→21:24)
[2019-01-13] MEDS: AMLODIPINE 5 MG TAB GTB ×2 (09:22→21:26)
[2019-01-13] MEDS: LINAGLIPTIN 5 MG TABLET PO (09:22)
[2019-01-13] MEDS: FOLIC ACID 1 MG TAB GTB (09:22)
[2019-01-13] MEDS: ASCORBIC ACID 500 MG TAB GTB (09:22)
[2019-01-13] MEDS: OLANZAPINE 2.5 MG TAB GTB (09:22)
[2019-01-13] MEDS: ACETAMINOPHEN 650MG/20.3ML CUP GTB (20:21)
[2019-01-13] MEDS: INSULIN GLARGINE [LANTus] (100 UNITS/ML) SYG SC (20:43)
[2019-01-13] MEDS: ATORVASTATIN 40 MG TAB GTB (21:24)
[2019-01-14] MEDS: ALBUTEROL/IPRATROPIUM (NEB) 3 ML AMP HHN ×6 (01:01→20:20)
[2019-01-14] MEDS: LANSOPRAZOLE 30 MG CAP GTB ×2 (05:50→17:26)
[2019-01-14] MEDS: FERROUS SULFATE 60 MG/ML 5ML CUP GTB (08:46)
[2019-01-14] MEDS: METOPROLOL 50 MG TAB GTB (08:46)
[2019-01-14] MEDS: OLANZAPINE 2.5 MG TAB GTB (08:46)
[2019-01-14] MEDS: FOLIC ACID 1 MG TAB GTB (08:46)
[2019-01-14] MEDS: DOCUSATE SODIUM 10 MG/ML (10ML CUP) GTB (08:46)
[2019-01-14] MEDS: ASCORBIC ACID 500 MG TAB GTB (08:46)
[2019-01-14] MEDS: LINAGLIPTIN 5 MG TABLET PO (08:48)
[2019-01-14] MEDS: AMLODIPINE 5 MG TAB GTB (08:49)
[2019-01-14] MEDS: LORAZEPAM 0.5 MG TAB GTB (14:45)
[2019-01-14] MEDS: EPOETIN ALFA-EPBX (ESRD) 4,000 UNIT/ML VIAL SC (18:55)
[2019-01-14] MEDS: INSULIN GLARGINE [LANTus] (100 UNITS/ML) SYG SC (20:50)
[2019-01-14] MEDS: ACCU-CHEK XX ×2 (20:51→21:42)
[2019-01-15] MEDS: DOCUSATE SODIUM 10 MG/ML (10ML CUP) GTB ×3 (00:41→20:31)
[2019-01-15] MEDS: FERROUS SULFATE 60 MG/ML 5ML CUP GTB ×3 (00:41→20:31)
[2019-01-15] MEDS: ATORVASTATIN 40 MG TAB GTB ×2 (00:46→20:30)
[2019-01-15] MEDS: AMLODIPINE 5 MG TAB GTB ×3 (00:46→20:31)
[2019-01-15] MEDS: METOPROLOL 50 MG TAB GTB ×3 (00:46→20:30)
[2019-01-15] MEDS: ALBUTEROL/IPRATROPIUM (NEB) 3 ML AMP HHN ×6 (01:36→20:31)
[2019-01-15] MEDS: LANSOPRAZOLE 30 MG CAP GTB ×2 (05:21→18:33)
[2019-01-15] MEDS: ACCU-CHEK XX ×2 (09:00→21:00)
[2019-01-15] MEDS: FOLIC ACID 1 MG TAB GTB (09:12)
[2019-01-15] MEDS: LINAGLIPTIN 5 MG TABLET PO (09:12)
[2019-01-15] MEDS: OLANZAPINE 2.5 MG TAB GTB (09:13)
[2019-01-15] MEDS: ASCORBIC ACID 500 MG TAB GTB (09:13)
[2019-01-15] MEDS: LORAZEPAM 0.5 MG TAB GTB ×2 (09:15→20:30)
[2019-01-15] MEDS: INSULIN GLARGINE [LANTus] (100 UNITS/ML) SYG SC (20:44)
[2019-01-16] MEDS: ALBUTEROL/IPRATROPIUM (NEB) 3 ML AMP HHN ×6 (01:20→20:44)
[2019-01-16] MEDS: LANSOPRAZOLE 30 MG CAP GTB ×2 (06:20→18:12)
[2019-01-16] MEDS: OLANZAPINE 2.5 MG TAB GTB (08:33)
[2019-01-16] MEDS: METOPROLOL 50 MG TAB GTB ×2 (08:33→21:00)
[2019-01-16] MEDS: ASCORBIC ACID 500 MG TAB GTB (08:33)
[2019-01-16] MEDS: DOCUSATE SODIUM 10 MG/ML (10ML CUP) GTB ×2 (08:33→20:48)
[2019-01-16] MEDS: FERROUS SULFATE 60 MG/ML 5ML CUP GTB ×2 (08:33→20:48)
[2019-01-16] MEDS: FOLIC ACID 1 MG TAB GTB (08:34)
[2019-01-16] MEDS: AMLODIPINE 5 MG TAB GTB ×2 (08:34→21:00)
[2019-01-16] MEDS: LINAGLIPTIN 5 MG TABLET PO (08:34)
[2019-01-16] MEDS: ACCU-CHEK XX ×2 (08:34→21:00)
[2019-01-16] MEDS: EPOETIN ALFA-EPBX (ESRD) 4,000 UNIT/ML VIAL SC (18:11)
[2019-01-16] MEDS: LORAZEPAM 0.5 MG TAB GTB (20:48)
[2019-01-16] MEDS: ATORVASTATIN 40 MG TAB GTB (20:48)
[2019-01-17] MEDS: ALBUTEROL/IPRATROPIUM (NEB) 3 ML AMP HHN ×6 (01:00→20:11)
[2019-01-17] MEDS: LANSOPRAZOLE 30 MG CAP GTB ×2 (05:37→17:41)
[2019-01-17] MEDS: DOCUSATE SODIUM 10 MG/ML (10ML CUP) GTB ×2 (08:57→20:53)
[2019-01-17] MEDS: FERROUS SULFATE 60 MG/ML 5ML CUP GTB ×2 (08:57→20:53)
[2019-01-17] MEDS: OLANZAPINE 2.5 MG TAB GTB (08:57)
[2019-01-17] MEDS: LINAGLIPTIN 5 MG TABLET PO (08:57)
[2019-01-17] MEDS: ASCORBIC ACID 500 MG TAB GTB (08:58)
[2019-01-17] MEDS: ACCU-CHEK XX ×2 (08:58→20:52)
[2019-01-17] MEDS: METOPROLOL 50 MG TAB GTB ×2 (08:58→20:54)
[2019-01-17] MEDS: FOLIC ACID 1 MG TAB GTB (08:58)
[2019-01-17] MEDS: AMLODIPINE 5 MG TAB GTB ×2 (08:58→20:54)
[2019-01-17] MEDS: ATORVASTATIN 40 MG TAB GTB (20:53)
[2019-01-18] MEDS: LORAZEPAM 0.5 MG TAB GTB (00:47)
[2019-01-18] MEDS: ALBUTEROL/IPRATROPIUM (NEB) 3 ML AMP HHN ×6 (01:49→21:10)
[2019-01-18] MEDS: LANSOPRAZOLE 30 MG CAP GTB ×2 (05:19→17:56)
[2019-01-18 06:25] LABS: ADD MAN DIFF? NO
[2019-01-18 06:31] LABS: WHITE BLOOD COUNT 7.7 10^3/ul (4.8-10.8)
[2019-01-18 06:31] LABS: BASOPHILS % 0.3 % (0.0-2.0); EOSINOPHILS # 0.7 10^3/ul (0.0-0.5); EOSINOPHILS % 8.6 % (0.0-7.0); HEMATOCRIT 29.3 % (37.0-47.0); HEMOGLOBIN 9.2 g/dl (12.0-16.0); LYMPHOCYTES # 0.8 10^3/ul (0.8-2.9); LYMPHOCYTES % 9.9 % (15.0-51.0); MEAN CORPUSCULAR HEMOGLOBIN 26.3 pg (29.0-33.0); MEAN CORPUSCULAR HGB CONC 31.4 g/dl (32.0-37.0); MEAN CORPUSCULAR VOLUME 83.7 fl (82.0-101.0); MEAN PLATELET VOLUME 12.2 fl (7.4-10.4); MONOCYTES % 12.4 % (0.0-11.0); NEUTROPHIL # 5.2 10^3/ul (1.6-7.5); NUCLEATED RED BLOOD CELLS% 0.3 /100WBC (0.0-0.0); PLATELET COUNT 247 10^3/UL (140-415); RED CELL DISTRIBUTION WIDTH 15.9 % (11.5-14.5)
[2019-01-18 06:54] LABS: MAGNESIUM 2.3 mg/dl (1.7-2.5)
[2019-01-18 06:54] LABS: PHOSPHORUS 2.9 mg/dl (2.5-4.9)
[2019-01-18 07:00] LABS: ANION GAP 6 (5-13); BLOOD UREA NITROGEN 49 mg/dl (7-20); CALCIUM 8.6 mg/dl (8.4-10.2); CARBON DIOXIDE 31 mmol/L (21-31); CHLORIDE 98 mmol/L (97-110); GLUCOSE 162 mg/dl (70-220); SODIUM 135 mmol/L (135-144)
[2019-01-18] MEDS: ACCU-CHEK XX ×2 (09:00→21:00)
[2019-01-18] MEDS: DOCUSATE SODIUM 10 MG/ML (10ML CUP) GTB ×2 (09:14→21:30)
[2019-01-18] MEDS: FERROUS SULFATE 60 MG/ML 5ML CUP GTB ×2 (09:14→21:30)
[2019-01-18] MEDS: FOLIC ACID 1 MG TAB GTB (09:15)
[2019-01-18] MEDS: ASCORBIC ACID 500 MG TAB GTB (09:15)
[2019-01-18] MEDS: OLANZAPINE 2.5 MG TAB GTB (09:15)
[2019-01-18] MEDS: AMLODIPINE 5 MG TAB GTB ×2 (09:15→21:31)
[2019-01-18] MEDS: METOPROLOL 50 MG TAB GTB ×2 (09:15→21:31)
[2019-01-18] MEDS: LINAGLIPTIN 5 MG TABLET PO (09:18)
[2019-01-18] MEDS: EPOETIN ALFA-EPBX (ESRD) 4,000 UNIT/ML VIAL SC (17:00)
[2019-01-18] MEDS: ATORVASTATIN 40 MG TAB GTB (21:30)
[2019-01-19] MEDS: ALBUTEROL/IPRATROPIUM (NEB) 3 ML AMP HHN ×6 (01:01→21:00)
[2019-01-19] MEDS: LANSOPRAZOLE 30 MG CAP GTB ×2 (05:24→17:16)
[2019-01-19] MEDS: AMLODIPINE 5 MG TAB GTB ×2 (09:00→21:07)
[2019-01-19] MEDS: METOPROLOL 50 MG TAB GTB ×2 (09:00→21:06)
[2019-01-19] MEDS: ACCU-CHEK XX ×2 (09:00→21:07)
[2019-01-19] MEDS: ASCORBIC ACID 500 MG TAB GTB (09:10)
[2019-01-19] MEDS: OLANZAPINE 2.5 MG TAB GTB (09:10)
[2019-01-19] MEDS: FERROUS SULFATE 60 MG/ML 5ML CUP GTB ×2 (09:10→21:05)
[2019-01-19] MEDS: FOLIC ACID 1 MG TAB GTB (09:10)
[2019-01-19] MEDS: DOCUSATE SODIUM 10 MG/ML (10ML CUP) GTB ×2 (09:10→21:05)
[2019-01-19] MEDS: LINAGLIPTIN 5 MG TABLET PO (09:11)
[2019-01-19 12:47] LABS: HEPATITIS B SURFACE ANTIGEN NEGATIVE (NEGATIVE)
[2019-01-19] MEDS: ATORVASTATIN 40 MG TAB GTB (21:05)
[2019-01-19] MEDS: LORAZEPAM 0.5 MG TAB GTB (23:50)
[2019-01-20] MEDS: ALBUTEROL/IPRATROPIUM (NEB) 3 ML AMP HHN ×6 (01:00→21:00)
[2019-01-20] MEDS: LANSOPRAZOLE 30 MG CAP GTB ×2 (05:47→18:05)
[2019-01-20] MEDS: ACCU-CHEK XX ×2 (08:45→21:00)
[2019-01-20] MEDS: DOCUSATE SODIUM 10 MG/ML (10ML CUP) GTB ×2 (09:20→20:30)
[2019-01-20] MEDS: FOLIC ACID 1 MG TAB GTB (09:20)
[2019-01-20] MEDS: ASCORBIC ACID 500 MG TAB GTB (09:20)
[2019-01-20] MEDS: FERROUS SULFATE 60 MG/ML 5ML CUP GTB ×2 (09:20→20:30)
[2019-01-20] MEDS: OLANZAPINE 2.5 MG TAB GTB (09:21)
[2019-01-20] MEDS: METOPROLOL 50 MG TAB GTB ×2 (09:21→20:30)
[2019-01-20] MEDS: LINAGLIPTIN 5 MG TABLET PO (09:21)
[2019-01-20] MEDS: AMLODIPINE 5 MG TAB GTB ×2 (09:21→20:30)
[2019-01-20] MEDS: LORAZEPAM 0.5 MG TAB GTB (20:30)
[2019-01-20] MEDS: ATORVASTATIN 40 MG TAB GTB (20:30)
[2019-01-21] MEDS: ALBUTEROL/IPRATROPIUM (NEB) 3 ML AMP HHN ×6 (01:26→21:00)
[2019-01-21] MEDS: ACETAMINOPHEN 650MG/20.3ML CUP GTB ×2 (02:26→21:43)
[2019-01-21] MEDS: LANSOPRAZOLE 30 MG CAP GTB ×2 (06:13→17:37)
[2019-01-21] MEDS: ACCU-CHEK XX ×2 (09:00→21:00)
[2019-01-21] MEDS: ASCORBIC ACID 500 MG TAB GTB (09:09)
[2019-01-21] MEDS: DOCUSATE SODIUM 10 MG/ML (10ML CUP) GTB ×2 (09:09→21:43)
[2019-01-21] MEDS: FOLIC ACID 1 MG TAB GTB (09:09)
[2019-01-21] MEDS: OLANZAPINE 2.5 MG TAB GTB (09:09)
[2019-01-21] MEDS: FERROUS SULFATE 60 MG/ML 5ML CUP GTB ×2 (09:09→21:43)
[2019-01-21] MEDS: LINAGLIPTIN 5 MG TABLET PO (09:10)
[2019-01-21] MEDS: METOPROLOL 50 MG TAB GTB ×2 (09:17→21:44)
[2019-01-21] MEDS: AMLODIPINE 5 MG TAB GTB ×2 (09:17→21:43)
[2019-01-21] MEDS: EPOETIN ALFA-EPBX (ESRD) 4,000 UNIT/ML VIAL SC (17:36)
[2019-01-21] MEDS: ATORVASTATIN 40 MG TAB GTB (21:43)
[2019-01-21] MEDS: LORAZEPAM 0.5 MG TAB GTB (21:43)
[2019-01-22] MEDS: ALBUTEROL/IPRATROPIUM (NEB) 3 ML AMP HHN ×6 (01:38→21:12)
[2019-01-22] MEDS: LANSOPRAZOLE 30 MG CAP GTB ×2 (06:09→17:54)
[2019-01-22 08:37] LABS: ADD MAN DIFF? NO
[2019-01-22 08:43] LABS: BASOPHILS % 0.3 % (0.0-2.0); EOSINOPHILS # 0.5 10^3/ul (0.0-0.5); EOSINOPHILS % 4.8 % (0.0-7.0); HEMATOCRIT 25.4 % (37.0-47.0); HEMOGLOBIN 8.2 g/dl (12.0-16.0); LYMPHOCYTES # 1.2 10^3/ul (0.8-2.9); LYMPHOCYTES % 11.1 % (15.0-51.0); MEAN CORPUSCULAR HEMOGLOBIN 26.7 pg (29.0-33.0); MEAN CORPUSCULAR HGB CONC 32.3 g/dl (32.0-37.0); MEAN CORPUSCULAR VOLUME 82.7 fl (82.0-101.0); MEAN PLATELET VOLUME 12.7 fl (7.4-10.4); MONOCYTE # 1.1 10^3/ul (0.3-0.9); MONOCYTES % 10.4 % (0.0-11.0); NEUTROPHIL # 7.6 10^3/ul (1.6-7.5); NEUTROPHILS % 72.8 % (39.0-77.0); NUCLEATED RED BLOOD CELLS% 0.2 /100WBC (0.0-0.0); PLATELET COUNT 206 10^3/UL (140-415); RED BLOOD COUNT 3.07 10^6/ul (4.20-5.40); RED CELL DISTRIBUTION WIDTH 15.4 % (11.5-14.5)
[2019-01-22 08:43] LABS: WHITE BLOOD COUNT 10.5 10^3/ul (4.8-10.8)
[2019-01-22] MEDS: DOCUSATE SODIUM 10 MG/ML (10ML CUP) GTB ×2 (09:01→21:35)
[2019-01-22] MEDS: FERROUS SULFATE 60 MG/ML 5ML CUP GTB ×2 (09:01→21:35)
[2019-01-22] MEDS: FOLIC ACID 1 MG TAB GTB (09:02)
[2019-01-22] MEDS: LINAGLIPTIN 5 MG TABLET PO (09:02)
[2019-01-22] MEDS: ASCORBIC ACID 500 MG TAB GTB (09:02)
[2019-01-22] MEDS: OLANZAPINE 2.5 MG TAB GTB (09:02)
[2019-01-22] MEDS: METOPROLOL 50 MG TAB GTB ×2 (09:03→21:37)
[2019-01-22] MEDS: ACCU-CHEK XX ×2 (09:03→21:34)
[2019-01-22] MEDS: AMLODIPINE 5 MG TAB GTB ×2 (09:03→21:36)
[2019-01-22 09:04] LABS: PHOSPHORUS 3.7 mg/dl (2.5-4.9)
[2019-01-22 09:04] LABS: MAGNESIUM 2.5 mg/dl (1.7-2.5)
[2019-01-22 09:17] LABS: ALANINE AMINOTRANSFERASE 21 IU/L (13-69); ALBUMIN/GLOBULIN RATIO 0.85; ALKALINE PHOSPHATASE 158 IU/L (42-121); ANION GAP 9 (5-13); ASPARTATE AMINO TRANSFERASE 29 IU/L (15-46); BILIRUBIN,INDIRECT 0.6 mg/dl (0-1.1); BILIRUBIN,TOTAL 0.6 mg/dl (0.2-1.3); BLOOD UREA NITROGEN 99 mg/dl (7-20); CALCIUM 8.5 mg/dl (8.4-10.2); CARBON DIOXIDE 28 mmol/L (21-31); CHLORIDE 97 mmol/L (97-110); CREATININE 2.18 mg/dl (0.44-1.00); GLUCOSE 115 mg/dl (70-220); POTASSIUM 3.8 mmol/L (3.5-5.1); SODIUM 134 mmol/L (135-144); TOTAL PROTEIN 6.5 g/dl (6.1-8.1)
[2019-01-22] MEDS: ACETAMINOPHEN 650MG/20.3ML CUP GTB (15:13)
[2019-01-22] MEDS: FLUCONAZOLE 100 MG TAB PO (15:13)
[2019-01-22] MEDS: MEROPENEM 500MG/50 ML (PMX) 50 ML IVPB (16:22)
[2019-01-22] MEDS ORDERED: morphine 2 MG INJ IV (16:30)
[2019-01-22 17:45] LABS: TROPONIN-I < 0.012 ng/ml (0.000-0.120)
[2019-01-22] MEDS: ATORVASTATIN 40 MG TAB GTB (21:35)
[2019-01-23] MEDS: ALBUTEROL/IPRATROPIUM (NEB) 3 ML AMP HHN ×6 (01:00→21:00)
[2019-01-23] MEDS: LANSOPRAZOLE 30 MG CAP GTB ×2 (05:11→17:19)
[2019-01-23 06:57] LABS: ADD MAN DIFF? NO
[2019-01-23 06:59] LABS: WHITE BLOOD COUNT 11.1 10^3/ul (4.8-10.8)
[2019-01-23 06:59] LABS: BASOPHILS % 0.3 % (0.0-2.0); EOSINOPHILS # 0.2 10^3/ul (0.0-0.5); EOSINOPHILS % 2.1 % (0.0-7.0); HEMATOCRIT 26.2 % (37.0-47.0); HEMOGLOBIN 8.6 g/dl (12.0-16.0); LYMPHOCYTES # 1.1 10^3/ul (0.8-2.9); LYMPHOCYTES % 9.5 % (15.0-51.0); MEAN CORPUSCULAR HEMOGLOBIN 26.6 pg (29.0-33.0); MEAN CORPUSCULAR HGB CONC 32.8 g/dl (32.0-37.0); MEAN CORPUSCULAR VOLUME 81.1 fl (82.0-101.0); MEAN PLATELET VOLUME 12.3 fl (7.4-10.4); MONOCYTE # 0.9 10^3/ul (0.3-0.9); MONOCYTES % 8.5 % (0.0-11.0); NEUTROPHIL # 8.8 10^3/ul (1.6-7.5); NEUTROPHILS % 79.1 % (39.0-77.0); PLATELET COUNT 239 10^3/UL (140-415); RED BLOOD COUNT 3.23 10^6/ul (4.20-5.40); RED CELL DISTRIBUTION WIDTH 15.2 % (11.5-14.5)
[2019-01-23 07:27] LABS: ALANINE AMINOTRANSFERASE 22 IU/L (13-69); ALBUMIN 3.4 g/dl (3.3-4.9); ALBUMIN/GLOBULIN RATIO 0.79; ALKALINE PHOSPHATASE 196 IU/L (42-121); ANION GAP 7 (5-13); ASPARTATE AMINO TRANSFERASE 30 IU/L (15-46); BILIRUBIN,INDIRECT 0.6 mg/dl (0-1.1); BILIRUBIN,TOTAL 0.6 mg/dl (0.2-1.3); BLOOD UREA NITROGEN 58 mg/dl (7-20); CALCIUM 8.6 mg/dl (8.4-10.2); CARBON DIOXIDE 31 mmol/L (21-31); CHLORIDE 100 mmol/L (97-110); CREATININE 1.26 mg/dl (0.44-1.00); GLUCOSE 147 mg/dl (70-220); POTASSIUM 3.6 mmol/L (3.5-5.1); SODIUM 138 mmol/L (135-144); TOTAL PROTEIN 7.7 g/dl (6.1-8.1)
[2019-01-23 07:35] LABS: PHOSPHORUS 1.9 mg/dl (2.5-4.9)
[2019-01-23 07:35] LABS: MAGNESIUM 2.3 mg/dl (1.7-2.5)
[2019-01-23] MEDS: ACCU-CHEK XX ×2 (08:17→20:52)
[2019-01-23] MEDS: DOCUSATE SODIUM 10 MG/ML (10ML CUP) GTB ×2 (09:10→20:43)
[2019-01-23] MEDS: FOLIC ACID 1 MG TAB GTB (09:10)
[2019-01-23] MEDS: FLUCONAZOLE 100 MG TAB PO (09:10)
[2019-01-23] MEDS: OLANZAPINE 2.5 MG TAB GTB (09:10)
[2019-01-23] MEDS: FERROUS SULFATE 60 MG/ML 5ML CUP GTB ×2 (09:10→20:43)
[2019-01-23] MEDS: LINAGLIPTIN 5 MG TABLET PO (09:10)
[2019-01-23] MEDS: ASCORBIC ACID 500 MG TAB GTB (09:10)
[2019-01-23] MEDS: AMLODIPINE 5 MG TAB GTB ×2 (09:11→20:43)
[2019-01-23] MEDS: METOPROLOL 50 MG TAB GTB ×2 (09:11→21:00)
[2019-01-23] MEDS ORDERED: VANCOMYCIN IV PER PHARMACY XX (13:00)
[2019-01-23] MEDS: ACETAMINOPHEN 650MG/20.3ML CUP GTB (13:37)
[2019-01-23] MEDS: VANCOMYCIN 1 GM 250 ML IVPB (14:36)
[2019-01-23] MEDS: MEROPENEM 500MG/50 ML (PMX) 50 ML IVPB (16:45)
[2019-01-23] MEDS: EPOETIN ALFA-EPBX (ESRD) 4,000 UNIT/ML VIAL SC (18:04)
[2019-01-23] MEDS: ATORVASTATIN 40 MG TAB GTB (20:43)
[2019-01-24] MEDS: ALBUTEROL/IPRATROPIUM (NEB) 3 ML AMP HHN ×6 (01:00→20:19)
[2019-01-24] MEDS: LANSOPRAZOLE 30 MG CAP GTB ×2 (05:47→18:56)
[2019-01-24] MEDS: FERROUS SULFATE 60 MG/ML 5ML CUP GTB ×2 (08:36→20:57)
[2019-01-24] MEDS: DOCUSATE SODIUM 10 MG/ML (10ML CUP) GTB ×2 (08:36→20:57)
[2019-01-24] MEDS: LINAGLIPTIN 5 MG TABLET PO (08:37)
[2019-01-24] MEDS: ACCU-CHEK XX ×2 (08:39→20:58)
[2019-01-24] MEDS: METOPROLOL 50 MG TAB GTB ×2 (08:39→20:57)
[2019-01-24] MEDS: ASCORBIC ACID 500 MG TAB GTB (08:40)
[2019-01-24] MEDS: AMLODIPINE 5 MG TAB GTB ×2 (08:40→20:57)
[2019-01-24] MEDS: FLUCONAZOLE 100 MG TAB PO (08:40)
[2019-01-24] MEDS: OLANZAPINE 2.5 MG TAB GTB (08:40)
[2019-01-24] MEDS: FOLIC ACID 1 MG TAB GTB (08:40)
[2019-01-24] MEDS: MEROPENEM 500MG/50 ML (PMX) 50 ML IVPB (15:15)
[2019-01-24] MEDS: ATORVASTATIN 40 MG TAB GTB (20:57)
[2019-01-25] MEDS: ALBUTEROL/IPRATROPIUM (NEB) 3 ML AMP HHN ×5 (01:00→21:16)
[2019-01-25] MEDS: LANSOPRAZOLE 30 MG CAP GTB ×2 (05:34→18:00)
[2019-01-25 05:37] LABS: ADD MAN DIFF? NO
[2019-01-25 05:43] LABS: BASOPHILS % 0.3 % (0.0-2.0); EOSINOPHILS # 0.2 10^3/ul (0.0-0.5); EOSINOPHILS % 2.4 % (0.0-7.0); HEMATOCRIT 23.8 % (37.0-47.0); HEMOGLOBIN 7.6 g/dl (12.0-16.0); LYMPHOCYTES # 0.9 10^3/ul (0.8-2.9); LYMPHOCYTES % 11.7 % (15.0-51.0); MEAN CORPUSCULAR HEMOGLOBIN 26.2 pg (29.0-33.0); MEAN CORPUSCULAR HGB CONC 31.9 g/dl (32.0-37.0); MEAN CORPUSCULAR VOLUME 82.1 fl (82.0-101.0); MEAN PLATELET VOLUME 12.8 fl (7.4-10.4); MONOCYTE # 0.8 10^3/ul (0.3-0.9); MONOCYTES % 10.3 % (0.0-11.0); NEUTROPHIL # 5.9 10^3/ul (1.6-7.5); NEUTROPHILS % 74.5 % (39.0-77.0); NUCLEATED RED BLOOD CELLS% 0.4 /100WBC (0.0-0.0); PLATELET COUNT 214 10^3/UL (140-415); RED CELL DISTRIBUTION WIDTH 15.6 % (11.5-14.5)
[2019-01-25 06:27] LABS: VANCOMYCIN,RANDOM 12.7 ug/ml
[2019-01-25 06:34] LABS: ANION GAP 11 (5-13); BLOOD UREA NITROGEN 96 mg/dl (7-20); CALCIUM 8.5 mg/dl (8.4-10.2); CARBON DIOXIDE 24 mmol/L (21-31); CHLORIDE 100 mmol/L (97-110); CREATININE 2.44 mg/dl (0.44-1.00); GLUCOSE 166 mg/dl (70-220); POTASSIUM 3.7 mmol/L (3.5-5.1); SODIUM 135 mmol/L (135-144)
[2019-01-25 07:29] LABS: MAGNESIUM 2.5 mg/dl (1.7-2.5)
[2019-01-25 07:29] LABS: PHOSPHORUS 3.5 mg/dl (2.5-4.9)
[2019-01-25] MEDS: AMLODIPINE 5 MG TAB GTB ×2 (09:00→20:27)
[2019-01-25] MEDS: ACCU-CHEK XX ×2 (09:00→20:44)
[2019-01-25] MEDS: METOPROLOL 50 MG TAB GTB ×2 (09:00→20:27)
[2019-01-25] MEDS: DOCUSATE SODIUM 10 MG/ML (10ML CUP) GTB ×2 (13:00→20:26)
[2019-01-25] MEDS: FOLIC ACID 1 MG TAB GTB (13:00)
[2019-01-25] MEDS: ASCORBIC ACID 500 MG TAB GTB (13:00)
[2019-01-25] MEDS: FLUCONAZOLE 100 MG TAB PO (13:02)
[2019-01-25] MEDS: FERROUS SULFATE 60 MG/ML 5ML CUP GTB ×2 (13:02→20:26)
[2019-01-25] MEDS: OLANZAPINE 2.5 MG TAB GTB (13:02)
[2019-01-25] MEDS: LINAGLIPTIN 5 MG TABLET PO (13:09)
[2019-01-25] MEDS ORDERED: VANCOMYCIN 750 MG (PMX) 250 ML IVPB (14:00)
[2019-01-25] MEDS: MEROPENEM 500MG/50 ML (PMX) 50 ML IVPB (15:59)
[2019-01-25] MEDS: EPOETIN ALFA-EPBX (ESRD) 4,000 UNIT/ML VIAL SC (17:40)
[2019-01-25] MEDS: ATORVASTATIN 40 MG TAB GTB (20:26)
[2019-01-25] MEDS: CASPOFUNGIN 50 MG in SOD CHLORIDE 0.9% 250 ML IVPB (20:35)
[2019-01-26] MEDS: ALBUTEROL/IPRATROPIUM (NEB) 3 ML AMP HHN ×6 (01:00→21:00)
[2019-01-26] MEDS: LANSOPRAZOLE 30 MG CAP GTB ×3 (06:33→17:58)
[2019-01-26] MEDS: DOCUSATE SODIUM 10 MG/ML (10ML CUP) GTB ×2 (09:22→21:00)
[2019-01-26] MEDS: FOLIC ACID 1 MG TAB GTB (09:22)
[2019-01-26] MEDS: OLANZAPINE 2.5 MG TAB GTB (09:22)
[2019-01-26] MEDS: ASCORBIC ACID 500 MG TAB GTB (09:23)
[2019-01-26] MEDS: LINAGLIPTIN 5 MG TABLET PO (09:26)
[2019-01-26] MEDS: METOPROLOL 50 MG TAB GTB ×2 (09:27→21:38)
[2019-01-26] MEDS: ACCU-CHEK XX ×2 (09:27→21:00)
[2019-01-26] MEDS: AMLODIPINE 5 MG TAB GTB ×2 (09:27→21:38)
[2019-01-26] MEDS: LACTULOSE 30ML CUP PO (14:46)
[2019-01-26] MEDS: MEROPENEM 500MG/50 ML (PMX) 50 ML IVPB (14:52)
[2019-01-26] MEDS: MAGNESIUM CITRATE 300 ML BTL PO (16:45)
[2019-01-26] MEDS: CASPOFUNGIN 50 MG in SOD CHLORIDE 0.9% 250 ML IVPB (16:45)
[2019-01-26] MEDS: ATORVASTATIN 40 MG TAB GTB (21:37)
[2019-01-27] MEDS: ALBUTEROL/IPRATROPIUM (NEB) 3 ML AMP HHN ×6 (01:43→21:03)
[2019-01-27] MEDS: LANSOPRAZOLE 30 MG CAP GTB ×2 (05:03→17:28)
[2019-01-27 06:02] LABS: ADD MAN DIFF? NO
[2019-01-27 06:19] LABS: WHITE BLOOD COUNT 8.3 10^3/ul (4.8-10.8)
[2019-01-27 06:19] LABS: BASOPHILS % 0.4 % (0.0-2.0); EOSINOPHILS # 0.4 10^3/ul (0.0-0.5); EOSINOPHILS % 5.1 % (0.0-7.0); HEMATOCRIT 24.6 % (37.0-47.0); HEMOGLOBIN 7.8 g/dl (12.0-16.0); MEAN CORPUSCULAR HGB CONC 31.7 g/dl (32.0-37.0); MEAN PLATELET VOLUME 11.9 fl (7.4-10.4); MONOCYTE # 0.9 10^3/ul (0.3-0.9); MONOCYTES % 10.7 % (0.0-11.0); NEUTROPHIL # 5.9 10^3/ul (1.6-7.5); NEUTROPHILS % 71.3 % (39.0-77.0); NUCLEATED RED BLOOD CELLS% 0.5 /100WBC (0.0-0.0); PLATELET COUNT 232 10^3/UL (140-415); RED CELL DISTRIBUTION WIDTH 15.8 % (11.5-14.5)
[2019-01-27 06:46] LABS: MAGNESIUM 2.6 mg/dl (1.7-2.5)
[2019-01-27 06:59] LABS: ANION GAP 10 (5-13); BLOOD UREA NITROGEN 73 mg/dl (7-20); CALCIUM 8.3 mg/dl (8.4-10.2); CARBON DIOXIDE 27 mmol/L (21-31); CHLORIDE 100 mmol/L (97-110); GLUCOSE 160 mg/dl (70-220); POTASSIUM 3.9 mmol/L (3.5-5.1); SODIUM 137 mmol/L (135-144)
[2019-01-27] MEDS: OLANZAPINE 2.5 MG TAB GTB (08:27)
[2019-01-27] MEDS: FOLIC ACID 1 MG TAB GTB (08:27)
[2019-01-27] MEDS: ASCORBIC ACID 500 MG TAB GTB (08:28)
[2019-01-27] MEDS: METOPROLOL 50 MG TAB GTB ×2 (08:28→20:19)
[2019-01-27] MEDS: AMLODIPINE 5 MG TAB GTB ×2 (08:28→20:19)
[2019-01-27] MEDS: ACCU-CHEK XX ×2 (08:29→20:19)
[2019-01-27] MEDS: DOCUSATE SODIUM 10 MG/ML (10ML CUP) GTB ×4 (08:29→20:24)
[2019-01-27] MEDS: LINAGLIPTIN 5 MG TABLET PO (08:30)
[2019-01-27] MEDS: CASPOFUNGIN 50 MG in SOD CHLORIDE 0.9% 250 ML IVPB (17:33)
[2019-01-27] MEDS: ATORVASTATIN 40 MG TAB GTB (20:19)
[2019-01-27] MEDS: ACETAMINOPHEN 650MG/20.3ML CUP GTB (20:19)
[2019-01-28] MEDS: ALBUTEROL/IPRATROPIUM (NEB) 3 ML AMP HHN ×6 (01:00→21:07)
[2019-01-28] MEDS: LANSOPRAZOLE 30 MG CAP GTB ×2 (05:35→17:38)
[2019-01-28] MEDS: ACCU-CHEK XX ×2 (09:00→20:47)
[2019-01-28] MEDS: DOCUSATE SODIUM 10 MG/ML (10ML CUP) GTB ×2 (10:02→20:49)
[2019-01-28] MEDS: ASCORBIC ACID 500 MG TAB GTB (10:03)
[2019-01-28] MEDS: FOLIC ACID 1 MG TAB GTB (10:03)
[2019-01-28] MEDS: AMLODIPINE 5 MG TAB GTB ×2 (10:03→20:49)
[2019-01-28] MEDS: OLANZAPINE 2.5 MG TAB GTB (10:03)
[2019-01-28] MEDS: LINAGLIPTIN 5 MG TABLET PO (10:03)
[2019-01-28] MEDS: METOPROLOL 50 MG TAB GTB ×2 (10:04→20:49)
[2019-01-28] MEDS: [UNRECOGNIZED DRUG - OTHER] XX ×2 (10:30→18:30)
[2019-01-28] MEDS: CASPOFUNGIN 50 MG in SOD CHLORIDE 0.9% 250 ML IVPB (17:31)
[2019-01-28] MEDS: EPOETIN ALFA-EPBX (ESRD) 4,000 UNIT/ML VIAL SC (17:37)
[2019-01-28] MEDS: LORAZEPAM 0.5 MG TAB GTB (20:47)
[2019-01-28] MEDS: ATORVASTATIN 40 MG TAB GTB (20:49)
[2019-01-29] MEDS: ALBUTEROL/IPRATROPIUM (NEB) 3 ML AMP HHN ×4 (01:14→13:00)
[2019-01-29] MEDS: [UNRECOGNIZED DRUG - OTHER] XX ×2 (02:30→10:30)
[2019-01-29] MEDS: LANSOPRAZOLE 30 MG CAP GTB ×2 (06:39→17:11)
[2019-01-29] MEDS: ACCU-CHEK XX ×2 (09:00→21:34)
[2019-01-29] MEDS: DOCUSATE SODIUM 10 MG/ML (10ML CUP) GTB ×2 (09:18→21:34)
[2019-01-29] MEDS: FOLIC ACID 1 MG TAB GTB (09:19)
[2019-01-29] MEDS: ASCORBIC ACID 500 MG TAB GTB (09:19)
[2019-01-29] MEDS: AMLODIPINE 5 MG TAB GTB ×2 (09:19→21:33)
[2019-01-29] MEDS: METOPROLOL 50 MG TAB GTB ×2 (09:19→21:33)
[2019-01-29] MEDS: OLANZAPINE 2.5 MG TAB GTB (09:19)
[2019-01-29] MEDS: LINAGLIPTIN 5 MG TABLET PO (09:19)
[2019-01-29] MEDS: CASPOFUNGIN 50 MG in SOD CHLORIDE 0.9% 250 ML IVPB (17:10)
[2019-01-29] MEDS: LORAZEPAM 0.5 MG TAB GTB (21:32)
[2019-01-29] MEDS: ATORVASTATIN 40 MG TAB GTB (21:33)
[2019-01-30] MEDS: morphine 2 MG INJ IV (00:19)
[2019-01-30] MEDS: LANSOPRAZOLE 30 MG CAP GTB ×2 (06:07→17:31)
[2019-01-30 07:03] LABS: ANION GAP 7 (5-13); BLOOD UREA NITROGEN 72 mg/dl (7-20); CALCIUM 8.3 mg/dl (8.4-10.2); CARBON DIOXIDE 29 mmol/L (21-31); CHLORIDE 102 mmol/L (97-110); GLUCOSE 153 mg/dl (70-220); POTASSIUM 3.8 mmol/L (3.5-5.1); SODIUM 138 mmol/L (135-144)
[2019-01-30] MEDS: DOCUSATE SODIUM 10 MG/ML (10ML CUP) GTB ×2 (08:30→21:13)
[2019-01-30] MEDS: ASCORBIC ACID 500 MG TAB GTB (08:30)
[2019-01-30] MEDS: OLANZAPINE 2.5 MG TAB GTB (08:30)
[2019-01-30] MEDS: FOLIC ACID 1 MG TAB GTB (08:30)
[2019-01-30] MEDS: LINAGLIPTIN 5 MG TABLET PO (08:30)
[2019-01-30] MEDS: METOPROLOL 50 MG TAB GTB ×2 (08:37→21:12)
[2019-01-30] MEDS: AMLODIPINE 5 MG TAB GTB ×2 (08:37→21:12)
[2019-01-30] MEDS: ACCU-CHEK XX ×2 (08:38→21:23)
[2019-01-30] MEDS: LORAZEPAM 0.5 MG TAB GTB (12:02)
[2019-01-30] MEDS: CASPOFUNGIN 50 MG in SOD CHLORIDE 0.9% 250 ML IVPB (17:31)
[2019-01-30] MEDS: EPOETIN ALFA-EPBX (ESRD) 4,000 UNIT/ML VIAL SC (17:49)
[2019-01-30] MEDS: ATORVASTATIN 40 MG TAB GTB (21:12)
[2019-01-30] MEDS: ACETAMINOPHEN 650MG/20.3ML CUP GTB (21:13)
[2019-01-31] MEDS: LANSOPRAZOLE 30 MG CAP GTB ×2 (06:42→17:10)
[2019-01-31] MEDS: FOLIC ACID 1 MG TAB GTB (08:49)
[2019-01-31] MEDS: METOPROLOL 50 MG TAB GTB ×2 (08:49→21:01)
[2019-01-31] MEDS: DOCUSATE SODIUM 10 MG/ML (10ML CUP) GTB ×2 (08:49→21:00)
[2019-01-31] MEDS: ASCORBIC ACID 500 MG TAB GTB (08:49)
[2019-01-31] MEDS: OLANZAPINE 2.5 MG TAB GTB (08:50)
[2019-01-31] MEDS: AMLODIPINE 5 MG TAB GTB ×2 (08:50→21:02)
[2019-01-31] MEDS: LINAGLIPTIN 5 MG TABLET PO (08:52)
[2019-01-31] MEDS: ACCU-CHEK XX ×2 (08:53→21:02)
[2019-01-31 09:41] LABS: ADD MAN DIFF? NO
[2019-01-31 09:45] LABS: BASOPHILS % 0.4 % (0.0-2.0); EOSINOPHILS # 0.8 10^3/ul (0.0-0.5); EOSINOPHILS % 10.2 % (0.0-7.0); HEMOGLOBIN 8.1 g/dl (12.0-16.0); LYMPHOCYTES # 0.8 10^3/ul (0.8-2.9); LYMPHOCYTES % 11.3 % (15.0-51.0); MEAN CORPUSCULAR HGB CONC 31.2 g/dl (32.0-37.0); MEAN CORPUSCULAR VOLUME 83.3 fl (82.0-101.0); MEAN PLATELET VOLUME 11.9 fl (7.4-10.4); MONOCYTE # 0.8 10^3/ul (0.3-0.9); MONOCYTES % 10.2 % (0.0-11.0); NEUTROPHILS % 67.2 % (39.0-77.0); NUCLEATED RED BLOOD CELLS # 0.1 10^3/ul (0.0-0.0); NUCLEATED RED BLOOD CELLS% 0.7 /100WBC (0.0-0.0); PLATELET COUNT 241 10^3/UL (140-415); RED BLOOD COUNT 3.12 10^6/ul (4.20-5.40); RED CELL DISTRIBUTION WIDTH 16.5 % (11.5-14.5)
[2019-01-31 09:45] LABS: WHITE BLOOD COUNT 7.4 10^3/ul (4.8-10.8)
[2019-01-31 10:09] LABS: ANION GAP 6 (5-13); BLOOD UREA NITROGEN 50 mg/dl (7-20); CALCIUM 8.3 mg/dl (8.4-10.2); CARBON DIOXIDE 30 mmol/L (21-31); CHLORIDE 102 mmol/L (97-110); CREATININE 1.34 mg/dl (0.44-1.00); GLUCOSE 132 mg/dl (70-220); SODIUM 138 mmol/L (135-144)
[2019-01-31] MEDS: LORAZEPAM 0.5 MG TAB GTB (13:22)
[2019-01-31] MEDS: CASPOFUNGIN 50 MG in SOD CHLORIDE 0.9% 250 ML IVPB (17:10)
[2019-01-31] MEDS: ACETAMINOPHEN 650MG/20.3ML CUP GTB (21:00)
[2019-01-31] MEDS: ATORVASTATIN 40 MG TAB GTB (21:01)
[2019-01-31] MEDS: DEXTROSE 5%-0.45% NACL 1,000 ML IV (22:26)
[2019-02-01] MEDS: LANSOPRAZOLE 30 MG CAP GTB ×2 (06:00→17:07)
[2019-02-01] MEDS: FOLIC ACID 1 MG TAB GTB (08:26)
[2019-02-01] MEDS: METOPROLOL 50 MG TAB GTB ×2 (08:26→21:02)
[2019-02-01] MEDS: ASCORBIC ACID 500 MG TAB GTB (08:26)
[2019-02-01] MEDS: AMLODIPINE 5 MG TAB GTB ×2 (08:26→21:01)
[2019-02-01] MEDS: DOCUSATE SODIUM 10 MG/ML (10ML CUP) GTB ×2 (08:26→21:01)
[2019-02-01] MEDS: OLANZAPINE 2.5 MG TAB GTB (08:27)
[2019-02-01] MEDS: LINAGLIPTIN 5 MG TABLET PO (08:27)
[2019-02-01] MEDS: ACCU-CHEK XX ×2 (08:27→21:52)
[2019-02-01] MEDS: EPOETIN ALFA-EPBX (ESRD) 4,000 UNIT/ML VIAL SC (18:25)
[2019-02-01] MEDS: CASPOFUNGIN 50 MG in SOD CHLORIDE 0.9% 250 ML IVPB ×2 (18:25→22:16)
[2019-02-01] MEDS: LORAZEPAM 0.5 MG TAB GTB (18:45)
[2019-02-01] MEDS: ATORVASTATIN 40 MG TAB GTB (21:01)
[2019-02-01] MEDS: morphine 2 MG INJ IV (21:02)
[2019-02-02] MEDS: LANSOPRAZOLE 30 MG CAP GTB ×2 (06:02→17:59)
[2019-02-02] MEDS: ACCU-CHEK XX ×2 (09:42→21:00)
[2019-02-02] MEDS: FOLIC ACID 1 MG TAB GTB (09:49)
[2019-02-02] MEDS: LINAGLIPTIN 5 MG TABLET PO (09:49)
[2019-02-02] MEDS: OLANZAPINE 2.5 MG TAB GTB (09:49)
[2019-02-02] MEDS: DOCUSATE SODIUM 10 MG/ML (10ML CUP) GTB ×2 (09:49→21:08)
[2019-02-02] MEDS: AMLODIPINE 5 MG TAB GTB ×2 (09:50→21:08)
[2019-02-02] MEDS: ASCORBIC ACID 500 MG TAB GTB (09:50)
[2019-02-02] MEDS: METOPROLOL 50 MG TAB GTB ×2 (09:51→21:09)
[2019-02-02] MEDS: CASPOFUNGIN 50 MG in SOD CHLORIDE 0.9% 250 ML IVPB (17:59)
[2019-02-02] MEDS: ATORVASTATIN 40 MG TAB GTB (21:08)
[2019-02-02] MEDS: LORAZEPAM 0.5 MG TAB GTB (21:09)
[2019-02-02] MEDS: DIPHENHYDRAMINE 2.5 MG/ML 5ML CUP GTB (22:11)
[2019-02-03] MEDS: LANSOPRAZOLE 30 MG CAP GTB ×2 (05:37→17:25)
[2019-02-03 06:39] LABS: ADD MAN DIFF? NO
[2019-02-03 06:43] LABS: BASOPHILS % 0.2 % (0.0-2.0); EOSINOPHILS # 0.7 10^3/ul (0.0-0.5); HEMATOCRIT 22.1 % (37.0-47.0); LYMPHOCYTES # 0.9 10^3/ul (0.8-2.9); LYMPHOCYTES % 11.5 % (15.0-51.0); MEAN CORPUSCULAR HEMOGLOBIN 26.4 pg (29.0-33.0); MEAN CORPUSCULAR HGB CONC 31.7 g/dl (32.0-37.0); MEAN CORPUSCULAR VOLUME 83.4 fl (82.0-101.0); MEAN PLATELET VOLUME 11.7 fl (7.4-10.4); MONOCYTE # 0.7 10^3/ul (0.3-0.9); MONOCYTES % 8.8 % (0.0-11.0); NEUTROPHIL # 5.8 10^3/ul (1.6-7.5); NUCLEATED RED BLOOD CELLS% 0.5 /100WBC (0.0-0.0); PLATELET COUNT 254 10^3/UL (140-415); RED BLOOD COUNT 2.65 10^6/ul (4.20-5.40); RED CELL DISTRIBUTION WIDTH 16.5 % (11.5-14.5)
[2019-02-03 06:43] LABS: WHITE BLOOD COUNT 8.2 10^3/ul (4.8-10.8)
[2019-02-03 07:53] LABS: ANION GAP 5 (5-13); BLOOD UREA NITROGEN 40 mg/dl (7-20); CALCIUM 8.4 mg/dl (8.4-10.2); CARBON DIOXIDE 31 mmol/L (21-31); CHLORIDE 101 mmol/L (97-110); CREATININE 1.53 mg/dl (0.44-1.00); GLUCOSE 140 mg/dl (70-220); POTASSIUM 3.3 mmol/L (3.5-5.1); SODIUM 137 mmol/L (135-144)
[2019-02-03 08:00] LABS: MAGNESIUM 2.1 mg/dl (1.7-2.5)
[2019-02-03 08:00] LABS: PHOSPHORUS 3.7 mg/dl (2.5-4.9)
[2019-02-03] MEDS: ACCU-CHEK XX ×2 (08:14→21:09)
[2019-02-03] MEDS: METOPROLOL 50 MG TAB GTB ×2 (08:15→21:12)
[2019-02-03] MEDS: OLANZAPINE 2.5 MG TAB GTB (08:15)
[2019-02-03] MEDS: AMLODIPINE 5 MG TAB GTB ×2 (08:15→21:12)
[2019-02-03] MEDS: DOCUSATE SODIUM 10 MG/ML (10ML CUP) GTB ×2 (08:15→21:12)
[2019-02-03] MEDS: FOLIC ACID 1 MG TAB GTB (08:16)
[2019-02-03] MEDS: LINAGLIPTIN 5 MG TABLET PO (08:16)
[2019-02-03] MEDS: ASCORBIC ACID 500 MG TAB GTB (08:16)
[2019-02-03] MEDS: BISACODYL 10 MG SUPP PR (12:46)
[2019-02-03] MEDS: MAGNESIUM CITRATE 300 ML BTL GTB (12:46)
[2019-02-03] MEDS: CASPOFUNGIN 50 MG in SOD CHLORIDE 0.9% 250 ML IVPB (17:25)
[2019-02-03] MEDS: LORAZEPAM 0.5 MG TAB GTB (21:10)
[2019-02-03] MEDS: ATORVASTATIN 40 MG TAB GTB (21:12)
[2019-02-04] MEDS: LANSOPRAZOLE 30 MG CAP GTB ×2 (06:19→17:42)
[2019-02-04] MEDS: LINAGLIPTIN 5 MG TABLET PO (08:16)
[2019-02-04] MEDS: OLANZAPINE 2.5 MG TAB GTB (08:16)
[2019-02-04] MEDS: FOLIC ACID 1 MG TAB GTB (08:16)
[2019-02-04] MEDS: ACCU-CHEK XX ×2 (08:16→21:07)
[2019-02-04] MEDS: ASCORBIC ACID 500 MG TAB GTB (08:16)
[2019-02-04] MEDS: METOPROLOL 50 MG TAB GTB ×2 (08:16→18:01)
[2019-02-04] MEDS: DOCUSATE SODIUM 10 MG/ML (10ML CUP) GTB ×2 (08:17→21:05)
[2019-02-04] MEDS: AMLODIPINE 5 MG TAB GTB ×2 (08:17→21:06)
[2019-02-04 09:32] LABS: ADD MAN DIFF? NO
[2019-02-04 09:34] LABS: WHITE BLOOD COUNT 9.1 10^3/ul (4.8-10.8)
[2019-02-04 09:34] LABS: ABNORMAL IP MESSAGE 1; BASOPHILS % 0.1 % (0.0-2.0); EOSINOPHILS # 0.6 10^3/ul (0.0-0.5); EOSINOPHILS % 6.8 % (0.0-7.0); HEMATOCRIT 21.5 % (37.0-47.0); LYMPHOCYTES # 1.1 10^3/ul (0.8-2.9); LYMPHOCYTES % 11.6 % (15.0-51.0); MEAN CORPUSCULAR HEMOGLOBIN 25.9 pg (29.0-33.0); MEAN CORPUSCULAR HGB CONC 31.6 g/dl (32.0-37.0); MEAN CORPUSCULAR VOLUME 81.7 fl (82.0-101.0); MEAN PLATELET VOLUME 11.6 fl (7.4-10.4); MONOCYTE # 0.8 10^3/ul (0.3-0.9); MONOCYTES % 8.8 % (0.0-11.0); NEUTROPHIL # 6.5 10^3/ul (1.6-7.5); NEUTROPHILS % 72.1 % (39.0-77.0); NUCLEATED RED BLOOD CELLS # 0.1 10^3/ul (0.0-0.0); NUCLEATED RED BLOOD CELLS% 0.6 /100WBC (0.0-0.0); PLATELET COUNT 279 10^3/UL (140-415); RED BLOOD COUNT 2.63 10^6/ul (4.20-5.40); RED CELL DISTRIBUTION WIDTH 16.8 % (11.5-14.5)
[2019-02-04 09:40] LABS: POSITIVE DIFF @See below
[2019-02-04 09:42] LABS: HEMOGLOBIN 6.8 g/dl (12.0-16.0)
[2019-02-04 09:56] LABS: PHOSPHORUS 3.7 mg/dl (2.5-4.9)
[2019-02-04 09:56] LABS: ANION GAP 4 (5-13); BLOOD UREA NITROGEN 49 mg/dl (7-20); CALCIUM 8.4 mg/dl (8.4-10.2); CARBON DIOXIDE 32 mmol/L (21-31); CHLORIDE 102 mmol/L (97-110); CREATININE 1.68 mg/dl (0.44-1.00); GLUCOSE 170 mg/dl (70-220); MAGNESIUM 2.8 mg/dl (1.7-2.5); POTASSIUM 3.1 mmol/L (3.5-5.1); SODIUM 138 mmol/L (135-144)
[2019-02-04 10:05] LABS: IMMEDIATE SPIN CROSSMATCH 1 1
[2019-02-04] MEDS: POTASSIUM CHLORIDE 20 MEQ POWDER FOR ORAL SOLN GTB (15:53)
[2019-02-04] MEDS: POTASSIUM CHLORIDE (SR) 20 MEQ TAB PO (16:09)
[2019-02-04] MEDS: EPOETIN ALFA-EPBX (ESRD) 4,000 UNIT/ML VIAL SC (17:43)
[2019-02-04] MEDS: ATORVASTATIN 40 MG TAB GTB (21:05)
[2019-02-04] MEDS: LORAZEPAM 0.5 MG TAB GTB (22:35)
[2019-02-04] MEDS: DIPHENHYDRAMINE 2.5 MG/ML 5ML CUP GTB (23:20)
[2019-02-05] MEDS: LANSOPRAZOLE 30 MG CAP GTB ×2 (05:36→17:35)
[2019-02-05 07:49] LABS: ADD MAN DIFF? NO
[2019-02-05 07:51] LABS: BASOPHILS % 0.3 % (0.0-2.0); EOSINOPHILS # 0.7 10^3/ul (0.0-0.5); EOSINOPHILS % 7.8 % (0.0-7.0); HEMATOCRIT 27.6 % (37.0-47.0); HEMOGLOBIN 8.8 g/dl (12.0-16.0); LYMPHOCYTES # 0.9 10^3/ul (0.8-2.9); LYMPHOCYTES % 10.4 % (15.0-51.0); MEAN CORPUSCULAR HEMOGLOBIN 26.6 pg (29.0-33.0); MEAN CORPUSCULAR HGB CONC 31.9 g/dl (32.0-37.0); MEAN CORPUSCULAR VOLUME 83.4 fl (82.0-101.0); MONOCYTE # 0.9 10^3/ul (0.3-0.9); MONOCYTES % 9.9 % (0.0-11.0); NEUTROPHIL # 6.2 10^3/ul (1.6-7.5); NUCLEATED RED BLOOD CELLS # 0.1 10^3/ul (0.0-0.0); NUCLEATED RED BLOOD CELLS% 0.8 /100WBC (0.0-0.0); PLATELET COUNT 253 10^3/UL (140-415); RED BLOOD COUNT 3.31 10^6/ul (4.20-5.40); RED CELL DISTRIBUTION WIDTH 16.1 % (11.5-14.5)
[2019-02-05 07:51] LABS: WHITE BLOOD COUNT 8.8 10^3/ul (4.8-10.8)
[2019-02-05 08:11] LABS: ANION GAP 4 (5-13); BLOOD UREA NITROGEN 30 mg/dl (7-20); CALCIUM 8.1 mg/dl (8.4-10.2); CARBON DIOXIDE 32 mmol/L (21-31); CHLORIDE 99 mmol/L (97-110); CREATININE 1.23 mg/dl (0.44-1.00); GLUCOSE 117 mg/dl (70-220); POTASSIUM 3.5 mmol/L (3.5-5.1); SODIUM 135 mmol/L (135-144)
[2019-02-05 08:13] LABS: MAGNESIUM 2.6 mg/dl (1.7-2.5)
[2019-02-05 08:13] LABS: PHOSPHORUS 2.1 mg/dl (2.5-4.9)
[2019-02-05] MEDS: DOCUSATE SODIUM 10 MG/ML (10ML CUP) GTB ×2 (08:23→20:21)
[2019-02-05] MEDS: ASCORBIC ACID 500 MG TAB GTB (08:23)
[2019-02-05] MEDS: AMLODIPINE 5 MG TAB GTB ×2 (08:24→20:20)
[2019-02-05] MEDS: OLANZAPINE 2.5 MG TAB GTB (08:24)
[2019-02-05] MEDS: FOLIC ACID 1 MG TAB GTB (08:25)
[2019-02-05] MEDS: METOPROLOL 50 MG TAB GTB ×2 (08:25→20:17)
[2019-02-05] MEDS: LINAGLIPTIN 5 MG TABLET PO (08:25)
[2019-02-05] MEDS: ACCU-CHEK XX ×2 (08:28→20:24)
[2019-02-05] MEDS: ATORVASTATIN 40 MG TAB GTB (20:16)
[2019-02-05] MEDS: LORAZEPAM 0.5 MG TAB GTB (23:32)
[2019-02-06] MEDS ORDERED: hydrALAzine 20 MG INJ IV (04:00)
[2019-02-06] MEDS: LANSOPRAZOLE 30 MG CAP GTB ×2 (06:27→17:06)
[2019-02-06] MEDS: ACCU-CHEK XX ×2 (09:30→21:00)
[2019-02-06] MEDS: OLANZAPINE 2.5 MG TAB GTB (12:39)
[2019-02-06] MEDS: FOLIC ACID 1 MG TAB GTB (12:39)
[2019-02-06] MEDS: DOCUSATE SODIUM 10 MG/ML (10ML CUP) GTB ×2 (12:39→20:27)
[2019-02-06] MEDS: METOPROLOL 50 MG TAB GTB ×2 (12:40→20:28)
[2019-02-06] MEDS: LINAGLIPTIN 5 MG TABLET PO (12:40)
[2019-02-06] MEDS: AMLODIPINE 5 MG TAB GTB ×2 (12:40→20:32)
[2019-02-06] MEDS: ASCORBIC ACID 500 MG TAB GTB (12:40)
[2019-02-06] MEDS: ACETAMINOPHEN 650MG/20.3ML CUP GTB (15:51)
[2019-02-06] MEDS: EPOETIN ALFA-EPBX (ESRD) 4,000 UNIT/ML VIAL SC (17:08)
[2019-02-06] MEDS: ATORVASTATIN 40 MG TAB GTB (20:27)
[2019-02-07] MEDS: LORAZEPAM 0.5 MG TAB GTB (01:20)
[2019-02-07] MEDS: LANSOPRAZOLE 30 MG CAP GTB ×2 (05:30→17:10)
[2019-02-07] MEDS: FOLIC ACID 1 MG TAB GTB (08:42)
[2019-02-07] MEDS: OLANZAPINE 2.5 MG TAB GTB (08:42)
[2019-02-07] MEDS: AMLODIPINE 5 MG TAB GTB ×2 (08:42→21:06)
[2019-02-07] MEDS: DOCUSATE SODIUM 10 MG/ML (10ML CUP) GTB ×2 (08:42→21:04)
[2019-02-07] MEDS: METOPROLOL 50 MG TAB GTB ×2 (08:43→21:06)
[2019-02-07] MEDS: ASCORBIC ACID 500 MG TAB GTB (08:43)
[2019-02-07] MEDS: LINAGLIPTIN 5 MG TABLET PO (08:43)
[2019-02-07] MEDS: ACCU-CHEK XX ×2 (08:49→21:00)
[2019-02-07] MEDS: ATORVASTATIN 40 MG TAB GTB (21:05)
[2019-02-08] MEDS: LANSOPRAZOLE 30 MG CAP GTB ×2 (05:56→17:37)
[2019-02-08 07:30] LABS: ADD MAN DIFF? NO
[2019-02-08 07:32] LABS: BASOPHILS % 0.2 % (0.0-2.0); EOSINOPHILS # 0.7 10^3/ul (0.0-0.5); HEMATOCRIT 32.2 % (37.0-47.0); HEMOGLOBIN 10.1 g/dl (12.0-16.0); LYMPHOCYTES % 11.8 % (15.0-51.0); MEAN CORPUSCULAR HEMOGLOBIN 25.8 pg (29.0-33.0); MEAN CORPUSCULAR HGB CONC 31.4 g/dl (32.0-37.0); MEAN CORPUSCULAR VOLUME 82.4 fl (82.0-101.0); MEAN PLATELET VOLUME 11.3 fl (7.4-10.4); MONOCYTE # 0.8 10^3/ul (0.3-0.9); MONOCYTES % 8.9 % (0.0-11.0); NEUTROPHILS % 70.5 % (39.0-77.0); NUCLEATED RED BLOOD CELLS% 0.5 /100WBC (0.0-0.0); PLATELET COUNT 252 10^3/UL (140-415); RED BLOOD COUNT 3.91 10^6/ul (4.20-5.40); RED CELL DISTRIBUTION WIDTH 16.6 % (11.5-14.5)
[2019-02-08 07:32] LABS: WHITE BLOOD COUNT 8.5 10^3/ul (4.8-10.8)
[2019-02-08 07:47] LABS: ANION GAP 6 (5-13); BLOOD UREA NITROGEN 43 mg/dl (7-20); CARBON DIOXIDE 25 mmol/L (21-31); CHLORIDE 105 mmol/L (97-110); CREATININE 1.59 mg/dl (0.44-1.00); GLUCOSE 123 mg/dl (70-220); POTASSIUM 4.2 mmol/L (3.5-5.1); SODIUM 136 mmol/L (135-144)
[2019-02-08 07:54] LABS: MAGNESIUM 2.3 mg/dl (1.7-2.5)
[2019-02-08 07:54] LABS: PHOSPHORUS 3.4 mg/dl (2.5-4.9)
[2019-02-08] MEDS: ASCORBIC ACID 500 MG TAB GTB (08:30)
[2019-02-08] MEDS: FOLIC ACID 1 MG TAB GTB (08:30)
[2019-02-08] MEDS: LINAGLIPTIN 5 MG TABLET PO (08:30)
[2019-02-08] MEDS: OLANZAPINE 2.5 MG TAB GTB (08:30)
[2019-02-08] MEDS: ACCU-CHEK XX ×2 (08:30→20:32)
[2019-02-08] MEDS: METOPROLOL 50 MG TAB GTB ×2 (08:30→20:28)
[2019-02-08] MEDS: DOCUSATE SODIUM 10 MG/ML (10ML CUP) GTB ×2 (08:30→20:27)
[2019-02-08] MEDS: AMLODIPINE 5 MG TAB GTB ×2 (08:30→20:28)
[2019-02-08] MEDS: DEXTROSE 5%-0.45% NACL 1,000 ML IV ×2 (09:30→17:39)
[2019-02-08 16:23] LABS: HEPATITIS B CORE ANTIBODY REACTIVE (NEGATIVE)
[2019-02-08] MEDS: EPOETIN ALFA-EPBX (ESRD) 4,000 UNIT/ML VIAL SC (17:40)
[2019-02-08] MEDS: ATORVASTATIN 40 MG TAB GTB (20:27)
[2019-02-08] MEDS: hydrALAzine 20 MG INJ IV (20:27)
[2019-02-08] MEDS: morphine 2 MG INJ IV (21:30)
[2019-02-09] MEDS: hydrALAzine 20 MG INJ IV (02:01)
[2019-02-09] MEDS: morphine 2 MG INJ IV (03:30)
[2019-02-09] MEDS: LANSOPRAZOLE 30 MG CAP GTB ×2 (06:00→18:11)
[2019-02-09] MEDS: AMLODIPINE 5 MG TAB GTB ×2 (09:00→20:41)
[2019-02-09] MEDS: ACCU-CHEK XX ×2 (09:00→20:41)
[2019-02-09] MEDS: FOLIC ACID 1 MG TAB GTB (09:00)
[2019-02-09] MEDS: METOPROLOL 50 MG TAB GTB ×2 (09:00→20:41)
[2019-02-09] MEDS: ASCORBIC ACID 500 MG TAB GTB (09:00)
[2019-02-09] MEDS: OLANZAPINE 2.5 MG TAB GTB (09:00)
[2019-02-09] MEDS: LINAGLIPTIN 5 MG TABLET PO (09:00)
[2019-02-09] MEDS: DOCUSATE SODIUM 10 MG/ML (10ML CUP) GTB ×2 (09:00→20:40)
[2019-02-09] MEDS: DEXTROSE 5%-0.45% NACL 1,000 ML IV (09:30)
[2019-02-09] MEDS ORDERED: hydrOXYzine HCL 25 MG TAB GTB (15:00)
[2019-02-09] MEDS ORDERED: PROPOFOL 200 MG INJ (16:12)
[2019-02-09] MEDS: PROPOFOL 40 ML (16:12)
[2019-02-09] MEDS: LIDOCAINE 2% (SDV) 5 ML INJ (16:12)
[2019-02-09] MEDS: ATORVASTATIN 40 MG TAB GTB (20:41)
[2019-02-09] MEDS: DIPHENHYDRAMINE 2.5 MG/ML 5ML CUP GTB (20:41)
[2019-02-09] MEDS: ACETAMINOPHEN 650MG/20.3ML CUP GTB (20:42)
[2019-02-10] MEDS: LANSOPRAZOLE 30 MG CAP GTB ×2 (05:06→17:57)
[2019-02-10] MEDS: AMLODIPINE 5 MG TAB GTB ×2 (08:38→20:39)
[2019-02-10] MEDS: METOPROLOL 50 MG TAB GTB ×2 (08:38→20:38)
[2019-02-10] MEDS: DOCUSATE SODIUM 10 MG/ML (10ML CUP) GTB ×2 (08:38→20:38)
[2019-02-10] MEDS: LINAGLIPTIN 5 MG TABLET PO (08:38)
[2019-02-10] MEDS: FOLIC ACID 1 MG TAB GTB (08:38)
[2019-02-10] MEDS: OLANZAPINE 2.5 MG TAB GTB (08:38)
[2019-02-10] MEDS: LORAZEPAM 0.5 MG TAB GTB (08:38)
[2019-02-10] MEDS: ASCORBIC ACID 500 MG TAB GTB (08:38)
[2019-02-10] MEDS: ACCU-CHEK XX ×2 (08:45→20:49)
[2019-02-10] MEDS: morphine 2 MG INJ IV (17:57)
[2019-02-10] MEDS: ATORVASTATIN 40 MG TAB GTB (20:38)
[2019-02-10] MEDS: CARISOPRODOL 350 MG TAB GTB (20:56)
[2019-02-10] MEDS: hydrALAzine 20 MG INJ IV (22:21)
[2019-02-10] MEDS ORDERED: ACETAMINOPHEN 500 MG TAB PO ×2 (22:30)
[2019-02-10] MEDS: POLYETHYLENE GLYCOL 17 GM PACKET GTB (22:30)
[2019-02-10] MEDS ORDERED: METOCLOPRAMIDE 5 MG TAB GTB (22:30)
[2019-02-10] MEDS: ALBUTEROL/IPRATROPIUM (NEB) 3 ML AMP NEB (23:00)
[2019-02-10] MEDS: DIPHENHYDRAMINE 2.5 MG/ML 5ML CUP GTB (23:43)
[2019-02-11] MEDS: ALBUTEROL/IPRATROPIUM (NEB) 3 ML AMP NEB ×3 (01:20→14:00)
[2019-02-11] MEDS: LANSOPRAZOLE 30 MG CAP GTB ×2 (05:00→17:19)
[2019-02-11] MEDS ORDERED: PANTOPRAZOLE (EC) 40 MG TAB PO (07:05)
[2019-02-11] MEDS: ACCU-CHEK XX (10:00)
[2019-02-11] MEDS: OLANZAPINE 2.5 MG TAB GTB (13:42)
[2019-02-11] MEDS: QUETIAPINE 25 MG TAB PO (13:42)
[2019-02-11] MEDS: ASCORBIC ACID 500 MG TAB GTB (13:42)
[2019-02-11] MEDS: SENNA TAB PO (13:42)
[2019-02-11] MEDS: AMLODIPINE 5 MG TAB GTB (13:43)
[2019-02-11] MEDS: DOCUSATE SODIUM 10 MG/ML (10ML CUP) GTB (13:43)
[2019-02-11] MEDS: CARISOPRODOL 350 MG TAB GTB ×2 (13:43→14:19)
[2019-02-11] MEDS: FOLIC ACID 1 MG TAB GTB (13:44)
[2019-02-11] MEDS: METOPROLOL 50 MG TAB GTB (13:44)
[2019-02-11] MEDS: METOPROLOL 50 MG TAB PO (13:45)
[2019-02-11] MEDS: BISACODYL 10 MG SUPP PR (14:00)
[2019-02-11] MEDS: LINAGLIPTIN 5 MG TABLET PO (14:00)
[2019-02-11] MEDS: EPOETIN ALFA-EPBX (ESRD) 4,000 UNIT/ML VIAL SC (17:26)
[2019-02-11] MEDS ORDERED: INSULIN GLARGINE [LANTus] (100 UNITS/ML) SYG SC (21:00)
== END 2019-02-11 17:58 | disposition hospice, home (50) | DRG 252 ==
LOC: 5EC 12-21 22:18 → 6WM 12-29 10:29 → 5EC 01-14 12:26 → ICU 02-10 21:18 → E/R 21:02 → 6WM 12-08 01:01 → 5EC 02-10 23:40 → 6WM 12-29 17:58
PROVIDERS: Internal Medicine
PROC: 03723ZZ Dilation of Innominate Artery, Percutaneous Approach (ICD-10-PCS; principal; 2018-12-13 07:04)
PROC: 027V3ZZ Dilation of Superior Vena Cava, Percutaneous Approach (ICD-10-PCS; 2018-12-13 07:04)
PROC: 30233N1 Transfusion of Nonautologous Red Blood Cells into Peripheral Vein, Percutaneous Approach (ICD-10-PCS; 2018-12-13 07:04)
PROC: B518YZZ Fluoroscopy of Superior Vena Cava using Other Contrast (ICD-10-PCS; 2018-12-13 07:04)
PROC: 05PYX3Z Removal of Infusion Device from Upper Vein, External Approach (ICD-10-PCS; 2018-12-13 07:04)
PROC: 02H633Z Insertion of Infusion Device into Right Atrium, Percutaneous Approach (ICD-10-PCS; 2018-12-13 07:04)
PROC: 0D20XUZ Change Feeding Device in Upper Intestinal Tract, External Approach (ICD-10-PCS; 2018-12-13 07:04)
PROC: 5A09557 Assistance with Respiratory Ventilation, Greater than 96 Consecutive Hours, Continuous Positive Airway Pressure (ICD-10-PCS; 2018-12-13 07:04)
DX: T80.211A Bloodstream infection due to central venous catheter, initial encounter (principal); A41.9 Sepsis, unspecified organism; N18.6 End stage renal disease; E43 Unspecified severe protein-calorie malnutrition; J69.0 Pneumonitis due to inhalation of food and vomit; J96.01 Acute respiratory failure with hypoxia; B37.49 Other urogenital candidiasis; I13.2 Hypertensive heart and chronic kidney disease with heart failure and with stage 5 chronic kidney disease, or end stage renal disease; I50.32 Chronic diastolic (congestive) heart failure; R64 Cachexia; Z68.1 Body mass index [BMI] 19.9 or less, adult; E87.2 Acidosis; K94.23 Gastrostomy malfunction; N39.0 Urinary tract infection, site not specified; T82.838A Hemorrhage due to vascular prosthetic devices, implants and grafts, initial encounter; D62 Acute posthemorrhagic anemia; J44.9 Chronic obstructive pulmonary disease, unspecified; E11.22 Type 2 diabetes mellitus with diabetic chronic kidney disease; Z99.2 Dependence on renal dialysis; Z93.1 Gastrostomy status; G40.909 Epilepsy, unspecified, not intractable, without status epilepticus; F03.90 Unspecified dementia, unspecified severity, without behavioral disturbance, psychotic disturbance, mood disturbance, and anxiety; F20.9 Schizophrenia, unspecified; F41.9 Anxiety disorder, unspecified; R13.10 Dysphagia, unspecified; I48.91 Unspecified atrial fibrillation; E78.5 Hyperlipidemia, unspecified; D63.1 Anemia in chronic kidney disease; M19.91 Primary osteoarthritis, unspecified site; B95.2 Enterococcus as the cause of diseases classified elsewhere; Z87.440 Personal history of urinary (tract) infections; Y84.9 Medical procedure, unspecified as the cause of abnormal reaction of the patient, or of later complication, without mention of misadventure at the time of the procedure; F01.50 Vascular dementia, unspecified severity, without behavioral disturbance, psychotic disturbance, mood disturbance, and anxiety; R62.7 Adult failure to thrive; Z66 Do not resuscitate; S03.03XA Dislocation of jaw, bilateral, initial encounter; X58.XXXA Exposure to other specified factors, initial encounter
CPT/HCPCS: 36415; 36430; 36600; 36907; 37248; 70486; 71045; 73550; 80048; 80053; 80202; 81001; 82270; 82607; 82728; 82746; 82803; 82962; 83540; 83605; 83735; 84100; 84484; 85018; 85025; 85045; 85610; 85730; 86704; 86850; 86900; 86901; 86920; 87040-91; 87045; 87081; 87086; 87340; 90935; 93005; 93308; 93971; 94640; 94660; 94664; 97110; 97163; 97166; 97530; 99285-25